=== PATIENT | female | born 1940 | race Caucasian/White ===

== ENCOUNTER → 2016-11-04 | Outpatient (CLI) | payer OTHER | LOC: CIMAGING 08:05 | DX: Z12.31 Encounter for screening mammogram for malignant neoplasm of breast (principal) | CPT/HCPCS: G0202 ==

== ENCOUNTER 2017-04-20 09:14 | Day surgery (SDC) | payer OTHER ==
[2017-04-20] MEDS ORDERED: fentaNYL 100 MCG/2 ML INJ IVP ONE (09:22)
[2017-04-20] MEDS ORDERED: FAMOTIDINE 20 MG TAB PO ONE (09:22)
[2017-04-20] MEDS ORDERED: BENZOCAINE UNIT DOSE SPRAY HURRICAINE MM ONE (09:22)
[2017-04-20] MEDS ORDERED: ASPIRIN EC 325 MG TAB PO ONE (09:22)
[2017-04-20] MEDS ORDERED: DIAZEPAM 5 MG TAB PO ONE (09:22)
[2017-04-20] MEDS ORDERED: MIDAZOLAM 2 MG/2 ML VIAL IVP ONE (09:22)
[2017-04-20] MEDS ORDERED: diphenhydrAMINE 25 MG CAP PO ONE (09:22)
[2017-04-20] MEDS ORDERED: NS 1,000 ML IV ONE (09:22)
--- NOTE | 2017-04-20 09:51 | CPEKG ---
Heart Rate: 63 RR Interval: 952 P-R Interval: 176 QRSD Interval: 108 QT Interval: 436 QTC Interval: 447 P [place]: 67 QRS [place]: -43 T Wave [place]: 41 EKG Severity - ABNORMAL ECG - EKG Impression: SINUS RHYTHM EKG Impression: LEFT ANTERIOR FASCICULAR BLOCK Electronically Signed By: Ignacio Amezcua 20-Apr-2017 11:25:24
[2017-04-20 10:11] LABS: % IMMATURE GRANULYOCYTES 0.4 % (0.0-1.1); ABSOLUTE IMMATURE GRANULOCYTES 0.02 10^3/uL (0.00-0.10); ADD DIFF? NO; ADD MORPH? NO; ADD SCAN? NO; ATYPICAL LYMPHOCYTE FLAG 0 (0-99); FRAGMENT RBC FLAG 0 (0-99); HEMATOCRIT 40.3 % (38.0-47.0); HEMOGLOBIN 13.6 g/dL (12.6-16.3); LEFT SHIFT FLG 0 (0-99); LIPEMIA HEMOLYSIS FLAG 80 (0-99); MEAN CELL HEMOGLOBIN 31.1 pg (27.9-34.1); MEAN CELL HEMOGLOBIN CONCENTR. 33.7 g/dL (32.4-36.7); MEAN PLATELET VOLUME 10.1 fL (8.7-11.7); PLATELET CLUMPS FLAG 0 (0-99); PLATELET COUNT 184 10^3/uL (150-400); RED BLOOD CELL COUNT 4.38 10^6/uL (4.18-5.33); RED CELL DISTRIBUTION WIDTH 12.8 % (11.5-15.2)
[2017-04-20 10:26] LABS: ANION GAP 7 mEq/L (8-16); CALCIUM 10.5 mg/dL (8.5-10.4); CARBON DIOXIDE 27 mEq/l (22-31); CHLORIDE 102 mEq/L (97-110); CHOLESTEROL 126 mg/dL (140-220); CHOLESTEROL/HDL RATIO 2.63 RATIO (1.00-4.44); CREATININE 0.9 mg/dL (0.6-1.0); GLOMERULAR FILTRATION RATE > 60; GLUCOSE 93 mg/dL (70-100); HIGH DENSITY LIPOPROTEIN 48 mg/dL (40-85); LDL/HDL RATIO 1.29 RATIO (1.00-3.22); LOW DENSITY LIPOPROTEIN 62 mg/dL (80-100); NON-HIGH DENSITY LIPOPROTEIN 78 mg/dL (90-129); SODIUM 136 mEq/L (134-144); TRIGLYCERIDE 81 mg/dL (35-135); VERY LOW DENSITY LIPOPROTEINS 16 mg/dL (8-25)
[2017-04-20 10:31] LABS: INR 1.09 (0.83-1.16)
[2017-04-20] MEDS ORDERED: PROPOFOL 200 MG/20 ML VIAL ONE (10:34)
--- NOTE | 2017-04-20 10:35 | PDHPUP ---
History & Physical Update H&P update statement: This history and physical update is based on an assessment of the patient which was completed after admission or registration (within 24 hours), but prior to the surgery/procedure. H&P update: H&P reviewed & patient examined, no change in patient's condition since H&P completed
[2017-04-20] MEDS ORDERED: fentaNYL 100 MCG/2 ML INJ ONE (10:36)
[2017-04-20] MEDS ORDERED: IOPAMIDOL (ISOVUE-370) 150 ML BTL IV ONE (10:36)
[2017-04-20] MEDS ORDERED: LIDOCAINE 1% 300 MG/30 ML SDV ONE (10:36)
[2017-04-20] MEDS ORDERED: MIDAZOLAM 2 MG/2 ML VIAL ONE (10:36)
--- NOTE | 2017-04-20 10:36 | PDPROPOC ---
Sedation Plan of Care Sedation Plan of Care: vital signs stable, mental status noted, patient educated of risks, benefits, alternatives ASA Classification: ASA 2 (Anesthesia servcie to provide sedation.) Mallampati Reference Image:
[2017-04-20] MEDS ORDERED: NALOXONE HCL 0.4 MG/ML INJ IVP PRN (10:56)
[2017-04-20] MEDS ORDERED: ONDANSETRON 4 MG/2 ML VIAL IVP PRN ×2 (10:56→12:14)
--- NOTE | 2017-04-20 10:56 | PDANEPAE ---
ANE Past Medical History - Cardiovascular History Hx Hypertension: Yes Hx Coronary Artery / Peripheral Vascular Disease: Yes Hx CHF / Valvular Disease: Yes - Pulmonary History Hx Sleep Apnea: No - Endocrine History Hx Diabetes: No - Chronic Pain History Chronic Pain: No ANE Review of Systems Review of Systems: ANE Patient History - Allergies Allergies/Adverse Reactions: NSAIDS (Non-Steroidal Anti-Inflamma Allergy (Verified 05/20/14 12:15) Sulfa (Sulfonamide Antibiotics) Allergy (Verified 05/20/14 12:15) - Home Medications Home Medications: Carisoprodol [Soma (*)] 350 mg PO DAILY PRN 04/03/14 [Last Taken 1 Month Ago ~] Cholecalciferol Vit D3 [Vitamin D3 (*)] 7,000 units PO DAILY 04/03/14 [Last Taken 04/19/17] Herbals/Supplements -Info Only 1 ea PO DAILY 04/03/14 [Last Taken 04/02/14] [place]-3 Fatty Acids [Fish Oil 1000 mg (*)] 2,000 mg PO BID 04/03/14 [Last Taken 04/19/17 09:00] traMADol [Ultram 50 mg (*)] 50 mg PO Q4 PRN 04/03/14 [Last Taken 2 Weeks Ago ~] Furosemide [Lasix 40 MG (*)] 40 mg PO DAILY 04/25/14 [Last Taken 04/19/17] Potassium Cl [Klor-Con 10 meq (RX)] 10 meq PO DAILY 04/25/14 [Last Taken ] Atorvastatin Calcium [Lipitor 10 mg (*)] 10 mg PO DAILY 04/20/17 [Last Taken ] Glucosamine/Chondroitin [Glucosamine/Chondroitin (*)] 1 each PO DAILY 04/20/17 [ Last Taken 04/19/17] - Smoking Hx Smoking Status: Former smoker ANE Labs/Vital Signs - Labs Result Diagrams: 04/20/17 10:03 04/20/17 10:03 - Vital Signs Height: 161.5 cm Weight: 90 kg ANE Physical Exam - Airway Mallampati Score: Class 2 - ASA Status ASA Status: III ANE Anesthesia Plan Total IV Anesthesia: Yes
--- NOTE | 2017-04-20 11:03 | PDGENHP ---
History & Physical Chief Complaint: Dyspnea on exertion History of Present Illness: Has h/o CAD and MR; has NYHA class II to III CHF symptoms. Discussed JEOVANNY/R&L heart cath at last office visit as a prelude to probable referral to CT surgery. Pertinent Past, Social, Family History: PMH is detailed in office note from on chart. Relevant Physical Exam: RRR w/o murmur; lungs CTA; no edema
--- NOTE | 2017-04-20 12:00 | PDDXCAT ---
Diagnostic Cath Note - . Date: 04/20/17 Virology Teacher: Avinash Indication: other (CAD with prior IL and circumflex PCI, mitral regurgitation, and NYHA class II to III CHF.) - Procedure Access: right groin Procedure: left heart catheterization, coronary angiography, left ventriculogram , right heart catheterization - Materials Left Heart Cath size: 6F Left Heart Cath materials: standard multipack (JL4, JR4, pigtail) Right Heart Cath size: 7F Right Heart Cath materials: PWP catheter - Findings-Left Heart Catheterization LM: Normal. LAD: Diffuse moderrate disease proximal to mid-vessel with focal mid-LAD 60 to 70%. LCX: Proximal 80% in-stent restenosis lesion; o/w mild irregularities. RCA: Mild to moderate irrregularities. EDP: 16 mmHg LVEF: 40% with significant mitral regurgitation. Wall motion: Inferobasilar and posterior akinesis. - Findings-Right Heart Catheterization RA: 12 mmHg RV: 36/12 mmHg PA: 38/10/24 mmHg O2 sat 79.3% PAOP: 20 mmHg AO: 102/44/66 mmHg O2 sat 98.7% CO: 4.58 L/min CI: 2.36 L/min/sq mtr Complications: None Estimated blood loss: <50ml Closure method: manual pressure Assessment: 1) Ischemic cardiomyopathy with mildly to moderately reduced LV systolic function. 2) Coronary artery disease as described above. 3) Severe mitral regurgitation based on left ventriculography and a JEOVANNY performed immediately prior to this procedure. Plan: The patient's clinical history and imaging studies will be presented at our next weekly case conference. I anticipate that she will be referred for mitral valve repair/replacement and coronary bypass grafting. Patient Problems: Problems Problem Status Onset Cardiomyopathy, ischemic Acute Chest pain Acute Chronic Disease Mgmt/Transitional Care Acute Coronary artery disease Acute Myocardial infarction, inferolateral, acute, initial episode Acute Systolic CHF, acute Acute
[2017-04-20] MEDS ORDERED: ATROPINE SULFATE 1 MG/10 ML SYR IVP PRN (12:14)
[2017-04-20] MEDS ORDERED: NITROGLYCERIN 0.4 MG BTL SL PRN (12:14)
[2017-04-20] MEDS ORDERED: HYDROCODONE/APAP 5/325 TAB PO PRN (12:14)
== END 2017-04-20 18:41 | disposition home or self-care (01) ==
LOC: FCATH 09:14
PROVIDERS: ATTEND Internal Medicine Interventional Cardiology
PROC: B245ZZ4 Ultrasonography of Left Heart, Transesophageal (ICD-10-PCS; principal; 2017-04-20)
PROC: B2111ZZ Fluoroscopy of Multiple Coronary Arteries using Low Osmolar Contrast (ICD-10-PCS; principal; 2017-04-20)
PROC: B2151ZZ Fluoroscopy of Left Heart using Low Osmolar Contrast (ICD-10-PCS; principal; 2017-04-20)
PROC: 4A023N8 Measurement of Cardiac Sampling and Pressure, Bilateral, Percutaneous Approach (ICD-10-PCS; principal; 2017-04-20)
DX: I25.10 Atherosclerotic heart disease of native coronary artery without angina pectoris (principal); I34.0 Nonrheumatic mitral (valve) insufficiency; I25.5 Ischemic cardiomyopathy; T82.855A Stenosis of coronary artery stent, initial encounter; I50.9 Heart failure, unspecified; I25.2 Old myocardial infarction; Z95.5 Presence of coronary angioplasty implant and graft
CPT/HCPCS: J1644; J2250; J2704; J3010; Q9967

== ENCOUNTER 2017-05-14 07:15 | Inpatient (IN) | payer OTHER ==
[~2017-05-14 07:15] MED LIST: ADENOSINE 6 MG/2 ML VIAL ONE; ALBUMIN 5% 250 ML BOTTLE IV ONE; AMINOCAPROIC ACID 5 GM/20 ML VIAL IV ONE; AMINOCAPROIC ACID 5 GM/20 ML VIAL ONE; AMIODARONE HCL 150 MG/3 ML VIAL ONE; CALCIUM CHLORIDE 1 GM/10 ML INJ ONE; CHLORHEXIDINE GLUC HIBICLENS 118 ML BTL TP SCH; CITRATE DEXTROSE SOLN 500 ML BAG MISC ONE; CITRATE DEXTROSE SOLN 500 ML BAG ONE; DOBUTamine/DEXTROSE 250 ML IV SCH; DOPamine/DEXTROSE/250 ML BAG IV ONE; HEPARIN 10,000 UNIT/10 ML MDV ONE; INSULIN REGULAR HUMAN 100 UNIT in NS 100 ML IV ONE; LIDOCAINE 2% 100 MG/5 ML SYR ONE; MAGNESIUM SULFATE 1 GM/2 ML VIAL ONE; MANNITOL 25% 12.5 GM/50 ML VIAL IV ONE; MILRINONE/DEXTROSE/100 ML BAG IV ONE; MUPIROCIN 2% 22 GM OINT NS ONE; NA BICARBONATE 50 MEQ/50 ML VIAL ONE; NOREPINEPHRINE BITARTRATE 16 MG in NS 250 ML IV ONE; PHENYLEPHRINE HCL 50 MG in NS 250 ML IV ONE; POTASSIUM Cl (KCl) 20 MEQ/50 ML BAG IV ONE; PROTAMINE SULFATE 50 MG/5 ML VIAL IVP ONE; SODIUM BICARBONATE 20 MEQ, LIDOCAINE 1% 10 ML in NORMOSOL-R 1,000 ML MISC ONE; VERAPAMIL 5 MG, NITROGLYCERIN 2.5 MG, HEPARIN 500 UNIT, SODIUM BICARBONATE 0.2 MEQ in L... MISC ONE; ceFAZolin 1 GM VIAL ONE; ceFAZolin 2 GM/SWFI 2 GM/20 ML SYR IVP ONE; methylPREDNISolone SOD SUCC 1 GM/8 ML VIAL ONE; niCARdipine/NACL 200 ML IV SCH; niCARdipine/NACL/200 ML BAG IV ONE
[2017-05-14] MEDS ORDERED: LIDOCAINE 1% 2 ML INJ ID PRN (10:49)
[2017-05-14] MEDS ORDERED: LR 1,000 ML IV ONE (10:49)
[2017-05-14] MEDS ORDERED: ROCURONIUM 100 MG/10 ML VIAL ONE (11:12)
[2017-05-14] MEDS ORDERED: LIDOCAINE 2% 5 ML SDV ONE (11:12)
[2017-05-14] MEDS ORDERED: ceFAZolin 2 GM/SWFI 20 ML SYR IVP ONE ×2 (11:15→11:45)
[2017-05-14] MEDS ORDERED: PROPOFOL 200 MG/20 ML VIAL ONE (11:16)
[2017-05-14] MEDS ORDERED: fentaNYL 250 MCG/5 ML INJ ONE ×2 (11:16)
[2017-05-14] MEDS ORDERED: PAPAVERINE HCL 60 MG/2 ML SDV ONE (11:22)
[2017-05-14] MEDS ORDERED: MINERAL OIL 10 ML VIAL ONE (11:22)
[2017-05-14] MEDS ORDERED: VERAPAMIL 5 MG/2 ML VIAL ONE (11:22)
--- NOTE | 2017-05-14 11:34 | PDHPUP ---
History & Physical Update H&P update statement: This history and physical update is based on an assessment of the patient which was completed after admission or registration (within 24 hours), but prior to the surgery/procedure.
[2017-05-14] MEDS ORDERED: MIDAZOLAM 2 MG/2 ML VIAL ONE (11:37)
[2017-05-14] MEDS ORDERED: MIDAZOLAM 2 MG/2 ML VIAL IVP ONE (11:41)
--- NOTE | 2017-05-14 11:41 | PDANEPAE ---
ANE History of Present Illness cab, mvr ANE Past Medical History - Cardiovascular History Hx Hypertension: Yes Hx Arrhythmias: No Hx Chest Pain: No Hx Coronary Artery / Peripheral Vascular Disease: Yes Hx CHF / Valvular Disease: Yes Cardiovascular History Comment: [facility] 2013-no chest pain w/VA - Pulmonary History Hx COPD: No Hx Asthma/Reactive Airway Disease: No Hx Recent Upper Respiratory Infection: No Hx Oxygen in Use at Home: No Hx Sleep Apnea: No Sleep Apnea Screening Result - Last Documented: Negative Pulmonary History Comment: can be SOB w/activity - Neurologic History Hx Cerebrovascular Accident: No Hx Seizures: No Hx Dementia: No - Endocrine History Hx Diabetes: No - Renal History Hx Renal Disorders: No - Liver History Hx Hepatic Disorders: No - Neurological & Psychiatric Hx Hx Neurological and Psychiatric Disorders: Yes Neurological / Psychiatric History Comment: low back pain-chronic - Cancer History Hx Cancer: No - Congenital Disorder History Hx Congenital Disorders: No - GI History Hx Gastrointestinal Disorders: Yes Gastrointestinal History Comment: on Protonix to protect stomach - Other Health History Other Health History: toenail fungus- uses topical tx. Sternum broken ~10 yrs ago. - Chronic Pain History Chronic Pain: No - Surgical History Prior Surgeries: mastoidectomy - at 8 mos of age. bunion sx . carpal kim '. cardiac cath 2016 ANE Review of Systems Review of Systems: - Exercise capacity METS (RN): 3 METS ANE Patient History - Allergies Allergies/Adverse Reactions: NSAIDS (Non-Steroidal Anti-Inflamma Allergy (Verified 05/13/17 13:58) Other-Enter Comments Sulfa (Sulfonamide Antibiotics) Allergy (Verified 05/13/17 13:58) Unknown - Home Medications Home Medications: Carisoprodol [Soma (*)] 350 mg PO DAILY PRN 04/03/14 [Last Taken 1 Month Ago ~] Cholecalciferol Vit D3 [Vitamin D3 (*)] 7,000 units PO DAILY 04/03/14 [Last Taken 04/19/17] Herbals/Supplements -Info Only 1 ea PO DAILY 04/03/14 [Last Taken 04/02/14] [place]-3 Fatty Acids [Fish Oil 1000 mg (*)] 2,000 mg PO BID 04/03/14 [Last Taken 04/19/17 09:00] traMADol [Ultram 50 mg (*)] 50 mg PO Q4 PRN 04/03/14 [Last Taken 2 Weeks Ago ~] Furosemide [Lasix 40 MG (*)] 40 mg PO DAILY 04/25/14 [Last Taken 04/19/17] Potassium Cl [Klor-Con 10 meq (RX)] 10 meq PO DAILY 04/25/14 [Last Taken ] Atorvastatin Calcium [Lipitor 10 mg (*)] 10 mg PO DAILY 04/20/17 [Last Taken ] Glucosamine/Chondroitin [Glucosamine/Chondroitin (*)] 1 each PO DAILY 04/20/17 [ Last Taken 04/19/17] - NPO status NPO Status: no food or drink >8 hours NPO Since - Liquids (Date): 05/13/17 NPO Since - Liquids (Time): 22:00 NPO Since - Solids (Date): 05/13/17 NPO Since - Solids (Time): 22:00 - Smoking Hx Smoking Status: Former smoker ANE Labs/Vital Signs - Vital Signs Blood Pressure: 169/91 Heart Rate: 86 Respiratory Rate: 18 O2 Sat (%): 93 Height: 162.56 cm Weight: 92 kg ANE Physical Exam - Airway Mallampati Score: Class 2 Mouth exam: normal dental/mouth exam - Pulmonary Pulmonary: no respiratory distress - Cardiovascular Cardiovascular: regular rate and rhythym - ASA Status ASA Status: III ANE Anesthesia Plan Anesthesia Plan: general endotracheal anesthesia Lines/Monitors: arterial line, central line, JEOVANNY
[2017-05-14] MEDS ORDERED: NITROGLYCERIN 50 MG/10 ML SDV IV ONE (13:05)
[2017-05-14] MEDS ORDERED: CITRATE DEXTROSE SOLN 500 ML BAG ONE (13:10)
[2017-05-14] MEDS ORDERED: ALBUMIN 5% 250 ML BOTTLE IV ONE (14:38)
[2017-05-14] MEDS ORDERED: MAGNESIUM SULF 2 GM/WATER 50 ML BAG IV ONE (14:38)
[2017-05-14] MEDS ORDERED: ALBUMIN 5% 500 ML BOTTLE IV ONE (16:51)
[2017-05-14] MEDS ORDERED: CEPACOL LOZENGE PO PRN (18:23)
[2017-05-14] MEDS ORDERED: MEPERIDINE 25 MG/ML SYR IVP PRN (18:23)
[2017-05-14] MEDS ORDERED: POLYETHYLENE GLYCOL 3350 17 GM PKT PO PRN (18:23)
[2017-05-14] MEDS ORDERED: PANTOPRAZOLE SODIUM 40 MG in NS 100 ML IV ONE (18:23)
[2017-05-14] MEDS ORDERED: MAGNESIUM SULF 2 GM/WATER 50 ML IV ONE (18:23)
[2017-05-14] MEDS ORDERED: ONDANSETRON DISINTEGRATING 4 MG TAB PO PRN (18:23)
[2017-05-14] MEDS ORDERED: METOCLOPRAMIDE 10 MG/2 ML VIAL IVP PRN (18:23)
[2017-05-14] MEDS ORDERED: ACETAMINOPHEN 650 MG SUPP PR PRN (18:23)
[2017-05-14] MEDS ORDERED: MAGNESIUM HYDROXIDE 30 ML UDCUP PO PRN (18:23)
[2017-05-14] MEDS ORDERED: ONDANSETRON 4 MG/2 ML VIAL IVP PRN (18:23)
[2017-05-14] MEDS ORDERED: fentaNYL 100 MCG/2 ML INJ IVP PRN (18:23)
[2017-05-14] MEDS ORDERED: BISACODYL 10 MG SUPP PR PRN (18:23)
[2017-05-14] MEDS ORDERED: D50W 25 GM/50 ML SYR IVP PRN (18:23)
[2017-05-14] MEDS ORDERED: SODIUM CL NASAL 45 ML BTL EACHNARE PRN (18:23)
[2017-05-14] MEDS ORDERED: LACTULOSE 20 GM/30 ML UDCUP PO PRN (18:23)
[2017-05-14] MEDS ORDERED: INSULIN REGULAR HUMAN 100 UNIT in NS 100 ML IV SCH (18:30)
[2017-05-14] MEDS ORDERED: NS 1,000 ML IV SCH (18:30)
[2017-05-14] MEDS ORDERED: NALOXONE HCL 0.4 MG/ML INJ IVP PRN (18:41)
--- NOTE | 2017-05-14 18:41 | POSTANESTH ---
Post Anesthetic Evaluation Cardiovascular Status: Other, See Comment (stable on dopa) Respiratory Status: Other, See Comment (stable on vent) Level of Consciousness/Mental Status: Mildly Sleepy, Arousable Pain Control: Adequate, Prn Tx Ordered Nausea/Vomiting Control: Adequate, Prn Tx Ordered Complications Possibly Related to Anesthesia: None Noted
--- NOTE | 2017-05-14 19:17 | CPEKG ---
Heart Rate: 104 RR Interval: 577 P-R Interval: 160 QRSD Interval: 122 QT Interval: 384 QTC Interval: 506 P [place]: 61 QRS [place]: -56 T Wave [place]: 112 EKG Severity - ABNORMAL ECG - EKG Impression: SINUS TACHYCARDIA EKG Impression: LEFT BUNDLE BRANCH BLOCK Electronically Signed By: Edward Da Silva 15-May-2017 19:33:12
[2017-05-14] MEDS ORDERED: ceFAZolin 2 GM/DEXTROSE 100 ML IV SCH (22:00)
[2017-05-14] MEDS: ceFAZolin 2 GM in D5W 100 ML IV SCH (22:36)
[2017-05-14] MEDS: POTASSIUM Cl (KCl) 50 ML IV PRN ×2 (22:43→23:47)
[2017-05-15] MEDS: ALBUMIN 5% 250 ML IV PRN ×2 (00:31→10:14)
[2017-05-15 00:37] LABS: CALCULATED OXYGEN SATURATION 88 % (92-95); O2 CONCENTRATIION 60 % (0-100)
[2017-05-15] MEDS: POTASSIUM Cl (KCl) 50 ML IV PRN ×2 (02:22→03:02)
--- NOTE | 2017-05-15 03:10 | GOP ---
[f rep st] OPERATIVE REPORT DATE OF OPERATION: 05/14/2017 SURGEON: Edward Aggarwal DO PRODUCTION UTILITY WORKER: ESCOBAR Locke. ANESTHESIOLOGIST: Tony Laurent MD PREOPERATIVE DIAGNOSIS: Mitral insufficiency, ischemic cardiomyopathy, and arteriosclerotic heart di sease, as well as morbid obesity. POSTOPERATIVE DIAGNOSIS: Mitral insufficiency, ischemic cardiomyopathy, and arteriosclerotic heart d isease, as well as morbid obesity. PROCEDURE PERFORMED: 1. Coronary artery bypass grafting x3 with left internal mammary artery to the left anterior descend ing, saphenous vein graft to the lateral circumflex, and saphenous vein graft to the right coronary a rtery. 2. Mitral valve replacement with chordal sparing, with a 27 Magna bioprosthesis. 3. AtriClip to the left atrial appendage. 4. Endoscopic vein in the left thigh. FINDINGS: DESCRIPTION OF PROCEDURE: The patient was consented for surgery, brought to the operating room, intu bated, monitoring lines were placed. Intraoperative echo revealed a posteriorly directed regurgitation with lack of coaptation of the leaf lets and marked prolapse of A2 and A3. There was also some thickening and calcification of the anter ior leaflet. Sternotomy was performed. She was heparinized, cannulated in standard fashion with bic aval cannulas. Cardiopulmonary bypass was begun and cardioplegic arrest was obtained with antegrade cardioplegia, retrograde cardioplegia, topical hypothermia, and systemic cooling. Initially, the circumflex, which was a 2.5 to 2.8 mm good quality vessel, was grafted with the proxim al anastomosis brought off the ascending aorta. We then grafted the main right coronary artery beyon d the lesion. It was a 3 mm to 3.5 mm good quality vessel, with a proximal anastomosis brought off t he ascending aorta. We then grafted the mammary to the mid LAD, which was a 2.8 mm excellent quality vessel, as was the mammary. It was tacked to the epicardium. We then placed a 40 mm AtriClip acros s the left atrial appendage, which was free of thrombus on echo. We then opened the left atrium through the right superior pulmonary vein. A retractor was placed. T here was evidence of large inferolateral infarction and appeared to be partially infarcted and scarre d posterior papillary muscle and some ruptured chordae to A2 and A3. I then placed circumferential a nnuloplasty suture rings. There was still inadequate coaptation, given the anterior leaflet. I omayra nstructed chordae to A2 and A3, and did a "magic" stitch of advancing the lateral commissure. Disten tion of the ventricle revealed no regurgitation and I was satisfied we had a good repair. This did t david some time due to the abnormal papillary muscle. The left atrium was closed. The cross-clamp was removed with suction on the ascending aortic vent, in Trendelenburg. The patient was then weaned fr om bypass when no further air was identified. Reviewing the echo revealed at least 2+ central regurgitation with adequate leaflet coaptation. Ther e had been a cleft in the anterior leaflet which I had closed and 2 in the posterior; however, I felt that it was a small fibroelastic valve with some thickening and some calcification is not going to b e a good long-term repair. I therefore re-arrested the heart, opened the left atrium, removed the ri ng, detached the anterior leaflet and did a chordal sparing mitral valve replacement with a 27 Magna bioprosthesis, utilizing Cor-Knots. The left atrium was closed again. The patient was deaired in Trendelenburg, the cross-clamp was removed with suction on the ascending a ortic vent, and aspiration through the LV apex. When no further air was identified, she was weaned f rom bypass. The valve functioned adequately. Heparin was reversed with protamine. The cannula was removed and oversewn. Two ventricular pacing wires, 2 pleural drains were placed. The thymic fat an d pericardium were closed. Chest was closed in standard fashion. The patient was returned to ICU in stable condition. /[id number]/MODL
[2017-05-15 05:27] LABS: HEMATOCRIT 28.6 % (38.0-47.0); HEMOGLOBIN 9.5 g/dL (12.6-16.3); MEAN CELL HEMOGLOBIN 31.3 pg (27.9-34.1); MEAN CELL HEMOGLOBIN CONCENTR. 33.2 g/dL (32.4-36.7); MEAN CELL VOLUME 94.1 fL (81.5-99.8); RED BLOOD CELL COUNT 3.04 10^6/uL (4.18-5.33); RED CELL DISTRIBUTION WIDTH 13.4 % (11.5-15.2)
[2017-05-15 05:40] LABS: INR 1.54 (0.83-1.16); PROTIME(PATIENT) 18.5 SEC (12.0-15.0)
[2017-05-15 05:53] LABS: ANION GAP 9 mEq/L (8-16); CARBON DIOXIDE 23 mEq/l (22-31); CHLORIDE 115 mEq/L (97-110); CREATININE 0.7 mg/dL (0.6-1.0); GLOMERULAR FILTRATION RATE > 60; GLUCOSE 113 mg/dL (70-100); POTASSIUM 4.3 mEq/L (3.5-5.2); SODIUM 147 mEq/L (134-144)
[2017-05-15] MEDS: ceFAZolin 2 GM in D5W 100 ML IV SCH ×3 (06:08→21:53)
[2017-05-15] MEDS: HEPARIN 5,000 UNIT/0.5 ML SYR SC SCH ×4 (06:08→21:53)
--- NOTE | 2017-05-15 08:18 | SOAPPROG ---
SOAP Progress Note Assessment/Plan: Assessment: POD#1 MVR #27 Magna bovine bioprosthesis, CABG x 3 (YAP-LAD, SV-OM , SV-RCA), EVH left thigh, prophylactic AtriClip ligation BELKIS Progressive CAD/occl LCX stent - s/p CABG x 3. No tachyarrhythmias. Intermittent Vpacing for SB. No antinodals for now. Secondary prevention with ASA, BB as allowed by HR and BP, and statin when eating well. 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 Repair attempted but unsuccessful and 2nd pump run required to replace valve. Empirically from CPB on low dose dopa and rested on the vent overnoc. Currently on CPAP and appears to be nearing extubation. Antithrombotic prophylaxis with Coumadin when coagulopathy resolved. Target INR 2-3. Duration 3 mo if rhythm stable. Ischemic cardiomyopathy with chronic class II sCHF - s/p remote lateral [place]. LVEF preop ~40%. Preserved LV systolic fx post revasc. No significant volume overload or inotropic support. Staggered intro of heart failure meds as appropriate. Postop PAF - Episodic. Controlled vent response. ? exacerbated by dopa. No antinodals given intermittent backup pacing. Acute expected blood loss anemia with thrombocytopenia and mild coagulopathy - Stable. No blood products transfused. Care with VTE prophylaxis while platelets depressed. Plan: Extubation per ICU. Routine POD#1 orders re. lines, drains, and mobility once extubated. Aggressive dopa wean. Colloid prn CVP < 10. Strict NPO until orals cleared by OFFSET PLATE PREPARATION SUPERVISOR. 05/15/17 08:15 Subjective: Awake and alert on vent. Wants tube out. Objective: Vital Signs Temp Pulse Resp BP Pulse Ox 37.3 C 72 14 126/49 H 97 05/15/17 07:00 05/15/17 07:00 05/15/17 07:00 05/15/17 07:00 05/15/17 07:00 Laboratory Results 05/15/17 05:10 05/15/17 05:10 05/14/17 05/15/17 05/16/17 05:59 05:59 05:59 Intake Total 1279.6 Output Total 2590 Balance -1310.4 PT 18.5 SEC (12.0-15.0) H 05/15/17 05:10 INR 1.54 (0.83-1.16) H 05/15/17 05:10 Dopa @ 3 mcg. Vent FIO2 40%. SR/SB. Backup Vpacing at 60 intermittently triggered. Episodic PAF. No RVR. MAPs generally > 70. CXR-> no PTX, mild pulm vasc congestion, tiny left pl effusion No sig CTOP. Adequate fluid balance. Labs as expected. Physical Exam - Physical Exam General Appearance: alert, no apparent distress Respiratory: lungs clear (grossly), other (blakes x 2 y-d to pleurovac, serosang drainage, no air leak) Cardiac/Chest: regular rate, rhythm, other (Sternotomy and LLE venotomy CDI. Vwires intact.) Abdomen: non-tender, soft Skin: warm/dry Extremities: swelling (trace) ICD10 Worksheet Patient Problems: Problems Problem Status Onset Acute blood loss anemia Acute S/P CABG x 3 Acute ~05/14/17 S/P mitral valve replacement with bioprosthetic valve Acute ~05/14/17 Chronic systolic CHF (congestive heart failure), NYHA class 2 Chronic Chronic Disease Mgmt/Transitional Care Acute Severe mitral regurgitation Acute Cardiomyopathy, ischemic Chronic Coronary artery disease Chronic
[2017-05-15] MEDS ORDERED: PANTOPRAZOLE SODIUM 40 MG TAB PO SCH (09:00)
[2017-05-15] MEDS ORDERED: ASPIRIN 81 MG CHEWABLE TAB TUBE PRN (09:00)
[2017-05-15] MEDS ORDERED: ASPIRIN 81 MG CHEWABLE TAB PO SCH (09:00)
[2017-05-15] MEDS: HYDROCODONE/APAP 5/325 TAB PO PRN ×3 (13:37→20:27)
--- NOTE | 2017-05-15 14:50 | ASMTCMCOM ---
CM Note CM Note Notes: 05/15/2017 Case Management Note Reviewed chart, spoke with RN. Met w/pt and daughter Tea and young grand daughter. Daughter Christi owns acreage in [place]. Pt lives on same acreage as daughter Christi but in her own home. 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 She grocery shops and often makes dinner for the entire family. Provided basic info for pt and Tea regarding 3 possible d/c scenarios: cardiac outpatient rehab, SNF rehab as well as Home Care. Case Management d/c needs are to be determined. Case Management to follow as recovery progresses to help determine d/c needs. Date Signed: 05/15/2017 02:50 PM Electronically Signed By:Mirella Adrian RN
[2017-05-15 15:25] LABS: POTASSIUM 4.6 mEq/L (3.5-5.2)
[2017-05-15] MEDS: traMADol 50 MG TAB PO PRN (16:16)
[2017-05-15] MEDS: KETOROLAC 15 MG/1 ML SDV IVP SCH ×2 (16:49→22:31)
[2017-05-15 18:49] LABS: POTASSIUM 4.9 mEq/L (3.5-5.2)
[2017-05-15] MEDS ORDERED: FUROSEMIDE 20 MG TAB PO ONE (20:45)
[2017-05-15 20:59] LABS: ANION GAP 10 mEq/L (8-16); CARBON DIOXIDE 24 mEq/l (22-31); CHLORIDE 110 mEq/L (97-110); CREATININE 0.9 mg/dL (0.6-1.0); GLOMERULAR FILTRATION RATE > 60; GLUCOSE 139 mg/dL (70-100); POTASSIUM 4.7 mEq/L (3.5-5.2); SODIUM 144 mEq/L (134-144)
[2017-05-16] MEDS: HYDROCODONE/APAP 5/325 TAB PO PRN ×3 (02:28→19:20)
[2017-05-16] MEDS: KETOROLAC 15 MG/1 ML SDV IVP SCH (05:12)
[2017-05-16 05:20] LABS: HEMATOCRIT 24.5 % (38.0-47.0); MEAN CELL HEMOGLOBIN 31.3 pg (27.9-34.1); MEAN CELL HEMOGLOBIN CONCENTR. 32.7 g/dL (32.4-36.7); MEAN CELL VOLUME 95.7 fL (81.5-99.8); RED BLOOD CELL COUNT 2.56 10^6/uL (4.18-5.33); RED CELL DISTRIBUTION WIDTH 13.5 % (11.5-15.2)
[2017-05-16 05:30] LABS: INR 1.43 (0.83-1.16); PROTIME(PATIENT) 17.4 SEC (12.0-15.0)
[2017-05-16 05:32] LABS: ANION GAP 10 mEq/L (8-16); CALCIUM 9.1 mg/dL (8.5-10.4); CARBON DIOXIDE 26 mEq/l (22-31); CHLORIDE 109 mEq/L (97-110); CREATININE 0.8 mg/dL (0.6-1.0); GLOMERULAR FILTRATION RATE > 60; GLUCOSE 143 mg/dL (70-100); POTASSIUM 4.4 mEq/L (3.5-5.2); SODIUM 145 mEq/L (134-144)
[2017-05-16] MEDS: HEPARIN 5,000 UNIT/0.5 ML SYR SC SCH (05:52)
[2017-05-16] MEDS: ceFAZolin 2 GM in D5W 100 ML IV SCH (05:53)
--- NOTE | 2017-05-16 08:12 | SOAPPROG ---
SOAP Progress Note Assessment/Plan: Assessment: POD#2 MVR #27 Magna bovine bioprosthesis, CABG x 3 (YAP-LAD, SV-OM , SV-RCA), EVH left thigh, prophylactic AtriClip ligation BELKIS Progressive CAD/occl LCX stent - s/p CABG x 3. No tachyarrhythmias. Intermittent Vpacing for SB. No antinodals for now. Secondary prevention with ASA, BB as allowed by HR and BP, and statin when eating well. 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 Repair attempted but unsuccessful and 2nd pump run required to replace valve. Empirically from CPB on low dose dopa and rested on the vent overnoc. Extubated yest without incident. Unable to fully wean off dopa. Antithrombotic prophylaxis with Coumadin when coagulopathy resolved. Target INR 2-3. Duration 3 mo if rhythm stable. Ischemic cardiomyopathy with chronic class II sCHF - s/p remote lateral [place]. LVEF preop ~40%. Preserved LV systolic fx post revasc. No significant volume overload or inotropic support. Staggered intro of heart failure meds as appropriate. Postop PAF - Episodic. Controlled vent response. No antinodals given intermittent backup pacing. Acute expected blood loss anemia with thrombocytopenia and mild coagulopathy - Stable. No blood products transfused. Care with VTE prophylaxis while platelets depressed. Postop urinary retention - Exacerbated by relative immobility and narc analgesia. Intermittent straight cath prn. Plan: Convert blakes to bulb suction. Stop dopa. Transfuse 1u PRBC prn SBP < 100. Cont gentle diuresis. Reduce backup Vpace to 44. Start coumadin tomorrow if no pacing. Probable transfer to PCU this afternoon. 05/16/17 08:09 Subjective: Much better than yest. Steady on her feet. Able to take a deep breath more comfortably. Hungry. Objective: Vital Signs Temp Pulse Resp BP Pulse Ox 36.2 C 76 20 119/57 L 93 05/16/17 04:00 05/16/17 07:00 05/16/17 07:00 05/16/17 07:00 05/16/17 07:00 Laboratory Results 05/16/17 05:10 05/16/17 05:10 05/15/17 05/16/17 05/17/17 05:59 05:59 05:59 Intake Total 1279.6 2274.9 Output Total 2590 1823 Balance -1310.4 451.9 PT 17.4 SEC (12.0-15.0) H 05/16/17 05:10 INR 1.43 (0.83-1.16) H 05/16/17 05:10 Dopa @ 2 mcg overnoc for MAP < 65 and oliguria. HR mostly sinus 70s, occ dip below 60 triggering Vpace. 2-4L suppl O2 req. CXR-> no PTX, hypovent, bibasilar atelectasis, small left pl effusion, mild pulm vasc congestion. No sig CTOP. Blakes kept to pleurovac yest for small air leak. None visible this am w good cough. Improved UOP post dopa, IV lasix (and straight cath for 890). Downward drift in H/H and platelets. INR cont to correct. Physical Exam - Physical Exam General Appearance: alert, no apparent distress Respiratory: crackles (bilat bases), other (blakes x 2 y-d to pleurovac, serosang drainage, no tidal, no air leak) Cardiac/Chest: regular rate, rhythm, other (Sternotomy and LLE venotomy CDI. Vwire intact.) Abdomen: non-tender, soft Skin: warm/dry Extremities: swelling (trace-1+) ICD10 Worksheet Patient Problems: Problems Problem Status Onset Acute blood loss anemia Acute S/P CABG x 3 Acute ~05/14/17 S/P mitral valve replacement with bioprosthetic valve Acute ~05/14/17 Chronic systolic CHF (congestive heart failure), NYHA class 2 Chronic Chronic Disease Mgmt/Transitional Care Acute Severe mitral regurgitation Acute Cardiomyopathy, ischemic Chronic Coronary artery disease Chronic
[2017-05-16] MEDS: SENNOSIDES/DOCUSATE SODIUM TAB PO SCH ×2 (09:27→19:20)
[2017-05-16] MEDS: ASPIRIN EC 81 MG TAB PO SCH (09:28)
[2017-05-16] MEDS: PANTOPRAZOLE SODIUM 40 MG TAB PO SCH (09:28)
[2017-05-16 09:42] LABS: HEMATOCRIT 24.4 % (38.0-47.0)
[2017-05-16] MEDS ORDERED: KETOROLAC 15 MG/1 ML SDV IVP PRN (10:38)
[2017-05-16] MEDS ORDERED: oxyCODONE IR 5 MG TAB PO PRN (12:00)
[2017-05-16 22:54] LABS: ANION GAP 8 mEq/L (8-16); CALCIUM 9.6 mg/dL (8.5-10.4); CARBON DIOXIDE 24 mEq/l (22-31); CHLORIDE 102 mEq/L (97-110); CREATININE 0.9 mg/dL (0.6-1.0); GLOMERULAR FILTRATION RATE > 60; GLUCOSE 113 mg/dL (70-100); POTASSIUM 4.5 mEq/L (3.5-5.2); SODIUM 134 mEq/L (134-144)
[2017-05-17] MEDS: HYDROCODONE/APAP 5/325 TAB PO PRN ×5 (00:52→22:27)
[2017-05-17 04:39] LABS: HEMATOCRIT 25.3 % (38.0-47.0); HEMOGLOBIN 8.6 g/dL (12.6-16.3); MEAN CELL HEMOGLOBIN 31.9 pg (27.9-34.1); MEAN CELL VOLUME 93.7 fL (81.5-99.8); RED BLOOD CELL COUNT 2.7 10^6/uL (4.18-5.33); RED CELL DISTRIBUTION WIDTH 13.7 % (11.5-15.2)
[2017-05-17 04:47] LABS: INR 1.21 (0.83-1.16); PROTIME(PATIENT) 15.3 SEC (12.0-15.0)
[2017-05-17 04:51] LABS: ANION GAP 7 mEq/L (8-16); CALCIUM 9.7 mg/dL (8.5-10.4); CARBON DIOXIDE 25 mEq/l (22-31); CHLORIDE 104 mEq/L (97-110); CREATININE 0.9 mg/dL (0.6-1.0); GLOMERULAR FILTRATION RATE > 60; GLUCOSE 104 mg/dL (70-100); POTASSIUM 4.7 mEq/L (3.5-5.2); SODIUM 136 mEq/L (134-144)
--- NOTE | 2017-05-17 07:10 | SOAPPROG ---
SOAP Progress Note Assessment/Plan: POD#3 MVR #27 Magna bovine bioprosthesis, CABG x 3 (YAP-LAD, SV-OM, SV-RCA), EVH left thigh, prophylactic AtriClip ligation BELKIS Progressive CAD/occl LCX stent - s/p CABG x 3. No tachyarrhythmias. Intermittent Vpacing for SB. No antinodals for now. Secondary prevention with ASA, BB as allowed by HR and BP, and statin when eating well. 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 Repair attempted but unsuccessful and 2nd pump run required to replace valve. Empirically from CPB on low dose dopa and rested on the vent overnoc. Extubated without incident and dopamine weaned off. Antithrombotic prophylaxis with Coumadin when coagulopathy resolved. Target INR 2-3. Duration 3 mo if rhythm stable. Ischemic cardiomyopathy with chronic class II sCHF - s/p remote lateral [place]. LVEF preop ~40%. Preserved LV systolic fx post revasc. No significant volume overload or inotropic support. Staggered intro of heart failure meds as appropriate. Postop PAF - Episodic. Controlled vent response. No antinodals given intermittent backup pacing. Acute expected blood loss anemia with thrombocytopenia and mild coagulopathy - s /p 1U PRBC. Care with VTE prophylaxis while platelets depressed. Postop urinary retention - Exacerbated by relative immobility and narc analgesia. Intermittent straight cath prn. Subjective: Comfortable. No SOB/CP. Objective: Vital Signs Temp Pulse Resp BP Pulse Ox 36.6 C 64 15 118/55 L 96 05/17/17 04:00 05/17/17 06:00 05/17/17 06:00 05/17/17 06:00 05/17/17 06:00 Laboratory Results 05/17/17 04:10 05/17/17 04:10 05/16/17 05/17/17 05/18/17 05:59 05:59 05:59 Intake Total 2274.9 1980 Output Total 1823 710 Balance 451.9 1270 PT 15.3 SEC (12.0-15.0) H 05/17/17 04:10 INR 1.21 (0.83-1.16) H 05/17/17 04:10 Physical Exam - Physical Exam General Appearance: WD/WN, alert, no apparent distress, obese EENT: No scleral icterus (R), No scleral icterus (L) Neck: normal inspection Respiratory: No respiratory distress Cardiac/Chest: regular rate, rhythm Abdomen: non-tender, soft, distended Skin: normal color, warm/dry Extremities: No pedal edema Neuro/Psych: no motor/sensory deficits, alert, normal mood/affect, oriented x 3 ICD10 Worksheet Patient Problems: Problems Problem Status Onset Acute blood loss anemia Acute S/P CABG x 3 Acute ~05/14/17 S/P mitral valve replacement with bioprosthetic valve Acute ~05/14/17 Chronic systolic CHF (congestive heart failure), NYHA class 2 Chronic Chronic Disease Mgmt/Transitional Care Acute Severe mitral regurgitation Acute Cardiomyopathy, ischemic Chronic Coronary artery disease Chronic
[2017-05-17] MEDS ORDERED: FUROSEMIDE 40 MG TAB PO SCH ×2 (09:00)
[2017-05-17] MEDS: GLUCOSAMINE/CHONDROITIN CAP PO SCH (09:10)
[2017-05-17] MEDS: SENNOSIDES/DOCUSATE SODIUM TAB PO SCH ×2 (09:10→22:28)
[2017-05-17] MEDS: POTASSIUM CL 10 MEQ TAB PO SCH (09:11)
[2017-05-17] MEDS: ATORVASTATIN CALCIUM 10 MG TAB PO SCH (09:11)
[2017-05-17] MEDS: ASPIRIN EC 81 MG TAB PO SCH (09:11)
[2017-05-17] MEDS: PANTOPRAZOLE SODIUM 40 MG TAB PO SCH (09:11)
[2017-05-17] MEDS: VITAMIN B COMPLEX 1 EA CAP/TAB PO SCH (09:11)
[2017-05-17] MEDS: CHOLECALCIFEROL VIT D3 1,000 UNITS TAB PO SCH (09:11)
[2017-05-17] MEDS: traMADol 50 MG TAB PO PRN ×4 (09:22→22:27)
[2017-05-17] MEDS ORDERED: WARFARIN SODIUM 5 MG TAB PO ONE (16:00)
--- NOTE | 2017-05-17 16:20 | ASMTCMCOM ---
CM Note CM Note Notes: 05/17/2017 Case Management Note Met w/pt to discuss PT recommendations for SNF rehab. Pt in agreement. Pt requested [facility] d/t [facility] to [facility]. Sent referral to [facility], waiting for authorization from [facility]. Case Management d/c poc: to [facility] pending authorization when medically stable. Case Management to follow. Date Signed: 05/17/2017 04:20 PM Electronically Signed By:Mirella Adrian RN
[2017-05-17] MEDS: OMEGA-3 FATTY ACIDS 1,000 MG CAP PO SCH (22:26)
[2017-05-17] MEDS: LOSARTAN POTASSIUM 25 MG TAB PO SCH (22:26)
[2017-05-18 04:58] LABS: INR 1.41 (0.83-1.16); POTASSIUM 4.2 mEq/L (3.5-5.2); PROTIME(PATIENT) 17.2 SEC (12.0-15.0)
--- NOTE | 2017-05-18 07:10 | SOAPPROG ---
SOAP Progress Note Assessment/Plan: Assessment: POD#4 MVR #27 Magna bovine bioprosthesis, CABG x 3 (YAP-LAD, SV-OM , SV-RCA), EVH left thigh, prophylactic AtriClip ligation BELKIS Progressive CAD/occl LCX stent - s/p CABG x 3. No tachyarrhythmias. Early postop intermittent Vpacing for SB and antinodals avoided. Steady rise in HR, consistently > 70 last 12h. Secondary prevention with ASA, statin, and BB as allowed by HR and BP. 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 Repair attempted but unsuccessful and 2nd pump run required to replace valve. Empirically from CPB on low dose dopa and rested on the vent overnoc. Extubated POD#1 without incident. Fully weaned off dopa by POD#2. Antithrombotic prophylaxis with Coumadin. Target INR 2-3. Duration 3 mo if rhythm stable. Ischemic cardiomyopathy with chronic class II sCHF - s/p remote lateral [place]. LVEF preop ~40%. Preserved LV systolic fx post revasc. No significant volume overload or inotropic support. Staggered intro of heart failure meds as appropriate. Postop PAF - Episodic POD#1. Controlled vent response. No arrhythmia last 48h. BB challenge planned. Acute expected blood loss anemia with thrombocytopenia and mild coagulopathy - Stable s/p 1u PRBC. Platelet rebound evident. Appropriate response to Coumadin. Follow. Postop urinary retention - Exacerbated by relative immobility and narc analgesia. Appears to have resolved. Plan: Vwire clipped. Pleural tube removed. Cont Coumadin 5 mg daily. Switch today's Lasix dose to IV. Restart Coreg. 3.125 mg BID. Inc activity. Dispo - SNF ([facility]) next 1-2 days. 05/18/17 07:09 Subjective: Tired. Appetite so so. Adequate analgesia. Objective: Vital Signs Temp Pulse Resp BP Pulse Ox 36.6 C 83 20 159/74 H 93 05/18/17 04:00 05/18/17 04:00 05/18/17 04:00 05/18/17 04:00 05/18/17 04:00 Laboratory Results 05/18/17 04:30 05/18/17 04:30 05/17/17 05/18/17 05/19/17 05:59 05:59 05:59 Intake Total 1980 700 Output Total 710 400 Balance 1270 300 PT 17.2 SEC (12.0-15.0) H 05/18/17 04:30 INR 1.41 (0.83-1.16) H 05/18/17 04:30 Holding SR. Rates steadily improving. Upward SBP creep. Min suppl O2 req. CXR-> No PTX w chest tube clamped. Positive fluid balance with meager UOP. No apparent retention. Labs as expected. Physical Exam - Physical Exam General Appearance: alert, no apparent distress Respiratory: lungs clear, other (Jarred to pleural tube, serosang drainage, + tidal, no AL; tube removed without incident.) Cardiac/Chest: regular rate, rhythm, other (Sternum grossly stable. Sternotomy and LLE venotomy CDI. Vwire clipped.) Abdomen: non-tender, soft Skin: warm/dry Extremities: swelling (trace) ICD10 Worksheet Patient Problems: Problems Problem Status Onset Acute blood loss anemia Acute S/P CABG x 3 Acute ~05/14/17 S/P mitral valve replacement with bioprosthetic valve Acute ~05/14/17 Chronic systolic CHF (congestive heart failure), NYHA class 2 Chronic Chronic Disease Mgmt/Transitional Care Acute Severe mitral regurgitation Acute Cardiomyopathy, ischemic Chronic Coronary artery disease Chronic
[2017-05-18] MEDS ORDERED: FUROSEMIDE 40 MG/4 ML VIAL IVP ONE (07:36)
[2017-05-18] MEDS: CARVEDILOL 3.125 MG TAB PO SCH ×2 (09:08→17:56)
[2017-05-18] MEDS: HYDROCODONE/APAP 5/325 TAB PO PRN ×2 (09:08→14:08)
[2017-05-18] MEDS: OMEGA-3 FATTY ACIDS 1,000 MG CAP PO SCH ×2 (09:08→21:09)
[2017-05-18] MEDS: ATORVASTATIN CALCIUM 10 MG TAB PO SCH (09:09)
[2017-05-18] MEDS: LOSARTAN POTASSIUM 25 MG TAB PO SCH (09:09)
[2017-05-18] MEDS: ASPIRIN EC 81 MG TAB PO SCH (09:09)
[2017-05-18] MEDS: POTASSIUM CL 10 MEQ TAB PO SCH (09:10)
[2017-05-18] MEDS: SENNOSIDES/DOCUSATE SODIUM TAB PO SCH ×2 (09:10→19:54)
[2017-05-18] MEDS: PANTOPRAZOLE SODIUM 40 MG TAB PO SCH (09:10)
[2017-05-18] MEDS: VITAMIN B COMPLEX 1 EA CAP/TAB PO SCH (09:10)
[2017-05-18] MEDS: CHOLECALCIFEROL VIT D3 1,000 UNITS TAB PO SCH (09:10)
[2017-05-18] MEDS: GLUCOSAMINE/CHONDROITIN CAP PO SCH (09:10)
--- NOTE | 2017-05-18 12:59 | ECHO ---
[email or web address] [address] Main: [phone] Fax: Transthoracic Echocardiogram Name: BRITTNI MARSHALL MR#: [id number] Study Date: 05/18/2017 Study Time: 12:04 PM Date of : 1940 Age: 77 year(s) Height: 162.6 cm (64 in.) Weight: 97.07 kg (214 lb.) BSA: 2.01 m2 Gender: Female Examination: Echo Indication: S/P MVR, #27 Magna bioprosthesis, CABG Image Quality: Contrast: Requested by: Marlo Castillo BP: 114 mmHg/50 mmHg Heart Rate: Rhythm: Normal sinus rhythm Indication: S/P MVR, #27 Magna bioprosthesis, CABG Procedure Staff Chronometer Assembler: Ramon Santos Reading Physician: Edward Da Silva Requesting Provider: Conclusions: Normal size left ventricle. There is inferior/inferioseptal dyskinesis. The ejection fraction is estimated to be 50-55 %. The left atrium is mildly to moderately dilated. A bioprosthetic mitral valve is in place.. The aortic valve is normal in appearance and function. No pericardial effusion. There is no mitral valve regurgitation. Measurements: Chambers Valvular Assessment AV/MV Valvular Assessment TV/PV Normal Normal Normal Name Value Range Name Value Range Name Value Range Ao Naomi (MM): 4.1 cm (2.2 cm-3.7 AV Vmax: 1.53 m/s (1 m/s-1.7 PV Vmax: 0.81 m/s (0.6 m/s-0.9 cm) m/s) m/s) IVSd (2D): 1.2 cm (0.6 cm-1.1 AV maxP mmHg ( - ) PV PGmax: 3 mmHg ( - ) cm) LVOT Vmax: 0.75 m/s (0.7 m/s-1.1 LVDd (2D): 5.2 cm (3.9 cm-5.3 m/s) cm) MV E Vmax: 1.43 m/s ( - ) LVDs (2D): 3.8 cm (2.1 cm-4 MV A Vmax: 1.13 m/s ( - ) cm) MV E/A: 1.27 ( - ) LVPWd (2D): 1.1 cm ( - ) MV maxP mmHg ( - ) LVEF (BP): 56 % (>=55 %) MV meanP mmHg ( - ) EF Range: 50-55 % MV PHT: 0.119 s ( - ) MVA (PHT): 1.8 s ( - ) Continued Measurements: Chambers Valvular Assessment AV/MV Patient: BRITTNI MARSHALL Study Date: 05/18/2017 Page 1 of 2 12:04 PM Name Value Name Value LADs Lon.3 cm MV VTI: 64.70 cm LA Area: 20.8 cm2 Findings: Left Ventricle: Normal size left ventricle. Low normal left ventricular systolic function. There is inferior/inferioseptal dyskinesis. The ejection fraction is estimated to be 50-55 %. Right Ventricle: Normal size right ventricle. Normal RV function. Left Atrium: The left atrium is mildly to moderately dilated. Right Atrium: The right atrium is mildly dilated. Mitral Valve: There is no mitral valve regurgitation. A bioprosthetic mitral valve is in place.. #27 magna bioprosthesis Aortic Valve: The aortic valve is normal in appearance and function. No aortic valve stenosis is present. There is no aortic valve regurgitation. Tricuspid Valve: The tricuspid valve is normal in appearance and function. Pulmonic Valve: The pulmonic valve is normal in appearance and function. Aorta: The aorta is normal. Pericardium: No pericardial effusion. (No Signature Object) Patient: BRITTNI MARSHALL Study Date: 05/18/2017 Page 2 of 2 12:04 PM [id number]
--- NOTE | 2017-05-18 14:10 | ASMTCMCOM ---
CM Note CM Note Notes: 05/18/2017 Case Management Note Per Rhianna after onsite visit today, pt accepted at [facility]. Case Management d/c poc: to [facility] when medically stable. Case Managment to follow. Date Signed: 05/18/2017 02:09 PM Electronically Signed By:Mirella Adrian RN
[2017-05-18] MEDS ORDERED: WARFARIN SODIUM 5 MG TAB PO ONE (16:00)
[2017-05-19 03:54] LABS: HEMATOCRIT 23.9 % (38.0-47.0); HEMOGLOBIN 8.1 g/dL (12.6-16.3); MEAN CELL HEMOGLOBIN 32.3 pg (27.9-34.1); MEAN CELL HEMOGLOBIN CONCENTR. 33.9 g/dL (32.4-36.7); MEAN CELL VOLUME 95.2 fL (81.5-99.8); RED BLOOD CELL COUNT 2.51 10^6/uL (4.18-5.33); RED CELL DISTRIBUTION WIDTH 13.5 % (11.5-15.2)
[2017-05-19 04:05] LABS: ANION GAP 4 mEq/L (8-16); CALCIUM 9.7 mg/dL (8.5-10.4); CARBON DIOXIDE 29 mEq/l (22-31); CHLORIDE 101 mEq/L (97-110); CREATININE 0.7 mg/dL (0.6-1.0); GLOMERULAR FILTRATION RATE > 60; GLUCOSE 98 mg/dL (70-100); INR 2.03 (0.83-1.16); POTASSIUM 4.3 mEq/L (3.5-5.2); PROTIME(PATIENT) 23.1 SEC (12.0-15.0); SODIUM 134 mEq/L (134-144)
[2017-05-19] MEDS: traMADol 50 MG TAB PO PRN ×2 (06:02→15:49)
--- NOTE | 2017-05-19 07:38 | SOAPPROG ---
SOAP Progress Note Assessment/Plan: POD#5 MVR #27 Magna bovine bioprosthesis, CABG x 3 (YAP-LAD, SV-OM, SV-RCA), EVH left thigh, prophylactic AtriClip ligation BELKIS Progressive CAD/occl LCX stent - s/p CABG x 3. No tachyarrhythmias. Intermittent Vpacing for SB. No antinodals for now. Secondary prevention with ASA, BB as allowed by HR and BP, and statin when eating well. 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 Repair attempted but unsuccessful and 2nd pump run required to replace valve. Empirically from CPB on low dose dopa and rested on the vent overnoc. Extubated without incident and dopamine weaned off. Antithrombotic prophylaxis with Coumadin when coagulopathy resolved. Target INR 2-3. Duration 3 mo if rhythm stable. Ischemic cardiomyopathy with chronic class II sCHF - s/p remote lateral CA. LVEF preop ~40%. Preserved LV systolic fx post revasc. No significant volume overload or inotropic support. Staggered intro of heart failure meds as appropriate. Postop PAF - Episodic. Controlled vent response. No antinodals given intermittent backup pacing. Acute expected blood loss anemia with thrombocytopenia and mild coagulopathy - s /p 1U PRBC. Care with VTE prophylaxis while platelets depressed. Postop urinary retention - Exacerbated by relative immobility and narc analgesia. Intermittent straight cath prn. Subjective: Feels tired. Having vivid dreams and sleeping well. Objective: Vital Signs Temp Pulse Resp BP Pulse Ox 37.2 C 76 20 153/68 H 98 05/19/17 04:00 05/19/17 04:00 05/19/17 04:00 05/19/17 04:00 05/19/17 04:00 Laboratory Results 05/19/17 03:30 05/19/17 03:30 05/18/17 05/19/17 05/20/17 05:59 05:59 05:59 Intake Total 700 1650 Output Total 400 1325 Balance 300 325 PT 23.1 SEC (12.0-15.0) H 05/19/17 03:30 INR 2.03 (0.83-1.16) H 05/19/17 03:30 Physical Exam - Physical Exam General Appearance: WD/WN, alert, no apparent distress EENT: No scleral icterus (R), No scleral icterus (L) Neck: normal inspection Respiratory: No respiratory distress Cardiac/Chest: regular rate, rhythm Abdomen: non-tender, soft, No distended Skin: normal color, warm/dry Extremities: No pedal edema Neuro/Psych: no motor/sensory deficits, alert, normal mood/affect, oriented x 3 ICD10 Worksheet Patient Problems: Problems Problem Status Onset Acute blood loss anemia Acute S/P CABG x 3 Acute ~05/14/17 S/P mitral valve replacement with bioprosthetic valve Acute ~05/14/17 Chronic systolic CHF (congestive heart failure), NYHA class 2 Chronic Chronic Disease Mgmt/Transitional Care Acute Severe mitral regurgitation Acute Cardiomyopathy, ischemic Chronic Coronary artery disease Chronic
[2017-05-19] MEDS ORDERED: FUROSEMIDE 40 MG/4 ML VIAL IVP ONE (07:59)
[2017-05-19] MEDS: CHOLECALCIFEROL VIT D3 1,000 UNITS TAB PO SCH (08:19)
[2017-05-19] MEDS: VITAMIN B COMPLEX 1 EA CAP/TAB PO SCH (08:22)
[2017-05-19] MEDS: PANTOPRAZOLE SODIUM 40 MG TAB PO SCH (08:23)
[2017-05-19] MEDS: LOSARTAN POTASSIUM 25 MG TAB PO SCH (08:23)
[2017-05-19] MEDS: OMEGA-3 FATTY ACIDS 1,000 MG CAP PO SCH ×2 (08:24→20:25)
[2017-05-19] MEDS: ASPIRIN EC 81 MG TAB PO SCH (08:25)
[2017-05-19] MEDS: POTASSIUM CL 10 MEQ TAB PO SCH (08:25)
[2017-05-19] MEDS: ATORVASTATIN CALCIUM 10 MG TAB PO SCH (08:25)
[2017-05-19] MEDS: CARVEDILOL 3.125 MG TAB PO SCH ×2 (08:26→17:18)
[2017-05-19] MEDS: GLUCOSAMINE/CHONDROITIN CAP PO SCH (08:26)
[2017-05-19] MEDS: SENNOSIDES/DOCUSATE SODIUM TAB PO SCH (08:28)
--- NOTE | 2017-05-19 10:09 | ASMTCMCOM ---
CM Note CM Note Notes: Chart reviewed. Discussed with TO CV PA. Patient to be here till Wednesday as they titrate medications. CM to follow. Message let with [facility]. Date Signed: 05/19/2017 10:08 AM Electronically Signed By:Jerrica Jean RN
[2017-05-19] MEDS: ACETAMINOPHEN 325 MG TAB PO PRN (14:20)
--- NOTE | 2017-05-19 15:25 | ASMTCMCOM ---
CM Note CM Note Notes: Call from Rhianna at . Authorization is complete for patient's rehablitation stay. CM to follow. Date Signed: 05/19/2017 03:24 PM Electronically Signed By:Jerrica Jean RN
[2017-05-19] MEDS ORDERED: WARFARIN SODIUM 2.5 MG TAB PO ONE (16:00)
[2017-05-19] MEDS ORDERED: SENNOSIDES/DOCUSATE SODIUM TAB PO PRN (21:00)
[2017-05-20] MEDS: traMADol 50 MG TAB PO PRN ×2 (00:55→20:11)
[2017-05-20 06:17] LABS: HEMATOCRIT 27.8 % (38.0-47.0); HEMOGLOBIN 9.3 g/dL (12.6-16.3)
[2017-05-20 06:35] LABS: INR 2.3 (0.83-1.16); PROTIME(PATIENT) 25.5 SEC (12.0-15.0)
[2017-05-20 06:43] LABS: POTASSIUM 4.1 mEq/L (3.5-5.2)
--- NOTE | 2017-05-20 07:04 | SOAPPROG ---
SOAP Progress Note Assessment/Plan: Assessment: POD#6 MVR #27 Magna bovine bioprosthesis, CABG x 3 (YAP-LAD, SV-OM , SV-RCA), EVH left thigh, prophylactic AtriClip ligation BELKIS Progressive CAD/occl LCX stent - s/p CABG x 3. No tachyarrhythmias. Early postop intermittent Vpacing for SB and antinodals avoided. Steady rise in HR, consistently > 70 last 12h. Secondary prevention with ASA, statin, and BB as allowed by HR and BP. 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 Repair attempted but unsuccessful and 2nd pump run required to replace valve. Empirically from CPB on low dose dopa and rested on the vent overnoc. Extubated POD#1 without incident. Fully weaned off dopa by POD#2. Antithrombotic prophylaxis with Coumadin. Target INR 2-3. Duration 3 mo if rhythm stable. Ischemic cardiomyopathy with chronic class II sCHF - s/p remote lateral AL. LVEF preop ~40%. Preserved LV systolic fx post revasc. No significant volume overload or inotropic support. Staggered intro of heart failure meds as appropriate. Postop PAF - Episodic POD#1. Controlled vent response. No arrhythmia last 48h. BB challenge planned. Acute expected blood loss anemia with thrombocytopenia and mild coagulopathy - Stable s/p 1u PRBC. Platelet rebound evident. Appropriate response to Coumadin. Follow. Postop urinary retention - Exacerbated by relative immobility and narc analgesia. Appears to have resolved. Plan: Cont Coumadin 2.5 mg daily. Inc oral lasix dose to 60 mg. Consider pm IV dose if no sig response. Inc coreg to home dose of 6.25 mg BID. Cont inc activity and pulm toilet. Wean O2. Dispo - Anticipate SNF ([facility]) tomorrow. 05/20/17 07:02 Subjective: Tired and easily winded. Not much appetite. Loosening BMs. Objective: Vital Signs Temp Pulse Resp BP Pulse Ox 37.1 C 78 25 H 159/83 H 94 05/20/17 04:00 05/20/17 04:00 05/20/17 04:00 05/20/17 04:00 05/20/17 04:00 Laboratory Results 05/20/17 06:00 05/20/17 06:00 1005/20/17 05/21/17 05:59 05:59 05:59 Intake Total 1650 1400 Output Total 1325 850 Balance 325 550 PT 25.5 SEC (12.0-15.0) H 05/20/17 06:00 INR 2.30 (0.83-1.16) H 05/20/17 06:00 Holding SR. Upward creeping SBP. Wt down 1 kg despite slightly positive fluid balance. Overall +3kg. Almost off suppl O2. CXR-> Mild pulm vasc congestion, small bilat pl effusions. Labs ok. INR therapeutic. - Pending Discharge Pending Discharge Within 48 Hours: Yes Pending Discharge Date: 05/22/17 Pending Discharge Time: 11:00 Physical Exam - Physical Exam General Appearance: alert, no apparent distress Respiratory: crackles (bases) Cardiac/Chest: regular rate, rhythm, other (Sternum grossly stable. Sternotomy, CT sites and LLE venotomy CDI) Abdomen: non-tender, soft Skin: warm/dry Extremities: swelling (trace-1+ dependent) ICD10 Worksheet Patient Problems: Problems Problem Status Onset Acute blood loss anemia Acute S/P CABG x 3 Acute ~05/14/17 S/P mitral valve replacement with bioprosthetic valve Acute ~05/14/17 Chronic systolic CHF (congestive heart failure), NYHA class 2 Chronic Chronic Disease Mgmt/Transitional Care Acute Severe mitral regurgitation Acute Cardiomyopathy, ischemic Chronic Coronary artery disease Chronic
[2017-05-20] MEDS ORDERED: FUROSEMIDE 40 MG/4 ML VIAL IVP ONE (07:39)
[2017-05-20] MEDS ORDERED: POTASSIUM CL 20 MEQ TAB PO SCH (09:00)
[2017-05-20] MEDS: CARVEDILOL 3.125 MG TAB PO SCH (09:02)
[2017-05-20] MEDS: ATORVASTATIN CALCIUM 10 MG TAB PO SCH (09:02)
[2017-05-20] MEDS: OMEGA-3 FATTY ACIDS 1,000 MG CAP PO SCH ×2 (09:02→20:10)
[2017-05-20] MEDS: GLUCOSAMINE/CHONDROITIN CAP PO SCH (09:03)
[2017-05-20] MEDS: PANTOPRAZOLE SODIUM 40 MG TAB PO SCH (09:03)
[2017-05-20] MEDS: LOSARTAN POTASSIUM 25 MG TAB PO SCH (09:04)
[2017-05-20] MEDS: CHOLECALCIFEROL VIT D3 1,000 UNITS TAB PO SCH (09:05)
[2017-05-20] MEDS: ASPIRIN EC 81 MG TAB PO SCH (09:05)
[2017-05-20] MEDS: VITAMIN B COMPLEX 1 EA CAP/TAB PO SCH (09:05)
[2017-05-20] MEDS: FUROSEMIDE 40 MG TAB PO SCH (10:04)
[2017-05-20 15:27] LABS: MAGNESIUM 1.6 mg/dL (1.6-2.3); POTASSIUM 3.2 mEq/L (3.5-5.2)
[2017-05-20] MEDS ORDERED: POTASSIUM CL 20 MEQ TAB PO ONE ×2 (15:31→21:00)
[2017-05-20] MEDS ORDERED: MAGNESIUM OXIDE 400 MG TAB PO ONE (15:32)
[2017-05-20] MEDS ORDERED: WARFARIN SODIUM 2.5 MG TAB PO ONE (16:00)
[2017-05-20] MEDS: CARVEDILOL 6.25 MG TAB PO SCH (17:59)
[2017-05-20 18:28] LABS: POTASSIUM 3.5 mEq/L (3.5-5.2)
[2017-05-20] MEDS: ACETAMINOPHEN 325 MG TAB PO PRN (20:09)
[2017-05-21] MEDS: traMADol 50 MG TAB PO PRN ×2 (06:32→13:17)
[2017-05-21] MEDS: ACETAMINOPHEN 325 MG TAB PO PRN ×2 (06:33→11:21)
[2017-05-21 06:48] LABS: INR 2.56 (0.83-1.16); PROTIME(PATIENT) 27.8 SEC (12.0-15.0)
[2017-05-21 07:02] LABS: ANION GAP 5 mEq/L (8-16); CALCIUM 9.7 mg/dL (8.5-10.4); CARBON DIOXIDE 32 mEq/l (22-31); CHLORIDE 98 mEq/L (97-110); CREATININE 0.6 mg/dL (0.6-1.0); GLOMERULAR FILTRATION RATE > 60; GLUCOSE 92 mg/dL (70-100); POTASSIUM 3.8 mEq/L (3.5-5.2); SODIUM 135 mEq/L (134-144)
[2017-05-21] MEDS ORDERED: POTASSIUM CL 20 MEQ TAB PO SCH ×2 (07:08→15:00)
--- NOTE | 2017-05-21 07:10 | SOAPPROG ---
SOAP Progress Note Assessment/Plan: POD#7 MVR #27 Magna bovine bioprosthesis, CABG x 3 (YAP-LAD, SV-OM, SV-RCA), EVH left thigh, prophylactic AtriClip ligation BELKIS Progressive CAD/occl LCX stent - s/p CABG x 3. No tachyarrhythmias. Intermittent Vpacing for SB. No antinodals for now. Secondary prevention with ASA, BB and statin. 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 Repair attempted but unsuccessful and 2nd pump run required to replace valve. Empirically from CPB on low dose dopa and rested on the vent overnoc. Extubated without incident and dopamine weaned off. Antithrombotic prophylaxis with Coumadin when coagulopathy resolved. Target INR 2-3. Duration 3 mo if rhythm stable. Ischemic cardiomyopathy with chronic class II sCHF - s/p remote lateral DC. LVEF preop ~40%. Preserved LV systolic fx post revasc. No significant volume overload or inotropic support. Staggered intro of heart failure meds as appropriate. Postop PAF - Episodic. Controlled vent response. No antinodals given intermittent backup pacing. Acute expected blood loss anemia with thrombocytopenia and mild coagulopathy - s /p 1U PRBC. Postop urinary retention - Exacerbated by relative immobility and narc analgesia. Intermittent straight cath prn. Subjective: Denies pain/SOB. Has been walking. Objective: Vital Signs Temp Pulse Resp BP Pulse Ox 37.1 C 74 16 128/76 H 97 05/21/17 04:00 05/21/17 04:00 05/21/17 04:00 05/21/17 04:00 05/21/17 04:00 Laboratory Results 05/20/17 06:00 05/21/17 06:30 05/20/17 05/21/17 05/22/17 05:59 05:59 05:59 Intake Total 1400 1125 Output Total 850 2325 100 Balance 550 -1200 -100 PT 27.8 SEC (12.0-15.0) H 05/21/17 06:30 INR 2.56 (0.83-1.16) H 05/21/17 06:30 Physical Exam - Physical Exam General Appearance: WD/WN, alert, no apparent distress EENT: No scleral icterus (R), No scleral icterus (L) Neck: normal inspection Respiratory: No respiratory distress Cardiac/Chest: regular rate, rhythm Abdomen: non-tender, soft, No distended Skin: normal color, warm/dry Extremities: pedal edema Neuro/Psych: no motor/sensory deficits, alert, normal mood/affect, oriented x 3 ICD10 Worksheet Patient Problems: Problems Problem Status Onset Acute blood loss anemia Acute S/P CABG x 3 Acute ~05/14/17 S/P mitral valve replacement with bioprosthetic valve Acute ~05/14/17 Chronic systolic CHF (congestive heart failure), NYHA class 2 Chronic Chronic Disease Mgmt/Transitional Care Acute Severe mitral regurgitation Acute Cardiomyopathy, ischemic Chronic Coronary artery disease Chronic
[2017-05-21 07:44] VITALS: BP 110/60; PULSE 81; RESP 21; TEMP 98.1; O2SAT 95
[2017-05-21] MEDS: LOSARTAN POTASSIUM 25 MG TAB PO SCH (08:35)
[2017-05-21] MEDS: FUROSEMIDE 40 MG TAB PO SCH (08:36)
[2017-05-21] MEDS: GLUCOSAMINE/CHONDROITIN CAP PO SCH (08:37)
[2017-05-21] MEDS: CARVEDILOL 6.25 MG TAB PO SCH (08:37)
[2017-05-21] MEDS: OMEGA-3 FATTY ACIDS 1,000 MG CAP PO SCH (08:38)
[2017-05-21] MEDS: CHOLECALCIFEROL VIT D3 1,000 UNITS TAB PO SCH (08:38)
[2017-05-21] MEDS: ASPIRIN EC 81 MG TAB PO SCH (08:38)
[2017-05-21] MEDS: ATORVASTATIN CALCIUM 10 MG TAB PO SCH (08:39)
[2017-05-21] MEDS: VITAMIN B COMPLEX 1 EA CAP/TAB PO SCH (08:39)
[2017-05-21] MEDS: PANTOPRAZOLE SODIUM 40 MG TAB PO SCH (08:39)
[2017-05-21] MEDS ORDERED: MAGNESIUM OXIDE 400 MG TAB PO SCH (09:00)
--- NOTE | 2017-05-21 10:28 | PDIAF ---
- Diagnosis Diagnosis: s/p MV replacement, CABGx3, AtriClip BELKIS Code Status: Full Code - Medication Management Discharge Medications: Medications to Continue on Transfer Cholecalciferol Vit D3 [Vitamin D3 (*)] 7,000 units PO DAILY 04/03/14 [Last Taken 04/19/17] [place]-3 Fatty Acids [Fish Oil 1000 mg (*)] 2,000 mg PO BID 04/03/14 [Last Taken 04/19/17 09:00] traMADol [Ultram 50 mg (*)] 50 mg PO Q4 PRN 04/03/14 [Last Taken 2 Weeks Ago ~] Aspirin EC [Aspirin EC 81 mg (*)] 81 mg PO DAILY #30 tab 04/05/14 [Last Taken ] Carvedilol [Coreg (*)] 6.25 mg PO BIDMEAL #60 tab 04/05/14 [Last Taken 04/19/17 18:00] Losartan Potassium [Cozaar 25 mg (*)] 12.5 mg PO DAILY #30 tab 04/05/14 [Last Taken 04/19/17] Pantoprazole Sodium [Protonix 40mg (*)] 40 mg PO DAILY #30 tab 04/05/14 [Last Taken 04/19/17] Atorvastatin Calcium [Lipitor 10 mg (*)] 10 mg PO DAILY 04/20/17 [Last Taken ] Glucosamine/Chondroitin [Glucosamine/Chondroitin (*)] 1 each PO DAILY 04/20/17 [ Last Taken 04/19/17] Vitamin B Complex [B Complex] 1 each PO DAILY 05/15/17 [Last Taken Unknown] Acetaminophen [Tylenol 325mg (*)] 325 - 650 mg PO Q4HRS PRN tab 05/21/17 [Last Taken Unknown] Furosemide [Lasix 40 MG (*)] 60 mg PO BIDDIUR tab 05/21/17 [Last Taken Unknown] Potassium Cl [Klor-Con 20 meq (*)] 40 meq PO BIDDIUR tab 05/21/17 [Last Taken Unknown] Warfarin Sodium [Coumadin 2MG (*)] 2 mg PO DAILY16 #30 tab 05/21/17 [Last Taken Unknown] Discharge Medications: Refer to the Discharge Home Medication list for PRN reason. PICC Care - Routine: N/A - Orders Services needed: Registered Nurse, Certified Laborer, Master Room Clerk , Physical Therapy, Occupational Therapy Oxygen: 1L NC continuous Diet Recommendation: cardiac -low fat low salt, fluid restriction (use comment for amount) (1.5 liters per day) Diet Texture: Regular Texture Diet, Thin Liquids, Meds Whole w/Liquids Weigh Patient: daily Walker: No Wound Care Instructions: Cleanse wounds once daily with soap and water. Avoid immersion (pool, hot tub, bath) until scabs off. Ok to leave all wounds open to air. Avoid creams or ointments until scabs off. Activity/Weight Bearing Restrictions: Sternal precautions x 4 weeks fro mday of surgery. Avoid lifting > 10lbs with an outstretched arm. Avoid push/pull activities. No driving until cleared by surgery. Elevate low legs at rest. Avoid prolonged standing or dangling. Additional: Call [facility] for overnight weight gain > 2lbs, weekly gain > 5lbs or worsening leg swelling. Call [facility] for resting heart rate > 120 , <60 OR for systolic blood pressure consistently < 90, > 160. Target oxygen saturation > 89%. Pt to obtain a chest xray prior to surgical appointment. Please register at the ED entrance. Please obtain daily INRs and dose Coumadin for a goal of 2-3. - Labs/Radiology PT/INR Date: 05/22/17 (Dose Coumadin for INR goal 2-3.) Imaging Orders: To be obtained at [facility] day of surgical appointment. [place] at ED entrance. - Follow Up Care Current Providers and Referrals: Baljeet Carvalho MD [Primary Care Provider] - Edward Aggarwal DO [Doctor of Osteopathy] - 05/24/17 11:00 am Edward Da Silva MD [Medical Doctor] - (To be arranged during surgical follow- up.)
--- NOTE | 2017-05-21 10:35 | PDDCSUM ---
Discharge Summary Discharge Summary: ADMISSION DATE: 05/14/17 DISCHARGE DATE: 05/21/17 ADMISSION DX: 1. Coronary atherosclerotic disease 2. Severe mitral insufficiency 3. Chronic CHF, class II, systolic DISCHARGE DX: 1. Coronary atherosclerotic disease 2. Severe mitral insufficiency 3. Chronic CHF, class II, systolic 4. Acute blood loss anemia PROCEDURES 05/14/17, Edward Aggarwal: 1. Mitral valve replacement with #27 Magna bioprosthesis 2. CABGx3 (YAP-LAD, SVG-OM, SVG-RCA) 3. [facility] HOSPITAL COURSE BY PROBLEM LIST 1. Coronary atherosclerotic disease - s/p CABGx3. Beta-merary, ASA, and statin prescribed for secondary prevention. 2. Severe mitral insufficiency - s/p MVR with bioprosthesis. Coumadin prescribed for INR goal 2-3, duration 3 months. 3. Chronic CHF, class II, systolic - medically optimized on discharge. Continue beta-merary, candice-inhibitor, and Lasix BID. 4. Acute blood loss anemia - stable s/p 1U PRBC. CONDITION Fair DISPOSITION [facility] ACTIVITY Pt was instructed on sternal precautions, activity limitations, and which problems to call [facility] with. Please see Discharge Plan and Interagency Discharge Form in chart for specifics. D/C MEDICATIONS Continue: 1. Cholecalciferol Vit D3 [Vitamin D3 (*)] 7,000 units PO DAILY 2. [place]-3 Fatty Acids [Fish Oil 1000 mg (*)] 2,000 mg PO BID 3. traMADol [Ultram 50 mg (*)] 50 mg PO Q4 PRN 4. Aspirin EC [Aspirin EC 81 mg (*)] 81 mg PO DAILY 5. Carvedilol [Coreg (*)] 6.25 mg PO BIDMEAL 6. Losartan Potassium [Cozaar 25 mg (*)] 12.5 mg PO DAILY 7. Pantoprazole Sodium [Protonix 40mg (*)] 40 mg PO DAILY 8. Atorvastatin Calcium [Lipitor 10 mg (*)] 10 mg PO DAILY 9. Glucosamine/Chondroitin [Glucosamine/Chondroitin (*)] 1 each PO DAILY 10. Vitamin B Complex [B Complex] 1 each PO DAILY New: 1. Acetaminophen [Tylenol 325mg (*)] 325 - 650 mg PO Q4HRS PRN 2. Furosemide [Lasix 40 MG (*)] 60 mg PO BIDDIUR 3. Potassium Cl [Klor-Con 20 meq (*)] 40 meq PO BIDDIUR 4. Warfarin Sodium [Coumadin 2MG (*)] 2 mg PO DAILY16 (INR goal 2-3) Discontinue: 1. Carisoprodol PENDING STUDIES/LABS 1. CXR prior to surgical follow-up 2. INR as per [facility] F/U APPOINTMENTS 1. Edward Aggarwal - 05/24/17, 11:00 AM
--- NOTE | 2017-05-21 10:53 | ASMTCMCOM ---
CM Note CM Note Notes: CM met w/ pt and daughter for dispo planning. Pt is discharging today to [facility]. CM sent over d/c orders to [facility]. CM provided ZULEMA Ellis w/ phone numbe to [facility]. CM available for changes. Date Signed: 05/21/2017 10:52 AM Electronically Signed By:PHILL Mims
[2017-05-21] MEDS ORDERED: FUROSEMIDE 40 MG TAB PO SCH (15:00)
--- NOTE | 2017-05-21 16:53 | ASDISCHSUM ---
Discharge Information Plan Status:SNF Medically Cleared to Leave:05/21/2017 Discharge Date:05/21/2017 01:30 PM D/C Disposition:Long-Term Facility ADT D/C Disposition:Long-Term Facility Projected Discharge Date:05/21/2017 11:00 AM Transportation at D/C:Wheelchair Van Discharge Delay Reason: Follow-Up Date:05/21/2017 11:00 AM Discharge Slot: Final Diagnosis: Placement Information Referral Type:*Half-Way/SNF Referral ID:[id number] Provider Name:Ilana Clifton [place] Address 1:[address] Phone Number: Address 2: Fax Number: [facility]:[place] Selection Factors: State:[place] Referral Type:*Home Health Care Services Referral ID:[id number] Provider Name: Address 1: Phone Number: Address 2: Fax Number: City: Selection Factors: State: Patient Contact Information Contact Name:ROLDAN Relationship:Daughter Address:[address] Work Phone: City:[place] Alternate Phone: State/Zip Code:[place] [address] Email: Financial Information Financial Class:Medicare Advantage Plans Primary Plan Desc:[employer] PPO MEDICARE Primary Plan Number:[id number] Secondary Plan Desc: Secondary Plan Number: Assessment Information [facility] [place] Progress Note CM Note CM Note Notes: 05/15/2017 Case Management Note Reviewed chart, spoke with RN. Met w/pt and daughter Tea and young grand daughter. Daughter Christi owns acreage in [place]. Pt lives on same acreage as daughter Christi but in her own home. 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 She grocery shops and often makes dinner for the entire family. Provided basic info for pt and Tea regarding 3 possible d/c scenarios: cardiac outpatient rehab, SNF rehab as well as Home Care. Case Management d/c needs are to be determined. Case Management to follow as recovery progresses to help determine d/c needs. Date Signed: 05/15/2017 02:50 PM Electronically Signed By:Mirella Adrian RN [facility] [place] Progress Note CM Note CM Note Notes: 05/17/2017 Case Management Note Met w/pt to discuss PT recommendations for SNF rehab. Pt in agreement. Pt requested [facility] d/t proximity to [employer] [facility]. Sent referral to [employer], waiting for authorization from [facility]. Case Management d/c poc: to [facility] pending authorization when medically stable. Case Management to follow. Date Signed: 05/17/2017 04:20 PM Electronically Signed By:Mirella Adrian RN [facility] CM Progress Note CM Note CM Note Notes: 05/18/2017 Case Management Note Per Rhianna after onsite visit today, pt accepted at [facility]. Case Management d/c poc: to [facility] when medically stable. Case Managment to follow. Date Signed: 05/18/2017 02:09 PM Electronically Signed By:Mirella Adrian RN [facility] Length of stay for Answers: 4-6 days current admission Acuity / Level of Care Answers: Was the patient admitted to hospital via the emergency department? 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 Discussed with TO [facility] PA. Patient to be here till Wednesday as they titrate medications. CM to follow. Message let with [facility]. Date Signed: 05/19/2017 10:08 AM Electronically Signed By:Jerrica Jean RN [facility] CM Progress Note CM Note CM Note Notes: Call from Rhianna at . Authorization is complete for patient's rehablitation stay. CM to follow. Date Signed: 05/19/2017 03:24 PM Electronically Signed By:Jerrica Jean RN [facility] CM Progress Note CM Note CM Note Notes: CM met w/ pt and daughter for dispo planning. Pt is discharging today to [facility]. CM sent over d/c orders to [facility]. CM provided ZULEMA Ellis w/ phone numbe to [facility]. CM available for changes. Date Signed: 05/21/2017 10:52 AM Electronically Signed By:PHILL Mims Intervention Information Intervention Type:*EM-Signed Date of Service:05/21/2017 12:17 PM Patient Type:Inpatient Staff Member:Viki Zhu Hours: Discipline: Severity: Comment:
== END 2017-05-21 13:30 | DRG 219 ==
LOC: F2W 10:42 → F2N 15:57 → F2W 05-17 10:45
PROVIDERS: ADMIT Thoracic Surgery (Cardiothoracic Vascular Surgery); ATTEND Thoracic Surgery (Cardiothoracic Vascular Surgery)
PROC: 06BQ4ZZ Excision of Left Saphenous Vein, Percutaneous Endoscopic Approach (ICD-10-PCS; principal; 2017-05-14 10:00)
PROC: 021109W Bypass Coronary Artery, Two Arteries from Aorta with Autologous Venous Tissue, Open Approach (ICD-10-PCS; principal; 2017-05-14 10:00)
PROC: 02L70ZK Occlusion of Left Atrial Appendage, Open Approach (ICD-10-PCS; principal; 2017-05-14 10:00)
PROC: 02100Z9 Bypass Coronary Artery, One Artery from Left Internal Mammary, Open Approach (ICD-10-PCS; principal; 2017-05-14 10:00)
PROC: 02RG08Z Replacement of Mitral Valve with Zooplastic Tissue, Open Approach (ICD-10-PCS; principal; 2017-05-14 10:00)
PROC: 5A1221Z Performance of Cardiac Output, Continuous (ICD-10-PCS; principal; 2017-05-14 10:00)
PROC: 30233N1 Transfusion of Nonautologous Red Blood Cells into Peripheral Vein, Percutaneous Approach (ICD-10-PCS; 2017-05-16)
DX: I25.10 Atherosclerotic heart disease of native coronary artery without angina pectoris (principal); T82.857A Stenosis of other cardiac prosthetic devices, implants and grafts, initial encounter; I34.0 Nonrheumatic mitral (valve) insufficiency; I51.1 Rupture of chordae tendineae, not elsewhere classified; I97.89 Other postprocedural complications and disorders of the circulatory system, not elsewhere classified; I48.0 Paroxysmal atrial fibrillation; D62 Acute posthemorrhagic anemia; R33.0 Drug induced retention of urine; I25.5 Ischemic cardiomyopathy; I25.2 Old myocardial infarction; I50.22 Chronic systolic (congestive) heart failure; E66.01 Morbid (severe) obesity due to excess calories; Z87.891 Personal history of nicotine dependence; E78.5 Hyperlipidemia, unspecified; I10 Essential (primary) hypertension
CPT/HCPCS: 82947-QW; 92526-GN; 92610-GN; 97110-GP; 97116-GP; 97162-GP; 97166-GO; 97530-GP; 97535-GO; J0153; J0171; J0282; J0690; J1250; J1265; J1644; J1815; J1885; J1940; J2001; J2150; J2250; J2260; J2370; J2405; J2440; J2704; J2720; J2930; J3010; J7060; P9016; P9041

== ENCOUNTER → 2017-05-24 | Outpatient (CLI) | payer OTHER | LOC: FIMAGING 12:03 | PROVIDERS: ATTEND Thoracic Surgery (Cardiothoracic Vascular Surgery) | DX: Z95.1 Presence of aortocoronary bypass graft (principal); Z95.2 Presence of prosthetic heart valve ==

== ENCOUNTER 2017-05-31 11:44 | Inpatient (IN) | payer OTHER ==
--- NOTE | 2017-05-31 15:00 | PDGENHP ---
History and Physical - Chief Complaint sternal wound drainage - History of Present Illness 77F s/p MV replacement, CABGx3, LLAA on 05/14/[address] Aggarwal c/o 1 week h/o clear-yellow drainage from lower pole of sternotomy. Pt denies fevers, chills, chest pain, SOB, orthopnea, abdominal pain, dysuria, LE edema. History Information - Allergies/Home Medication List Allergies/Adverse Reactions: NSAIDS (Non-Steroidal Anti-Inflamma Allergy (Verified 05/13/17 13:58) Other-Enter Comments Sulfa (Sulfonamide Antibiotics) Allergy (Verified 05/13/17 13:58) Unknown Home Medications: Cholecalciferol Vit D3 [Vitamin D3 (*)] 7,000 units PO DAILY 04/03/14 [Last Taken 04/19/17] [place]-3 Fatty Acids [Fish Oil 1000 mg (*)] 2,000 mg PO BID 04/03/14 [Last Taken 04/19/17 09:00] traMADol [Ultram 50 mg (*)] 50 mg PO Q4 PRN 04/03/14 [Last Taken 2 Weeks Ago ~] Atorvastatin Calcium [Lipitor 10 mg (*)] 10 mg PO DAILY 04/20/17 [Last Taken ] Glucosamine/Chondroitin [Glucosamine/Chondroitin (*)] 1 each PO DAILY 04/20/17 [ Last Taken 04/19/17] Vitamin B Complex [B Complex] 1 each PO DAILY 05/15/17 [Last Taken Unknown] I have personally reviewed and updated: medical history, social history, surgical history - Past Medical History coronary artery disease, CHF Additional medical history: mitral insufficiency - Surgical History Additional surgical history: as per HPI - Social History Smoking Status: Former smoker Review of Systems Review of Systems: ROS: 10pt was reviewed & negative except for what was stated in HPI & below Physical Exam Physical Exam: Constitutional: no apparent distress, appears nourished, not in pain Eyes: anicteric sclera Ears, Nose, Mouth, Throat: moist mucous membranes, hearing normal, ears appear normal Cardiovascular: regular rate and rhythym, other (lower pole of sternotomy with clear-yellow drainage) Respiratory: no respiratory distress, clear to auscultation Gastrointestinal: soft, non-tender abdomen Genitourinary: no bladder fullness Skin: warm, normal color Neurologic: AAOx3 Psychiatric: interacting appropriately, not anxious, not encephalopathic, thought process linear Assessment & Plan Assessment: 77F with drainage from sternotomy x 1 week Plan: OR 06/01 at 7:15 AM for exploration, likely debridement/vac placement
[2017-05-31] MEDS ORDERED: ACETAMINOPHEN 325 MG TAB PO PRN ×2 (15:03→19:53)
[2017-05-31 16:08] LABS: HEMATOCRIT 31.7 % (38.0-47.0); HEMOGLOBIN 10.6 g/dL (12.6-16.3); MEAN CELL HEMOGLOBIN CONCENTR. 33.4 g/dL (32.4-36.7); MEAN CELL VOLUME 92.7 fL (81.5-99.8); RED BLOOD CELL COUNT 3.42 10^6/uL (4.18-5.33); RED CELL DISTRIBUTION WIDTH 14.1 % (11.5-15.2)
[2017-05-31 16:22] LABS: INR 1.51 (0.83-1.16); PROTIME(PATIENT) 18.2 SEC (12.0-15.0)
[2017-05-31 16:32] LABS: ANION GAP 11 mEq/L (8-16); CARBON DIOXIDE 30 mEq/l (22-31); CHLORIDE 95 mEq/L (97-110); CREATININE 0.8 mg/dL (0.6-1.0); GLOMERULAR FILTRATION RATE > 60; GLUCOSE 89 mg/dL (70-100); POTASSIUM 3.7 mEq/L (3.5-5.2); SODIUM 136 mEq/L (134-144)
[2017-05-31] MEDS ORDERED: CARVEDILOL 6.25 MG TAB PO SCH (18:00)
[2017-05-31] MEDS ORDERED: POLYETHYLENE GLYCOL 3350 17 GM PKT PO PRN (19:53)
[2017-05-31] MEDS ORDERED: BISACODYL 10 MG SUPP PR PRN (19:53)
[2017-05-31] MEDS: traMADol 50 MG TAB PO PRN (20:46)
[2017-05-31] MEDS: OMEGA-3 FATTY ACIDS 1,000 MG CAP PO SCH (20:46)
[2017-05-31] MEDS: ATORVASTATIN CALCIUM 10 MG TAB PO SCH (20:46)
[2017-05-31] MEDS: METHOCARBAMOL 500 MG TAB PO PRN (20:49)
[2017-06-01] MEDS ORDERED: ceFAZolin 2 GM/DEXTROSE 100 ML IV ONE (06:23)
[2017-06-01] MEDS ORDERED: VANCOMYCIN 1 GM VIAL ONE (06:54)
[2017-06-01] MEDS ORDERED: POLYMYXIN B SULFATE 500,000 UNIT/10 ML SYR IRR ONE (06:54)
[2017-06-01] MEDS ORDERED: BACITRACIN 50,000 UNITS/10 ML SYR IRR ONE (06:55)
[2017-06-01] MEDS ORDERED: ceFAZolin 2 GM/SWFI 2 GM/20 ML SYR IVP ONE (07:00)
[2017-06-01] MEDS ORDERED: LR 1,000 ML IV ONE (07:00)
[2017-06-01] MEDS ORDERED: MIDAZOLAM 2 MG/2 ML VIAL IVP ONE (07:10)
--- NOTE | 2017-06-01 07:10 | PDANEPAE ---
ANE History of Present Illness 77 yo s/p cabg for sternal exploration ANE Past Medical History - Cardiovascular History Hx Hypertension: Yes Hx Arrhythmias: No Hx Chest Pain: No Hx Coronary Artery / Peripheral Vascular Disease: Yes Hx CHF / Valvular Disease: Yes Cardiovascular History Comment: MS 2013-no chest pain w/MS - Pulmonary History Hx COPD: No Hx Asthma/Reactive Airway Disease: No Hx Recent Upper Respiratory Infection: No Hx Oxygen in Use at Home: Yes O2 in Use at Home (L/minute): 1.5 Hx Sleep Apnea: No Sleep Apnea Screening Result - Last Documented: Negative Pulmonary History Comment: can be SOB w/activity - Neurologic History Hx Cerebrovascular Accident: No Hx Seizures: No Hx Dementia: No - Endocrine History Hx Diabetes: No - Renal History Hx Renal Disorders: No - Liver History Hx Hepatic Disorders: No - Neurological & Psychiatric Hx Hx Neurological and Psychiatric Disorders: Yes Neurological / Psychiatric History Comment: low back pain-chronic - Cancer History Hx Cancer: No - Congenital Disorder History Hx Congenital Disorders: No - GI History Hx Gastrointestinal Disorders: Yes Gastrointestinal History Comment: on Protonix to protect stomach - Other Health History Other Health History: toenail fungus- uses topical tx. Sternum broken ~10 yrs ago. - Chronic Pain History Chronic Pain: No - Surgical History Prior Surgeries: mastoidectomy - at 8 mos of age. bunion sx . carpal kim . cardiac cath 2016 ANE Review of Systems Review of Systems: - Exercise capacity METS (RN): 3 METS ANE Patient History - Allergies Allergies/Adverse Reactions: NSAIDS (Non-Steroidal Anti-Inflamma Allergy (Verified 05/13/17 13:58) Other-Enter Comments Sulfa (Sulfonamide Antibiotics) Allergy (Verified 05/13/17 13:58) Unknown - Home Medications Home Medications: Cholecalciferol Vit D3 [Vitamin D3 (*)] 7,000 units PO DAILY 04/03/14 [Last Taken 05/31/17] [place]-3 Fatty Acids [Fish Oil 1000 mg (*)] 2,000 mg PO BID 04/03/14 [Last Taken 05/31/17] traMADol [Ultram 50 mg (*)] 50 mg PO Q4 PRN 04/03/14 [Last Taken 2 Weeks Ago ~] Atorvastatin Calcium [Lipitor 10 mg (*)] 10 mg PO HS 04/20/17 [Last Taken ] Glucosamine/Chondroitin [Glucosamine/Chondroitin (*)] 1 each PO DAILY 04/20/17 [ Last Taken 05/31/17] Vitamin B Complex [B Complex] 1 each PO DAILY 05/15/17 [Last Taken 05/31/17] Bisacodyl [Dulcolax] 10 mg RC DAILY PRN 05/31/17 [Last Taken Unknown] Methocarbamol [Robaxin 500 mg (*)] 1,000 mg PO QID PRN 05/31/17 [Last Taken Unknown] Polyethylene Glycol 3350 [Miralax 17 gm (*)] 17 gm PO DAILY PRN 05/31/17 [Last Taken Unknown] Warfarin Sodium [Coumadin 2MG (*)] 2.5 mg PO DAILY16 05/31/17 [Last Taken ] - NPO status NPO Since - Liquids (Date): 06/01/17 NPO Since - Liquids (Time): 00:00 NPO Since - Solids (Date): 06/01/17 NPO Since - Solids (Time): 00:00 - Anes Hx Anes Hx: no prior problems - Smoking Hx Smoking Status: Former smoker ANE Labs/Vital Signs - Labs Result Diagrams: 05/31/17 15:50 05/31/17 15:50 - Vital Signs Blood Pressure: 144/77 Heart Rate: 100 Respiratory Rate: 18 O2 Sat (%): 95 Height: 5 ft 3.5 in Weight: 84.3 kg ANE Physical Exam - Airway Neck exam: FROM Mallampati Score: Class 1 Mouth exam: dentures - Pulmonary Pulmonary: no respiratory distress - Cardiovascular Cardiovascular: regular rate and rhythym - ASA Status ASA Status: III ANE Anesthesia Plan Anesthesia Plan: general endotracheal anesthesia, GA w LMA
[2017-06-01] MEDS ORDERED: MIDAZOLAM 2 MG/2 ML VIAL ONE (07:13)
[2017-06-01] MEDS ORDERED: fentaNYL 250 MCG/5 ML INJ ONE (07:18)
[2017-06-01] MEDS ORDERED: PROPOFOL/EMULSION 500 MG/50 ML BOTTLE IV ONE (07:18)
[2017-06-01] MEDS ORDERED: ONDANSETRON 4 MG/2 ML VIAL IVP PRN (07:45)
[2017-06-01] MEDS ORDERED: fentaNYL 100 MCG/2 ML INJ IVP PRN (07:45)
[2017-06-01] MEDS ORDERED: NALOXONE HCL 0.4 MG/ML INJ IVP PRN (07:45)
[2017-06-01] MEDS ORDERED: HYDROCODONE/APAP 5/325 TAB PO PRN (07:49)
[2017-06-01] MEDS ORDERED: ONDANSETRON DISINTEGRATING 4 MG TAB PO PRN (07:49)
[2017-06-01] MEDS: FUROSEMIDE 40 MG TAB PO SCH ×2 (11:11→15:33)
[2017-06-01] MEDS: traMADol 50 MG TAB PO PRN ×2 (11:11→21:00)
[2017-06-01] MEDS: OMEGA-3 FATTY ACIDS 1,000 MG CAP PO SCH ×2 (11:11→20:59)
[2017-06-01] MEDS: CARVEDILOL 6.25 MG TAB PO SCH ×2 (11:12→18:07)
[2017-06-01] MEDS: VITAMIN B COMPLEX 1 EA CAP/TAB PO SCH (11:12)
[2017-06-01] MEDS: PANTOPRAZOLE SODIUM 40 MG TAB PO SCH (11:12)
[2017-06-01] MEDS: POTASSIUM CL 20 MEQ TAB PO SCH ×2 (11:12→15:33)
[2017-06-01] MEDS: GLUCOSAMINE/CHONDROITIN CAP PO SCH (11:12)
[2017-06-01] MEDS: CHOLECALCIFEROL VIT D3 1,000 UNITS TAB PO SCH (11:12)
[2017-06-01] MEDS: ASPIRIN EC 81 MG TAB PO SCH (11:13)
--- NOTE | 2017-06-01 11:33 | POSTANESTH ---
Post Anesthetic Evaluation Cardiovascular Status: Normal, Stable Respiratory Status: Normal, Stable Level of Consciousness/Mental Status: Can Participate in Eval Pain Control: Adequate, Prn Tx Ordered Nausea/Vomiting Control: Adequate, Prn Tx Ordered Complications Possibly Related to Anesthesia: None Noted
[2017-06-01] MEDS: ceFAZolin 2 GM/DEXTROSE 100 ML IV SCH ×2 (15:33→21:50)
--- NOTE | 2017-06-01 17:00 | ASMTCMCOM ---
CM Note CM Note Notes: Patient admitted with one week of drainage from sternotomy s/p MVR, CABG, and LLAA. Wound vac placed in OR today. Patient will need a wound vac at home. Order placed and pending with [facility]. [facility] RN will follow for home care. CM to follow. Date Signed: 06/01/2017 04:59 PM Electronically Signed By:Kandi Arce RN
[2017-06-01] MEDS: ATORVASTATIN CALCIUM 10 MG TAB PO SCH (20:59)
[2017-06-01] MEDS: METHOCARBAMOL 500 MG TAB PO PRN (23:49)
[2017-06-02] MEDS: traMADol 50 MG TAB PO PRN ×3 (04:17→16:16)
[2017-06-02] MEDS: ceFAZolin 2 GM/DEXTROSE 100 ML IV SCH (05:24)
--- NOTE | 2017-06-02 07:44 | SOAPPROG ---
SOAP Progress Note Assessment/Plan: POD #1: Sternal wound exploration, vac placement Sternal wound drainage s/p exploration, vac placement - Home vac ordered - Micro negative to date - Plan for home today Subjective: Slight sternal pain. Objective: Vital Signs Temp Pulse Resp BP Pulse Ox 36.6 C 95 16 132/64 H 96 06/02/17 04:00 06/02/17 04:00 06/02/17 04:00 06/02/17 04:00 06/02/17 04:00 Microbiology 06/01/17 07:38 Gram Stain - Final Chest - Swab Laboratory Results 05/31/17 15:50 05/31/17 15:50 06/01/17 06/02/17 06/03/17 05:59 05:59 05:59 Intake Total 450 2250 Output Total 400 2085 Balance 50 165 PT 18.2 SEC (12.0-15.0) H 05/31/17 15:50 INR 1.51 (0.83-1.16) H 05/31/17 15:50 Physical Exam - Physical Exam General Appearance: WD/WN, alert, no apparent distress EENT: No scleral icterus (R), No scleral icterus (L) Neck: normal inspection Respiratory: No respiratory distress Cardiac/Chest: regular rate, rhythm Abdomen: non-tender, soft, No distended Skin: normal color, warm/dry Extremities: No pedal edema Neuro/Psych: no motor/sensory deficits, alert, normal mood/affect, oriented x 3 ICD10 Worksheet Patient Problems: Problems Problem Status Onset Sternal wound dehiscence Acute Acute blood loss anemia Acute Chronic Disease Mgmt/Transitional Care Acute S/P CABG x 3 Acute ~05/14/17 S/P mitral valve replacement with bioprosthetic valve Acute ~05/14/17 Severe mitral regurgitation Acute Cardiomyopathy, ischemic Chronic Chronic systolic CHF (congestive heart failure), NYHA class 2 Chronic Coronary artery disease Chronic
[2017-06-02] MEDS: VITAMIN B COMPLEX 1 EA CAP/TAB PO SCH (09:42)
[2017-06-02] MEDS: OMEGA-3 FATTY ACIDS 1,000 MG CAP PO SCH (09:42)
[2017-06-02] MEDS: PANTOPRAZOLE SODIUM 40 MG TAB PO SCH (09:42)
[2017-06-02] MEDS: GLUCOSAMINE/CHONDROITIN CAP PO SCH (09:42)
[2017-06-02] MEDS: ASPIRIN EC 81 MG TAB PO SCH (09:42)
[2017-06-02] MEDS: CHOLECALCIFEROL VIT D3 1,000 UNITS TAB PO SCH (09:42)
[2017-06-02] MEDS: POTASSIUM CL 20 MEQ TAB PO SCH ×2 (09:42→15:38)
[2017-06-02] MEDS: CARVEDILOL 6.25 MG TAB PO SCH (09:43)
[2017-06-02] MEDS: FUROSEMIDE 40 MG TAB PO SCH ×2 (09:43→15:38)
--- NOTE | 2017-06-02 10:48 | PDHOMEO2F ---
Home Oxygen Face to Face Home Orders: I certify that a physician or a nurse practitioner or physician's health assistant has had a [id number] encounter with this patient on the date of this order due to the diagnosis listed, which relates to the primary reason the patient requires home oxygen. Alternative treatments have been tried, or considered, and deemed ineffective. It is anticipated that supplemental oxygen will result in improvement with treatment. Home oxygen qualifying diagnosis: s/p cabg/mvr, hypoxemia, atelectasis SpO2 on room air (%): 85 Frequency of home oxygen needed: continuous Home oxygen liters per minute: 1 Home oxygen delivery device: nasal cannula Concentrator: Yes E-tanks for mobility and back up: Yes If ordering portable O2, is the patient mobile in the home?: Yes I certify that, based on these findings, the home oxygen is medically necessary for this patient for the following length of time. Length of time home oxygen needed: 1 month
--- NOTE | 2017-06-02 11:03 | PDIAF ---
- Diagnosis Diagnosis: h/o CABG/MVR, s/p sternal wound debridement, vac placement Code Status: Full Code - Medication Management Discharge Medications: Medications to Continue on Transfer Cholecalciferol Vit D3 [Vitamin D3 (*)] 7,000 units PO DAILY 04/03/14 [Last Taken 05/31/17] [place]-3 Fatty Acids [Fish Oil 1000 mg (*)] 2,000 mg PO BID 04/03/14 [Last Taken 05/31/17] traMADol [Ultram 50 mg (*)] 50 mg PO Q4 PRN 04/03/14 [Last Taken 2 Weeks Ago ~] Aspirin EC [Aspirin EC 81 mg (*)] 81 mg PO DAILY #30 tab 04/05/14 [Last Taken ] Carvedilol [Coreg (*)] 6.25 mg PO BIDMEAL #60 tab 04/05/14 [Last Taken 05/31/17] Pantoprazole Sodium [Protonix 40mg (*)] 40 mg PO DAILY #30 tab 04/05/14 [Last Taken 05/31/17] Atorvastatin Calcium [Lipitor 10 mg (*)] 10 mg PO HS 04/20/17 [Last Taken ] Glucosamine/Chondroitin [Glucosamine/Chondroitin (*)] 1 each PO DAILY 04/20/17 [ Last Taken 05/31/17] Vitamin B Complex [B Complex] 1 each PO DAILY 05/15/17 [Last Taken 05/31/17] Acetaminophen [Tylenol 325mg (*)] 325 - 650 mg PO Q4HRS PRN tab 05/21/17 [Last Taken Unknown] Bisacodyl [Dulcolax] 10 mg RC DAILY PRN 05/31/17 [Last Taken Unknown] Methocarbamol [Robaxin 500 mg (*)] 1,000 mg PO QID PRN 05/31/17 [Last Taken Unknown] Polyethylene Glycol 3350 [Miralax 17 gm (*)] 17 gm PO DAILY PRN 05/31/17 [Last Taken Unknown] Furosemide [Lasix 40 MG (*)] 60 mg PO BIDDIUR #60 tab 06/02/17 [Last Taken Unknown] Potassium Cl [Klor-Con 20 meq (*)] 40 meq PO BIDDIUR #60 tab 06/02/17 [Last Taken Unknown] Warfarin Sodium [Coumadin 2MG (*)] 2.5 mg PO DAILY16 #30 tab 06/02/17 [Last Taken Unknown] Discharge Medications: Refer to the Discharge Home Medication list for PRN reason. PICC Care - Routine: N/A - Orders Services needed: Home Care, Registered Nurse, Certified Anatomy And Physiology Instructor, Master Podiatric Surgeon, Physical Therapy, Occupational Therapy Home Care Face to Face: I certify that this patient was under my care and that I had the required [id number] encounter meeting the encounter requirements on the discharge day. My findings support the fact that the patient is homebound as defined in Home Care Face to Face Continued: CMS Chapter 7 Medicare Benefits Manual 30.1.1 , The condition of the patient is such that there exists a normal inability to leave home and consequently, leaving home would require a considerable and taxing effort. Isolation Type: None Oxygen: 1 liter nasal cannula Diet Recommendation: cardiac -low fat low salt Diet Texture: Regular Texture Diet, Thin Liquids, Meds Whole w/Liquids Weigh Patient: daily Walker: No Wound Care Instructions: Sternal wound vac to be changed M-W-F with black foam and standard dressing at continuous suction of 125 mmHg. Activity/Weight Bearing Restrictions: Sternal precautions x 4 weeks from day of surgery. Avoid lifting > 10lbs with an outstretched arm. Avoid push/pull activities. No driving until cleared by surgery. Elevate low legs at rest. Avoid prolonged standing or dangling. Additional: Log daily vital signs: weight, heart rate, blood pressure, and pulse oximetry if on oxygen. Call [facility] for overnight weight gain > 2lbs , weekly gain > 5lbs or worsening leg swelling. Call [facility] for resting heart rate > 120 or < 60 OR for systolic blood pressure consistently < 90 or > 160. Target oxygen saturation > 89%. - Labs/Radiology PT/INR Date: 06/03/17 (INR goal 2-3, obtain daily. Dr. Edward Da Silva to manage. ) Imaging Orders: CXR at [facility] day of appt with Dr. Aggarwal - Follow Up Care Current Providers and Referrals: Edward Da Silva MD [Medical Doctor] - Baljeet Carvalho MD [Primary Care Provider] - Edward Aggarwal DO [Doctor of Osteopathy] - 06/08/17 10:30 am Abram [place] JR, MD [Medical Doctor] - 06/04/17 1:00 pm
--- NOTE | 2017-06-02 11:08 | ASMTCMCOM ---
CM Note CM Note Notes: 06/02/2017 Case Management Note Delivered wound vac bedside. Pt signed for vac. Faxed paerwork to [employer]. Notified [facility] of d/c. Faxed final paperwork to [facility]. RN to call report. Family to transport pt home. Date Signed: 06/02/2017 11:07 AM Electronically Signed By:Mirella Adrian RN
[2017-06-02 12:36] VITALS: BP 142/71; RESP 18; TEMP 97.9
--- NOTE | 2017-06-02 13:27 | PDHOMEO2F ---
Home Oxygen Face to Face Home Orders: I certify that a physician or a nurse practitioner or physician's behavioral health assistant has had a [id number] encounter with this patient on the date of this order due to the diagnosis listed, which relates to the primary reason the patient requires home oxygen. Alternative treatments have been tried, or considered, and deemed ineffective. It is anticipated that supplemental oxygen will result in improvement with treatment. Home oxygen qualifying diagnosis: s/p CABG, s/p MVR, hypoxemia, pleural effusions, SOB SpO2 on room air (%): 85 Frequency of home oxygen needed: continuous Home oxygen liters per minute: 2 Home oxygen delivery device: nasal cannula Concentrator: Yes E-tanks for mobility and back up: Yes If ordering portable O2, is the patient mobile in the home?: Yes I certify that, based on these findings, the home oxygen is medically necessary for this patient for the following length of time. Length of time home oxygen needed: 1 month
[2017-06-02 14:00] VITALS: PULSE 88; O2SAT 92
[2017-06-02] MEDS ORDERED: WARFARIN SODIUM 2 MG TAB PO SCH (16:00)
[2017-06-02] MEDS ORDERED: WARFARIN SODIUM 2.5 MG TAB PO SCH (16:00)
--- NOTE | 2017-06-02 17:32 | PDDCSUM ---
Discharge Summary Discharge Summary: ADMISSION DATE: 05/31/17 DISCHARGE DATE: 06/02/17 ADMISSION DX: 1. Sternal wound drainage DISCHARGE DX: 1. Sternal wound drainage 2. Fat necrosis PROCEDURES 06/01/17, Edward Aggarwal: 1. Sternal wound exploration, vac placement HOSPITAL COURSE BY PROBLEM LIST 1. Sternal wound drainage - s/p exploration with signs of fat necrosis. Van place and patient to see plastic surgery for wound closure. Wound vac to be changed at home by a visiting nurse. CONDITION Good DISPOSITION Home ACTIVITY Pt was instructed on activity limitations, and which problems to call [facility] with. Please see Discharge Plan and Interagency Discharge Form in chart for specifics. DISCHARGE MEDICATIONS 1. Cholecalciferol Vit D3 [Vitamin D3 (*)] 7,000 units PO DAILY 2. [place]-3 Fatty Acids [Fish Oil 1000 mg (*)] 2,000 mg PO BID 3. traMADol [Ultram 50 mg (*)] 50 mg PO Q4 PRN 4. Aspirin EC [Aspirin EC 81 mg (*)] 81 mg PO DAILY 5. Carvedilol [Coreg (*)] 6.25 mg PO BIDMEAL 6. Pantoprazole Sodium [Protonix 40mg (*)] 40 mg PO DAILY 7. Atorvastatin Calcium [Lipitor 10 mg (*)] 10 mg PO HS 8. Glucosamine/Chondroitin [Glucosamine/Chondroitin (*)] 1 each PO DAILY 9. Vitamin B Complex [B Complex] 1 each PO DAILY 10. Acetaminophen [Tylenol 325mg (*)] 325 - 650 mg PO Q4HRS PRN 11. Bisacodyl [Dulcolax] 10 mg RC DAILY PRN 12. Methocarbamol [Robaxin 500 mg (*)] 1,000 mg PO QID PRN 13. Polyethylene Glycol 3350 [Miralax 17 gm (*)] 17 gm PO DAILY PRN 14. Furosemide [Lasix 40 MG (*)] 60 mg PO BIDDIUR 15. Potassium Cl [Klor-Con 20 meq (*)] 40 meq PO BIDDIUR 16. Warfarin Sodium [Coumadin 2MG (*)] 2.5 mg PO DAILY16 (INR goal 2-3) PENDING STUDIES/LABS 1. CXR - prior to surgical follow-up 2. INR - 06/03/17 with [facility] to manage Coumadin dosing F/U APPOINTMENTS 1. Edward Aggarwal - 06/08/17, 10:30 AM 2. Som Mar[place] - 06/04/17, 1:00 PM
--- NOTE | 2017-06-03 15:53 | ASDISCHSUM ---
Discharge Information Plan Status:Home with Home Health Medically Cleared to Leave:06/01/2017 Discharge Date:06/02/2017 05:32 PM CM D/C Disposition:Home, Routine, Self-Care ADT D/C Disposition:Home Health Service Projected Discharge Date:06/02/2017 12:00 AM Transportation at D/C:Family Discharge Delay Reason: Follow-Up Date:06/02/2017 12:00 AM Discharge Slot: Final Diagnosis: Placement Information Patient Contact Information Contact Name:ROLDAN Relationship:Daughter Address:[address] Work Phone: City:[place] Phone: State/Zip Code:[place] [address] Email: Financial Information Financial Class:Medicare Advantage Plans Primary Plan Desc:LYUDMILA DELGADILLO MEDICARE Primary Plan Number:[id number] Secondary Plan Desc: Secondary Plan Number: Assessment Information [facility] CM Progress Note CM Note CM Note Notes: Patient admitted with one week of drainage from sternotomy s/p MVR, CABG, and LLAA. Wound vac placed in OR today. Patient will need a wound vac at home. Order placed and pending with [facility]. [facility] RN will follow for home care. CM to follow. Date Signed: 06/01/2017 04:59 PM Electronically Signed By:Kandi Arce RN [facility] CM Progress Note CM Note CM Note Notes: 06/02/2017 Case Management Note Delivered wound vac bedside. Pt signed for vac. Faxed paerwork to [employer]. Notified [facility] of d/c. Faxed final paperwork to [facility]. RN to call report. Family to transport pt home. Date Signed: 06/02/2017 11:07 AM Electronically Signed By:Mirella Adrian RN Intervention Information Intervention Type:*EM-Signed Date of Service:06/01/2017 11:36 AM Patient Type:Observation Staff Member:Viki Zhu Hours: Discipline: Severity: Comment: Intervention Type:*IM-Signed Date of Service:06/02/2017 12:06 PM Patient Type:Inpatient Staff Member:Viki Zhu Hours: Discipline: Severity: Comment:
--- NOTE | 2017-06-17 08:19 | GOP ---
[f rep st] OPERATIVE REPORT DATE OF OPERATION: 06/01/2017 SURGEON: Edward Aggarwal DO CLIENT RELATIONSHIP MANAGER: Marlo Castillo PA-C. ANESTHESIOLOGIST: Bonita Reyes MD PREOPERATIVE DIAGNOSIS: Persistent wound drainage with possible mediastinal infection. POSTOPERATIVE DIAGNOSIS: Persistent wound drainage with possible mediastinal infection. PROCEDURE PERFORMED: Removal of sternal bands and wires with debridement of sternal edges and placem ent of wound VAC. FINDINGS: DESCRIPTION OF PROCEDURE: Patient was brought to the operating room after previous Wound VAC was david verena, which was not continued by home health for uncertain reasons. She had persistent seropurulent d rainage despite good healthy granulating tissue on the surface. The sternal wires and bands were all removed. The lower portion of the sternum with removal of the bands and wires. She was p robed parasternally where a large tract was draining serous fluid from a pocket noted on CT scan. Th is was opened up and allowed to drain externally. A Wound VAC was placed. Dressings were applied. Patient was returned to the recovery room in stable condition. /[id number]/MODL
== END 2017-06-02 17:32 | disposition home health service (06) | DRG 941 ==
LOC: FIMAGING 11:44 → EDSTATUS 14:50 → F2W 15:05 → OBSVTOIN 06-01 16:45
PROVIDERS: ADMIT Thoracic Surgery (Cardiothoracic Vascular Surgery); ATTEND Thoracic Surgery (Cardiothoracic Vascular Surgery)
PROC: 0W9C0ZZ Drainage of Mediastinum, Open Approach (ICD-10-PCS; principal; 2017-06-01 07:15)
DX: Z48.812 Encounter for surgical aftercare following surgery on the circulatory system (principal); Z95.1 Presence of aortocoronary bypass graft; Z95.3 Presence of xenogenic heart valve
CPT/HCPCS: 97161-GP; 97165-GO; G0378; J0690; J2250; J2704; J3010; J3370

== ENCOUNTER → 2017-06-08 | Outpatient (CLI) | payer OTHER | LOC: FIMAGING 10:12 | PROVIDERS: ATTEND Thoracic Surgery (Cardiothoracic Vascular Surgery) | DX: T81.32XA Disruption of internal operation (surgical) wound, not elsewhere classified, initial encounter (principal); I51.7 Cardiomegaly; I70.0 Atherosclerosis of aorta; Z95.4 Presence of other heart-valve replacement; Z95.1 Presence of aortocoronary bypass graft ==

== ENCOUNTER 2017-06-09 09:28 | Inpatient (IN) | payer OTHER ==
--- NOTE | 2017-06-09 10:13 | CPEKG ---
Heart Rate: 107 RR Interval: 561 P-R Interval: 150 QRSD Interval: 114 QT Interval: 324 QTC Interval: 433 P Hobson: 87 QRS Hobson: -46 T Wave Hobson: 137 EKG Severity - ABNORMAL ECG - EKG Impression: SINUS TACHYCARDIA EKG Impression: MULTIPLE VENTRICULAR PREMATURE COMPLEXES EKG Impression: LEFT ANTERIOR FASCICULAR BLOCK EKG Impression: LVH WITH SECONDARY REPOLARIZATION ABNORMALITY Electronically Signed By: Shashi Xiong 09-Jun-2017 15:18:50
[2017-06-09] MEDS ORDERED: NS 1,000 ML IV ONE (10:16)
--- NOTE | 2017-06-09 10:19 | EDPHY ---
H & P Smoking Status: Former smoker Time Seen by Provider: 06/09/17 10:02 HPI/ROS: CHIEF COMPLAINT: Weakness, fever HISTORY OF PRESENT ILLNESS: 77-year-old female presents to the emergency department by ambulance with generalized weakness and fatigue. Patient had 3 vessel CABG with mitral valve replacement on 05/14/2017. She has a nonhealing chest wound was scheduled to have plastics repair tomorrow. She saw her cardiovascular surgeon, Dr. Aggarwal, yesterday for preop and laboratory studies. She was feeling generalized weakness at that time however she feels like it is much worse. She is having difficulty breathing. She is feeling nauseous. She has no appetite. She is not aware fevers or chills. She is not aware of a rash. She has been urinating frequently she states "because I drink a lot a water and ". Denies dysuria. REVIEW OF SYSTEMS: Constitutional: No fever, no chills. Eyes: No double or blurry vision. ENT: No sore throat. Respiratory: Short of breath. No cough. Cardiac: No chest pain. Gastrointestinal: No abdominal pain, vomiting or diarrhea. Genitourinary: No dysuria. Musculoskeletal: No neck or back pain. Skin: No rashes. Neurological: No headache. (Alexandra Valero) Past Medical/Surgical History: Three-vessel CABG with mitral valve replacement on 05/14/2017 with nonhealing chest wound, hypertension, cardiac stent (Alexandra Valreo) Social History: Patient is a and lives in [place]. She has been having home health change her bandages. Her daughter has been staying with her. (Alexandra Valero) Physical Exam: General Appearance: Alert, no distress. Temperature 37.9degrees, heart rate 114, respirations 30, blood pressure 121/71, 93% on room air. Eyes: Pupils equal and round. Extraocular motions are all intact. ENT: Mouth: Mucous membranes very dry Respiratory: No wheezing, rhonchi, or rales, lungs are clear to auscultation. Cardiovascular: Regular rate and rhythm. Gastrointestinal: Abdomen is soft and nontender, no masses, no rebound or guarding, bowel sounds normal. Neurological: Alert and oriented x 3, cranial nerves II through XII grossly intact Skin: Patient has a midline incision over her sternum with purulent discharge noted. It is odor is. She has saturated gauze in the wound as well as over the wound. Patient also has erythematous, vesicular appearing a rash noted to the posterior aspect of her right shoulder, anterior aspect of her right humerus and lateral right aspect of her neck cyst with probable zoster. Musculoskeletal: Nontender to palpate along the cervical, thoracic or lumbar spine. Neck is supple. Extremities: Full range of motion and no peripheral edema. Ecchymosis noted to the left lower extremity with healing incision noted to the proximal medial aspect of her left lower leg. No signs of infection noted in her legs. Psychiatric: Patient is oriented X 3, there is no agitation. (Alexandra Valero) Constitutional: Initial Vital Signs Temperature (C) 37.9 C 06/09/17 09:58 Heart Rate 114 H 06/09/17 09:58 Respiratory Rate 30 H 06/09/17 09:58 Blood Pressure 121/71 H 06/09/17 09:58 O2 Sat (%) 93 06/09/17 09:58 O2 Delivery Mode Nasal Cannula O2 (L/minute) 4 Allergies/Adverse Reactions: NSAIDS (Non-Steroidal Anti-Inflamma [NSAIDS (Non-Steroidal Anti-Inflammatory Drug)] Allergy (Severe, Verified 06/02/17 13:44) Other-Enter Comments Sulfa (Sulfonamide Antibiotics) Allergy (Verified 05/13/17 13:58) Unknown Home Medications: Medication Instructions Recorded Cholecalciferol Vit D3 [Vitamin D3 7,000 units PO DAILY 04/03/14 (*)] [place]-3 Fatty Acids [Fish Oil 1000 2,000 mg PO BID 04/03/14 mg (*)] traMADol [Ultram 50 mg (*)] 50 mg PO Q4 PRN 04/03/14 Aspirin EC [Aspirin EC 81 mg (*)] 81 mg PO DAILY #30 tab 04/05/14 Carvedilol [Coreg (*)] 6.25 mg PO BIDMEAL #60 tab 04/05/14 Pantoprazole Sodium [Protonix 40mg 40 mg PO DAILY #30 tab 04/05/14 (*)] Atorvastatin Calcium [Lipitor 10 10 mg PO HS 04/20/17 mg (*)] Glucosamine/Chondroitin 1 each PO DAILY 04/20/17 [Glucosamine/Chondroitin (*)] Vitamin B Complex [B Complex] 1 each PO DAILY 10/21/17 Acetaminophen [Tylenol 325mg (*)] 325 - 650 mg PO Q4HRS PRN tab 05/21/17 Bisacodyl [Dulcolax] 10 mg RC DAILY PRN 05/31/17 Methocarbamol [Robaxin 500 mg (*)] 1,000 mg PO QID PRN 05/31/17 Polyethylene Glycol 3350 [Miralax 17 gm PO DAILY PRN 05/31/17 17 gm (*)] Furosemide [Lasix 40 MG (*)] 60 mg PO BIDDIUR #60 tab 06/02/17 Potassium Cl [Klor-Con 20 meq (*)] 40 meq PO BIDDIUR #60 tab 06/02/17 Warfarin Sodium [Coumadin 2MG (*)] 2.5 mg PO DAILY16 #30 tab 06/02/17 Medical Decision Making - Diagnostics Imaging Results: Imaging Impressions Chest X-Ray 06/09/17 10:12 Impression: 1. Possible new patchy infiltrate left base. Consider early pneumonia. 2. Stable moderate elevation right hemidiaphragm with adjacent compressive atelectatic change. Chest CT 06/09/17 10:26 Impression: 1. Sternal and retrosternal infection/phlegmon, without drainable abscess. Gas bubbles in the sternum and, therefore, osteomyelitis cannot be excluded. 2. Centrilobular emphysema. 3. Minimal right pleural effusion. 4. Elevated right hemidiaphragm with mild atelectasis in the right lower lobe and pleuroparenchymal scarring in the lingula. 5. Postcardiac surgical changes. Findings and recommendations given to Dr. Edward Aggarwal at 1145 hours on June 09, 2017. Final report concurs with initial preliminary interpretation. A test result has been communicated to a licensed care provider and documented in the [facility] Critical Result system on 06/09/2017 12:21, Message ID [id number]. ED Course/Re-evaluation: I have discussed and evaluated this patient with Alexandra Corbin. I agree with the workup and the plan. The cardiothoracic surgeon has been her to see the patient also. (Shashi Xiong) The case was discussed with Dr. Shashi Xiong, secondary supervising physician, who did not directly evaluate the patient but agrees with treatment and plan. I also spoke with Dr. Edward Wilder who came to evaluate the patient and will admit the patient to the step-down unit. Lactate was normal at 0.9. White blood cell count is unremarkable. Blood cultures are pending. The patient does not meet sepsis criteria. This was discussed with Dr. Shashi Xiong. (EvelinalejandraAlexandra M) Differential Diagnosis: Including but not limited to sepsis, wound infection, cellulitis, pulmonary embolism (Alexandra Valero) - Data Points Laboratory Results: Laboratory Results 06/09/17 09:37 06/09/17 09:37 06/09/17 06/09/17 06/09/17 09:37 09:37 09:37 WBC 8.91 10^3/uL 10^3/uL (3.80-9.50) RBC 3.51 10^6/uL L 10^6/uL (4.18-5.33) Hgb 11.0 g/dL L g/dL (12.6-16.3) Hct 32.1 % L % (38.0-47.0) MCV 91.5 fL fL (81.5-99.8) MCH 31.3 pg pg (27.9-34.1) MCHC 34.3 g/dL g/dL (32.4-36.7) RDW 13.8 % % (11.5-15.2) Plt Count 238 10^3/uL 10^3/uL (150-400) MPV 9.8 fL fL (8.7-11.7) Neut % (Auto) 87.5 % H % (39.3-74.2) Lymph % (Auto) 4.4 % L % (15.0-45.0) [place] % (Auto) 6.3 % % (4.5-13.0) Eos % (Auto) 1.1 % % (0.6-7.6) Baso % (Auto) 0.4 % % (0.3-1.7) Nucleat RBC Rel Count 0.0 % % (0.0-0.2) Absolute Neuts (auto) 7.79 10^3/uL H 10^3/uL (1.70-6.50) Absolute Lymphs (auto) 0.39 10^3/uL L 10^3/uL (1.00-3.00) Absolute Monos (auto) 0.56 10^3/uL 10^3/uL (0.30-0.80) Absolute Eos (auto) 0.10 10^3/uL 10^3/uL (0.03-0.40) Absolute Basos (auto) 0.04 10^3/uL 10^3/uL (0.02-0.10) Absolute Nucleated RBC 0.00 10^3/uL 10^3/uL (0-0.01) Immature Gran % 0.3 % % (0.0-1.1) Immature Gran # 0.03 10^3/uL 10^3/uL (0.00-0.10) PT 18.0 SEC H SEC (12.0-15.0) INR 1.49 H (0.83-1.16) APTT 34.3 SEC SEC (23.0-38.0) VBG Lactic Acid 0.9 mmol/L mmol/L (0.7-2.1) Sodium Potassium Chloride Carbon Dioxide Anion Gap BUN Creatinine Estimated GFR Glucose Calcium Phosphorus Total Bilirubin 06/09/17 09:37 WBC RBC Hgb Hct MCV MCH MCHC RDW Plt Count MPV Neut % (Auto) Lymph % (Auto) Steele % (Auto) Eos % (Auto) Baso % (Auto) Nucleat RBC Rel Count Absolute Neuts (auto) Absolute Lymphs (auto) Absolute Monos (auto) Absolute Eos (auto) Absolute Basos (auto) Absolute Nucleated RBC Immature Gran % Immature Gran # PT INR APTT VBG Lactic Acid Sodium 131 mEq/L L mEq/L (134-144) Potassium 4.1 mEq/L mEq/L (3.5-5.2) Chloride 90 mEq/L L mEq/L (97-110) Carbon Dioxide 30 mEq/l mEq/l (22-31) Anion Gap 11 mEq/L mEq/L (8-16) BUN 12 mg/dL mg/dL (7-23) Creatinine 0.8 mg/dL mg/dL (0.6-1.0) Estimated GFR > 60 Glucose 117 mg/dL H mg/dL (70-100) Calcium 11.2 mg/dL H mg/dL (8.5-10.4) Phosphorus 2.3 mg/dL L mg/dL (2.5-4.5) Total Bilirubin 0.8 mg/dL mg/dL (0.1-1.4) Medications Given: Sodium Chloride (Ns) 1,000 mls @ 200 mls/hr IV CONT MARIANNE Stop: 12/06/17 10:59 Last Admin: 06/09/17 11:25 Dose: 1,000 mls Sodium Chloride (Ns) 1,000 mls @ 100 mls/hr IV CONT MARIANNE Stop: 12/06/17 14:14 Last Admin: 06/09/17 16:35 Dose: 1,000 mls Discontinued Medications Fentanyl (Sublimaze) 25 - 100 mcg IVP Q5M PRN PRN Reason: PACU, IMMEDIATE Pain control Stop: 06/09/17 15:19 Last Admin: 06/09/17 15:04 Dose: 50 mcg Sodium Chloride (Ns) 1,000 mls @ 0 mls/hr IV ONCE ONE PRN Reason: Wide Open Stop: 06/09/17 10:17 Last Admin: 06/09/17 11:01 Dose: Not Given Ertapenem 1 gm/ Sodium (Chloride) 100 mls @ 200 mls/hr IV EDNOW ONE PRN Reason: Protocol Stop: 06/09/17 11:34 Last Admin: 06/09/17 11:43 Dose: 100 mls Vancomycin/Sodium Chloride (Vancomycin 1 Gm (Premix)) 250 mls @ 250 mls/hr IV EDNOW ONE PRN Reason: Protocol Stop: 06/09/17 12:19 Last Admin: 06/09/17 11:25 Dose: 250 mls Departure - Departure Disposition: To OP Cath/Surgery Clinical Impression: Weakness Fever Qualifiers: Fever type: unspecified Qualified Code(s): R50.9 - Fever, unspecified Dyspnea Qualifiers: Dyspnea type: unspecified Qualified Code(s): R06.00 - Dyspnea, unspecified Wound infection after surgery Qualifiers: Encounter type: initial encounter Qualified Code(s): T81.4XXA - Infection following a procedure, initial encounter Condition: Fair
[2017-06-09 10:22] LABS: % IMMATURE GRANULYOCYTES 0.3 % (0.0-1.1); ABSOLUTE IMMATURE GRANULOCYTES 0.03 10^3/uL (0.00-0.10); ADD DIFF? NO; ADD MORPH? NO; ADD SCAN? NO; ATYPICAL LYMPHOCYTE FLAG 40 (0-99); FRAGMENT RBC FLAG 0 (0-99); HEMATOCRIT 32.1 % (38.0-47.0); LEFT SHIFT FLG 0 (0-99); LIPEMIA HEMOLYSIS FLAG 90 (0-99); MEAN CELL HEMOGLOBIN 31.3 pg (27.9-34.1); MEAN CELL HEMOGLOBIN CONCENTR. 34.3 g/dL (32.4-36.7); MEAN CELL VOLUME 91.5 fL (81.5-99.8); MEAN PLATELET VOLUME 9.8 fL (8.7-11.7); PLATELET CLUMPS FLAG 0 (0-99); PLATELET COUNT 238 10^3/uL (150-400); RED BLOOD CELL COUNT 3.51 10^6/uL (4.18-5.33); RED CELL DISTRIBUTION WIDTH 13.8 % (11.5-15.2)
[2017-06-09 10:37] LABS: INR 1.49 (0.83-1.16)
[2017-06-09 10:38] LABS: ANION GAP 11 mEq/L (8-16); APTT 34.3 SEC (23.0-38.0); BILIRUBIN,TOTAL 0.8 mg/dL (0.1-1.4); CALCIUM 11.2 mg/dL (8.5-10.4); CARBON DIOXIDE 30 mEq/l (22-31); CHLORIDE 90 mEq/L (97-110); CREATININE 0.8 mg/dL (0.6-1.0); GLOMERULAR FILTRATION RATE > 60; GLUCOSE 117 mg/dL (70-100); POTASSIUM 4.1 mEq/L (3.5-5.2); SODIUM 131 mEq/L (134-144)
[2017-06-09] MEDS ORDERED: IOPAMIDOL (ISOVUE-300) 100 ML BTL ONE (10:52)
[2017-06-09] MEDS ORDERED: VANCOMYCIN 1 GM VIAL ONE (10:56)
[2017-06-09] MEDS ORDERED: POLYMYXIN B SULFATE 500,000 UNIT/10 ML SYR IRR ONE (10:57)
[2017-06-09] MEDS ORDERED: BACITRACIN 50,000 UNITS/10 ML SYR IRR ONE (10:57)
[2017-06-09] MEDS ORDERED: NS 1,000 ML IV SCH ×2 (11:00→14:15)
[2017-06-09] MEDS ORDERED: ERTAPENEM 1 GM in NS 100 ML IV ONE (11:05)
--- NOTE | 2017-06-09 11:14 | PDGENHP ---
History and Physical - Chief Complaint weakness, sternal drainage - History of Present Illness 77F seen yesterday at clinic with c/o weakness, malaise, and poor appetite. VS were normal and labs were unremarkable and the pt was sent home with instructions to return if she felt worse. Pt returned to [facility] this morning as directed. She is s/p recent CABGx3 and MV bioprosthetic replacement with a poor healing sternotomy wound which was scheduled for closure on 06/10 with plastics. The plan is for Dr. 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 History Information - Allergies/Home Medication List Allergies/Adverse Reactions: NSAIDS (Non-Steroidal Anti-Inflamma [NSAIDS (Non-Steroidal Anti-Inflammatory Drug)] Allergy (Severe, Verified 06/02/17 13:44) Other-Enter Comments Sulfa (Sulfonamide Antibiotics) Allergy (Verified 05/13/17 13:58) Unknown Home Medications: Cholecalciferol Vit D3 [Vitamin D3 (*)] 7,000 units PO DAILY 04/03/14 [Last Taken 05/31/17] [place]-3 Fatty Acids [Fish Oil 1000 mg (*)] 2,000 mg PO BID 04/03/14 [Last Taken 05/31/17] traMADol [Ultram 50 mg (*)] 50 mg PO Q4 PRN 04/03/14 [Last Taken 2 Weeks Ago ~] Atorvastatin Calcium [Lipitor 10 mg (*)] 10 mg PO HS 04/20/17 [Last Taken ] Glucosamine/Chondroitin [Glucosamine/Chondroitin (*)] 1 each PO DAILY 04/20/17 [ Last Taken 05/31/17] Vitamin B Complex [B Complex] 1 each PO DAILY 05/15/17 [Last Taken 05/31/17] Bisacodyl [Dulcolax] 10 mg RC DAILY PRN 05/31/17 [Last Taken Unknown] Methocarbamol [Robaxin 500 mg (*)] 1,000 mg PO QID PRN 05/31/17 [Last Taken Unknown] Polyethylene Glycol 3350 [Miralax 17 gm (*)] 17 gm PO DAILY PRN 05/31/17 [Last Taken Unknown] I have personally reviewed and updated: medical history, social history - Past Medical History coronary artery disease, CHF, hypertension, hyperlipidemia Additional medical history: mitral insufficiency - Surgical History Additional surgical history: as per HPI - Social History Smoking Status: Former smoker Review of Systems Review of Systems: ROS: 10pt was reviewed & negative except for what was stated in HPI & below Physical Exam Physical Exam: Temp Pulse Resp BP Pulse Ox 37.9 C 114 H 30 H 121/71 H 93 06/09/17 09:58 06/09/17 09:58 06/09/17 09:58 06/09/17 09:58 06/09/17 09:58 Constitutional: obese, uncomfortable Eyes: anicteric sclera Ears, Nose, Mouth, Throat: hearing normal Cardiovascular: regular rate and rhythym Respiratory: no respiratory distress Gastrointestinal: soft, non-tender abdomen Skin: warm, normal color Neurologic: AAOx3 Psychiatric: interacting appropriately, not anxious, not encephalopathic, thought process linear Lab Data & Imaging Review 06/09/17 09:37 06/09/17 09:37 WBC 8.91 10^3/uL (3.80-9.50) 06/09/17 09:37 RBC 3.51 10^6/uL (4.18-5.33) L 06/09/17 09:37 Hgb 11.0 g/dL (12.6-16.3) L 06/09/17 09:37 Hct 32.1 % (38.0-47.0) L 06/09/17 09:37 MCV 91.5 fL (81.5-99.8) 06/09/17 09:37 MCH 31.3 pg (27.9-34.1) 06/09/17 09:37 MCHC 34.3 g/dL (32.4-36.7) 06/09/17 09:37 RDW 13.8 % (11.5-15.2) 06/09/17 09:37 Plt Count 238 10^3/uL (150-400) 06/09/17 09:37 MPV 9.8 fL (8.7-11.7) 06/09/17 09:37 Neut % (Auto) 87.5 % (39.3-74.2) H 06/09/17 09:37 Lymph % (Auto) 4.4 % (15.0-45.0) L 06/09/17 09:37 [place] % (Auto) 6.3 % (4.5-13.0) 06/09/17 09:37 Eos % (Auto) 1.1 % (0.6-7.6) 06/09/17 09:37 Baso % (Auto) 0.4 % (0.3-1.7) 06/09/17 09:37 Nucleat RBC Rel Count 0.0 % (0.0-0.2) 06/09/17 09:37 Absolute Neuts (auto) 7.79 10^3/uL (1.70-6.50) H 06/09/17 09:37 Absolute Lymphs (auto) 0.39 10^3/uL (1.00-3.00) L 06/09/17 09:37 Absolute Monos (auto) 0.56 10^3/uL (0.30-0.80) 06/09/17 09:37 Absolute Eos (auto) 0.10 10^3/uL (0.03-0.40) 06/09/17 09:37 Absolute Basos (auto) 0.04 10^3/uL (0.02-0.10) 06/09/17 09:37 Absolute Nucleated RBC 0.00 10^3/uL (0-0.01) 06/09/17 09:37 Immature Gran % 0.3 % (0.0-1.1) 06/09/17 09:37 Immature Gran # 0.03 10^3/uL (0.00-0.10) 06/09/17 09:37 PT 18.0 SEC (12.0-15.0) H 06/09/17 09:37 INR 1.49 (0.83-1.16) H 06/09/17 09:37 APTT 34.3 SEC (23.0-38.0) 06/09/17 09:37 VBG Lactic Acid 0.9 mmol/L (0.7-2.1) 06/09/17 09:37 Sodium 131 mEq/L (134-144) L 06/09/17 09:37 Potassium 4.1 mEq/L (3.5-5.2) 06/09/17 09:37 Chloride 90 mEq/L (97-110) L 06/09/17 09:37 Carbon Dioxide 30 mEq/l (22-31) 06/09/17 09:37 Anion Gap 11 mEq/L (8-16) 06/09/17 09:37 BUN 12 mg/dL (7-23) 06/09/17 09:37 Creatinine 0.8 mg/dL (0.6-1.0) 06/09/17 09:37 Estimated GFR > 60 06/09/17 09:37 Glucose 117 mg/dL (70-100) H 06/09/17 09:37 Calcium 11.2 mg/dL (8.5-10.4) H 06/09/17 09:37 Phosphorus 2.3 mg/dL (2.5-4.5) L 06/09/17 09:37 Total Bilirubin 0.8 mg/dL (0.1-1.4) 06/09/17 09:37 Visualized and Interpreted Chest x-ray results: Yes Chest X-Ray results: no infiltrate Assessment & Plan Assessment: 77F with mediastinitis Plan: Sternal wire/band removal with washout this afternoon
[2017-06-09] MEDS ORDERED: VANCOMYCIN HCL/NORMAL SALINE 250 ML IV ONE (11:20)
--- NOTE | 2017-06-09 11:30 | ASMTCMCOM ---
CM Note CM Note Notes: ER CM received call from Kerrie POOLE with [facility] re patient's arrival to the ER this morning. Patient is current with [facility] since 06/03/17 s/p recent OHS (Dr. Aggarwal), wound dehisence (sternal), and rehab stay at [facility] in [place]. Patient is now to be admitted to hospital. CM to follow with D/C planning. I have LM with Kerrie to inform her of patient's admission Date Signed: 06/09/2017 11:29 AM Electronically Signed By:Lorena Ray RN
[2017-06-09] MEDS ORDERED: LR 1,000 ML IV ONE (13:03)
--- NOTE | 2017-06-09 13:24 | PDANEPAE ---
ANE History of Present Illness 77 yo for sternal debridement s/p cabg, mvr ef 50% ANE Past Medical History - Cardiovascular History Hx Hypertension: Yes Hx Arrhythmias: No Hx Chest Pain: No Hx Coronary Artery / Peripheral Vascular Disease: Yes Hx CHF / Valvular Disease: Yes Cardiovascular History Comment: [place] 2013-no chest pain w/[place] - Pulmonary History Hx COPD: No Hx Asthma/Reactive Airway Disease: No Hx Recent Upper Respiratory Infection: No Hx Oxygen in Use at Home: Yes O2 in Use at Home (L/minute): 2 Hx Sleep Apnea: No Pulmonary History Comment: can be SOB w/activity - Neurologic History Hx Cerebrovascular Accident: No Hx Seizures: No Hx Dementia: No - Endocrine History Hx Diabetes: No - Renal History Hx Renal Disorders: No - Liver History Hx Hepatic Disorders: No - Neurological & Psychiatric Hx Hx Neurological and Psychiatric Disorders: Yes Neurological / Psychiatric History Comment: low back pain-chronic - Cancer History Hx Cancer: No - Congenital Disorder History Hx Congenital Disorders: No - GI History Hx Gastrointestinal Disorders: Yes Gastrointestinal History Comment: on Protonix to protect stomach - Other Health History Other Health History: toenail fungus- uses topical tx. Sternum broken ~10 yrs ago. - Chronic Pain History Chronic Pain: No - Surgical History Prior Surgeries: mastoidectomy - at 8 mos of age. bunion sx . carpal kim '. cardiac cath 2016 ANE Review of Systems Review of Systems: ANE Patient History - Allergies Allergies/Adverse Reactions: NSAIDS (Non-Steroidal Anti-Inflamma [NSAIDS (Non-Steroidal Anti-Inflammatory Drug)] Allergy (Severe, Verified 06/02/17 13:44) Other-Enter Comments Sulfa (Sulfonamide Antibiotics) Allergy (Verified 05/13/17 13:58) Unknown - Home Medications Home medications: home medication list seen and reviewed Home Medications: Cholecalciferol Vit D3 [Vitamin D3 (*)] 7,000 units PO DAILY 04/03/14 [Last Taken 06/08/17] [place]-3 Fatty Acids [Fish Oil 1000 mg (*)] 2,000 mg PO BID 04/03/14 [Last Taken 06/08/17 21:00] traMADol [Ultram 50 mg (*)] 50 mg PO Q4 PRN 04/03/14 [Last Taken 06/09/17] Atorvastatin Calcium [Lipitor 10 mg (*)] 10 mg PO HS 04/20/17 [Last Taken ] Glucosamine/Chondroitin [Glucosamine/Chondroitin (*)] 1 each PO DAILY 04/20/17 [ Last Taken 06/08/17] Vitamin B Complex [B Complex] 1 each PO DAILY 05/15/17 [Last Taken 06/08/17] Bisacodyl [Dulcolax] 10 mg RC DAILY PRN 05/31/17 [Last Taken Unknown] Methocarbamol [Robaxin 500 mg (*)] 1,000 mg PO QID PRN 05/31/17 [Last Taken ] Polyethylene Glycol 3350 [Miralax 17 gm (*)] 17 gm PO DAILY PRN 05/31/17 [Last Taken Unknown] - NPO status NPO Since - Liquids (Date): 06/09/17 NPO Since - Liquids (Time): 07:30 NPO Since - Solids (Date): 06/09/17 NPO Since - Solids (Time): 07:30 - Smoking Hx Smoking Status: Former smoker ANE Labs/Vital Signs - Labs Result Diagrams: 06/09/17 09:37 06/09/17 09:37 - Vital Signs Blood Pressure: 130/80 Heart Rate: 112 Respiratory Rate: 16 O2 Sat (%): 97 Height: 5 ft 3 in Weight: 81.647 kg ANE Physical Exam - Airway Neck exam: FROM Mallampati Score: Class 2 Mouth exam: normal dental/mouth exam - Pulmonary Pulmonary: no respiratory distress - Cardiovascular Cardiovascular: regular rate and rhythym ANE Anesthesia Plan Anesthesia Plan: general endotracheal anesthesia
[2017-06-09] MEDS ORDERED: REMIFENTANIL HCL 1 MG VIAL ONE (13:33)
[2017-06-09] MEDS ORDERED: PROPOFOL/EMULSION 500 MG/50 ML BOTTLE IV ONE (13:33)
[2017-06-09] MEDS ORDERED: fentaNYL 100 MCG/2 ML INJ ONE ×2 (13:33→15:03)
[2017-06-09] MEDS ORDERED: ROCURONIUM 50 MG/5 ML VIAL ONE (13:35)
[2017-06-09] MEDS ORDERED: ACETAMINOPHEN 325 MG TAB PO PRN (14:15)
[2017-06-09] MEDS ORDERED: ONDANSETRON DISINTEGRATING 4 MG TAB PO PRN (14:17)
[2017-06-09] MEDS ORDERED: POLYETHYLENE GLYCOL 3350 17 GM PKT PO PRN (14:18)
[2017-06-09] MEDS ORDERED: BISACODYL 10 MG SUPP PR PRN (14:18)
[2017-06-09] MEDS ORDERED: LACTULOSE 20 GM/30 ML UDCUP PO PRN (14:18)
[2017-06-09] MEDS ORDERED: fentaNYL 100 MCG/2 ML INJ IVP PRN (14:18)
[2017-06-09] MEDS ORDERED: MAGNESIUM HYDROXIDE 30 ML UDCUP PO PRN (14:18)
[2017-06-09] MEDS ORDERED: NALOXONE HCL 0.4 MG/ML INJ IVP PRN (14:18)
[2017-06-09] MEDS ORDERED: ONDANSETRON 4 MG/2 ML VIAL IVP PRN (14:18)
[2017-06-09] MEDS ORDERED: ALBUTEROL 3 ML DEYVIAL IH PRN (14:18)
--- NOTE | 2017-06-09 14:30 | POSTANESTH ---
Post Anesthetic Evaluation Cardiovascular Status: Normal, Stable Respiratory Status: Similar to Pre-op Cond. Level of Consciousness/Mental Status: Can Participate in Eval Pain Control: Adequate, Prn Tx Ordered Nausea/Vomiting Control: Adequate, Prn Tx Ordered Complications Possibly Related to Anesthesia: None Noted
[2017-06-09] MEDS: SENNOSIDES/DOCUSATE SODIUM TAB PO SCH (22:00)
[2017-06-09] MEDS: VANCOMYCIN HCL/NORMAL SALINE 250 ML IV SCH (23:53)
--- NOTE | 2017-06-10 02:14 | GOP ---
[f rep st] OPERATIVE REPORT DATE OF OPERATION: 06/09/2017 SURGEON: Edward Aggarwal DO TREADLE CUT OFF SAW OPERATOR: Marlo Castillo PA-C. ANESTHESIOLOGIST: Bonita Reyes MD. PREOPERATIVE DIAGNOSIS: Mediastinal wound infection. POSTOPERATIVE DIAGNOSIS: Mediastinal wound infection. PROCEDURE PERFORMED: Removal of sternal bands and wires, and placement of wound VAC with debridement of sternal wound. FINDINGS: DESCRIPTION OF PROCEDURE: The patient was brought to the operating room, intubated. She was prepped and draped in sterile classical manner. Open granulating sternal wound had obvious communication wi th the mediastinum with fluid draining around the large bands. This lady had very severe osteoporosi s, very poor quality bone which appeared to be somewhat healed, although it was only approximately 4 weeks out. I removed the sternal bands and wires and created an adequate drainage space lateral to t he sternum and in the intercostal space where the bands were, which probed quite deep into the medias tinum, and was met with serosanguineous fluid. This was opened approximately half a centimeter on ei ther 1 for adequate drainage. I debated whether to take the sternum down, debride it, and put drains and rewire, although given the very poor quality of her sternum I was afraid that this would result in her losing her sternum. Based on the CAT scan and discussing with my partners, we thought we woul d try this with a wound VAC initially and see how she did. Once that dries up then we will ask Plast ics to close her. If the sternum dehiscences then it is still possible I think to sternal rewire her at some point. Family was advised of the same. Dr. Deal will be covering in my absence. /[id number]/MODL
[2017-06-10 05:10] LABS: HEMATOCRIT 29.6 % (38.0-47.0); HEMOGLOBIN 9.7 g/dL (12.6-16.3); MEAN CELL HEMOGLOBIN 30.9 pg (27.9-34.1); MEAN CELL HEMOGLOBIN CONCENTR. 32.8 g/dL (32.4-36.7); MEAN CELL VOLUME 94.3 fL (81.5-99.8); RED BLOOD CELL COUNT 3.14 10^6/uL (4.18-5.33)
[2017-06-10 05:15] LABS: INR 1.43 (0.83-1.16); PROTIME(PATIENT) 17.4 SEC (12.0-15.0)
[2017-06-10 05:22] LABS: ANION GAP 8 mEq/L (8-16); CALCIUM 11.3 mg/dL (8.5-10.4); CARBON DIOXIDE 32 mEq/l (22-31); CHLORIDE 98 mEq/L (97-110); CREATININE 0.7 mg/dL (0.6-1.0); GLOMERULAR FILTRATION RATE > 60; GLUCOSE 97 mg/dL (70-100); POTASSIUM 3.9 mEq/L (3.5-5.2); SODIUM 138 mEq/L (134-144)
--- NOTE | 2017-06-10 05:50 | GCON ---
[f rep st] CONSULTATION INPATIENT INFECTIOUS DISEASE CONSULTATION REFERRING PHYSICIAN: Edward Aggarwal DO REASON FOR REFERRAL: Mediastinitis. HISTORY OF PRESENT ILLNESS: Patient is a 77-year-old female, who underwent a recent coronary artery bypass graft with mitral valve bioprosthetic replacement earlier in the year. She had a poorly heali ng sternotomy wound and was scheduled to have a delayed wound closure with Plastic Surgery but was ev aluated in the office today by Dr. Aggarwal where it was noticed that she had been developing weakness, malaise, and poor appetite. Patient was referred to [facility] and taken to surgery fo r debridement of the sternal wound and a likely diagnosis of mediastinitis. Intraoperatively, there was tracking of inflammation in an apparent section down through the sternal incision to an area with in the chest cavity. This was washed out and a VAC dressing was attached and samples were taken from deep tissue. Patient was started on ertapenem and vancomycin. We are consulted to help assist in a ntibiotic management. Patient was seen after she returned from the operating room. She was quite dr car[place]ina, but a family member was in the room by her side. Per the nurse and family member, the patient has been responsive after surgery. PAST MEDICAL HISTORY: 1. Coronary artery disease. 2. Hypertension. 3. Mitral valve disease. 4. Congestive heart failure. 5. Hyperlipidemia. PAST SURGICAL HISTORY: 1. Status post coronary artery bypass grafting. 2. Status post mitral valve replacement. ANTIBIOTICS: 1. Vancomycin. 2. Ertapenem. ALLERGIES: Patient is allergic to sulfa and nonsteroidal antiinflammatories. SOCIAL HISTORY: Patient is a former smoker. No notes of alcohol or recreational drug use. FAMILY HISTORY: Noncontributory. REVIEW OF SYSTEMS: Other than that detailed above in the History of Present Illness, a comprehensive 10-system review is negative. PHYSICAL EXAMINATION: VITAL SIGNS: Temperature maximum is 37.9, temperature current is 37.6, heart rate is 116 respiratory rate is 26, blood pressure is 130/56. GENERAL: Patient is a well-formed, we ll-nourished, elderly female, in no acute distress. She is not toxic in appearance. She is intermit tently alert and oriented. She is pleasant in demeanor. HEENT: Normocephalic for age. Atraumatic. No scleral icterus. No oral lesion. No drainage from the nares. Eyes: Lids and conjunctivae are within normal limits. Pupils are equal and round bilaterally. NECK: Supple. No meningismus. JAMIE GS: Clear to auscultation bilaterally with good effort. HEART: Tachycardic. Regular rhythm. Larisa ent has operative wound in the chest. SKIN: Warm and dry to the touch. No rash or lesion noted. O perative wound sternal area as noted. MUSCULOSKELETAL: No other muscle belly tenderness is noted. No joint line effusion or arthritis are seen. NEURO: Cranial nerves 2-12 seem to be intact. Periphe ral sensation seems intact in extremities. LABORATORY DATA: Patient has a CBC dated 06/09/2017 that shows white blood cell count of 8.9, hemogl obin of 11.0, hematocrit of 32.1, and platelet count of 238. Differential is left-shifted with 88% s egmented neutrophils. Serum chemistries on 06/09/2017 show sodium of 131, potassium of 4.1, chloride of 90, bicarbonate of 30, BUN of 12, and creatinine 0.8. MICROBIOLOGIC DATA: Patient has blood cultures dated 06/09/2017 which are no growth to date. Operat savi samples Gram stains show 1+ polymorphonuclear white cells and 1+ gram-positive cocci. Cultures a re pending. ASSESSMENT: Mediastinitis, status post CABG and mitral valve replacement. Initial Gram stains revea led gram-positive cocci the likely deep pathogen. Currently, she was covered with both vancomycin an d ertapenem. Given the Gram stain results, feel comfortable narrowing to vancomycin alone at this po int. Will discontinue the ertapenem and follow vancomycin out by trough levels to a goal of 15-20. PLAN: 1. Discontinue ertapenem. 2. Continue the vancomycin at 1 g IV q.12 hours. We will check a trough prior to the 4th dose. 3. Follow clinical course and laboratory, as well as microbiologic data. /[id number]/MODL
--- NOTE | 2017-06-10 08:08 | SOAPPROG ---
SOAP Progress Note Assessment/Plan: POD #1: Sternal wire/band removal, sternal debridement, vac placement 05/14/17: CABGx3, MV bioprosthetic replacement, AtriClip BELKIS Mediastinitis/sternal wound infections s/p debridement - Continue vac with changes as per wound care M-W-F - NS @ 100 cc/h for dehydration - ABX as per ID - SCDs/Lovenox for DVT prophylaxis - Plastics to consult for closure on this admission s/p CABGx3 and MV bioprosthetic replacement - ASA and statin resumed, BB on hold d/t low blood pressure - Coumadin held d/t eventual sternal closure - Valve thromboprophylaxis with daily Lovenox/ASA Chronic class II CHF, systolic (EF 50% on last ECHO) - Lasix held d/t dehydration Subjective: Feels much better today. Appetite has returned. Pain well-controlled. Objective: Vital Signs Temp Pulse Resp BP Pulse Ox 37.3 C 98 20 125/58 H 99 06/10/17 00:00 06/10/17 04:00 06/10/17 04:00 06/10/17 04:00 06/10/17 04:00 Microbiology 06/09/17 13:52 Gram Stain - Final Chest - Eswab 06/09/17 13:52 Gram Stain - Final Chest - Eswab 06/09/17 13:52 Mycobacterial Smear (PRAVEEN) - Final Chest - Eswab Mycobacterial Culture - Final 06/09/17 13:52 Mycobacterial Smear (PRAVEEN) - Final Chest - Eswab Mycobacterial Culture - Final Laboratory Results 06/10/17 04:50 06/10/17 04:50 06/09/17 06/10/17 06/11/17 05:59 05:59 05:59 Intake Total 3416 Output Total 1252 Balance 2164 PT 17.4 SEC (12.0-15.0) H 06/10/17 04:50 INR 1.43 (0.83-1.16) H 06/10/17 04:50 Physical Exam - Physical Exam General Appearance: WD/WN, alert, no apparent distress, obese EENT: No scleral icterus (R), No scleral icterus (L) Neck: normal inspection Respiratory: No respiratory distress Cardiac/Chest: tachycardia, other (wound vac intact ) Abdomen: non-tender, soft, No distended Skin: normal color, warm/dry Extremities: pedal edema Neuro/Psych: no motor/sensory deficits, alert, normal mood/affect, oriented x 3 ICD10 Worksheet Patient Problems: Problems Problem Status Onset Dyspnea Acute Fever Acute Weakness Acute Wound infection after surgery Acute Acute blood loss anemia Acute Chronic Disease Mgmt/Transitional Care Acute S/P CABG x 3 Acute ~05/14/17 S/P mitral valve replacement with bioprosthetic valve Acute ~05/14/17 Severe mitral regurgitation Acute Sternal wound dehiscence Acute Cardiomyopathy, ischemic Chronic Chronic systolic CHF (congestive heart failure), NYHA class 2 Chronic Coronary artery disease Chronic
[2017-06-10] MEDS: ENOXAPARIN 40 MG/0.4 ML SYR SC SCH (08:46)
[2017-06-10] MEDS: ASPIRIN EC 81 MG TAB PO SCH (08:46)
[2017-06-10] MEDS: VITAMIN B COMPLEX 1 EA CAP/TAB PO SCH (08:48)
[2017-06-10] MEDS: SENNOSIDES/DOCUSATE SODIUM TAB PO SCH ×2 (08:48→21:28)
[2017-06-10] MEDS: CHOLECALCIFEROL VIT D3 2,000 UNITS TAB/CAP PO SCH (08:49)
[2017-06-10] MEDS: PANTOPRAZOLE SODIUM 40 MG TAB PO SCH (08:49)
[2017-06-10] MEDS: OMEGA-3 FATTY ACIDS 1,000 MG CAP PO SCH ×2 (08:49→21:27)
[2017-06-10] MEDS: METHOCARBAMOL 500 MG TAB PO PRN ×3 (08:50→23:54)
[2017-06-10] MEDS: GLUCOSAMINE/CHONDROITIN CAP PO SCH (08:50)
[2017-06-10] MEDS ORDERED: CHOLECALCIFEROL VIT D3 1,000 UNITS TAB PO SCH (09:00)
[2017-06-10] MEDS ORDERED: POTASSIUM CL 20 MEQ TAB PO ONE ×2 (10:04→16:15)
--- NOTE | 2017-06-10 11:09 | PCMIDPN ---
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 Patient on vancomycin monotherapy. Will check trough value. Will send goal trough of 15-20. Suspect will need 4 weeks of treatment. Overall looks clinically very well considering circumstance. Plan: 1. Continue IV vancomycin at current dose. Will check trough level prior to 4th dose this evening. Will adjust tomorrow morning based on results. 2. Follow clinical course. Subjective: Patient is sitting up in her chair in her hospital room. She states she feels pretty good. She denies any new complaint. Some postoperative pain but generally not too bad. No fevers or chills. Tolerating vancomycin without issue. Objective: Vancomycin # 2 Vital Signs Temp Pulse Resp BP Pulse Ox 36.6 C 105 H 31 H 126/51 H 100 06/10/17 08:00 06/10/17 08:00 06/10/17 08:00 06/10/17 08:00 06/10/17 08:00 Microbiology 06/09/17 13:52 Gram Stain - Final Chest - Eswab 06/09/17 13:52 Gram Stain - Final Chest - Eswab 06/09/17 13:52 Mycobacterial Smear (PRAVEEN) - Final Chest - Eswab Mycobacterial Culture - Final 06/09/17 13:52 Mycobacterial Smear (PRAVEEN) - Final Chest - Eswab Mycobacterial Culture - Final Laboratory Results 06/10/17 04:50 06/10/17 04:50 06/09/17 06/10/17 06/11/17 05:59 05:59 05:59 Intake Total 3416 Output Total 1252 Balance 2164 - Physical Exam General Appearance: WD/WN, alert, no apparent distress, non-toxic Respiratory: lungs clear, normal breath sounds, No respiratory distress Cardiac/Chest: regular rate, rhythm, No tachycardia Skin: normal color, warm/dry, other (Operative site sternum with dressing. No surrounding erythema.), No rash Neuro/Psych: alert, normal mood/affect, oriented x 3 ICD10 Worksheet Patient Problems: Problems Problem Status Onset Dyspnea Acute Fever Acute Methicillin resistant Staphylococcus aureus infection Acute ~06/09/17 Weakness Acute Wound infection after surgery Acute Acute blood loss anemia Acute Chronic Disease Mgmt/Transitional Care Acute S/P CABG x 3 Acute ~05/14/17 S/P mitral valve replacement with bioprosthetic valve Acute ~05/14/17 Severe mitral regurgitation Acute Sternal wound dehiscence Acute Cardiomyopathy, ischemic Chronic Chronic systolic CHF (congestive heart failure), NYHA class 2 Chronic Coronary artery disease Chronic
[2017-06-10] MEDS: HYDROCODONE/APAP 5/325 TAB PO PRN ×2 (13:12→21:28)
[2017-06-10] MEDS: VANCOMYCIN HCL/NORMAL SALINE 250 ML IV SCH ×2 (13:42→23:54)
--- NOTE | 2017-06-10 14:29 | ASMTCMCOM ---
CM Note CM Note Notes: Patient admitted for sternal wire/band removal, sternal debridement, and wound vac placement. She is s/p CAPB x3 on 05/14/17. Patient was discharged home with a wound vac and home RN/PT/OT/STRIP DEBURRER last admission; she expressed some frustration with the wound vac (not all parts were delivered) and the O2 company that was set up for her. It's TBD if she will need to return home with a wound vac this time. She has a plastics consult for closure of the wound. In the meantime, one of her children will bring the home vac to the hospital. She is current with [facility] RN/PT/OT/STRIP DEBURRER and will likely resume those services after d/c. CM to assist with any other discharge needs. Date Signed: 06/10/2017 02:29 PM Electronically Signed By:Kandi Arce RN
--- NOTE | 2017-06-10 16:03 | GCON ---
[f rep st] CONSULTATION RESPIRATORY TECHNICIAN CONSULTATION REASON FOR ADMISSION: Mediastinitis. HISTORY OF PRESENT ILLNESS: The patient is an extremely pleasant 77-year-old white female with past medical history including coronary artery disease, hyperlipidemia. Hypertension, and congestive heart failure. She underwent coronary bypass graft, mitral valve replacement, and an AtriClip on May 14, 2017. She was seen in Dr. Aggarwal's office and was then admitted to the hospital. She subsequentl y went to the operating room for removal of sternal bands and wires secondary to a mediastinal wound infection. Wound VAC was placed and debridement of the sternal wound occurred. In discussion with t joseph patient, she states overall she feels markedly improved. She has some chest pain, mostly incision al. She denies any shortness of breath or cough. There is no fever or night sweats. Currently, she is resting comfortably. She has a fairly good appetite. PAST MEDICAL HISTORY: Significant for coronary artery disease, congestive heart failure, hypertensio n, and hyperlipidemia. PAST SURGICAL HISTORY: As above. ALLERGIES: Nonsteroidal anti-inflammatory drugs and sulfa. SOCIAL HISTORY: Previous heavy smoker; none for many years. No significant alcohol use. She reside s here in [place] and has excellent family support. PHYSICAL EXAMINATION: VITAL SIGNS: Blood pressure 126/51, pulse 105, respirations 31, temperature 3 6.6, oxygen saturation 100% on 4 L nasal cannula. GENERAL: A well-developed, well-nourished elderly white female who is resting comfortably on supplemental oxygen. HEENT: Eyes are PERRLA, EOMI. Thr oat shows no erythema or tonsillar hypertrophy. NECK: Supple. No cervical adenopathy. HEART: Reg ular rate and rhythm with a 2/6 systolic murmur at the left sternal border without radiation. LUNGS: Diminished breath sounds. Mild prolongation of expiratory phase but there is no wheeze. ABDOMEN: Soft, nontender. Bowel sounds are present. EXTREMITIES: No clubbing, cyanosis, or edema. LABORATORIES: White count 7.1, hemoglobin 9.7, hematocrit 29, platelet count 206. INR 1.43. Sodium 138, potassium 3.9, chloride 98, CO2 32, BUN 10, creatinine 0.7, glucose 97. IMPRESSION: 1. Sternal wound infection with mediastinitis. 2. History of coronary bypass graft and mitral valve replacement. 3. Congestive heart failure. 4. Coronary artery disease. RECOMMENDATIONS: 1. Agree with Infectious Disease consult. 2. Plastic surgery will be consulted. 3. DVT prophylaxis. 4. Adequate pain control. 5. Stress ulcer prophylaxis. 6. PT and OT. 7. Adequate nutrition. /[id number]/MODL
[2017-06-10] MEDS: traMADol 50 MG TAB PO PRN (21:28)
[2017-06-10] MEDS: ATORVASTATIN CALCIUM 10 MG TAB PO SCH (21:28)
[2017-06-11] MEDS: traMADol 50 MG TAB PO PRN ×3 (03:53→16:14)
[2017-06-11] MEDS: HYDROCODONE/APAP 5/325 TAB PO PRN ×4 (03:53→20:47)
--- NOTE | 2017-06-11 07:52 | SOAPPROG ---
SOAP Progress Note Assessment/Plan: POD #2: Sternal wire/band removal, sternal debridement, vac placement 05/14/17: CABGx3, MV bioprosthetic replacement, AtriClip BELKIS MRSA mediastinitis and sternal wound infection s/p debridement - Continue vac with changes as per wound care M-W- - Vanco as per ID, PICC line today - SCDs/Lovenox for DVT prophylaxis - Plastics to close sternum on this admission s/p CABGx3 and MV bioprosthetic replacement - ASA and statin resumed, BB on hold d/t low blood pressure - Coumadin held d/t eventual sternal closure - Valve thromboprophylaxis with daily Lovenox/ASA Chronic class II CHF, systolic (EF 50% on last ECHO) - Lasix held d/t dehydration - Reintroduction when appropriate Subjective: Continues to have good appetite. Denies pain/SOB. Objective: Vital Signs Temp Pulse Resp BP Pulse Ox 37 C 98 22 H 124/56 H 96 06/11/17 00:00 06/11/17 04:00 06/11/17 04:00 06/11/17 04:00 06/11/17 04:00 Microbiology 06/09/17 13:52 Gram Stain - Final Chest - Eswab 06/09/17 13:52 Gram Stain - Final Chest - Eswab 06/09/17 13:52 Mycobacterial Smear (PRAVEEN) - Final Chest - Eswab Mycobacterial Culture - Final 06/09/17 13:52 Mycobacterial Smear (PRAVEEN) - Final Chest - Eswab Mycobacterial Culture - Final Laboratory Results 06/10/17 04:50 06/10/17 04:50 06/10/17 06/11/17 06/12/17 05:59 05:59 05:59 Intake Total 3416 1585 Output Total 1252 1550 Balance 2164 35 PT 17.4 SEC (12.0-15.0) H 06/10/17 04:50 INR 1.43 (0.83-1.16) H 06/10/17 04:50 Physical Exam - Physical Exam General Appearance: WD/WN, alert, no apparent distress EENT: No scleral icterus (R), No scleral icterus (L) Neck: normal inspection Respiratory: No respiratory distress Cardiac/Chest: regular rate, rhythm, other (sternal wound vac intact) Abdomen: non-tender, soft, No distended Skin: normal color, warm/dry Extremities: No pedal edema Neuro/Psych: no motor/sensory deficits, alert, normal mood/affect, oriented x 3 ICD10 Worksheet Patient Problems: Problems Problem Status Onset Dyspnea Acute Fever Acute Methicillin resistant Staphylococcus aureus infection Acute ~06/09/17 Weakness Acute Wound infection after surgery Acute Acute blood loss anemia Acute Chronic Disease Mgmt/Transitional Care Acute S/P CABG x 3 Acute ~05/14/17 S/P mitral valve replacement with bioprosthetic valve Acute ~05/14/17 Severe mitral regurgitation Acute Sternal wound dehiscence Acute Cardiomyopathy, ischemic Chronic Chronic systolic CHF (congestive heart failure), NYHA class 2 Chronic Coronary artery disease Chronic
[2017-06-11] MEDS ORDERED: ALTEPLASE 2 MG VIAL IVP PRN (08:26)
--- NOTE | 2017-06-11 08:29 | PCMIDPN ---
Assessment/Plan: # MRSA mediastinitis s/p debridement 06/09, blood cultures are negative at 48 hours --place PICC line --check CMP and CRP. Daily monitoring of creatinine in with initial vancomycin dose --vancomycin trough was 15, concern for continued accumulation will recheck tomorrow. --planning 6 weeks of IV antibiotics for presumed bone involvement. --will follow up on path report # vesicular appearing rash right clavicle: Herpes simplex versus varicella, swabbed obtained --will start Valtrex while await testing --monitor creatinine closely as above Medications Vancomycin 1 g IV q.12, # 2 Microbiology 06/09 blood cultures (2): NGTD 06/09 surgical cultures: MRSA, path is pending Subjective: Patient describes significant pain with wound VAC changes Questioning about rash developing right shoulder Objective: Vital Signs Temp Pulse Resp BP Pulse Ox 37 C 98 22 H 124/56 H 96 06/11/17 00:00 06/11/17 04:00 06/11/17 04:00 06/11/17 04:00 06/11/17 04:00 Microbiology 06/09/17 13:52 Gram Stain - Final Chest - Eswab 06/09/17 13:52 Gram Stain - Final Chest - Eswab 06/09/17 13:52 Mycobacterial Smear (PRAVEEN) - Final Chest - Eswab Mycobacterial Culture - Final 06/09/17 13:52 Mycobacterial Smear (PRAVEEN) - Final Chest - Eswab Mycobacterial Culture - Final Laboratory Results 06/10/17 04:50 06/10/17 04:50 06/10/17 06/11/17 06/12/17 05:59 05:59 05:59 Intake Total 3416 1585 Output Total 1252 1550 Balance 2164 35 - Physical Exam General Appearance: alert, no apparent distress EENT: No thrush Respiratory: other (Midline sternum wound VAC in place, no surrounding skin abnormalities), No accessory muscle use Neck: supple Cardiac/Chest: regular rate, rhythm (Borderline tachycardia), systolic murmur ( Faint) Extremities: No pedal edema Abdomen: non-tender, soft Skin: warm/dry, rash (2 large vesicles over right clavicle) Neuro/Psych: alert, normal mood/affect, oriented x 3 - Line/s PIV Lines: other (Left hand and forearm), No drainage, No erythema - Time Spent With Patient Time Spent with Patient: greater than 25 minutes (Reviewed course of treatment with IV antibiotics, risks of vancomycin and risks and benefits of placement of PICC line) Time Spent with Patient: Greater than 25 minutes spent on this patients care, greater than 50% of time spent counseling, educating, and coordinating care regarding the above mentioned plan. ICD10 Worksheet Patient Problems: Problems Problem Status Onset Dyspnea Acute Fever Acute Methicillin resistant Staphylococcus aureus infection Acute ~06/09/17 Weakness Acute Wound infection after surgery Acute Acute blood loss anemia Acute Chronic Disease Mgmt/Transitional Care Acute S/P CABG x 3 Acute ~05/14/17 S/P mitral valve replacement with bioprosthetic valve Acute ~05/14/17 Severe mitral regurgitation Acute Sternal wound dehiscence Acute Cardiomyopathy, ischemic Chronic Chronic systolic CHF (congestive heart failure), NYHA class 2 Chronic Coronary artery disease Chronic
[2017-06-11] MEDS: CHOLECALCIFEROL VIT D3 2,000 UNITS TAB/CAP PO SCH (08:35)
[2017-06-11] MEDS: VITAMIN B COMPLEX 1 EA CAP/TAB PO SCH (08:36)
[2017-06-11] MEDS: SENNOSIDES/DOCUSATE SODIUM TAB PO SCH ×2 (08:36→20:05)
[2017-06-11] MEDS: PANTOPRAZOLE SODIUM 40 MG TAB PO SCH (08:36)
[2017-06-11] MEDS: GLUCOSAMINE/CHONDROITIN CAP PO SCH (08:36)
[2017-06-11] MEDS: ASPIRIN EC 81 MG TAB PO SCH (08:36)
[2017-06-11] MEDS: OMEGA-3 FATTY ACIDS 1,000 MG CAP PO SCH ×2 (08:36→20:05)
[2017-06-11] MEDS: ENOXAPARIN 40 MG/0.4 ML SYR SC SCH (08:36)
[2017-06-11] MEDS: valACYclovir 500 MG TAB PO SCH ×2 (09:41→20:17)
[2017-06-11] MEDS: VANCOMYCIN HCL/NORMAL SALINE 250 ML IV SCH (10:22)
[2017-06-11 13:08] LABS: ALANINE AMINOTRANSFERASE 34 IU/L (9-52); ALBUMIN 2.6 g/dL (3.5-5.0); ALKALINE PHOSPHATASE 119 IU/L (38-126); ANION GAP 5 mEq/L (8-16); ASPARTATE AMINOTRANSFERASE 21 IU/L (14-46); BILIRUBIN,TOTAL 0.3 mg/dL (0.1-1.4); CALCIUM 11.1 mg/dL (8.5-10.4); CARBON DIOXIDE 32 mEq/l (22-31); CHLORIDE 98 mEq/L (97-110); CREATININE 0.7 mg/dL (0.6-1.0); GLOMERULAR FILTRATION RATE > 60; GLUCOSE 96 mg/dL (70-100); POTASSIUM 3.9 mEq/L (3.5-5.2); SODIUM 135 mEq/L (134-144); TOTAL PROTEIN 5.1 g/dL (6.3-8.2)
[2017-06-11 13:36] LABS: C-REACTIVE PROTEIN 103.9 mg/L (<10.0)
[2017-06-11] MEDS: CARVEDILOL 3.125 MG TAB PO SCH (17:56)
[2017-06-11] MEDS: ATORVASTATIN CALCIUM 10 MG TAB PO SCH (20:05)
[2017-06-12] MEDS: VANCOMYCIN 1 GM in D5W 250 ML IV SCH ×2 (01:00→13:06)
[2017-06-12] MEDS: VANCOMYCIN HCL/NORMAL SALINE 250 ML IV SCH (02:22)
[2017-06-12] MEDS: HYDROCODONE/APAP 5/325 TAB PO PRN ×3 (03:47→22:32)
[2017-06-12 06:02] LABS: ANION GAP 5 mEq/L (8-16); CALCIUM 11.1 mg/dL (8.5-10.4); CARBON DIOXIDE 32 mEq/l (22-31); CHLORIDE 99 mEq/L (97-110); CREATININE 0.7 mg/dL (0.6-1.0); GLOMERULAR FILTRATION RATE > 60; GLUCOSE 90 mg/dL (70-100); POTASSIUM 3.8 mEq/L (3.5-5.2); SODIUM 136 mEq/L (134-144)
--- NOTE | 2017-06-12 07:39 | SOAPPROG ---
SOAP Progress Note Assessment/Plan: Assessment/Plan: POD #3: Sternal wire/band removal, sternal debridement, vac placement. 05/14/17: CABGx3, MV bioprosthetic replacement, AtriClip BELKIS Hemodynamically stable in SR 90-100's with SBP 100-120's. - May need to increase BB later on if BP stable. MRSA mediastinitis and sternal wound infection s/p debridement - Wound vac changed out today due to "occlusion". Question of communication with pleural space since there were bubbles with respirations. Will check stat CXR. - Continue wound vac with changes as per wound care M-W-F - Vanco as per ID, PICC in place. - SCDs/Lovenox for DVT prophylaxis - Plastics to close sternum on this admission s/p CABGx3 and MV bioprosthetic replacement - On ASA, Lipitor and Coreg. No ACEi to avoid hypotension. - Coumadin held d/t eventual sternal closure. - Valve thromboprophylaxis with daily Lovenox/ASA. Chronic class II CHF, systolic (EF 50% on last ECHO) - Will hold off on Lasix for now due to borderline hypotension Hypokalemia - Will replete. Complaint of white flashes of light since surgery - Will increase Lovenox to 40mg BID. Subjective: Patient complains of seeing white flashes of light and floaters that look like white specks of light since surgery. Patient reports good pain control. Objective: Vital Signs Temp Pulse Resp BP Pulse Ox 37 C 112 H 13 109/76 99 06/12/17 03:22 06/12/17 03:22 06/12/17 03:22 06/12/17 03:22 06/12/17 03:22 Microbiology 06/09/17 13:52 Gram Stain - Final Chest - Eswab 06/09/17 13:52 Gram Stain - Final Chest - Eswab Laboratory Results 06/10/17 04:50 06/12/17 05:15 06/11/17 06/12/17 06/13/17 05:59 05:59 05:59 Intake Total 1585 2140 Output Total 1550 600 Balance 35 1540 PT 17.4 SEC (12.0-15.0) H 06/10/17 04:50 INR 1.43 (0.83-1.16) H 06/10/17 04:50 Physical Exam - Physical Exam General Appearance: WD/WN, alert, no apparent distress Respiratory: decreased breath sounds (bilateral lung soto ), crackles Cardiac/Chest: tachycardia (regular rhythm), other (sternal wound with healthy beefy red tissue observed during wound vac change today) Abdomen: normal bowel sounds, non-tender, soft Skin: warm/dry Extremities: other (minimal lower extremity edema) Neuro/Psych: alert, normal mood/affect, oriented x 3 ICD10 Worksheet Patient Problems: Problems Problem Status Onset Dyspnea Acute Fever Acute Weakness Acute Wound infection after surgery Acute Acute blood loss anemia Acute Chronic Disease Mgmt/Transitional Care Acute Methicillin resistant Staphylococcus aureus infection Acute ~06/09/17 S/P CABG x 3 Acute ~05/14/17 S/P mitral valve replacement with bioprosthetic valve Acute ~05/14/17 Severe mitral regurgitation Acute Sternal wound dehiscence Acute Cardiomyopathy, ischemic Chronic Chronic systolic CHF (congestive heart failure), NYHA class 2 Chronic Coronary artery disease Chronic
[2017-06-12] MEDS: PANTOPRAZOLE SODIUM 40 MG TAB PO SCH (08:04)
[2017-06-12] MEDS: CHOLECALCIFEROL VIT D3 2,000 UNITS TAB/CAP PO SCH (08:04)
[2017-06-12] MEDS: OMEGA-3 FATTY ACIDS 1,000 MG CAP PO SCH ×2 (08:04→20:35)
[2017-06-12] MEDS: CARVEDILOL 3.125 MG TAB PO SCH ×2 (08:04→18:45)
[2017-06-12] MEDS: VITAMIN B COMPLEX 1 EA CAP/TAB PO SCH (08:04)
[2017-06-12] MEDS: GLUCOSAMINE/CHONDROITIN CAP PO SCH (08:04)
[2017-06-12] MEDS: ASPIRIN EC 81 MG TAB PO SCH (08:05)
[2017-06-12] MEDS: SENNOSIDES/DOCUSATE SODIUM TAB PO SCH ×2 (08:11→20:35)
[2017-06-12] MEDS: valACYclovir 500 MG TAB PO SCH ×2 (08:11→20:35)
[2017-06-12] MEDS: ENOXAPARIN 40 MG/0.4 ML SYR SC SCH ×2 (08:27→20:40)
[2017-06-12] MEDS ORDERED: POTASSIUM CL 20 MEQ PKT PO ONE (10:00)
--- NOTE | 2017-06-12 13:47 | PCMIDPN ---
Assessment/Plan: Assessment/Plan: 1. MRSa Mediastinitis:- s/p debridement (06/09/17) - Currently on VAnco. trough at 14.9. Will need to repeat trough on Wednesday - creatinine stable at 0.7 - will needs 6 weeks of treatment. -wound vac at present 2. Vesicular rash: - suspicious for Shingles - HSV/VZV pending - on valtrex Meds vanco 1g q12- 06/09/17 valtrex 1g q12- 06/11/17 Subjective: afebrile. feeling more sore in chest due to re-do of wound vac today. otherwise feels better. denies sob, abd pain or diarrhea. some pain involving riht shoulder/chest where rash is. Objective: Vital Signs Temp Pulse Resp BP Pulse Ox 36.6 C 99 18 143/71 H 97 06/12/17 07:53 06/12/17 13:08 06/12/17 13:08 06/12/17 13:08 06/12/17 13:08 Microbiology 06/09/17 13:52 Gram Stain - Final Chest - Eswab 06/09/17 13:52 Gram Stain - Final Chest - Eswab Laboratory Results 06/10/17 04:50 06/12/17 05:15 06/11/17 06/12/17 06/13/17 05:59 05:59 05:59 Intake Total 1585 2140 Output Total 1550 600 Balance 35 1540 C-Reactive Protein 103.9 mg/L (<10.0) H 06/11/17 12:30 - Physical Exam General Appearance: alert, no apparent distress Respiratory: lungs clear Cardiac/Chest: regular rate, rhythm, other (wound vac midline chest) Extremities: No swelling Abdomen: normal bowel sounds, non-tender, soft Skin: other (vesicular rash on right shoulder, upper right chest, right arm. ) ICD10 Worksheet Patient Problems: Problems Problem Status Onset Dyspnea Acute Fever Acute Weakness Acute Wound infection after surgery Acute Acute blood loss anemia Acute Chronic Disease Mgmt/Transitional Care Acute Methicillin resistant Staphylococcus aureus infection Acute ~06/09/17 S/P CABG x 3 Acute ~05/14/17 S/P mitral valve replacement with bioprosthetic valve Acute ~05/14/17 Severe mitral regurgitation Acute Sternal wound dehiscence Acute Cardiomyopathy, ischemic Chronic Chronic systolic CHF (congestive heart failure), NYHA class 2 Chronic Coronary artery disease Chronic
[2017-06-12] MEDS: ATORVASTATIN CALCIUM 10 MG TAB PO SCH (20:35)
--- NOTE | 2017-06-12 22:30 | SOAPPROG ---
SOAP Progress Note Assessment/Plan: Assessment: CTS seen this am with RN d/w PAC no new c/o x white flashes in vision ever since surgery afeb vss wd vac occluded dressing change being undertaken when seen Subsequent cxr with no evidence of pneumothorax (some ? of wd communication with pleural space noted during dressing change) imp deep sternal wd infection s/p wire and band removal. Plastics closure being considered vs longer term wd vac. Clinically stable from wd standpoint at present. Will increase a/c carefully as bleeding risk allows. Plan: 06/12/17 22:27 Objective: Vital Signs Temp Pulse Resp BP Pulse Ox 36.6 C 103 H 30 H 124/52 H 97 06/12/17 19:31 06/12/17 19:31 06/12/17 19:31 06/12/17 19:31 06/12/17 19:31 Laboratory Results 06/10/17 04:50 06/12/17 05:15 06/11/17 06/12/17 06/13/17 05:59 05:59 05:59 Intake Total 1585 2140 1100 Output Total 1550 600 50 Balance 35 1540 1050 PT 17.4 SEC (12.0-15.0) H 06/10/17 04:50 INR 1.43 (0.83-1.16) H 06/10/17 04:50 ICD10 Worksheet Patient Problems: Problems Problem Status Onset Dyspnea Acute Fever Acute Weakness Acute Wound infection after surgery Acute Acute blood loss anemia Acute Chronic Disease Mgmt/Transitional Care Acute Methicillin resistant Staphylococcus aureus infection Acute ~06/09/17 S/P CABG x 3 Acute ~05/14/17 S/P mitral valve replacement with bioprosthetic valve Acute ~05/14/17 Severe mitral regurgitation Acute Sternal wound dehiscence Acute Cardiomyopathy, ischemic Chronic Chronic systolic CHF (congestive heart failure), NYHA class 2 Chronic Coronary artery disease Chronic
[2017-06-13] MEDS: VANCOMYCIN 1 GM in D5W 250 ML IV SCH ×2 (01:11→12:41)
[2017-06-13 03:56] LABS: ANION GAP 5 mEq/L (8-16); CALCIUM 11.6 mg/dL (8.5-10.4); CARBON DIOXIDE 34 mEq/l (22-31); CHLORIDE 100 mEq/L (97-110); CREATININE 0.7 mg/dL (0.6-1.0); GLOMERULAR FILTRATION RATE > 60; GLUCOSE 94 mg/dL (70-100); POTASSIUM 4.1 mEq/L (3.5-5.2); SODIUM 139 mEq/L (134-144)
--- NOTE | 2017-06-13 06:59 | SOAPPROG ---
SOAP Progress Note Assessment/Plan: POD #4 Sternal wire/band removal, sternal debridement, vac placement. 05/14/17 CABGx3, MV bioprosthetic replacement, AtriClip BELKIS Hemodynamically stable in SR 100's with SBP 100-140's. - Increased Coreg today. 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 Question of communication with pleural space since there were bubbles with respirations during wound vac change. CXR after wound vac change and this am showed no PTX and there were no wound vac alarms overnight. - Continue wound vac with changes as per wound care M-W-. - Vanco x 6 weeks as per ID, PICC in place. - SCDs/Lovenox for DVT prophylaxis - Plastics to close sternum on this admission. s/p CABGx3 and MV bioprosthetic replacement - On ASA, Lipitor and Coreg. No ACEi to avoid hypotension. - Coumadin held d/t eventual sternal closure. - Valve thromboprophylaxis with Lovenox/ASA. Chronic class II CHF, systolic (EF 50% on last ECHO) - On Coreg. - Will start Lasix today. Vesicular rash suspicious for shingles right shoulder - HSV/VZV pending. - On Valtrex. Complaint of white flashes of light since surgery - Stable. - On Lovenox/ASA. Subjective: Patient reports good pain control. No complaints. Objective: Vital Signs Temp Pulse Resp BP Pulse Ox 36.8 C 104 H 28 H 149/75 H 94 06/13/17 03:37 06/13/17 03:37 06/13/17 03:37 06/13/17 03:37 06/13/17 03:37 Laboratory Results 06/10/17 04:50 06/13/17 03:34 06/12/17 06/13/17 06/14/17 05:59 05:59 05:59 Intake Total 2140 1871 Output Total 600 80 Balance 1540 1791 PT 17.4 SEC (12.0-15.0) H 06/10/17 04:50 INR 1.43 (0.83-1.16) H 06/10/17 04:50 Physical Exam - Physical Exam General Appearance: WD/WN, alert, no apparent distress Respiratory: decreased breath sounds, crackles (left base) Cardiac/Chest: tachycardia (regular rhythm), other (wound vac intact and functioning well) Abdomen: normal bowel sounds, non-tender, soft Skin: warm/dry Extremities: other (minimal lower extremity edema) Neuro/Psych: alert, normal mood/affect, oriented x 3 ICD10 Worksheet Patient Problems: Problems Problem Status Onset Dyspnea Acute Fever Acute Weakness Acute Wound infection after surgery Acute Acute blood loss anemia Acute Chronic Disease Mgmt/Transitional Care Acute Methicillin resistant Staphylococcus aureus infection Acute ~06/09/17 S/P CABG x 3 Acute ~05/14/17 S/P mitral valve replacement with bioprosthetic valve Acute ~05/14/17 Severe mitral regurgitation Acute Sternal wound dehiscence Acute Cardiomyopathy, ischemic Chronic Chronic systolic CHF (congestive heart failure), NYHA class 2 Chronic Coronary artery disease Chronic
[2017-06-13] MEDS: CARVEDILOL 6.25 MG TAB PO SCH ×2 (08:10→18:34)
[2017-06-13] MEDS: CHOLECALCIFEROL VIT D3 2,000 UNITS TAB/CAP PO SCH (08:11)
[2017-06-13] MEDS: ASPIRIN EC 81 MG TAB PO SCH (08:11)
[2017-06-13] MEDS: FUROSEMIDE 40 MG TAB PO SCH (08:12)
[2017-06-13] MEDS: valACYclovir 500 MG TAB PO SCH ×2 (08:13→21:46)
[2017-06-13] MEDS: OMEGA-3 FATTY ACIDS 1,000 MG CAP PO SCH ×2 (08:13→21:00)
[2017-06-13] MEDS: PANTOPRAZOLE SODIUM 40 MG TAB PO SCH (08:13)
[2017-06-13] MEDS: VITAMIN B COMPLEX 1 EA CAP/TAB PO SCH (08:13)
[2017-06-13] MEDS: ENOXAPARIN 40 MG/0.4 ML SYR SC SCH ×2 (08:14→21:00)
[2017-06-13] MEDS: SENNOSIDES/DOCUSATE SODIUM TAB PO SCH ×2 (08:14→21:00)
[2017-06-13] MEDS: POTASSIUM CL 20 MEQ TAB PO SCH (08:14)
[2017-06-13] MEDS: GLUCOSAMINE/CHONDROITIN CAP PO SCH (08:14)
--- NOTE | 2017-06-13 11:49 | ASMTCMCOM ---
CM Note CM Note Notes: PT recommending HC for discharge. Patient presently has a wound vac hoping that it might not be needed on discharge. Is presently with [facility]. Date Signed: 06/13/2017 11:48 AM Electronically Signed By:Kaleigh Pride LCSW
[2017-06-13] MEDS: HYDROCODONE/APAP 5/325 TAB PO PRN ×2 (14:24→22:36)
[2017-06-13 17:04] LABS: SPECIMEN SOURCE RIGHT CLAVICLE; VARICELLA ZOSTER POSITIVE (Negative)
--- NOTE | 2017-06-13 18:24 | PCMIDPN ---
Assessment/Plan: Assessment/Plan: 1. MRSa Mediastinitis:- s/p debridement (06/09/17) - Currently on VAnco. trough at 14.9. Will need to repeat trough on Wednesday - creatinine stable at 0.7 - will needs 6 weeks of treatment. -wound vac at present. For plastics eval/possible surgery tomorrow. - discussed at length plan of care with patient, son, and grandson at bedside. - care coordinated with RN. 2. Vesicular rash: - suspicious for Shingles - HSV/VZV pending - on valtrex Meds vanco 1g q12- 06/09/17 valtrex 1g q12- 06/11/17 Subjective: afebrile. sitting in chair.feels well. denies sob, abd pain or diarrhea. some pain involving rash on right shoulder. Objective: Vital Signs Temp Pulse Resp BP Pulse Ox 36.7 C 101 H 20 144/78 H 98 06/13/17 16:00 06/13/17 16:00 06/13/17 16:00 06/13/17 16:00 06/13/17 16:00 Laboratory Results 06/10/17 04:50 06/13/17 03:34 06/12/17 06/13/17 06/14/17 05:59 05:59 05:59 Intake Total 2140 1871 600 Output Total 600 80 500 Balance 1540 1791 100 C-Reactive Protein 103.9 mg/L (<10.0) H 06/11/17 12:30 - Physical Exam General Appearance: alert, no apparent distress Respiratory: lungs clear Cardiac/Chest: regular rate, rhythm, other (wound vac midline chest) Extremities: No swelling Abdomen: normal bowel sounds, non-tender, soft, No distended Skin: other (vesicular rash right shoulder/arm, upper right chestl) - Time Spent With Patient Time Spent with Patient: greater than 35 minutes Time Spent with Patient: Greater than 35 minutes spent on this patients care, greater than 50% of time spent counseling, educating, and coordinating care regarding the above mentioned plan. ICD10 Worksheet Patient Problems: Problems Problem Status Onset Dyspnea Acute Fever Acute Weakness Acute Wound infection after surgery Acute Acute blood loss anemia Acute Chronic Disease Mgmt/Transitional Care Acute Methicillin resistant Staphylococcus aureus infection Acute ~06/09/17 S/P CABG x 3 Acute ~05/14/17 S/P mitral valve replacement with bioprosthetic valve Acute ~05/14/17 Severe mitral regurgitation Acute Sternal wound dehiscence Acute Cardiomyopathy, ischemic Chronic Chronic systolic CHF (congestive heart failure), NYHA class 2 Chronic Coronary artery disease Chronic
[2017-06-13] MEDS: ATORVASTATIN CALCIUM 10 MG TAB PO SCH (21:00)
[2017-06-14] MEDS: VANCOMYCIN 1 GM in D5W 250 ML IV SCH ×2 (01:06→13:57)
[2017-06-14 04:10] LABS: HEMATOCRIT 27.7 % (38.0-47.0); HEMOGLOBIN 9.1 g/dL (12.6-16.3); MEAN CELL HEMOGLOBIN 30.6 pg (27.9-34.1); MEAN CELL HEMOGLOBIN CONCENTR. 32.9 g/dL (32.4-36.7); MEAN CELL VOLUME 93.3 fL (81.5-99.8); RED BLOOD CELL COUNT 2.97 10^6/uL (4.18-5.33); RED CELL DISTRIBUTION WIDTH 13.8 % (11.5-15.2)
[2017-06-14 04:30] LABS: ANION GAP 6 mEq/L (8-16); CALCIUM 11.2 mg/dL (8.5-10.4); CARBON DIOXIDE 30 mEq/l (22-31); CHLORIDE 100 mEq/L (97-110); CREATININE 0.7 mg/dL (0.6-1.0); GLOMERULAR FILTRATION RATE > 60; GLUCOSE 96 mg/dL (70-100); POTASSIUM 3.8 mEq/L (3.5-5.2); SODIUM 136 mEq/L (134-144)
[2017-06-14] MEDS: HYDROCODONE/APAP 5/325 TAB PO PRN ×3 (06:14→17:54)
--- NOTE | 2017-06-14 06:32 | SOAPPROG ---
SOAP Progress Note Assessment/Plan: Assessment: POD#5 Sternal wire/band removal, sternal debridement, vac placement. 05/14/17 CABGx3, MV bioprosthetic replacement, AtriClip BELKIS Hemodynamically stable in SR/ST with SBPs 120s-140s. 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 - Vanco x 6 weeks as per ID, PICC in place. - SCDs/Lovenox for DVT prophylaxis - Plastics to eval wound later today. s/p CABGx3 and MV bioprosthetic replacement - Secondary prevention w ASA, BB and statin. - Coumadin held d/t eventual sternal closure. - Valve thromboprophylaxis with Lovenox/ASA. Chronic class II CHF, systolic (EF 50% on last ECHO) - On Coreg and Lasix. Vesicular rash suspicious for shingles right shoulder - VZV positive. - On Valtrex. Complaint of white flashes of light since surgery - Stable. - On Lovenox/ASA. Plan: NPO for possible OR this afternoon. 06/14/17 06:32 Subjective: Doing ok. Pain controlled. Ambulating independently in the room. No acute concerns. Objective: Vital Signs Temp Pulse Resp BP Pulse Ox 36.6 C 96 21 H 133/57 H 97 06/14/17 03:46 06/14/17 03:46 06/14/17 03:46 06/14/17 03:46 06/14/17 03:46 Laboratory Results 06/14/17 03:50 06/14/17 03:50 06/13/17 06/14/17 06/15/17 05:59 05:59 05:59 Intake Total 1871 900 Output Total 80 1250 Balance 1791 -350 PT 17.4 SEC (12.0-15.0) H 06/10/17 04:50 INR 1.43 (0.83-1.16) H 06/10/17 04:50 Improved HR and BP control on inc Coreg. CXR-> Rt PICC curled back on itself. Bibasilar atelectasis. Wound vac output 80-100/day. Physical Exam - Physical Exam General Appearance: alert, no apparent distress Respiratory: crackles (left base) Cardiac/Chest: regular rate, rhythm, other (wound vac intact with good seal) Abdomen: non-tender, soft Skin: warm/dry Extremities: other (no visible edema) ICD10 Worksheet Patient Problems: Problems Problem Status Onset Dyspnea Acute Fever Acute Weakness Acute Wound infection after surgery Acute Acute blood loss anemia Acute Chronic Disease Mgmt/Transitional Care Acute Methicillin resistant Staphylococcus aureus infection Acute ~06/09/17 S/P CABG x 3 Acute ~05/14/17 S/P mitral valve replacement with bioprosthetic valve Acute ~05/14/17 Severe mitral regurgitation Acute Sternal wound dehiscence Acute Cardiomyopathy, ischemic Chronic Chronic systolic CHF (congestive heart failure), NYHA class 2 Chronic Coronary artery disease Chronic
[2017-06-14] MEDS: VITAMIN B COMPLEX 1 EA CAP/TAB PO SCH (08:44)
[2017-06-14] MEDS: GLUCOSAMINE/CHONDROITIN CAP PO SCH (08:44)
[2017-06-14] MEDS: CARVEDILOL 6.25 MG TAB PO SCH ×2 (08:44→17:54)
[2017-06-14] MEDS: PANTOPRAZOLE SODIUM 40 MG TAB PO SCH (08:44)
[2017-06-14] MEDS: POTASSIUM CL 20 MEQ TAB PO SCH (08:44)
[2017-06-14] MEDS: FUROSEMIDE 40 MG TAB PO SCH (08:45)
[2017-06-14] MEDS: OMEGA-3 FATTY ACIDS 1,000 MG CAP PO SCH ×2 (08:45→21:37)
[2017-06-14] MEDS: traMADol 50 MG TAB PO PRN (08:53)
[2017-06-14] MEDS: ASPIRIN EC 81 MG TAB PO SCH (09:05)
[2017-06-14] MEDS: ENOXAPARIN 40 MG/0.4 ML SYR SC SCH ×2 (09:05→16:46)
[2017-06-14] MEDS: CHOLECALCIFEROL VIT D3 2,000 UNITS TAB/CAP PO SCH (09:30)
[2017-06-14] MEDS: valACYclovir 500 MG TAB PO SCH ×2 (09:30→21:37)
[2017-06-14] MEDS: SENNOSIDES/DOCUSATE SODIUM TAB PO SCH ×2 (09:47→21:37)
[2017-06-14] MEDS ORDERED: BUPIVACAINE 0.5% 30 ML SDV ONE ×2 (13:59→14:01)
[2017-06-14] MEDS ORDERED: GENTAMICIN SULFATE 80 MG/2 ML VIAL ONE (14:01)
[2017-06-14] MEDS ORDERED: LIDOCAINE 1% 300 MG/30 ML SDV ONE (14:01)
[2017-06-14] MEDS ORDERED: BACITRACIN ZINC 14.2 GM OINTTUBE TP ONE (14:01)
[2017-06-14] MEDS ORDERED: ceFAZolin 1 GM/5 ML SYR ONE (14:02)
[2017-06-14] MEDS ORDERED: BACITRACIN 50,000 UNITS/10 ML SYR IRR ONE (14:02)
[2017-06-14] MEDS ORDERED: LR 1,000 ML IV ONE (14:45)
[2017-06-14] MEDS ORDERED: PROPOFOL 200 MG/20 ML VIAL ONE (14:58)
[2017-06-14] MEDS ORDERED: fentaNYL 100 MCG/2 ML INJ ONE ×2 (14:59→16:00)
--- NOTE | 2017-06-14 15:13 | PDANEPAE ---
ANE History of Present Illness here for flap reconstruction for sternal wound ANE Past Medical History - Cardiovascular History Hx Hypertension: Yes Hx Arrhythmias: No Hx Chest Pain: No Hx Coronary Artery / Peripheral Vascular Disease: Yes Hx CHF / Valvular Disease: Yes Cardiovascular History Comment: TN 2013-no chest pain w/TN - Pulmonary History Hx COPD: No Hx Asthma/Reactive Airway Disease: No Hx Recent Upper Respiratory Infection: No Hx Oxygen in Use at Home: Yes O2 in Use at Home (L/minute): 2 Hx Sleep Apnea: No Pulmonary History Comment: can be SOB w/activity - Neurologic History Hx Cerebrovascular Accident: No Hx Seizures: No Hx Dementia: No - Endocrine History Hx Diabetes: No - Renal History Hx Renal Disorders: No - Liver History Hx Hepatic Disorders: No - Neurological & Psychiatric Hx Hx Neurological and Psychiatric Disorders: Yes Neurological / Psychiatric History Comment: low back pain-chronic - Cancer History Hx Cancer: No - Congenital Disorder History Hx Congenital Disorders: No - GI History Hx Gastrointestinal Disorders: Yes Gastrointestinal History Comment: on Protonix to protect stomach - Other Health History Other Health History: toenail fungus- uses topical tx. Sternum broken ~10 yrs ago. - Chronic Pain History Chronic Pain: No - Surgical History Prior Surgeries: mastoidectomy - at 8 mos of age. bunion sx . carpal kim . cardiac cath 2016 ANE Review of Systems Review of systems is: negative Review of Systems: - Exercise capacity Exercise capacity: <4 METS ANE Patient History - Allergies Allergies/Adverse Reactions: NSAIDS (Non-Steroidal Anti-Inflamma [NSAIDS (Non-Steroidal Anti-Inflammatory Drug)] Allergy (Severe, Verified 06/02/17 13:44) Other-Enter Comments Sulfa (Sulfonamide Antibiotics) Allergy (Verified 05/13/17 13:58) Unknown - Home Medications Home medications: home medication list seen and reviewed Home Medications: Cholecalciferol Vit D3 [Vitamin D3 (*)] 7,000 units PO DAILY 04/03/14 [Last Taken 06/08/17] [place]-3 Fatty Acids [Fish Oil 1000 mg (*)] 2,000 mg PO BID 04/03/14 [Last Taken 06/08/17 21:00] traMADol [Ultram 50 mg (*)] 50 mg PO Q4 PRN 04/03/14 [Last Taken 06/09/17] Atorvastatin Calcium [Lipitor 10 mg (*)] 10 mg PO HS 04/20/17 [Last Taken ] Glucosamine/Chondroitin [Glucosamine/Chondroitin (*)] 1 each PO DAILY 04/20/17 [ Last Taken 06/08/17] Vitamin B Complex [B Complex] 1 each PO DAILY 05/15/17 [Last Taken 06/08/17] Bisacodyl [Dulcolax] 10 mg RC DAILY PRN 05/31/17 [Last Taken Unknown] Methocarbamol [Robaxin 500 mg (*)] 1,000 mg PO QID PRN 05/31/17 [Last Taken ] Polyethylene Glycol 3350 [Miralax 17 gm (*)] 17 gm PO DAILY PRN 05/31/17 [Last Taken Unknown] - NPO status NPO Status: no food or drink >8 hours NPO Since - Liquids (Date): 06/14/17 NPO Since - Liquids (Time): 07:00 NPO Since - Solids (Date): 06/13/17 NPO Since - Solids (Time): 19:00 - Smoking Hx Smoking Status: Former smoker ANE Labs/Vital Signs - Labs Result Diagrams: 06/14/17 03:50 06/14/17 03:50 - Vital Signs Blood Pressure: 147/70 Heart Rate: 102 Respiratory Rate: 14 O2 Sat (%): 95 Height: 160.02 cm Weight: 82.8 kg ANE Physical Exam - Airway Neck exam: FROM Mallampati Score: Class 1 Mouth exam: dentures - Pulmonary Pulmonary: no respiratory distress - Cardiovascular Cardiovascular: regular rate and rhythym - ASA Status ASA Status: III ANE Anesthesia Plan Anesthesia Plan: general endotracheal anesthesia
[2017-06-14] MEDS ORDERED: fentaNYL 100 MCG/2 ML INJ IVP PRN (15:40)
[2017-06-14] MEDS ORDERED: ALBUTEROL 3 ML DEYVIAL IH PRN (15:40)
[2017-06-14] MEDS ORDERED: ONDANSETRON 4 MG/2 ML VIAL IVP PRN (15:40)
[2017-06-14] MEDS ORDERED: NALOXONE HCL 0.4 MG/ML INJ IVP PRN (15:40)
[2017-06-14] MEDS ORDERED: HYDROmorphONE/DILAUDID 1 MG/ML INJ IVP PRN (15:40)
[2017-06-14] MEDS ORDERED: SUGAMMADEX SODIUM 200 MG/2 ML VIAL IVP ONE (16:09)
--- NOTE | 2017-06-14 16:27 | POSTOPPROG ---
Post Op Note Date of Operation: 06/14/17 Surgeon: Abram Marquez JR Labor Relations Analyst: jose randolph Anesthesiologist: francisco mcmullen Pre-op Diagnosis: sternal wound infection Post-op Diagnosis: same Procedure: sternal debridement with muscle flap closure Inf/Abcess present in the surg proc area at time of surgery?: Yes Depth: Deep Incisional (Fascial) EBL: Minimal Drains: James Gavin
[2017-06-14] MEDS: ATORVASTATIN CALCIUM 10 MG TAB PO SCH (21:37)
[2017-06-15] MEDS: HYDROCODONE/APAP 5/325 TAB PO PRN ×4 (00:14→23:30)
[2017-06-15] MEDS: VANCOMYCIN 1 GM in D5W 250 ML IV SCH ×2 (00:25→14:06)
--- NOTE | 2017-06-15 02:28 | GOP ---
[f rep st] OPERATIVE REPORT DATE OF OPERATION: 06/09/2017 SURGEON: Fanny Marquez Jr., MD NEW ACCOUNT INTERVIEWER: Jan Barragan DESIGN DRAFTER CHIEF, by surgeon request. ANESTHESIA: General inhalational anesthesia. ANESTHESIOLOGIST: Maximus Green MD. PREOPERATIVE DIAGNOSIS: Open sternal wound with sternal wound infection status post open heart surge ry. POSTOPERATIVE DIAGNOSIS: Open sternal wound with sternal wound infection status post open heart surg yoav. PROCEDURE PERFORMED: 1. Sternal debridement of skin, subcutaneous tissue, muscle, and bone. 2. Right pectoralis major turnover flap. 3. Bilateral chest wall advancement flap for defect 15 cm x 8 cm. FINDINGS: ESTIMATED BLOOD LOSS: 20 cc. INDICATIONS: The patient is a delightful 77-year-old, white female, who underwent an open-heart proc edure that was complicated by sternal wound dehiscence and infection requiring removal of sternal wir e. She was brought to the operating room today for debridement and closure of the sternal wound. DESCRIPTION OF PROCEDURE: After the risks and benefits of the procedure were explained to the patien t highlighting bleeding, infection, recurrent wound break down, muscle flap failure, skin necrosis, s eroma formation visible or hypertrophic scarring, and need for additional procedures, formal operativ e consent was obtained. She was taken to the operating room. After adequate inhalational general an esthesia was provided by Dr. Maximus Green, the periphery of her incision was injected with lidocaine containing adrenaline. She was prepped and draped in normal sterile fashion. Procedure began by exp cooper the wound. No fistulous tracts were noted, and continuing with the mediastinum the sternum wa s and a nonunion was appreciated. There was no evidence of purulence encountered during th e debridement. The skin and subcutaneous tissue granulation tissue, and the free edges of the sterna l bone were all debrided using a rongeur back to good healthy bleeding tissue. Good vascularity was noted throughout the tissue. I designed a right pectoralis major turnover flap based on the intercos yareli perforators to fill the defect in the sternal bone, and the flap was elevated on its anterior wes face. The insertion of the muscle was divided and the flap was turned over based on the intercostal perforators. The wound was irrigated with triple antibiotic saline solution. The flap was then inse t using 2-0 Vicryl suture. Skin and subcutaneous tissue and breast were elevated bilaterally to clos e the defect which was roughly 15 cm x 8 cm. Both breasts and subcutaneous tissue were medialized to provide wound closure. She had 2 WILLIAM drains and the pockets were copiously irrigated again with trip le antibiotic saline. Meticulous hemostasis again assured. The chest wall advancement flaps were in set with 2-0 Vicryl suture into the superficial fascia. Skin edges were reapproximated using evertin g deep dermal 3-0 Monocryl sutures. Skin edges were trimmed to achieve a smooth contour. The final skin eversion was carried out using surgical smith. The drains were sutured into place. She had b acitracin, Xeroform, 4 x 4's applied to her incisions. She was extubated in the operating room, take n to the recovery room awake and in stable condition. DRAINS: Two WILLIAM drains were placed. COMPLICATIONS: No complications. /[id number]/MODL
--- NOTE | 2017-06-15 07:42 | SOAPPROG ---
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 Objective: Vital Signs Temp Pulse Resp BP Pulse Ox 36.0 C 98 16 118/56 L 99 06/15/17 00:00 06/15/17 04:00 06/15/17 04:00 06/15/17 04:00 06/15/17 04:00 Microbiology 06/09/17 13:52 Mycobacterial Smear (PRAVEEN) - Final Chest - Eswab Mycobacterial Culture - Final 06/09/17 13:52 Gram Stain - Final Chest - Eswab 06/09/17 13:52 Gram Stain - Final Chest - Eswab Laboratory Results 06/14/17 03:50 06/14/17 03:50 06/14/17 06/15/17 06/16/17 05:59 05:59 05:59 Intake Total 900 1040 Output Total 1250 230 Balance -350 810 PT 17.4 SEC (12.0-15.0) H 06/10/17 04:50 INR 1.43 (0.83-1.16) H 06/10/17 04:50 Physical Exam - Physical Exam General Appearance: WD/WN, alert, no apparent distress EENT: No scleral icterus (R), No scleral icterus (L) Neck: normal inspection Respiratory: No respiratory distress Cardiac/Chest: regular rate, rhythm Abdomen: non-tender, soft, No distended Skin: normal color, warm/dry Neuro/Psych: no motor/sensory deficits, alert, normal mood/affect, oriented x 3 ICD10 Worksheet Patient Problems: Problems Problem Status Onset Dyspnea Acute Fever Acute Weakness Acute Wound infection after surgery Acute Acute blood loss anemia Acute Chronic Disease [facility]/Transitional Care Acute Methicillin resistant Staphylococcus aureus infection Acute ~06/09/17 S/P CABG x 3 Acute ~05/14/17 S/P mitral valve replacement with bioprosthetic valve Acute ~05/14/17 Severe mitral regurgitation Acute Sternal wound dehiscence Acute Cardiomyopathy, ischemic Chronic Chronic systolic CHF (congestive heart failure), NYHA class 2 Chronic Coronary artery disease Chronic
[2017-06-15] MEDS: traMADol 50 MG TAB PO PRN ×2 (08:25→20:55)
[2017-06-15] MEDS: ASPIRIN EC 81 MG TAB PO SCH (08:25)
[2017-06-15] MEDS: CARVEDILOL 6.25 MG TAB PO SCH ×2 (08:25→18:09)
[2017-06-15] MEDS: valACYclovir 500 MG TAB PO SCH ×2 (08:26→20:55)
[2017-06-15] MEDS: GLUCOSAMINE/CHONDROITIN CAP PO SCH (08:26)
[2017-06-15] MEDS: OMEGA-3 FATTY ACIDS 1,000 MG CAP PO SCH ×2 (08:26→20:56)
[2017-06-15] MEDS: CHOLECALCIFEROL VIT D3 2,000 UNITS TAB/CAP PO SCH (08:26)
[2017-06-15] MEDS: POTASSIUM CL 20 MEQ TAB PO SCH (08:26)
[2017-06-15] MEDS: SENNOSIDES/DOCUSATE SODIUM TAB PO SCH ×2 (08:26→20:56)
[2017-06-15] MEDS: PANTOPRAZOLE SODIUM 40 MG TAB PO SCH (08:26)
[2017-06-15] MEDS: FUROSEMIDE 40 MG TAB PO SCH (08:27)
[2017-06-15] MEDS: VITAMIN B COMPLEX 1 EA CAP/TAB PO SCH (08:27)
[2017-06-15] MEDS: ENOXAPARIN 40 MG/0.4 ML SYR SC SCH (08:27)
--- NOTE | 2017-06-15 10:05 | PCMIDPN ---
Assessment/Plan: # MRSA mediastinitis s/p debridement 06/09, does not have corresponding bacteremia. Patient is s/p flap 06/14/2017 --check vancomycin trough today, creatinine 0.7 yesterday - will recheck today --planning 6 weeks of IV antibiotics for presumed bone involvement. --no bone was sent path to confirm clinical diagnosis of osteo --contact precautions # vesicular appearing rash right clavicle due to VZV --planned 10 days of Valtrex, Mar adjusted --contact precaution Medications Vancomycin 1 g IV q.12, # 6 Microbiology 06/09 blood cultures (2): Neg 06/09 surgical cultures: MRSA Subjective: Patient feels significantly better postoperatively with less chest pain. Previously she had significant pain from wound VAC . Only complaint is right shoulder pain. No diarrhea, no rash. Objective: Vital Signs Temp Pulse Resp BP Pulse Ox 36.9 C 100 24 H 121/61 H 95 06/15/17 08:00 06/15/17 08:00 06/15/17 08:00 06/15/17 08:00 06/15/17 08:00 Microbiology 06/09/17 13:52 Mycobacterial Smear (PRAVEEN) - Final Chest - Eswab Mycobacterial Culture - Final 06/09/17 13:52 Gram Stain - Final Chest - Eswab 06/09/17 13:52 Gram Stain - Final Chest - Eswab Laboratory Results 06/14/17 03:50 06/14/17 03:50 06/14/17 06/15/17 06/16/17 05:59 05:59 05:59 Intake Total 900 1040 Output Total 1250 230 Balance -350 810 C-Reactive Protein 103.9 mg/L (<10.0) H 06/11/17 12:30 AF General Appearance: alert, no apparent distress EENT: No thrush Respiratory: dressing in place sternum was not removed; decreased bs bases. No accessory muscle use Neck: supple Cardiac/Chest: regular rate, rhythm, systolic murmur - Faint Extremities: No pedal edema Abdomen: non-tender, soft Skin: warm/dry, 2 large vesicles over right clavicle - covered to prevent itching Neuro/Psych: alert, normal mood/affect, oriented x 3 RUE PICC c/d/i ICD10 Worksheet Patient Problems: Problems Problem Status Onset Dyspnea Acute Fever Acute Weakness Acute Wound infection after surgery Acute Acute blood loss anemia Acute Chronic Disease Mgmt/Transitional Care Acute Methicillin resistant Staphylococcus aureus infection Acute ~06/09/17 S/P CABG x 3 Acute ~05/14/17 S/P mitral valve replacement with bioprosthetic valve Acute ~05/14/17 Severe mitral regurgitation Acute Sternal wound dehiscence Acute Cardiomyopathy, ischemic Chronic Chronic systolic CHF (congestive heart failure), NYHA class 2 Chronic Coronary artery disease Chronic
[2017-06-15 12:46] LABS: ANION GAP 7 mEq/L (8-16); CALCIUM 11.2 mg/dL (8.5-10.4); CARBON DIOXIDE 31 mEq/l (22-31); CHLORIDE 95 mEq/L (97-110); CREATININE 0.8 mg/dL (0.6-1.0); GLOMERULAR FILTRATION RATE > 60; GLUCOSE 96 mg/dL (70-100); POTASSIUM 3.5 mEq/L (3.5-5.2); SODIUM 133 mEq/L (134-144)
[2017-06-15] MEDS: VANCOMYCIN 750 MG in D5W 150 ML IV SCH (15:08)
[2017-06-15 15:29] LABS: POTASSIUM 3.5 mEq/L (3.5-5.2)
[2017-06-15] MEDS ORDERED: POTASSIUM CL 20 MEQ TAB PO ONE (15:43)
[2017-06-15] MEDS: HEPARIN 5,000 UNIT/0.5 ML SYR SC SCH (20:55)
[2017-06-15] MEDS: ATORVASTATIN CALCIUM 10 MG TAB PO SCH (20:55)
[2017-06-16] MEDS: VANCOMYCIN 750 MG in D5W 150 ML IV SCH ×2 (03:16→15:20)
[2017-06-16] MEDS: HEPARIN 5,000 UNIT/0.5 ML SYR SC SCH ×3 (05:42→21:44)
[2017-06-16] MEDS: traMADol 50 MG TAB PO PRN ×2 (06:09→19:21)
[2017-06-16 06:33] LABS: HEMATOCRIT 27.9 % (38.0-47.0); HEMOGLOBIN 9.5 g/dL (12.6-16.3)
[2017-06-16 06:56] LABS: POTASSIUM 4.1 mEq/L (3.5-5.2)
[2017-06-16 08:17] LABS: CREATININE 0.8 mg/dL (0.6-1.0); GLOMERULAR FILTRATION RATE > 60
--- NOTE | 2017-06-16 08:31 | SOAPPROG ---
SOAP Progress Note Assessment/Plan: Assessment: Plan: 06/16/17 08:30 pt adamant about going home PT to assess; if ok visiting nurse make arrangements for home atbs Objective: Vital Signs Temp Pulse Resp BP Pulse Ox 36.7 C 104 H 17 124/79 H 95 06/16/17 03:32 06/16/17 03:32 06/16/17 03:32 06/16/17 03:32 06/16/17 03:32 Microbiology 06/09/17 13:52 Gram Stain - Final Chest - Eswab 06/09/17 13:52 Gram Stain - Final Chest - Eswab Laboratory Results 06/16/17 06:15 06/16/17 06:15 06/15/17 06/16/17 06/17/17 05:59 05:59 05:59 Intake Total 1040 1500 Output Total 230 80 45 Balance 810 1420 -45 PT 17.4 SEC (12.0-15.0) H 06/10/17 04:50 INR 1.43 (0.83-1.16) H 06/10/17 04:50 ICD10 Worksheet Patient Problems: Problems Problem Status Onset Dyspnea Acute Fever Acute Weakness Acute Wound infection after surgery Acute Acute blood loss anemia Acute Chronic Disease Mgmt/Transitional Care Acute Methicillin resistant Staphylococcus aureus infection Acute ~06/09/17 S/P CABG x 3 Acute ~05/14/17 S/P mitral valve replacement with bioprosthetic valve Acute ~05/14/17 Severe mitral regurgitation Acute Sternal wound dehiscence Acute Cardiomyopathy, ischemic Chronic Chronic systolic CHF (congestive heart failure), NYHA class 2 Chronic Coronary artery disease Chronic
[2017-06-16] MEDS: valACYclovir 500 MG TAB PO SCH ×2 (10:18→21:44)
[2017-06-16] MEDS: OMEGA-3 FATTY ACIDS 1,000 MG CAP PO SCH ×2 (10:18→21:43)
[2017-06-16] MEDS: FUROSEMIDE 40 MG TAB PO SCH (10:19)
[2017-06-16] MEDS: GLUCOSAMINE/CHONDROITIN CAP PO SCH (10:19)
[2017-06-16] MEDS: PANTOPRAZOLE SODIUM 40 MG TAB PO SCH (10:20)
[2017-06-16] MEDS: SENNOSIDES/DOCUSATE SODIUM TAB PO SCH ×2 (10:20→21:43)
[2017-06-16] MEDS: ASPIRIN EC 81 MG TAB PO SCH (10:21)
[2017-06-16] MEDS: CARVEDILOL 6.25 MG TAB PO SCH ×2 (10:22→17:39)
[2017-06-16] MEDS: VITAMIN B COMPLEX 1 EA CAP/TAB PO SCH (10:22)
[2017-06-16] MEDS: CHOLECALCIFEROL VIT D3 2,000 UNITS TAB/CAP PO SCH (10:23)
[2017-06-16] MEDS: POTASSIUM CL 20 MEQ TAB PO SCH (10:23)
--- NOTE | 2017-06-16 12:07 | PCMIDPN ---
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 Patient on vancomycin monotherapy. Trough value 19.8. Will amend the vancomycin dose to 1.25 g IV Q 24 hours. Same 4 week duration. Overall looks clinically very well considering circumstance. Plan: 1. Amend vancomycin dose to 1.25 g IV Q 24 hours. 2. Follow clinical course. 3. Arrange for outpatient IV antibiotics. 06/16/17 12:04 Subjective: Patient is sitting in her hospital chair. She notes no new complaints. Wishes to go home. Objective: Vancomycin # 7 Vital Signs Temp Pulse Resp BP Pulse Ox 36.4 C 99 18 120/71 93 06/16/17 11:37 06/16/17 11:37 06/16/17 11:37 06/16/17 11:37 06/16/17 11:37 Microbiology 06/09/17 13:52 Gram Stain - Final Chest - Eswab 06/09/17 13:52 Gram Stain - Final Chest - Eswab Laboratory Results 06/16/17 06:15 06/16/17 06:15 06/15/17 06/16/17 06/17/17 05:59 05:59 05:59 Intake Total 1040 1500 Output Total 230 80 45 Balance 810 1420 -45 C-Reactive Protein 103.9 mg/L (<10.0) H 06/11/17 12:30 - Physical Exam General Appearance: WD/WN, alert, no apparent distress, non-toxic Respiratory: lungs clear, normal breath sounds, No respiratory distress Cardiac/Chest: regular rate, rhythm, No tachycardia Skin: normal color, warm/dry, No rash Neuro/Psych: alert, normal mood/affect, oriented x 3 ICD10 Worksheet Patient Problems: Problems Problem Status Onset Dyspnea Acute Fever Acute Weakness Acute Wound infection after surgery Acute Acute blood loss anemia Acute Chronic Disease Mgmt/Transitional Care Acute Methicillin resistant Staphylococcus aureus infection Acute ~06/09/17 S/P CABG x 3 Acute ~05/14/17 S/P mitral valve replacement with bioprosthetic valve Acute ~05/14/17 Severe mitral regurgitation Acute Sternal wound dehiscence Acute Cardiomyopathy, ischemic Chronic Chronic systolic CHF (congestive heart failure), NYHA class 2 Chronic Coronary artery disease Chronic
--- NOTE | 2017-06-16 12:10 | PDIAF ---
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 - Medication Management Discharge Medications: Medications to Continue on Transfer Cholecalciferol Vit D3 [Vitamin D3 (*)] 7,000 units PO DAILY 04/03/14 [Last Taken 06/08/17] [place]-3 Fatty Acids [Fish Oil 1000 mg (*)] 2,000 mg PO BID 04/03/14 [Last Taken 06/08/17 21:00] traMADol [Ultram 50 mg (*)] 50 mg PO Q4 PRN 04/03/14 [Last Taken 06/09/17] Aspirin EC [Aspirin EC 81 mg (*)] 81 mg PO DAILY #30 tab 04/05/14 [Last Taken ] Carvedilol [Coreg (*)] 6.25 mg PO BIDMEAL #60 tab 04/05/14 [Last Taken 06/08/17 18:00] Pantoprazole Sodium [Protonix 40mg (*)] 40 mg PO DAILY #30 tab 04/05/14 [Last Taken 06/08/17] Atorvastatin Calcium [Lipitor 10 mg (*)] 10 mg PO HS 04/20/17 [Last Taken ] Glucosamine/Chondroitin [Glucosamine/Chondroitin (*)] 1 each PO DAILY 04/20/17 [ Last Taken 06/08/17] Vitamin B Complex [B Complex] 1 each PO DAILY 05/15/17 [Last Taken 06/08/17] Acetaminophen [Tylenol 325mg (*)] 325 - 650 mg PO Q4HRS PRN tab 05/21/17 [Last Taken Unknown] Bisacodyl [Dulcolax] 10 mg RC DAILY PRN 05/31/17 [Last Taken Unknown] Methocarbamol [Robaxin 500 mg (*)] 1,000 mg PO QID PRN 05/31/17 [Last Taken ] Polyethylene Glycol 3350 [Miralax 17 gm (*)] 17 gm PO DAILY PRN 05/31/17 [Last Taken Unknown] Furosemide [Lasix 40 MG (*)] 60 mg PO BIDDIUR #60 tab 06/02/17 [Last Taken 06/08 21:00] Potassium Cl [Klor-Con 20 meq (*)] 40 meq PO BIDDIUR #60 tab 06/02/17 [Last Taken 06/08/17 21:00] Warfarin Sodium [Coumadin 2MG (*)] 2.5 mg PO DAILY16 #30 tab 06/02/17 [Last Taken 06/07/17] Risk Control Representative Antibiotics: Vancomycin 1.25 g IV Q 24 hours Retirement Antibiotic Stop Date: 07/07/17 Discharge Medications: Refer to the Discharge Home Medication list for PRN reason. PICC Care - Routine: Yes - Orders Services needed: Registered Nurse Isolation Type: Contact Isolation - Labs/Radiology CBC w/diff Date: 06/21/17 (q Mon, Th) CMP Date: 06/21/17 (q mon) Creatinine Date: 06/24/17 (q th) Vanco Trough Date and Time: starting 06/21 and every Wed and while on Vanco Call or Fax Lab and Imaging Results to: Dr. Shashi Razo - Follow Up Care Current Providers and Referrals: Baljeet Carvalho MD [Primary Care Provider] - As per Instructions
--- NOTE | 2017-06-16 14:26 | ASMTCMCOM ---
CM Note CM Note Notes: Chart reviewed. Per PT patient able to do all ADL's independently. She will dc to home on IV ANTB per infectious disease. She is current with [facility] and they have been notified of pending dc tomorrow, [employer] is home infusion company. Address verified, all notes updated via allscripts. Discharge paln of care: Home with home infusion service and RN, PT and OT. Date Signed: 06/16/2017 02:25 PM Electronically Signed By:Jerrica Jean RN
[2017-06-16] MEDS: VANCOMYCIN 1.25 GM in D5W 250 ML IV SCH (15:25)
[2017-06-16] MEDS: HYDROCODONE/APAP 5/325 TAB PO PRN (21:43)
[2017-06-16] MEDS: ATORVASTATIN CALCIUM 10 MG TAB PO SCH (21:44)
[2017-06-17] MEDS: traMADol 50 MG TAB PO PRN (06:08)
[2017-06-17] MEDS: HEPARIN 5,000 UNIT/0.5 ML SYR SC SCH ×2 (06:08→15:20)
[2017-06-17 07:39] VITALS: PULSE 101
--- NOTE | 2017-06-17 07:57 | SOAPPROG ---
SOAP Progress Note Assessment/Plan: Assessment: POD#8 Sternal wire/band removal, sternal debridement, vac placement. POD #2: Sternal closure per plastics 05/14/17: CABGx3, MV bioprosthetic replacement, AtriClip BELKIS MRSA mediastinitis and sternal wound infection s/p debridement and flap closure - Vanco as per ID, PICC line in place - Wound and drain management as per plastics s/p CABGx3 and MV bioprosthetic replacement - Secondary prevention w ASA, BB and statin. - Valve thromboprophylaxis with ASA alone. Coumadin discontinued as rhythm sinus. Chronic class II CHF, systolic (EF 50% on last ECHO) - On Coreg and Lasix. Shingles right shoulder - VZV positive. - On Valtrex. Plan: Ok for discharge. 06/17/17 07:55 Subjective: Feels well and eagerly awaiting discharge. Comfortable emptying drains and charting result. To get in touch with Dr Marquez tomorrow if misses him today. Objective: Vital Signs Temp Pulse Resp BP Pulse Ox 36.6 C 101 H 20 132/86 H 97 06/17/17 07:38 06/17/17 07:38 06/17/17 07:38 06/17/17 07:38 06/17/17 07:38 Microbiology 06/09/17 13:52 Gram Stain - Final Chest - Eswab Anaerobic Culture - Final MRSA 06/09/17 13:52 Gram Stain - Final Chest - Eswab Anaerobic Culture - Final MRSA Laboratory Results 06/16/17 06:15 06/16/17 06:15 06/16/17 06/17/17 06/18/17 05:59 05:59 05:59 Intake Total 1500 750 Output Total 80 2260 Balance 1420 -1510 PT 17.4 SEC (12.0-15.0) H 06/10/17 04:50 INR 1.43 (0.83-1.16) H 06/10/17 04:50 Slightly tachycardic, likely d/t modest analgesic use. SBPs and O2 sats stable. Adequate fluid balance. Min WILLIAM output. Physical Exam - Physical Exam General Appearance: alert, no apparent distress Respiratory: normal breath sounds Cardiac/Chest: regular rate, rhythm, other (Plastics chest dressing CDI. JPs x 2 to bulb suction, mostly clear serous drainage.) Abdomen: non-tender, soft Skin: warm/dry Extremities: other (no visible edema) ICD10 Worksheet Patient Problems: Problems Problem Status Onset Dyspnea Acute Fever Acute Weakness Acute Wound infection after surgery Acute Acute blood loss anemia Acute Chronic Disease Mgmt/Transitional Care Acute Methicillin resistant Staphylococcus aureus infection Acute ~06/09/17 S/P CABG x 3 Acute ~05/14/17 S/P mitral valve replacement with bioprosthetic valve Acute ~05/14/17 Severe mitral regurgitation Acute Sternal wound dehiscence Acute Cardiomyopathy, ischemic Chronic Chronic systolic CHF (congestive heart failure), NYHA class 2 Chronic Coronary artery disease Chronic
[2017-06-17] MEDS: GLUCOSAMINE/CHONDROITIN CAP PO SCH (08:56)
[2017-06-17] MEDS: OMEGA-3 FATTY ACIDS 1,000 MG CAP PO SCH (08:57)
[2017-06-17] MEDS: valACYclovir 500 MG TAB PO SCH (08:58)
[2017-06-17] MEDS: PANTOPRAZOLE SODIUM 40 MG TAB PO SCH (08:58)
[2017-06-17] MEDS: CARVEDILOL 6.25 MG TAB PO SCH ×2 (08:59→18:12)
[2017-06-17] MEDS: HYDROCODONE/APAP 5/325 TAB PO PRN (08:59)
[2017-06-17] MEDS: SENNOSIDES/DOCUSATE SODIUM TAB PO SCH (08:59)
[2017-06-17] MEDS: ASPIRIN EC 81 MG TAB PO SCH (08:59)
[2017-06-17] MEDS: FUROSEMIDE 40 MG TAB PO SCH (09:00)
[2017-06-17] MEDS: VITAMIN B COMPLEX 1 EA CAP/TAB PO SCH (09:01)
[2017-06-17] MEDS: CHOLECALCIFEROL VIT D3 2,000 UNITS TAB/CAP PO SCH (09:02)
[2017-06-17] MEDS: POTASSIUM CL 20 MEQ TAB PO SCH (09:03)
--- NOTE | 2017-06-17 10:08 | PDHOMEO2F ---
Home Oxygen Face to Face Home Orders: I certify that a physician or a nurse practitioner or physician's dental hygiene administrative assistant has had a [id number] encounter with this patient on the date of this order due to the diagnosis listed, which relates to the primary reason the patient requires home oxygen. Alternative treatments have been tried, or considered, and deemed ineffective. It is anticipated that supplemental oxygen will result in improvement with treatment. Home oxygen qualifying diagnosis: cad Home oxygen secondary diagnosis: chronic CHF SpO2 on room air (%): 86 Frequency of home oxygen needed: continuous Home oxygen liters per minute: 1 Home oxygen delivery device: nasal cannula Concentrator: Yes E-tanks for mobility and back up: Yes If ordering portable O2, is the patient mobile in the home?: Yes I certify that, based on these findings, the home oxygen is medically necessary for this patient for the following length of time. Length of time home oxygen needed: 1 month Home Oxygen Comment: ELI current provider
--- NOTE | 2017-06-17 10:14 | PDIAF ---
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 Code Status: Full Code - Medication Management Discharge Medications: Medications to Continue on Transfer Cholecalciferol Vit D3 [Vitamin D3 (*)] 7,000 units PO DAILY 04/03/14 [Last Taken 06/08/17] [place]-3 Fatty Acids [Fish Oil 1000 mg (*)] 2,000 mg PO BID 04/03/14 [Last Taken 06/08/17 21:00] traMADol [Ultram 50 mg (*)] 50 mg PO Q4 PRN 04/03/14 [Last Taken 06/09/17] Aspirin EC [Aspirin EC 81 mg (*)] 81 mg PO DAILY #30 tab 04/05/14 [Last Taken ] Carvedilol [Coreg (*)] 6.25 mg PO BIDMEAL #60 tab 04/05/14 [Last Taken 06/08/17 18:00] Pantoprazole Sodium [Protonix 40mg (*)] 40 mg PO DAILY #30 tab 04/05/14 [Last Taken 06/08/17] Atorvastatin Calcium [Lipitor 10 mg (*)] 10 mg PO HS 04/20/17 [Last Taken ] Glucosamine/Chondroitin [Glucosamine/Chondroitin (*)] 1 each PO DAILY 04/20/17 [ Last Taken 06/08/17] Vitamin B Complex [B Complex] 1 each PO DAILY 05/15/17 [Last Taken 06/08/17] Bisacodyl [Dulcolax] 10 mg RC DAILY PRN 05/31/17 [Last Taken Unknown] Methocarbamol [Robaxin 500 mg (*)] 1,000 mg PO QID PRN 05/31/17 [Last Taken ] Polyethylene Glycol 3350 [Miralax 17 gm (*)] 17 gm PO DAILY PRN 05/31/17 [Last Taken Unknown] Acetaminophen [Tylenol 325mg (*)] 325 - 650 mg PO Q4HRS PRN #0 tab 06/17/17 [ Last Taken Unknown] Alteplase [Cathflo Activase 2 mg (*)] 2 mg IVP PRN PRN #0 vial 06/17/17 [Last Taken Unknown] D5w 250 ml IV Q24H #45 bag 06/17/17 [Last Taken Unknown] Furosemide [Lasix 40 MG (*)] 40 mg PO DAILY #0 tab 06/17/17 [Last Taken Unknown] Potassium Cl [Klor-Con 20 meq (*)] 20 meq PO DAILY tab 06/17/17 [Last Taken Unknown] Vancomycin [Vancomycin (*)] 1.25 gm IV Q24H vial 06/17/17 [Last Taken Unknown] valACYclovir [Valtrex (*)] 1,000 mg PO Q12HRS #20 tab 06/17/17 [Last Taken Unknown] Heat Engineering Teacher Antibiotics: Vancomycin 1.25 g IV Q 24 hours Nursing Home Antibiotic Stop Date: 07/07/17 Discharge Medications: Refer to the Discharge Home Medication list for PRN reason. PICC Care - Routine: Yes - Orders Services needed: Registered Nurse, Physical Therapy (cardiac rehab 3x weekly until cleared by plastics to return to outpt rehab) Isolation Type: Contact Isolation Oxygen: prn SpO2 < 90% Diet Recommendation: cardiac -low fat low salt Diet Texture: Regular Texture Diet Weigh Patient: daily Wound Care Instructions: as per Dr Marquez. empty and record WILLIAM bulbs 2x daily Activity/Weight Bearing Restrictions: as per Dr Marquez - Labs/Radiology CBC w/diff Date: 06/21/17 (q Mon, Th) CMP Date: 06/21/17 (q mon) Creatinine Date: 06/24/17 (q ) Vanco Trough Date and Time: starting 06/21 and every Wed and Thurs while on Vanco Call or Fax Lab and Imaging Results to: Dr. Shashi Razo - Follow Up Care Current Providers and Referrals: Abram Marquez JR, MD [Medical Doctor] - follow up as scheduled Edward Aggarwal DO [Doctor of Osteopathy] - 06/29/17 Baljeet Carvalho MD [Primary Care Provider] - As per Instructions Shashi Razo MD [Medical Doctor] - follow up as scheduled
[2017-06-17] MEDS: METHOCARBAMOL 500 MG TAB PO PRN (10:26)
[2017-06-17 12:13] VITALS: BP 114/73; RESP 16; TEMP 98.2; O2SAT 92
--- NOTE | 2017-06-17 13:11 | PDDCSUM ---
Discharge Summary Discharge Summary: DATE OF ADMISSION: 06/09/17 DATE OF DISCHARGE: 06/17/17 DISPOSITION: Home with home healthcare, RN and PT PRINCIPAL ADMISSION DIAGNOSIS: Surgical site infection of sternum suspicious for mediastinitis PRINCIPAL DISCHARGE DIAGNOSES: 1. MRSA mediastinitis 2. Shingles right shoulder HISTORY OF PRESENT ILLNESS: 77 yo female with recent CABG/MVR complicated by sternal nonunion, persistent wound drainage, and eventual superficial sternal debridement, admitted in advance of scheduled plastics closure for constitutional symptoms concerning for deep sternal infection. PERTINENT PAST MEDICAL HISTORY: 05/14/17: CABGx3 (YAP-LAD, SV-OM, SV-RCA), tissue MVR, AtriClip BELKIS 06/01/17: Sternal wound exploration and VAC placement MEDICATIONS ON ADMISSION: Lasix 60 mg BID, KlorCon 40 meq BID, Coumadin 2.5 mg daily, Tramadol 50 mg q4h prn pain, Vit D3 7,000 units daily, Fish Oil 2,000 mg BID, Coreg 6.25 mg BID, Protonix 40 mg daily, Glucosamine/Chondroitin daily, Vit B complex daily, Robaxin 1,000 mg 4x daily prn, Miralax prn, Dulcolax prn, O2 @ 4 Lpm continuously ALLERGIES/SENSITIVITIES: NSAIDs causing GI bleedng, sulfa causing an unspecified reaction CONSULTANTS: Infectious Diseases (Dung), Critical care (Carter), Plastic Surgery (Alma) PROCEDURES/IMAGIN/[address] 06/09 (Alessia): Sternal debridement with removal of all retained hardware. Placement of a wound VAC. 06/11 (Giacomo): RUE PICC. 06/14 (Alma): Sternal debridement of skin, subcutaneous tissue, muscle and bone. Right pectoralis major turnover flap. Bilateral chest wall advancement flap for defect. ABBREVIATED HOSPITAL COURSE BY ACTIVE PROBLEM LIST: 1. MRSA mediastinitis - s/p extensive local debridement and flap closure. IV Vanco x 6 weeks as per ID. Wound and drain management as per plastics 2. Stable CAD/ischemic cardiomyopathy - s/p recent CABGx3 with improved post revasc LVEF. Secondary prevention w ASA, BB and statin. 3. Presence of bioprosthetic mitral valve - Nearly one month of Coumadin thromboprophylaxis completed. Further antithrombotic prophylaxis with ASA alone as no recent dysrhythmias. 4. Chronic sCHF - No postop decompensation. Coreg and lower dose lasix resumed. 5. Shingles right shoulder - Eruption during hospitalizaion. VZV positive. Started on a 10 day course of Valtrex by ID. DISCHARGE CLINICAL INFORMATION: Sternotomy dressing CDI. WILLIAM drains x 2 to bulb suction. HR 100s. SBP 110s-130s. SpO2 86% RA correcting to 92% on 2 Lpm oxygen. Wt 0.4 kg above admission at 82.9 kilos. WBC 6.6, Hgb 9.5, HCT 27.9, Plt 239, Na 133, K 4.1, Cr 0.8; vanco trough 19.8 06/09 blood cultures x 2 neg DISCHARGE MEDICATIONS: As on admission with the following adjustments: 1. Reduce Lasix to 40 mg daily 2. Reduce KlorCon to 20 mEQ daily 3. Stop Coumadin. 4. Reduce O2 to 2 Lpm continuously. NEW prescriptions: 1. Valtrex 1,000 mg BID thru 06/21 FOLLOW UP APPOINTMENTS: 1. CV surgery: with Dr Aggarwal at [facility] on 06/29. Office to call with appointment time. 2. Infectious Diseases: with Dr Razo as directed. 3. Plastic Surgery: with Dr Marquez as directed for wound check, drain check and staple removal. FOLLOW UP TESTING: Labs as directed by ID. Results to Dr Razo.
[2017-06-17] MEDS: VANCOMYCIN 1.25 GM in D5W 250 ML IV SCH (15:20)
--- NOTE | 2017-06-17 17:45 | ASDISCHSUM ---
Discharge Information Plan Status:IV ABX/Infusion Medically Cleared to Leave:06/16/2017 Discharge Date:06/16/2017 CM D/C Disposition:Home Health Service ADT D/C Disposition:Home Health Service Projected Discharge Date:06/17/2017 11:00 AM Transportation at D/C:Family Discharge Delay Reason: Follow-Up Date:06/17/2017 11:00 AM Discharge Slot:2 - 12:01 pm - 18:00 pm Final Diagnosis:MRSA mediastinitis, shingles right shoulder Placement Information Referral Type:Home Infusion Referral ID:[id number] Provider Name:[facility] Address 1:[address] Address 2: City:[place] Selection Factors:Patient/Family Choice State:[place] Patient Contact Information Contact Name:ROLDAN Relationship:Daughter Address:[address] [facility] Work Phone: City:[place] Phone: State/Zip Code:[place] [address] Email: Financial Information Financial Class:Medicare Advantage Plans Primary Plan Desc:LYUDMILA WONG PPO MEDICARE Primary Plan Number:[id number] Secondary Plan Desc: Secondary Plan Number: Assessment Information LACE LACE Acuity / Level of Care Answers: Was the patient admitted to hospital via the emergency department? Yes: Emergency dept visits in Answers: 1 last 6 months Score: 4 Date Signed: 06/09/2017 11:24 AM Electronically Signed By:Lorena Ray RN [facility] CM Progress Note CM Note CM Note Notes: GREGORY CM received call from Kerrie POOLE with [facility] re patient's arrival to the ER this morning. Patient is current with [facility] since 06/03/17 s/p recent OHS (Dr. Aggarwal), wound dehisence (sternal), and rehab stay at [facility] in [place]. Patient is now to be admitted to hospital. CM to follow with D/C planning. I have LM with Kerrie to inform her of patient's admission Date Signed: 06/09/2017 11:29 AM Electronically Signed By:Lorena Ray RN [facility] Progress Note CM Note CM Note Notes: Patient admitted for sternal wire/band removal, sternal debridement, and wound vac placement. She is s/p CAPB x3 on 05/14/17. Patient was discharged home with a wound vac and home RN/PT/OT/PARK MANAGER last admission; she expressed some frustration with the wound vac (not all parts were delivered) and the [employer] company that was set up for her. It's TBD if she will need to return home with a wound vac this time. She has a plastics consult for closure of the wound. In the meantime, one of her children will bring the home vac to the hospital. She is current with [facility] RN/PT/OT/PARK MANAGER and will likely resume those services after d/c. CM to assist with any other discharge needs. Date Signed: 06/10/2017 02:29 PM Electronically Signed By:Kandi Arce RN [facility] [place] Progress Note CM Note CM Note Notes: PT recommending HC for discharge. Patient presently has a wound vac hoping that it might not be needed on discharge. Is presently with [facility]. Date Signed: 06/13/2017 11:48 AM Electronically Signed By:Kaleigh Pride LCSW [facility] CM Progress Note CM Note CM Note Notes: Chart reviewed. Per PT patient able to do all ADL's independently. She will dc to home on IV ANTB per infectious disease. She is current with [facility] and they have been notified of pending dc tomorrow, [facility] is home infusion [facility]. Address verified, all notes updated via cisimple. Discharge paln of care: Home with home infusion service and RN, PT and OT. Date Signed: 06/16/2017 02:25 PM Electronically Signed By:Jerrica Jean RN [facility] CM Progress Note CM Note CM Note Notes: Reviewed chart, spoke w/ ZULEMA Lock regarding discharge plan, pt's progress. Pt to discharge home today w/ [facility] and [facility] (RN). Call placed to [facility]; spoke w/ Maria Del Carmen Lovell. Per Maria Del Carmen, able to deliver all pharmacy supplies tonight between [phone]. Discharge orders and paperwork manually faxed to per [facility]'s request; confirmed receipt. Call placed to [facility] ([facility]); spoke w ZULEMA Sy. Per Kerrie, able to accept pt for start of care on Wed06/18/17. Pt to receive IV antibiotics today in hospital and [facility] will assist w/ dose on Wed. Discharge orders and paperwork manually faxed; confirmed receipt. Update provided to pt and pt's family. Pt's grandsonBernardo confirmed pt's address and phone number. All details provided; confirmed pt understanding. Discharge note placed in chart w/ applicable phone numbers. Updates provided to ZULEMA Lock. Pt to follow up as directed. No IM signed, not applicable. CM avail for any further issues or concerns. Date Signed: 06/17/2017 05:44 PM Electronically Signed By:Sri Royal RN Intervention Information
--- NOTE | 2017-06-17 17:45 | ASMTCMCOM ---
CM Note CM Note Notes: Reviewed chart, spoke w/ ZULEMA Lock regarding discharge plan, pt's progress. Pt to discharge home today w/ [facility] and [facility] (RN). Call placed to [facility]; spoke w/ PharmacistMaria Del Carmen. Per Maria Del Carmen, able to deliver all pharmacy supplies tonight between [phone]. Discharge orders and paperwork manually faxed to per Maria Del Carmen's request; confirmed receipt. Call placed to [facility] ([facility]); spoke jc Sy RN. Per Kerrie, able to accept pt for start of care on Wed06/18/17. Pt to receive IV antibiotics today in hospital and [facility] will assist w/ dose on Wed. Discharge orders and paperwork manually faxed; confirmed receipt. Update provided to pt and pt's family. Pt's grandson, Bernardo confirmed pt's address and phone number. All details provided; confirmed pt understanding. Discharge note placed in chart w/ applicable phone numbers. Updates provided to ZULEMA Lock. Pt to follow up as directed. No IM signed, not applicable. CM avail for any further issues or concerns. Date Signed: 06/17/2017 05:44 PM Electronically Signed By:Sri Royal RN
== END 2017-06-17 19:00 | disposition home health service (06) | DRG 856 ==
LOC: EDUNIT# → FSGY 10:57 → UNDODISIN 14:02 → F2N 15:58 → F2W 06-15 16:24
PROVIDERS: ADMIT Thoracic Surgery (Cardiothoracic Vascular Surgery); ATTEND Thoracic Surgery (Cardiothoracic Vascular Surgery)
PROC: 0PB00ZZ Excision of Sternum, Open Approach (ICD-10-PCS; principal; 2017-06-09 11:00)
PROC: 0KXH0ZZ Transfer Right Thorax Muscle, Open Approach (ICD-10-PCS; principal; 2017-06-09 11:00)
PROC: 0JX60ZZ Transfer Chest Subcutaneous Tissue and Fascia, Open Approach (ICD-10-PCS; principal; 2017-06-09 11:00)
PROC: 02HV33Z Insertion of Infusion Device into Superior Vena Cava, Percutaneous Approach (ICD-10-PCS; 2017-06-11)
PROC: 0W9C0ZZ Drainage of Mediastinum, Open Approach (ICD-10-PCS; 2017-06-14)
DX: T81.4XXA Infection following a procedure, initial encounter (principal); J98.51 Mediastinitis; B95.62 Methicillin resistant Staphylococcus aureus infection as the cause of diseases classified elsewhere; B02.9 Zoster without complications; I25.10 Atherosclerotic heart disease of native coronary artery without angina pectoris; I25.5 Ischemic cardiomyopathy; I50.22 Chronic systolic (congestive) heart failure; I11.0 Hypertensive heart disease with heart failure; E78.5 Hyperlipidemia, unspecified; Z95.3 Presence of xenogenic heart valve; Z95.1 Presence of aortocoronary bypass graft; Z95.5 Presence of coronary angioplasty implant and graft; Z79.01 Long term (current) use of anticoagulants; E87.6 Hypokalemia; H53.8 Other visual disturbances
CPT/HCPCS: 87529-90; 96365; 97116-GP; 97161-GP; 97530-GP; C1751; G8978-GP-CJ; G8979-GP-CI; G8980-GP-CI; J0171; J1335; J1650; J2704; J3010; J3370; P9016; P9017; Q9967

== ENCOUNTER 2017-06-21 17:20 | Inpatient (IN) | payer OTHER ==
--- NOTE | 2017-06-21 17:41 | EDPHY ---
H & P Stated Complaint: Sent by Dr Razo for abnormal lab results. HPI/ROS: CHIEF COMPLAINT: Hypokalemic HISTORY OF PRESENT ILLNESS: This is a 77-year-old female who presents with hypokalemia discovered on routine lab draw today. She recently underwent CABG with left atrial appendage ligation and mitral valve replacement (05/14/2017). 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 She has been hospitalized 3 times since her surgery, recently discharged on 06/17. She is currently being treated at home with IV vancomycin via PICC line. She states that she feels diffusely weak and fatigued. She has not been eating well. She denies vomiting or diarrhea. She is taking a diuretic and potassium replacement. REVIEW OF SYSTEMS: A ten point review of systems was performed and is negative with the exception of the items mentioned in the HPI. Past medical history: MRSA mediastinitis Non-healing chest wound Hypertension Hyperlipidemia Shingles Past surgical history: 3 vessel CABG with mitral valve replacement and atrial appendage ligation Family history: Denies Social history: Son at bedside Lives in [facility] General Appearance: Alert. Vital signs reviewed. Blood pressure 127/82. Eyes: Pupils equal and round, no conjunctival injection, no discharge. Anicteric. ENT, Mouth: Mucous membranes are moist, no oropharyngeal erythema or edema. Neck: No lymphadenopathy, supple. Respiratory: Lungs are clear to auscultation; no wheezes, rales, or rhonchi. Cardiovascular: Regular rate and rhythm; no murmur, rub, or gallop. Gastrointestinal: Dressing over abdomen and lower chest. 2 substernal drains are present. Abdomen is soft and nontender, no masses or organomegaly, bowel sounds normal. Skin: Warm and dry, no rashes on exposed skin, normal color. Back: Nontender to palpation over the thoracolumbar spine. No CVAT. Extremities: Dressing over right shoulder where she reportedly has shingles. No lower extremity edema, no calf tenderness or swelling. Neurological: Alert and oriented. Moving all four extremities easily and equally. Psychiatric: Normal affect. - Personal History Current Tetanus Diphtheria and Acellular Pertussis (TDAP): Yes - Medical/Surgical History Hx Asthma: No Hx Chronic Respiratory Disease: No Hx Diabetes: No Hx Cardiac Disease: Yes Hx Renal Disease: No Hx Cirrhosis: No Hx Alcoholism: No Hx HIV/AIDS: No Hx Splenectomy or Spleen Trauma: No Other PMH: 3 vessel CABG with mitral valve replacement 05/14/17 with non- healing chest wound, HTN;ORTHO-CARPEL TUNNEL AND BUNION, cardiac stent x1 on 04/03 - Social History Smoking Status: Former smoker Constitutional: Initial Vital Signs Temperature (C) 36.4 C 06/21/17 17:22 Heart Rate 89 06/21/17 17:22 Respiratory Rate 16 06/21/17 17:22 Blood Pressure 127/82 H 06/21/17 17:22 O2 Sat (%) 96 06/21/17 17:22 O2 Delivery Mode Nasal Cannula O2 (L/minute) 2 Allergies/Adverse Reactions: NSAIDS (Non-Steroidal Anti-Inflamma [NSAIDS (Non-Steroidal Anti-Inflammatory Drug)] Allergy (Severe, Verified 06/02/17 13:44) Other-Enter Comments Sulfa (Sulfonamide Antibiotics) Allergy (Verified 05/13/17 13:58) Unknown Home Medications: Medication Instructions Recorded Cholecalciferol Vit D3 [Vitamin D3 7,000 units PO DAILY 04/03/14 (*)] Kirby-3 Fatty Acids [Fish Oil 1000 2,000 mg PO BID 04/03/14 mg (*)] traMADol [Ultram 50 mg (*)] 50 mg PO Q4 PRN 04/03/14 Aspirin EC [Aspirin EC 81 mg (*)] 81 mg PO DAILY #30 tab 04/05/14 Carvedilol [Coreg (*)] 6.25 mg PO BIDMEAL #60 tab 04/05/14 Pantoprazole Sodium [Protonix 40mg 40 mg PO DAILY #30 tab 04/05/14 (*)] Atorvastatin Calcium [Lipitor 10 10 mg PO HS 04/20/17 mg (*)] Glucosamine/Chondroitin 1 each PO DAILY 04/20/17 [Glucosamine/Chondroitin (*)] Vitamin B Complex [B Complex] 1 each PO DAILY 05/15/17 Methocarbamol [Robaxin 500 mg (*)] 1,000 mg PO QID PRN 05/31/17 Acetaminophen [Tylenol 325mg (*)] 325 - 650 mg PO Q4HRS PRN #0 tab 06/17/17 Furosemide [Lasix 40 MG (*)] 40 mg PO DAILY #0 tab 06/17/17 Vancomycin [Vancomycin (*)] 1.25 gm IV Q24H vial 06/17/17 valACYclovir [Valtrex (*)] 1,000 mg PO Q12HRS #20 tab 06/17/17 Potassium Cl [Klor-Con 20 meq (*)] 20 meq PO BID 06/21/17 Medical Decision Making - Diagnostics Imaging: I viewed and interpreted images myself ED Course/Re-evaluation: The patient is a 77 y/o female with a history of MRSA mediastinitis s/p CABG presenting with hypokalemia and fatigue. On exam she has a dressing over right shoulder where she reportedly has shingles and a dressing over her abdomen. I did not remove these dressings. 1743: The 12 lead EKG was interpreted by myself as sinus rhythm with a rate of 96. Potassium is 2.6. 1900: Consulted with hospitalist service, Dr. Dixon accepts admission of this patient for hypokalemia. IV potassium replacement started in the emergency department per protocol. Reassessed patient and discussed imaging results. I have also informed her about her admission; patient and her son are comfortable with this plan. Differential Diagnosis: Considered a differential diagnosis of hypokalemia that includes but is not limited to medication effect, over diuresis, diarrhea or vomiting, poor/ inadequate nutrition. - Data Points Laboratory Results: Laboratory Results 06/22/17 04:15 06/22/17 04:15 Medications Given: Acetaminophen (Tylenol) 325 - 650 mg PO Q4HRS PRN PRN Reason: Pain, Mild/Fever, Can Take PO Stop: 12/18/17 21:45 Last Admin: 06/23/17 09:01 Dose: 650 mg Alteplase, Recombinant (Cathflo Activase) 2 mg IVP PRN PRN PRN Reason: PICC LINE PROTOCOL Stop: 12/19/17 17:37 Last Admin: 06/22/17 23:13 Dose: 2 mg Aspirin Buffered (Aspirin Ec) 81 mg PO DAILY MARIANNE Stop: 12/19/17 08:59 Last Admin: 06/24/17 08:27 Dose: 81 mg Atorvastatin Calcium (Lipitor) 10 mg PO HS MARIANNE Stop: 12/19/17 20:59 Last Admin: 06/23/17 20:27 Dose: 10 mg Carvedilol (Coreg) 6.25 mg PO BIDMEAL MARIANNE Stop: 12/19/17 07:59 Last Admin: 06/24/17 08:28 Dose: 6.25 mg Cholecalciferol (Vitamin D) 7,000 units PO DAILY MARIANNE Stop: 12/19/17 08:59 Last Admin: 06/24/17 08:27 Dose: 7,000 units Enoxaparin Sodium (Lovenox) 40 mg SC DAILY MARIANNE Stop: 12/20/17 08:59 Last Admin: 06/24/17 08:31 Dose: 40 mg Glucosamine/Chondroitin (Glucosamine/Chondroitin) 1 each PO DAILY MARIANNE Stop: 12/19/17 08:59 Last Admin: 06/24/17 08:28 Dose: 1 each Vancomycin/Sodium Chloride (Vancomycin 1 Gm (Premix)) 250 mls @ 250 mls/hr IV Q24H MARIANNE Stop: 07/23/17 13:59 Last Admin: 06/24/17 14:45 Dose: 250 mls Methocarbamol (Robaxin) 1,000 mg PO QID PRN PRN Reason: muscle spasm Stop: 12/18/17 21:45 Last Admin: 06/24/17 00:57 Dose: 1,000 mg Oxycodone HCl (Oxycodone Ir) 5 - 10 mg PO Q3HRS PRN PRN Reason: Pain, Severe Able to Take PO Stop: 07/01/17 22:10 Last Admin: 06/24/17 08:27 Dose: 10 mg Pantoprazole Sodium (Protonix) 40 mg PO DAILY MARIANNE Stop: 12/19/17 08:59 Last Admin: 06/24/17 07:49 Dose: 40 mg Potassium Chloride (Klor-Con) 20 meq PO BID MARIANNE Stop: 12/19/17 08:59 Last Admin: 06/24/17 08:28 Dose: 20 meq Tramadol HCl (Ultram) 50 mg PO Q4 PRN PRN Reason: Pain, Moderate Stop: 12/18/17 21:45 Last Admin: 06/24/17 00:57 Dose: 50 mg Discontinued Medications Furosemide (Lasix Injection) 20 mg IVP ONCE ONE Stop: 06/23/17 16:41 Last Admin: 06/23/17 17:42 Dose: 20 mg Potassium Chloride (Potassium Cl 10 Meq (Premix)) 100 mls @ 100 mls/hr IV Q1H MARIANNE Stop: 06/21/17 21:14 Last Admin: 06/21/17 20:33 Dose: 100 mls Potassium Chloride 10 meq/ (Sodium Chloride) 100 mls @ 100 mls/hr IV Q1H MARIANNE Stop: 06/21/17 23:59 Last Admin: 06/22/17 00:06 Dose: 100 mls Potassium Chloride/Sodium Chloride (Ns W/ 20 Kcl/L) 1,000 mls @ 100 mls/hr IV CONT MARIANNE Stop: 06/22/17 07:44 Last Admin: 06/21/17 22:49 Dose: 1,000 mls Vancomycin HCl 1.25 gm/ (Dextrose) 250 mls @ 166.67 mls/hr IV Q24H MARIANNE PRN Reason: Protocol Stop: 07/22/17 10:59 Last Admin: 06/23/17 13:54 Dose: Not Given Magnesium Sulfate/Dextrose (Magnesium Sulf 1 Gm (Premix)) 100 mls @ 100 mls/hr IV ONCE ONE Stop: 06/22/17 17:48 Last Admin: 06/22/17 17:11 Dose: 100 mls Potassium Phosphate 10 mmol/ (Dextrose) 253.3333 mls @ 42.222 mls/hr IV ONCE@ 12 ONE Stop: 06/23/17 17:59 Last Admin: 06/23/17 15:31 Dose: 253.3333 mls Magnesium Sulfate/Dextrose (Magnesium Sulf 1 Gm (Premix)) 100 mls @ 100 mls/hr IV ONCE ONE Stop: 06/24/17 08:21 Last Admin: 06/24/17 09:40 Dose: 100 mls Insulin Human Lispro (Humalog Lispro) 3 unit SC ONCE ONE Stop: 06/22/17 09:44 Last Admin: 06/22/17 11:38 Dose: Not Given Miscellaneous Medication (Vancomycin [Vancomycin (*)]) 1.25 gm IV Q24H [facility] Stop: 12/19/17 07:59 Last Admin: 06/22/17 10:39 Dose: Not Given Potassium Chloride (Klor-Con) 10 - 40 meq PO ONCE ONE PRN Reason: Protocol Stop: 06/22/17 09:01 Last Admin: 06/22/17 10:20 Dose: 40 meq Potassium Chloride (Klor-Con) 20 meq PO ONCE ONE PRN Reason: Protocol Stop: 06/22/17 23:16 Last Admin: 06/22/17 23:47 Dose: 20 meq Potassium Chloride (Klor-Con) 10 meq PO ONCE ONE PRN Reason: Protocol Stop: 06/23/17 08:41 Last Admin: 06/23/17 09:00 Dose: 10 meq Valacyclovir HCl (Valtrex) 1,000 mg PO Q12HRS MARIANNE Stop: 06/21/17 22:31 Last Admin: 06/21/17 22:42 Dose: 1,000 mg Departure - Departure Disposition: [facility] Inpatient Acute Clinical Impression: Hypokalemia Condition: Fair Report Scribed for: Jenny Scherer Report Scribed by: Jenniffer Ferrell Date of Report: 06/21/17 Time of Report: 17:57 Physician Review and Approval Statement: 06/21/17 17:41 Portions of this note were transcribed by the medical physics teacher. I, Dr. Jenny Scherer, personally performed the history, physical exam, and medical decision- making; and confirmed the accuracy of the information in the transcribed note.
--- NOTE | 2017-06-21 17:53 | CPEKG ---
Heart Rate: 96 RR Interval: 625 P-R Interval: 200 QRSD Interval: 130 QT Interval: 364 QTC Interval: 460 P [place]: 92 QRS [place]: -45 T Wave [place]: 121 EKG Severity - ABNORMAL ECG - EKG Impression: SINUS RHYTHM EKG Impression: LVH WITH IVCD, LAD AND SECONDARY REPOL ABNRM Electronically Signed By: Jude Feng 22-Jun-2017 15:42:34
[2017-06-21 18:38] LABS: ANION GAP 6 mEq/L (8-16); CALCIUM 11.7 mg/dL (8.5-10.4); CARBON DIOXIDE 35 mEq/l (22-31); CHLORIDE 88 mEq/L (97-110); CREATININE 1.1 mg/dL (0.6-1.0); GLOMERULAR FILTRATION RATE 48; GLUCOSE 97 mg/dL (70-100); SODIUM 129 mEq/L (134-144)
[2017-06-21 18:56] LABS: POTASSIUM 2.5 mEq/L (3.5-5.2)
[2017-06-21] MEDS: POTASSIUM Cl (KCl) 100 ML IV SCH ×2 (19:20→20:33)
[2017-06-21] MEDS ORDERED: NS W/ 20 KCl/L 1,000 ML IV SCH (21:45)
[2017-06-21] MEDS ORDERED: ACETAMINOPHEN 325 MG TAB PO PRN ×2 (21:46→22:11)
[2017-06-21] MEDS ORDERED: ONDANSETRON DISINTEGRATING 4 MG TAB PO PRN (22:11)
[2017-06-21] MEDS ORDERED: PROTOCOL MAGNESIUM 1 DOSE IV PRN (22:14)
[2017-06-21] MEDS ORDERED: PROTOCOL POTASSIUM 1 DOSE MISC PRN (22:14)
[2017-06-21] MEDS ORDERED: PROTOCOL K PHOSPHATE 1 DOSE IV PRN (22:14)
[2017-06-21] MEDS ORDERED: valACYclovir 500 MG TAB PO SCH (22:30)
[2017-06-21] MEDS: oxyCODONE IR 5 MG TAB PO PRN (22:42)
[2017-06-21] MEDS: POTASSIUM Cl (KCl) 10 MEQ in NS 100 ML IV SCH (22:49)
--- NOTE | 2017-06-21 23:07 | GHP ---
[f rep st] HISTORY AND PHYSICAL DATE OF ADMISSION: 06/21/2017 CHIEF COMPLAINT: Low potassium. HISTORY OF PRESENT ILLNESS: A 77-year-old female with recent complicated history including CABG, as well as left atrial appendage ligation and mitral valve replacement on May [address] Aggarwal. He r course was complicated by nonunion of her sternum, as well as mediastinitis status post washout. S he had been admitted 3 times for the above issues. She was discharged on June 17 with a plan o f 4 weeks of IV vancomycin. Cultures from her mediastinitis grew out MRSA. Labs were drawn by her [facility] nurse today, which showed a potassium of 2.6. [facility] She tells me that she feels weak. She has not been eating very well. She has bee n started on Lasix, as well as potassium replacement though she has felt thirsty all the time. She h as not had any diarrhea. PAST MEDICAL/SURGICAL HISTORY: 1. Coronary artery disease status post CABG on May 14, mitral valve replacement, as well as le ft atrial appendage ligation. 2. Hypertension. 3. Hyperlipidemia. MEDICATIONS: Please see medication reconciliation. ALLERGIES: NSAIDs and sulfa. SOCIAL HISTORY: She is accompanied by her son. She was discharged with home health. FAMILY HISTORY: Reviewed and noncontributory. REVIEW OF SYSTEMS: A 10-point review of systems is conducted and is negative except per HPI. PHYSICAL EXAM: VITAL SIGNS: Blood pressure 151/72, heart rate 96, respiration rate 18, saturating 1 00% on 2 L, temperature 36.4. GENERAL: This is a pleasant female, who appears quite fatigued lying in bed, no acute distress. HEENT: Shows her to be normocephalic, atraumatic. CARDIOVASCULAR: Show s regular rate and rhythm. No murmurs, rubs, or gallops. CHEST: Shows her to have a sternotomy sca r. There is no surrounding erythema or pustulant. She has [address] draining below her ster num. PULMONARY: Shows lungs clear to auscultation bilaterally. ABDOMEN: Soft, nontender, nondiste nded. SKIN: Showed no rash. : No Walker. NEUROLOGIC: Shows her to be alert and oriented x3. S he is moving all extremities. PSYCHIATRIC: Shows a normal mood and affect. LABORATORY DATA: Reviewed, notable for potassium 2.5 here, sodium of 129, creatinine of 1.1. Her ba seline seems to be about 0.8. I discussed this with Dr. Scherer. I personally viewed and interpreted her EKG. This shows sinus rhythm. She has mildly widened QRS co mplex. I reviewed her chart. IMPRESSION AND PLAN: A 77-year-old female with recent coronary artery bypass grafting, mitral valve replacement, course complicated by Methicillin-resistant staphylococcus aureus mediastinitis status p ost washout, presenting with hypokalemia. 1. Hypokalemia: Likely due to poor p.o. intake in the setting of furosemide and inadequate potassiu m replacement. I think she is clinically dry. Will aggressively replete her potassium intravenous. I will also give her a L of normal saline with 20 of potassium, as well. I have written to recheck a potassium at midnight, she may need more repletion. She will have gotten a total of 40 IV plus the potassium in her normal saline. Will hold her furosemide for now. 2. Dehydration: Suspect that she has been over diuresed in the setting of poor p.o. intake. Hold f urosemide, give her IV fluids as above, follow her volume status closely. Echocardiogram reviewed fr april, which showed ejection fraction of 50% to 55%. 3. Coronary artery disease status post coronary artery bypass grafting and Methicillin-resistant sta phylococcus aureus mediastinitis: Will continue her vancomycin. Infectious Disease sent her in, santos romo be available for discussion, though I do not think her antibiotic plans will change on this admis artemio. Would recommend apprising Dr. Aggarwal of her admission, though I do not think that anything acut adolfo surgical needs to be done at this point. Not sure the plan on when to remove her drains, however . 4. Hyponatremia: Suspect hypovolemic. Replete as above. 5. Mild acute kidney injury: Suspect prerenal. Give fluids and recheck. 6. Will check a magnesium. /[id number]/MODL
[2017-06-22] MEDS: POTASSIUM Cl (KCl) 10 MEQ in NS 100 ML IV SCH (00:06)
[2017-06-22] MEDS: METHOCARBAMOL 500 MG TAB PO PRN ×2 (04:00→21:58)
[2017-06-22 04:30] LABS: % IMMATURE GRANULYOCYTES 0.3 % (0.0-1.1); ABSOLUTE IMMATURE GRANULOCYTES 0.03 10^3/uL (0.00-0.10); ADD DIFF? NO; ADD MORPH? NO; ADD SCAN? NO; ATYPICAL LYMPHOCYTE FLAG 10 (0-99); FRAGMENT RBC FLAG 0 (0-99); HEMATOCRIT 27.9 % (38.0-47.0); HEMOGLOBIN 9.4 g/dL (12.6-16.3); LEFT SHIFT FLG 10 (0-99); LIPEMIA HEMOLYSIS FLAG 80 (0-99); MEAN CELL HEMOGLOBIN 30.7 pg (27.9-34.1); MEAN CELL HEMOGLOBIN CONCENTR. 33.7 g/dL (32.4-36.7); MEAN CELL VOLUME 91.2 fL (81.5-99.8); MEAN PLATELET VOLUME 8.9 fL (8.7-11.7); PLATELET CLUMPS FLAG 0 (0-99); PLATELET COUNT 289 10^3/uL (150-400); RED BLOOD CELL COUNT 3.06 10^6/uL (4.18-5.33); RED CELL DISTRIBUTION WIDTH 14.4 % (11.5-15.2)
[2017-06-22 04:46] LABS: ANION GAP 5 mEq/L (8-16); CALCIUM 11.3 mg/dL (8.5-10.4); CARBON DIOXIDE 38 mEq/l (22-31); CHLORIDE 90 mEq/L (97-110); GLOMERULAR FILTRATION RATE 53; GLUCOSE 84 mg/dL (70-100); MAGNESIUM 1.5 mg/dL (1.6-2.3); SODIUM 133 mEq/L (134-144)
[2017-06-22] MEDS ORDERED: VANCOMYCIN 1.25 GM IV SCH (08:00)
[2017-06-22] MEDS: ASPIRIN EC 81 MG TAB PO SCH (08:24)
[2017-06-22] MEDS: PANTOPRAZOLE SODIUM 40 MG TAB PO SCH (08:25)
[2017-06-22] MEDS: CARVEDILOL 6.25 MG TAB PO SCH ×2 (08:25→17:07)
[2017-06-22] MEDS: CHOLECALCIFEROL VIT D3 2,000 UNITS TAB/CAP PO SCH (08:25)
[2017-06-22] MEDS: GLUCOSAMINE/CHONDROITIN CAP PO SCH (08:26)
[2017-06-22] MEDS ORDERED: POTASSIUM CL 10 MEQ TAB PO ONE (09:00)
--- NOTE | 2017-06-22 09:35 | CPEKG ---
Heart Rate: 94 RR Interval: 638 QRSD Interval: 128 QT Interval: 364 QTC Interval: 456 QRS [place]: -39 T Wave [place]: 109 EKG Severity - ABNORMAL ECG - EKG Impression: NSR EKG Impression: LVH WITH IVCD, LAD AND SECONDARY REPOL ABNRM Electronically Signed By: Jude Feng 22-Jun-2017 15:42:22
[2017-06-22] MEDS ORDERED: INSULIN LISPRO 100 UNIT/ML SC ONE (09:43)
--- NOTE | 2017-06-22 09:45 | ASMTCASEMG ---
Living Arrangements What is your living Answers: Alone arrangement? Who do you live with? Type Of Residence What kind of residence do Answers: House you live in? Discharge Plan Comments Coordination Status Comments Notes: Pt is a 77 y/o female admitted for hypokalemia. Pt was recently here on 06/14 for a CAGB w/ a valve replacement. PT/OT have been ordered and awaiting recommendations. Needs are TBD at this time. CM to follow. Plan: TBD; pending therapies Date Signed: 06/22/2017 09:44 AM Electronically Signed By:PHILL Mims
--- NOTE | 2017-06-22 09:55 | HOSPPROG ---
Hospitalist Progress Note Assessment/Plan: DIAGNOSES: -tachycardia and tachypnea; suspect volume overload from IV fluids and abx - do not believe she has sepsis but will watch carefully for any signs of that -hypokalemia from low po intake and lasix -anorexia from acute illness -? 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 (has been in this range since early May, was 9+ all thru April; PTH has been very high last measured in February -recent mediastinitis after cabg, remains on vancomycin; wound looks ok, no fever or chest pain -marked deconditioning, impaired mobility/safety PLANS: -resp path panel -lasix -stop iv fluids -continue K and mag replacements, follow K and Mg and Ca closely; -I have asked pharmacy to see if there is a Ca lowering agent she was on in past that we are missing now -PT and OT -I have reviewed w DC sales planner today -have asked Infectious Disease to see her as they know her well in the outpatient setting SUBJECTIVE: feels quite weak and tired no pain no chills or sweats daughter and pt note she had cough and fever at home OBJECTIVE Vitals reviewed: tachycardic regular sinus on tele, also tachypneic no fever Senior Corporate Strategy Manager, my review: sinus tachycardia Exam: alert oriented relaxed, but looks weak and fairly tired skin warm dry color ok resps mildly labored lungs diffusely diminished BSs but no audible wheeze or rales heart regular but tachycardic Wounds look good on my assessment today abd soft nondistended nontender, bowel sounds present limbs warm, no edema iv site ok EKG, my interpretation: sinus tachy with LAFB, no acute changes since prior yest CXR 1 view, my interpretation of image: poor inspiration, some pulm vasc congestion, small effusion labs: potassium better but still low Ca++ remains elevated > 11 Mg also on low side Objective: Vital Signs Temp Pulse Resp BP Pulse Ox 36.5 C 104 H 14 162/88 H 96 06/22/17 08:00 06/22/17 08:25 06/22/17 03:57 06/22/17 08:25 06/22/17 08:00 Laboratory Results 06/22/17 04:15 06/22/17 04:15 06/21/17 06/22/17 06/23/17 06:59 06:59 06:59 Intake Total 200 Output Total 20 100 Balance 180 -100 ICD10 Worksheet Patient Problems: Problems Problem Status Onset Hypokalemia Acute Acute blood loss anemia Acute Chronic Disease Mgmt/Transitional Care Acute Dyspnea Acute Fever Acute Methicillin resistant Staphylococcus aureus infection Acute ~06/09/17 S/P CABG x 3 Acute ~05/14/17 S/P mitral valve replacement with bioprosthetic valve Acute ~05/14/17 Severe mitral regurgitation Acute Sternal wound dehiscence Acute Weakness Acute Wound infection after surgery Acute Cardiomyopathy, ischemic Chronic Chronic systolic CHF (congestive heart failure), NYHA class 2 Chronic Coronary artery disease Chronic
[2017-06-22] MEDS ORDERED: NICOTINE 21 MG/24 HR PATCH TD SCH (10:15)
[2017-06-22] MEDS: POTASSIUM CL 20 MEQ TAB PO SCH ×2 (10:21→21:57)
--- NOTE | 2017-06-22 10:53 | PCMIDPN ---
Assessment/Plan: Assessment/Plan: 1. Mrsa Mediastinitis: - s/p initial debridement on 06/09/17 - s/p second debridement and muscle flap on 06/14/17 - Cx from initial surgery with MRSA -Currently on vancomycin 1.25gm daily - vanco trough yesterday at 17. - Continue close lab monitoring. Meds vanco 1.25gm daily- Subjective: afebrile. feels more weak last few days. denies pain over chest. denies diarrhea or vomiting recently. Pt known to us with recent diagnosis of MRSa mediastinitis s/p debridement and muscle flap. Also had Shingles. Was on Valtrex. Had hypokalemia thus was sent to hospital for further management. Objective: Vital Signs Temp Pulse Resp BP Pulse Ox 36.5 C 104 H 14 162/88 H 96 06/22/17 08:00 06/22/17 08:25 06/22/17 03:57 06/22/17 08:25 06/22/17 08:00 Laboratory Results 06/22/17 04:15 06/22/17 04:15 06/21/17 06/22/17 06/23/17 05:59 05:59 05:59 Intake Total 200 Output Total 20 100 Balance 180 -100 - Physical Exam General Appearance: alert, other (weak) Respiratory: coarse breath sounds (mild) Cardiac/Chest: regular rate, rhythm Extremities: No swelling Abdomen: normal bowel sounds, non-tender, soft, No distended ICD10 Worksheet Patient Problems: Problems Problem Status Onset Hypokalemia Acute Acute blood loss anemia Acute Chronic Disease Mgmt/Transitional Care Acute Dyspnea Acute Fever Acute Methicillin resistant Staphylococcus aureus infection Acute ~06/09/17 S/P CABG x 3 Acute ~05/14/17 S/P mitral valve replacement with bioprosthetic valve Acute ~05/14/17 Severe mitral regurgitation Acute Sternal wound dehiscence Acute Weakness Acute Wound infection after surgery Acute Cardiomyopathy, ischemic Chronic Chronic systolic CHF (congestive heart failure), NYHA class 2 Chronic Coronary artery disease Chronic
[2017-06-22] MEDS: VANCOMYCIN 1.25 GM in D5W 250 ML IV SCH (11:42)
[2017-06-22] MEDS ORDERED: INSULIN LISPRO 100 UNIT/ML SC SCH (12:00)
[2017-06-22] MEDS ORDERED: MAGNESIUM SULF 1 GM/DEXTROSE 100 ML IV ONE (16:49)
[2017-06-22] MEDS: traMADol 50 MG TAB PO PRN ×2 (17:53→21:57)
[2017-06-22] MEDS: ALTEPLASE 2 MG VIAL IVP PRN ×3 (19:33→23:13)
[2017-06-22] MEDS: ATORVASTATIN CALCIUM 10 MG TAB PO SCH (21:57)
[2017-06-22 23:00] LABS: POTASSIUM 3.6 mEq/L (3.5-5.2)
[2017-06-22] MEDS ORDERED: POTASSIUM CL 20 MEQ TAB PO ONE (23:15)
[2017-06-23] MEDS: traMADol 50 MG TAB PO PRN ×2 (02:10→14:23)
[2017-06-23 05:51] LABS: % IMMATURE GRANULYOCYTES 0.6 % (0.0-1.1); ABSOLUTE IMMATURE GRANULOCYTES 0.04 10^3/uL (0.00-0.10); ADD DIFF? NO; ADD MORPH? NO; ADD SCAN? NO; ATYPICAL LYMPHOCYTE FLAG 20 (0-99); FRAGMENT RBC FLAG 0 (0-99); LEFT SHIFT FLG 0 (0-99); LIPEMIA HEMOLYSIS FLAG 80 (0-99); MEAN CELL HEMOGLOBIN 30.7 pg (27.9-34.1); MEAN CELL HEMOGLOBIN CONCENTR. 33.3 g/dL (32.4-36.7); MEAN CELL VOLUME 92.2 fL (81.5-99.8); MEAN PLATELET VOLUME 8.8 fL (8.7-11.7); PLATELET CLUMPS FLAG 10 (0-99); PLATELET COUNT 247 10^3/uL (150-400); RED BLOOD CELL COUNT 2.93 10^6/uL (4.18-5.33); RED CELL DISTRIBUTION WIDTH 14.2 % (11.5-15.2)
[2017-06-23 06:05] LABS: ANION GAP 5 mEq/L (8-16); CALCIUM 11.1 mg/dL (8.5-10.4); CARBON DIOXIDE 32 mEq/l (22-31); CHLORIDE 94 mEq/L (97-110); GLOMERULAR FILTRATION RATE 53; GLUCOSE 102 mg/dL (70-100); MAGNESIUM 1.8 mg/dL (1.6-2.3); POTASSIUM 3.9 mEq/L (3.5-5.2); SODIUM 131 mEq/L (134-144)
[2017-06-23] MEDS ORDERED: POTASSIUM CL 10 MEQ TAB PO ONE (08:40)
--- NOTE | 2017-06-23 08:50 | SOAPPROG ---
SOAP Progress Note Assessment/Plan: Assessment: Healing satisfactorily s/p sternal debridement and closure Plan: Staple out, first ivette out now, second ivette out after 24 hours if less than 30 cc Follow up with Plastics after d/c from hospital Shower ok No dressings needed 06/23/17 08:47 Subjective: feels weak, minimal pain at surgical site Objective: Vital Signs Temp Pulse Resp BP Pulse Ox 36.4 C 94 20 143/85 H 96 06/23/17 07:59 06/23/17 07:59 06/23/17 07:59 06/23/17 07:59 06/23/17 07:59 Microbiology 06/22/17 11:11 Respiratory Panel (PCR) - Final Nasal, Sinus - Swab No Organism Detected Laboratory Results 06/23/17 05:38 06/23/17 05:38 06/22/17 06/23/17 06/24/17 05:59 05:59 05:59 Intake Total 200 450 Output Total 20 130 Balance 180 320 Incisions intact, no drainage, ivette fluid clear - Time Spent With Patient Time Spent With Patient: 15min ICD10 Worksheet Patient Problems: Problems Problem Status Onset Hypokalemia Acute Acute blood loss anemia Acute Chronic Disease Mgmt/Transitional Care Acute Dyspnea Acute Fever Acute Methicillin resistant Staphylococcus aureus infection Acute ~06/09/17 S/P CABG x 3 Acute ~05/14/17 S/P mitral valve replacement with bioprosthetic valve Acute ~05/14/17 Severe mitral regurgitation Acute Sternal wound dehiscence Acute Weakness Acute Wound infection after surgery Acute Cardiomyopathy, ischemic Chronic Chronic systolic CHF (congestive heart failure), NYHA class 2 Chronic Coronary artery disease Chronic
[2017-06-23] MEDS: CARVEDILOL 6.25 MG TAB PO SCH ×2 (08:56→17:43)
[2017-06-23] MEDS: PANTOPRAZOLE SODIUM 40 MG TAB PO SCH (09:00)
[2017-06-23] MEDS: CHOLECALCIFEROL VIT D3 2,000 UNITS TAB/CAP PO SCH (09:00)
[2017-06-23] MEDS: POTASSIUM CL 20 MEQ TAB PO SCH ×2 (09:00→20:26)
[2017-06-23] MEDS: ASPIRIN EC 81 MG TAB PO SCH (09:01)
[2017-06-23] MEDS: GLUCOSAMINE/CHONDROITIN CAP PO SCH (09:01)
[2017-06-23] MEDS: ENOXAPARIN 40 MG/0.4 ML SYR SC SCH (09:01)
--- NOTE | 2017-06-23 09:41 | PCMIDPN ---
Assessment/Plan: # MRSA mediastinitis: continue IV vancomycin, Cr sl up at admit Cr 1.1 --Vanco T creeping up to 17 --decrease vancomycin to 1gm IV daily # Increased SOB, crackles in bases, on 3L O2 --> notified hospitalist medications vancomycin 1.25gm IV daily, #14 Subjective: Patient feeling fatigued Pain controlled no diarrhea Family reports they notice increased WOB Objective: Vital Signs Temp Pulse Resp BP Pulse Ox 36.4 C 79 20 143/85 H 96 06/23/17 07:59 06/23/17 08:56 06/23/17 07:59 06/23/17 08:56 06/23/17 07:59 Microbiology 06/22/17 11:11 Respiratory Panel (PCR) - Final Nasal, Sinus - Swab No Organism Detected Laboratory Results 06/23/17 05:38 06/23/17 05:38 06/22/17 06/23/17 06/24/17 05:59 05:59 05:59 Intake Total 200 450 Output Total 20 130 Balance 180 320 - Physical Exam General Appearance: alert, no apparent distress, non-toxic EENT: No thrush Respiratory: crackles (B bases), No accessory muscle use Cardiac/Chest: regular rate, rhythm, other (midline chest incision w steri- strips, no erythema or discharge; WILLIAM drain with serosang fluid) Abdomen: non-tender, soft Skin: other (R shingles eruption R shoulder crusted and healing), No rash Neuro/Psych: alert, normal mood/affect, oriented x 3 - Line/s RUE PICC Lines: No drainage, No erythema - Time Spent With Patient Time Spent with Patient: greater than 25 minutes Time Spent with Patient: Greater than 25 minutes spent on this patients care, greater than 50% of time spent counseling, educating, and coordinating care regarding the above mentioned plan. ICD10 Worksheet Patient Problems: Problems Problem Status Onset Hypokalemia Acute Acute blood loss anemia Acute Chronic Disease Mgmt/Transitional Care Acute Dyspnea Acute Fever Acute Methicillin resistant Staphylococcus aureus infection Acute ~06/09/17 S/P CABG x 3 Acute ~05/14/17 S/P mitral valve replacement with bioprosthetic valve Acute ~05/14/17 Severe mitral regurgitation Acute Sternal wound dehiscence Acute Weakness Acute Wound infection after surgery Acute Cardiomyopathy, ischemic Chronic Chronic systolic CHF (congestive heart failure), NYHA class 2 Chronic Coronary artery disease Chronic
--- NOTE | 2017-06-23 10:39 | PDMN ---
Medical Necessity Medical necessity: Ongoing monitoring of VS and K,Mg,Ca, ongoing need for IV abx -pt persistent weakness, tired. ongoing monitoring needed> 2 midnights
[2017-06-23] MEDS ORDERED: K PHOS 10 MMOL in D5W 250 ML IV ONE (12:00)
[2017-06-23] MEDS ORDERED: VANCOMYCIN 1 GM in D5W 250 ML IV SCH (13:20)
[2017-06-23] MEDS: VANCOMYCIN 1.25 GM in D5W 250 ML IV SCH (13:54)
[2017-06-23] MEDS: VANCOMYCIN HCL/NORMAL SALINE 250 ML IV SCH (13:58)
--- NOTE | 2017-06-23 15:49 | ASMTCMCOM ---
CM Note CM Note Notes: CM met w/ pt for dispo planning. Pt had [facility] and [facility] as her d/c plans when she was here on 06/09/2017. Pt would like referrals to be made to both facilities. OT is recommending HC w/ 24hr supervision. Pt reports that she [place] from her daughter and her son in law. Pt reports that her other children will be staying w/ her for the interim. PT was unable to assess pt today but will be back to assess tomorrow. Needs are unclear at this time. CM to follow. Plan: most likely will d/c w/ [facility] infusion along w/ [facility] Date Signed: 06/23/2017 03:48 PM Electronically Signed By:PHILL Mims
[2017-06-23] MEDS ORDERED: FUROSEMIDE 20 MG/2 ML VIAL IVP ONE (16:40)
--- NOTE | 2017-06-23 17:17 | HOSPPROG ---
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; wound looks ok, no fever or chest pain -marked deconditioning, impaired mobility/safety PLANS: -resp path panel -lasix ordered today -stop iv fluids -continue K and mag replacements, follow K and Mg and Ca closely; -PT and OT -I have reviewed w DC environmental planner today SUBJECTIVE: slightly better energy and appetite today, but remains quite weak poor mobility no pain no chills or sweats OBJECTIVE Vitals reviewed: pulse notably better and resps easier, no fever bps good Laborer Sawmill, my review: sinus Exam: more relaxed today skin warm dry color ok resps less labored though per nurses and therapists she does get quite winded with minimal activity lungs diffusely diminished BSs but no audible wheeze or rales heart regular but tachycardic Wounds look good on my assessment today abd soft nondistended nontender, bowel sounds present limbs warm, no edema iv site ok Objective: Vital Signs Temp Pulse Resp BP Pulse Ox 36.6 C 75 22 H 119/75 100 06/23/17 16:00 06/23/17 16:00 06/23/17 16:00 06/23/17 16:00 06/23/17 16:00 Laboratory Results 06/23/17 05:38 06/23/17 05:38 06/22/17 06/23/17 06/24/17 06:59 06:59 06:59 Intake Total 450 Output Total 20 Balance 430 ICD10 Worksheet Patient Problems: Problems Problem Status Onset Hypokalemia Acute Acute blood loss anemia Acute Chronic Disease Mgmt/Transitional Care Acute Dyspnea Acute Fever Acute Methicillin resistant Staphylococcus aureus infection Acute ~06/09/17 S/P CABG x 3 Acute ~05/14/17 S/P mitral valve replacement with bioprosthetic valve Acute ~05/14/17 Severe mitral regurgitation Acute Sternal wound dehiscence Acute Weakness Acute Wound infection after surgery Acute Cardiomyopathy, ischemic Chronic Chronic systolic CHF (congestive heart failure), NYHA class 2 Chronic Coronary artery disease Chronic
[2017-06-23 19:36] LABS: POTASSIUM 4.1 mEq/L (3.5-5.2)
[2017-06-23] MEDS: ATORVASTATIN CALCIUM 10 MG TAB PO SCH (20:27)
[2017-06-24] MEDS: traMADol 50 MG TAB PO PRN (00:57)
[2017-06-24] MEDS: METHOCARBAMOL 500 MG TAB PO PRN (00:57)
[2017-06-24 06:11] LABS: MAGNESIUM 1.8 mg/dL (1.6-2.3); POTASSIUM 4.2 mEq/L (3.5-5.2)
[2017-06-24] MEDS ORDERED: MAGNESIUM SULF 1 GM/DEXTROSE 100 ML IV ONE (07:22)
[2017-06-24] MEDS: PANTOPRAZOLE SODIUM 40 MG TAB PO SCH (07:49)
[2017-06-24] MEDS: oxyCODONE IR 5 MG TAB PO PRN ×2 (08:27→17:54)
[2017-06-24] MEDS: CHOLECALCIFEROL VIT D3 2,000 UNITS TAB/CAP PO SCH (08:27)
[2017-06-24] MEDS: ASPIRIN EC 81 MG TAB PO SCH (08:27)
[2017-06-24] MEDS: CARVEDILOL 6.25 MG TAB PO SCH ×2 (08:28→17:55)
[2017-06-24] MEDS: POTASSIUM CL 20 MEQ TAB PO SCH ×2 (08:28→22:00)
[2017-06-24] MEDS: GLUCOSAMINE/CHONDROITIN CAP PO SCH (08:28)
[2017-06-24] MEDS: ENOXAPARIN 40 MG/0.4 ML SYR SC SCH (08:31)
--- NOTE | 2017-06-24 10:36 | HOSPPROG ---
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, remains on vancomycin; wound looks ok, no fever or chest pain -marked deconditioning, impaired mobility/safety PLANS: -will get a chest x-ray to help determine whether it seems further diuresis with help -continue IV antibiotics for her MRI say mediastinitis wound -continue K and mag replacements, follow K and Mg and Ca closely; -PT and OT -I have reviewed w DC personal financial planner today SUBJECTIVE: Feels a little bit stronger today and a little bit less dyspneic with ambulation , got to the commode and back more easily today Better appetite and eating some on what another foods though not back to baseline yet No nausea vomiting Less cough OBJECTIVE Vitals reviewed: Stable without fever Orthopedic Physician, my review: sinus Exam: Again more relaxed today skin warm dry color ok resps less labored lungs diffusely diminished BSs but no audible wheeze or rales heart regular but tachycardic Wounds look good on my assessment today abd soft nondistended nontender, bowel sounds present limbs warm, no edema iv site ok Objective: Vital Signs Temp Pulse Resp BP Pulse Ox 36.4 C 86 18 143/73 H 100 06/24/17 08:00 06/24/17 08:28 06/24/17 08:00 06/24/17 08:28 06/24/17 08:00 Laboratory Results 06/23/17 05:38 06/24/17 05:35 06/23/17 06/24/17 06/25/17 06:59 06:59 06:59 Intake Total 450 500 Output Total 20 15 Balance 430 485 ICD10 Worksheet Patient Problems: Problems Problem Status Onset Hypokalemia Acute Acute blood loss anemia Acute Chronic Disease Mgmt/Transitional Care Acute Dyspnea Acute Fever Acute Methicillin resistant Staphylococcus aureus infection Acute ~06/09/17 S/P CABG x 3 Acute ~05/14/17 S/P mitral valve replacement with bioprosthetic valve Acute ~05/14/17 Severe mitral regurgitation Acute Sternal wound dehiscence Acute Weakness Acute Wound infection after surgery Acute Cardiomyopathy, ischemic Chronic Chronic systolic CHF (congestive heart failure), NYHA class 2 Chronic Coronary artery disease Chronic
--- NOTE | 2017-06-24 13:09 | PDIAF ---
- Diagnosis Diagnosis: MSSA mediastinitis Code Status: Full Code - Medication Management Discharge Medications: Medications to Continue on Transfer Cholecalciferol Vit D3 [Vitamin D3 (*)] 7,000 units PO DAILY 04/03/14 [Last Taken 06/21/17] [place]-3 Fatty Acids [Fish Oil 1000 mg (*)] 2,000 mg PO BID 04/03/14 [Last Taken 06/21/17] traMADol [Ultram 50 mg (*)] 50 mg PO Q4 PRN 04/03/14 [Last Taken 06/21/17] Aspirin EC [Aspirin EC 81 mg (*)] 81 mg PO DAILY #30 tab 04/05/14 [Last Taken ] Carvedilol [Coreg (*)] 6.25 mg PO BIDMEAL #60 tab 04/05/14 [Last Taken 06/21/17] Pantoprazole Sodium [Protonix 40mg (*)] 40 mg PO DAILY #30 tab 04/05/14 [Last Taken 06/21/17] Atorvastatin Calcium [Lipitor 10 mg (*)] 10 mg PO HS 04/20/17 [Last Taken ] Glucosamine/Chondroitin [Glucosamine/Chondroitin (*)] 1 each PO DAILY 04/20/17 [ Last Taken 06/21/17] Vitamin B Complex [B Complex] 1 each PO DAILY 05/15/17 [Last Taken 06/21/17] Methocarbamol [Robaxin 500 mg (*)] 1,000 mg PO QID PRN 05/31/17 [Last Taken ] Acetaminophen [Tylenol 325mg (*)] 325 - 650 mg PO Q4HRS PRN #0 tab 06/17/17 [ Last Taken 06/21/17] Furosemide [Lasix 40 MG (*)] 40 mg PO DAILY #0 tab 06/17/17 [Last Taken 06/21/17 ] Vancomycin [Vancomycin (*)] 1.25 gm IV Q24H vial 06/17/17 [Last Taken 06/21/17] valACYclovir [Valtrex (*)] 1,000 mg PO Q12HRS #20 tab 06/17/17 [Last Taken 06/21] Potassium Cl [Klor-Con 20 meq (*)] 20 meq PO BID 06/21/17 [Last Taken 06/21/17] Metalizer Field Operation Antibiotics: Vancomycin 1 g IV daily Metalizer Field Operation Antibiotic Stop Date: 07/07/17 Discharge Medications: Refer to the Discharge Home Medication list for PRN reason. PICC Care - Routine: Yes - Orders Services needed: Home Care, Registered Nurse, Physical Therapy, Occupational Therapy Home Care Face to Face: I certify that this patient was under my care and that I had the required [id number] encounter meeting the encounter requirements on the discharge day. My findings support the fact that the patient is homebound as defined in Home Care Face to Face Continued: CMS Chapter 7 Medicare Benefits Manual 30.1.1 , The condition of the patient is such that there exists a normal inability to leave home and consequently, leaving home would require a considerable and taxing effort. Isolation Type: Contact Isolation - Labs/Radiology BMP Date: 07/01/17 CBC w/diff Date: 06/28/17 CMP Date: 06/28/17 Vanco Trough Date and Time: Every Wednesday and starting 06/28/2017 and 07/01/2017 Call or Fax Lab and Imaging Results to: Shashi Razo MD [facility] at fax [phone] - Follow Up Care Current Providers and Referrals: Baljeet Carvalho MD [Primary Care Provider] - As per Instructions Shashi Razo MD [Medical Doctor] - 07/01/17 10:00 am
--- NOTE | 2017-06-24 13:15 | PCMIDPN ---
Assessment/Plan: # MRSA mediastinitis: continue IV vancomycin, Cr 1.0 --continue vancomycin 1gm IV daily --dc okay from ID standpoint, interagency completed, call for additional questions while hospitalized medications vancomycin 1.25gm IV daily, #15 Subjective: feeling much better today has big plans for travel once medically better Objective: Vital Signs Temp Pulse Resp BP Pulse Ox 36.4 C 72 28 H 114/63 98 06/24/17 11:01 06/24/17 11:01 06/24/17 11:01 06/24/17 11:01 06/24/17 11:01 Laboratory Results 06/23/17 05:38 06/24/17 05:35 06/23/17 06/24/17 06/25/17 05:59 05:59 05:59 Intake Total 450 500 Output Total 20 15 Balance 430 485 General Appearance: alert, no apparent distress, non-toxic EENT: No thrush Respiratory: crackles mostly resolved, No accessory muscle use Cardiac/Chest: regular rate, rhythm, other (midline chest incision w steri- strips, no erythema or discharge; WILLIAM drain with serosang fluid) Abdomen: non-tender, soft Skin: other (R shingles eruption R shoulder crusted and healing), No rash Neuro/Psych: alert, normal mood/affect, oriented x 3 RUE PICC: No drainage, No erythema ICD10 Worksheet Patient Problems: Problems Problem Status Onset Hypokalemia Acute Acute blood loss anemia Acute Chronic Disease Mgmt/Transitional Care Acute Dyspnea Acute Fever Acute Methicillin resistant Staphylococcus aureus infection Acute ~06/09/17 S/P CABG x 3 Acute ~05/14/17 S/P mitral valve replacement with bioprosthetic valve Acute ~05/14/17 Severe mitral regurgitation Acute Sternal wound dehiscence Acute Weakness Acute Wound infection after surgery Acute Cardiomyopathy, ischemic Chronic Chronic systolic CHF (congestive heart failure), NYHA class 2 Chronic Coronary artery disease Chronic
[2017-06-24] MEDS: VANCOMYCIN HCL/NORMAL SALINE 250 ML IV SCH (14:45)
--- NOTE | 2017-06-24 21:31 | PDIAF ---
- Diagnosis Diagnosis: MRSA mediastinitis Code Status: Full Code - Medication Management Discharge Medications: Medications to Continue on Transfer Cholecalciferol Vit D3 [Vitamin D3 (*)] 7,000 units PO DAILY 04/03/14 [Last Taken 06/21/17] [place]-3 Fatty Acids [Fish Oil 1000 mg (*)] 2,000 mg PO BID 04/03/14 [Last Taken 06/21/17] traMADol [Ultram 50 mg (*)] 50 mg PO Q4 PRN 04/03/14 [Last Taken 06/21/17] Aspirin EC [Aspirin EC 81 mg (*)] 81 mg PO DAILY #30 tab 04/05/14 [Last Taken ] Carvedilol [Coreg (*)] 6.25 mg PO BIDMEAL #60 tab 04/05/14 [Last Taken 06/21/17] Pantoprazole Sodium [Protonix 40mg (*)] 40 mg PO DAILY #30 tab 04/05/14 [Last Taken 06/21/17] Atorvastatin Calcium [Lipitor 10 mg (*)] 10 mg PO HS 04/20/17 [Last Taken ] Glucosamine/Chondroitin [Glucosamine/Chondroitin (*)] 1 each PO DAILY 04/20/17 [ Last Taken 06/21/17] Vitamin B Complex [B Complex] 1 each PO DAILY 05/15/17 [Last Taken 06/21/17] Methocarbamol [Robaxin 500 mg (*)] 1,000 mg PO QID PRN 05/31/17 [Last Taken ] Acetaminophen [Tylenol 325mg (*)] 325 - 650 mg PO Q4HRS PRN #0 tab 06/17/17 [ Last Taken 06/21/17] Furosemide [Lasix 40 MG (*)] 40 mg PO DAILY #0 tab 06/17/17 [Last Taken 06/21/17 ] Vancomycin [Vancomycin (*)] 1.25 gm IV Q24H vial 06/17/17 [Last Taken 06/21/17] valACYclovir [Valtrex (*)] 1,000 mg PO Q12HRS #20 tab 06/17/17 [Last Taken 06/21] Potassium Cl [Klor-Con 20 meq (*)] 20 meq PO BID 06/21/17 [Last Taken 06/21/17] Wax Pourer Antibiotics: Vancomycin 1 g IV daily Wax Pourer Antibiotic Stop Date: 07/07/17 Discharge Medications: Refer to the Discharge Home Medication list for PRN reason. PICC Care - Routine: Yes - Orders Services needed: Home Care, Registered Nurse, Physical Therapy, Occupational Therapy Home Care Face to Face: I certify that this patient was under my care and that I had the required [id number] encounter meeting the encounter requirements on the discharge day. My findings support the fact that the patient is homebound as defined in Home Care Face to Face Continued: CMS Chapter 7 Medicare Benefits Manual 30.1.1 , The condition of the patient is such that there exists a normal inability to leave home and consequently, leaving home would require a considerable and taxing effort. Isolation Type: Contact Isolation - Labs/Radiology BMP Date: 07/01/17 CBC w/diff Date: 06/28/17 CMP Date: 06/28/17 Vanco Trough Date and Time: Every Wednesday and starting 06/28/2017 and 07/01/2017 Call or Fax Lab and Imaging Results to: Shashi Razo MD [facility] at fax [phone] - Follow Up Care Current Providers and Referrals: aBljeet Carvalho MD [Primary Care Provider] - As per Instructions Shashi Razo MD [Medical Doctor] - 07/01/17 10:00 am
[2017-06-24] MEDS: ATORVASTATIN CALCIUM 10 MG TAB PO SCH (22:00)
[2017-06-24] MEDS: ALTEPLASE 2 MG VIAL IVP PRN (22:56)
[2017-06-25] MEDS: oxyCODONE IR 5 MG TAB PO PRN ×4 (04:33→21:12)
[2017-06-25 05:26] LABS: ANION GAP 7 mEq/L (8-16); CALCIUM 11.2 mg/dL (8.5-10.4); CARBON DIOXIDE 29 mEq/l (22-31); CHLORIDE 95 mEq/L (97-110); CREATININE 1.2 mg/dL (0.6-1.0); GLOMERULAR FILTRATION RATE 43; GLUCOSE 102 mg/dL (70-100); POTASSIUM 4.8 mEq/L (3.5-5.2); SODIUM 131 mEq/L (134-144)
[2017-06-25] MEDS: CARVEDILOL 6.25 MG TAB PO SCH ×2 (09:12→17:50)
[2017-06-25] MEDS: GLUCOSAMINE/CHONDROITIN CAP PO SCH (09:14)
[2017-06-25] MEDS: ASPIRIN EC 81 MG TAB PO SCH (09:14)
[2017-06-25] MEDS: CHOLECALCIFEROL VIT D3 2,000 UNITS TAB/CAP PO SCH (09:14)
[2017-06-25] MEDS: ENOXAPARIN 40 MG/0.4 ML SYR SC SCH (09:15)
[2017-06-25] MEDS: POTASSIUM CL 20 MEQ TAB PO SCH ×2 (09:17→19:59)
[2017-06-25] MEDS: PANTOPRAZOLE SODIUM 40 MG TAB PO SCH (09:17)
--- NOTE | 2017-06-25 09:19 | HOSPPROG ---
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 (has been in this range since early May, was 9+ all thru April; PTH has been very high last measured in February) -recent mediastinitis after cabg, remains on vancomycin; wound looks ok, no fever or chest pain -marked deconditioning, impaired mobility/safety PLANS: -continue IV antibiotics for her MRSA mediastinitis wound through July 07 -continue K and mag replacements, follow K and Mg and Ca closely; -PT and OT -I have reviewed w DC senior buyer planner today she could potentially be discharged in the next 1-2 days if he continues to improve -I have reviewed 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 with the patient and family, and recommended that when she has recovered from her current ongoing illnesses that she follow up with primary care for referral to sewer tapper to consider parathyroidectomy or other management strategy for her hyperparathyroidism SUBJECTIVE: Still quite weak but continues to slowly gain some strength Appetite good today Still some dyspnea with exertion in no fever symptoms No pain She feels sleepy, got poor sleep last night due to multiple interruptions OBJECTIVE Vitals reviewed: Stable without fever Technical Training Specialist, my review: sinus Exam: skin warm dry color ok resps less labored lungs diffusely diminished BSs but no audible wheeze or rales heart regular but tachycardic Wounds none of dehiscence or infection abd soft nondistended nontender, bowel sounds present limbs warm, no edema iv site ok Chest x-ray, interpretation images: Significant decrease in pulmonary fluid, no infiltrates or effusion Objective: Vital Signs Temp Pulse Resp BP Pulse Ox 36.9 C 95 18 123/78 H 92 06/25/17 07:06 06/25/17 07:06 06/25/17 07:06 06/25/17 07:06 06/25/17 07:06 Laboratory Results 06/23/17 05:38 06/25/17 05:00 06/24/17 06/25/17 06/26/17 06:59 06:59 06:59 Intake Total 500 1550 Output Total 15 10 Balance 485 1540 ICD10 Worksheet Patient Problems: Problems Problem Status Onset Hypokalemia Acute Acute blood loss anemia Acute Chronic Disease Mgmt/Transitional Care Acute Dyspnea Acute Fever Acute Methicillin resistant Staphylococcus aureus infection Acute ~06/09/17 S/P CABG x 3 Acute ~05/14/17 S/P mitral valve replacement with bioprosthetic valve Acute ~05/14/17 Severe mitral regurgitation Acute Sternal wound dehiscence Acute Weakness Acute Wound infection after surgery Acute Cardiomyopathy, ischemic Chronic Chronic systolic CHF (congestive heart failure), NYHA class 2 Chronic Coronary artery disease Chronic
[2017-06-25] MEDS: VANCOMYCIN HCL/NORMAL SALINE 250 ML IV SCH (13:19)
--- NOTE | 2017-06-25 15:26 | ASMTCMCOM ---
CM Note CM Note Notes: Spoke w/ pt and son Bernardo re; dc poc. Bernardo states that there won't be any family to take stay with pt until Wednesday (dtr coming into town late Wednesday night). Notified MD and will keep pt unless needs to dc to SNF If so would like to go to [facility], per Carin at [facility], unsure if will get auth over weekend but will have as option as MD feels like pt maybe more appropriate for SNF than home, CM w/f DC Plan: Home Wednesday w/[facility] and children support--if pt does not improve, SNF Date Signed: 06/25/2017 03:25 PM Electronically Signed By:Bella Amos RN
[2017-06-25] MEDS: ATORVASTATIN CALCIUM 10 MG TAB PO SCH (19:59)
[2017-06-26 05:16] LABS: MAGNESIUM 1.9 mg/dL (1.6-2.3)
[2017-06-26] MEDS: ENOXAPARIN 40 MG/0.4 ML SYR SC SCH (08:36)
[2017-06-26] MEDS: CHOLECALCIFEROL VIT D3 2,000 UNITS TAB/CAP PO SCH (08:36)
[2017-06-26] MEDS: GLUCOSAMINE/CHONDROITIN CAP PO SCH (08:37)
[2017-06-26] MEDS: POTASSIUM CL 20 MEQ TAB PO SCH ×2 (08:37→21:09)
[2017-06-26] MEDS: CARVEDILOL 6.25 MG TAB PO SCH ×2 (08:37→17:54)
[2017-06-26] MEDS: PANTOPRAZOLE SODIUM 40 MG TAB PO SCH (08:37)
[2017-06-26] MEDS: ASPIRIN EC 81 MG TAB PO SCH (08:37)
[2017-06-26 08:56] LABS: ANION GAP 2 mEq/L (8-16); CALCIUM 11.3 mg/dL (8.5-10.4); CARBON DIOXIDE 30 mEq/l (22-31); CHLORIDE 98 mEq/L (97-110); CREATININE 1.2 mg/dL (0.6-1.0); GLOMERULAR FILTRATION RATE 43; GLUCOSE 93 mg/dL (70-100); POTASSIUM 4.9 mEq/L (3.5-5.2); SODIUM 130 mEq/L (134-144)
--- NOTE | 2017-06-26 12:30 | HOSPPROG ---
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 (has been in this range since early May, was 9+ all thru April; PTH has been very high last measured in February) -recent mediastinitis after cabg, remains on vancomycin; wound looks ok, no fever or chest pain -marked deconditioning, impaired mobility/safety PLANS: -continue IV antibiotics for her MRSA mediastinitis wound through July 07 -continue K and mag replacements, follow K and Mg and Ca closely; -PT and OT -in terms of discharge planning the patient and family are wanting to have her go home from the hospital but there will be no one available due to be home with her tomorrow, and they are hoping to have her go home on WednesdayJune 28 -I have reviewed 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 No specific pain or discomfort Still fairly short of breath with exertion but moving more easily today OBJECTIVE Vitals reviewed: Stable without fever Exam: skin warm dry color ok resps less labored lungs diffusely diminished BSs but no audible wheeze or rales heart regular Wounds no sign of dehiscence or infection abd soft nondistended nontender, bowel sounds present limbs warm, no edema iv site ok Objective: Vital Signs Temp Pulse Resp BP Pulse Ox 36.4 C 78 16 123/61 H 97 06/26/17 11:01 06/26/17 11:01 06/26/17 11:01 06/26/17 11:01 06/26/17 11:01 Laboratory Results 06/23/17 05:38 06/26/17 04:14 06/25/17 06/26/17 06/27/17 06:59 06:59 06:59 Intake Total 1550 900 Output Total 10 10 Balance 1540 890 ICD10 Worksheet Patient Problems: Problems Problem Status Onset Hypokalemia Acute Acute blood loss anemia Acute Chronic Disease Mgmt/Transitional Care Acute Dyspnea Acute Fever Acute Methicillin resistant Staphylococcus aureus infection Acute ~06/09/17 S/P CABG x 3 Acute ~05/14/17 S/P mitral valve replacement with bioprosthetic valve Acute ~05/14/17 Severe mitral regurgitation Acute Sternal wound dehiscence Acute Weakness Acute Wound infection after surgery Acute Cardiomyopathy, ischemic Chronic Chronic systolic CHF (congestive heart failure), NYHA class 2 Chronic Coronary artery disease Chronic
[2017-06-26] MEDS: VANCOMYCIN HCL/NORMAL SALINE 250 ML IV SCH (14:15)
--- NOTE | 2017-06-26 15:35 | PDIAF ---
- Diagnosis Diagnosis: MRSA mediastinitis Code Status: Full Code - Medication Management Discharge Medications: Medications to Continue on Transfer Cholecalciferol Vit D3 [Vitamin D3 (*)] 7,000 units PO DAILY 04/03/14 [Last Taken 06/21/17] [place]-3 Fatty Acids [Fish Oil 1000 mg (*)] 2,000 mg PO BID 04/03/14 [Last Taken 06/21/17] traMADol [Ultram 50 mg (*)] 50 mg PO Q4 PRN 04/03/14 [Last Taken 06/21/17] Aspirin EC [Aspirin EC 81 mg (*)] 81 mg PO DAILY #30 tab 04/05/14 [Last Taken ] Carvedilol [Coreg (*)] 6.25 mg PO BIDMEAL #60 tab 04/05/14 [Last Taken 06/21/17] Pantoprazole Sodium [Protonix 40mg (*)] 40 mg PO DAILY #30 tab 04/05/14 [Last Taken 06/21/17] Atorvastatin Calcium [Lipitor 10 mg (*)] 10 mg PO HS 04/20/17 [Last Taken ] Glucosamine/Chondroitin [Glucosamine/Chondroitin (*)] 1 each PO DAILY 04/20/17 [ Last Taken 06/21/17] Vitamin B Complex [B Complex] 1 each PO DAILY 05/15/17 [Last Taken 06/21/17] Methocarbamol [Robaxin 500 mg (*)] 1,000 mg PO QID PRN 05/31/17 [Last Taken ] Acetaminophen [Tylenol 325mg (*)] 325 - 650 mg PO Q4HRS PRN #0 tab 06/17/17 [ Last Taken 06/21/17] Furosemide [Lasix 40 MG (*)] 40 mg PO DAILY #0 tab 06/17/17 [Last Taken 06/21/17 ] Vancomycin [Vancomycin (*)] 1.25 gm IV Q24H vial 06/17/17 [Last Taken 06/21/17] valACYclovir [Valtrex (*)] 1,000 mg PO Q12HRS #20 tab 06/17/17 [Last Taken 06/21] Potassium Cl [Klor-Con 20 meq (*)] 20 meq PO BID 06/21/17 [Last Taken 06/21/17] Division Order Technician Antibiotics: Vancomycin 750 mg IV daily Jail Antibiotic Stop Date: 07/07/17 Discharge Medications: Refer to the Discharge Home Medication list for PRN reason. PICC Care - Routine: Yes - Orders Services needed: Home Care, Registered Nurse, Physical Therapy, Occupational Therapy Home Care Face to Face: I certify that this patient was under my care and that I had the required [id number] encounter meeting the encounter requirements on the discharge day. My findings support the fact that the patient is homebound as defined in Home Care Face to Face Continued: CMS Chapter 7 Medicare Benefits Manual 30.1.1 , The condition of the patient is such that there exists a normal inability to leave home and consequently, leaving home would require a considerable and taxing effort. Isolation Type: Contact Isolation - Labs/Radiology BMP Date: 07/01/17 CBC w/diff Date: 06/28/17 CMP Date: 06/28/17 Vanco Trough Date and Time: Every Wednesday and starting 06/28/2017 and 07/01/2017 Call or Fax Lab and Imaging Results to: Shashi Razo MD [facility] at fax [phone] - Follow Up Care Current Providers and Referrals: Baljeet Carvalho MD [Primary Care Provider] - As per Instructions Shashi Razo MD [Medical Doctor] - 07/01/17 10:00 am
[2017-06-26] MEDS: traMADol 50 MG TAB PO PRN ×2 (16:25→21:13)
--- NOTE | 2017-06-26 16:51 | PCMIDPN ---
Assessment/Plan: Assessment/Plan: * MRSA mediastinitis: Continues on vancomycin. Creatinine remains mildly elevated at 1.2. Will decrease vancomycin to 750 mg IV Q 24 hours given increase in creatinine and trough remains at 16 after recent decrease from 1.25 g to 1 g Q 24 hours. Repeat basic metabolic profile in a.m.. 06/26/17 16:49 06/26/17 16:50 Subjective: Overall patient feels clinically improved. No significant chest pain. Nursing staff notes that PICC line infuses but does not draw. Objective: Vital Signs Temp Pulse Resp BP Pulse Ox 36.6 C 98 18 127/64 H 97 06/26/17 16:00 06/26/17 16:00 06/26/17 16:00 06/26/17 16:00 06/26/17 16:00 Laboratory Results 06/23/17 05:38 06/26/17 04:14 06/25/17 06/26/17 06/27/17 05:59 05:59 05:59 Intake Total 1550 900 Output Total 10 10 Balance 1540 890 Vancomycin # 17 Laboratory Tests 06/26/17 13:01 Vancomycin Trough 16.6 - Physical Exam General Appearance: alert, no apparent distress EENT: No scleral icterus, No conjunctival petechiae Respiratory: lungs clear (Anterolaterally) Cardiac/Chest: regular rate, rhythm, other (Midline incision intact with faint erythema inferiorly; no sternal instability) Abdomen: non-tender, No distended - Line/s RUE PICC Lines: No drainage, No erythema ICD10 Worksheet Patient Problems: Problems Problem Status Onset Hypokalemia Acute Acute blood loss anemia Acute Chronic Disease Mgmt/Transitional Care Acute Dyspnea Acute Fever Acute Methicillin resistant Staphylococcus aureus infection Acute ~06/09/17 S/P CABG x 3 Acute ~05/14/17 S/P mitral valve replacement with bioprosthetic valve Acute ~05/14/17 Severe mitral regurgitation Acute Sternal wound dehiscence Acute Weakness Acute Wound infection after surgery Acute Cardiomyopathy, ischemic Chronic Chronic systolic CHF (congestive heart failure), NYHA class 2 Chronic Coronary artery disease Chronic
[2017-06-26] MEDS: ATORVASTATIN CALCIUM 10 MG TAB PO SCH (21:09)
[2017-06-26] MEDS ORDERED: LORazepam 0.5 MG TAB PO PRN (23:37)
[2017-06-27 05:01] LABS: ANION GAP 7 mEq/L (8-16); CALCIUM 11.7 mg/dL (8.5-10.4); CARBON DIOXIDE 27 mEq/l (22-31); CHLORIDE 97 mEq/L (97-110); CREATININE 1.1 mg/dL (0.6-1.0); GLOMERULAR FILTRATION RATE 48; GLUCOSE 94 mg/dL (70-100); MAGNESIUM 1.9 mg/dL (1.6-2.3); POTASSIUM 4.5 mEq/L (3.5-5.2); SODIUM 131 mEq/L (134-144)
[2017-06-27] MEDS: CARVEDILOL 6.25 MG TAB PO SCH ×2 (08:38→20:23)
[2017-06-27] MEDS: CHOLECALCIFEROL VIT D3 2,000 UNITS TAB/CAP PO SCH (08:38)
[2017-06-27] MEDS: PANTOPRAZOLE SODIUM 40 MG TAB PO SCH (08:39)
[2017-06-27] MEDS: ENOXAPARIN 40 MG/0.4 ML SYR SC SCH (08:39)
[2017-06-27] MEDS: GLUCOSAMINE/CHONDROITIN CAP PO SCH (08:39)
[2017-06-27] MEDS: ASPIRIN EC 81 MG TAB PO SCH (08:39)
[2017-06-27] MEDS: POTASSIUM CL 20 MEQ TAB PO SCH (08:49)
[2017-06-27 09:48] LABS: ADD DIFF? NO; ADD MORPH? NO; ADD SCAN? NO
[2017-06-27 09:56] LABS: % IMMATURE GRANULYOCYTES 0.5 % (0.0-1.1); ABSOLUTE IMMATURE GRANULOCYTES 0.03 10^3/uL (0.00-0.10); ADD DIFF? NO; ADD MORPH? NO; ADD SCAN? NO; ATYPICAL LYMPHOCYTE FLAG 10 (0-99); FRAGMENT RBC FLAG 0 (0-99); HEMATOCRIT 27.7 % (38.0-47.0); HEMOGLOBIN 9.2 g/dL (12.6-16.3); LEFT SHIFT FLG 0 (0-99); LIPEMIA HEMOLYSIS FLAG 80 (0-99); MEAN CELL HEMOGLOBIN 30.7 pg (27.9-34.1); MEAN CELL HEMOGLOBIN CONCENTR. 33.2 g/dL (32.4-36.7); MEAN CELL VOLUME 92.3 fL (81.5-99.8); MEAN PLATELET VOLUME 9.6 fL (8.7-11.7); PLATELET CLUMPS FLAG 0 (0-99); PLATELET COUNT 186 10^3/uL (150-400); RED CELL DISTRIBUTION WIDTH 14.6 % (11.5-15.2)
--- NOTE | 2017-06-27 13:37 | ASMTCMCOM ---
CM Note CM Note Notes: Spoke with patient's daughter Tea, she thinks that patient would benefit from SNF stay before coming home since her recovery has been so inconsistent. PT/OT have suggested SNF as well, although patient sometimes appears to be well enough to go home with home care. I updated the referral to [facility] rehab so they can submit for insurance authorization and informed patient's daughter that we will continue to assess daily. She agrees with this plan. Date Signed: 06/27/2017 01:37 PM Electronically Signed By:Kandi Arce RN
[2017-06-27] MEDS: VANCOMYCIN 750 MG in D5W 150 ML IV SCH (14:00)
[2017-06-27] MEDS: NS 1,000 ML IV SCH (16:48)
--- NOTE | 2017-06-27 17:54 | HOSPPROG ---
Hospitalist Progress Note Assessment/Plan: Assessment: 77-year-old female presents with fatigue in the setting of acute on chronic hypercalcemia with resultant acute kidney injury Plan: 1. Hypercalcemia. Acute on chronic, new problem this provider, further workup is indicated. I suspect the patient's hypercalcemia is leading to dehydration and acute kidney injury, translating into her symptoms of fatigue which have worsened over the past 24 hr in the setting of ongoing osmotic volume losses -reviewed outside records including most recent PTH from 03/11/2017 which was 167 , most recent acute rise in her serum calcium level to greater than 11 on 2016, demonstrating a clear change from her historic baseline which was between 9 and 10 -I suspect the patient has a more active parathyroid adenoma and her current corrected calcium level is greater than 12.5, despite IV fluids -given that she is symptomatic and hypovolemic, will restart IV normal saline at this time -recheck PTH level as well as parathyroid uptake scan -once above information is available, will consult with General surgery to determine whether an urgent surgery should be performed -will discontinue vitamin D therapy as this could be exacerbating the current situation 2. Acute kidney injury. Evidenced by serum creatinine level peaking at 1.2, baseline around 0.8, most likely secondary to hypovolemia in the setting of osmotic diuresis from hypercalcemia -continue IV normal saline, recheck serum creatinine level in a.m. 3. Acute hyponatremia. Secondary to hypovolemia as outlined above, continue to monitor closely, can be contributing to her anorexia and generalized weakness 4. Atelectasis. Acute, secondary to immobility, get incentive spirometer 5. Mediastinum itis. Chronic, secondary to recent cardiothoracic surgery, Infectious Disease consultation appreciated -will reposition the PICC line tomorrow so she can continue to receive ongoing home IV antibiotic infusions Diet. Regular Prophylaxis. High risk patient, Lovenox 30 Code. Full Disposition. Anticipated discharge uncertain, requiring further workup as outlined above, may require half-way facility. This is a high medical complexity patient, with high risk of worsening morbidity and/or mortality secondary to the issues outlined above. Subjective: Patient reports she is feeling weak, anorexic comma cognitively delayed Objective: Vital Signs Temp Pulse Resp BP Pulse Ox 36.4 C 98 18 134/68 H 96 06/27/17 15:25 06/27/17 15:25 06/27/17 15:25 06/27/17 15:25 06/27/17 15:25 Laboratory Results 06/27/17 09:43 06/27/17 04:15 06/26/17 06/27/17 06/28/17 05:59 05:59 05:59 Intake Total 900 Output Total 10 21 Balance 890 -21 - Physical Exam Constitutional: no apparent distress, not in pain, chronically ill appearing, uncomfortable Ears, Nose, Mouth, Throat: other (Tacky mucous membranes) Cardiovascular: regular rate and rhythym, no murmur, rub, or gallop, No edema Respiratory: no respiratory distress, no rales or rhonchi, clear to auscultation Gastrointestinal: normoactive bowel sounds, soft, non-tender abdomen, no palpable masses, No distension Skin: other (Constricted, no erythema around the sternum) Neurologic: AAOx3, sensation intact bilaterally, No weakness (Motor strength 5/ 5 bilateral lower extremities) Psychiatric: not anxious, not encephalopathic, flat affect, other (Delayed verbal responses, concentration 7/7), No agitated ICD10 Worksheet Patient Problems: Problems Problem Status Onset Hypokalemia Acute Acute blood loss anemia Acute Chronic Disease Mgmt/Transitional Care Acute Dyspnea Acute Fever Acute Methicillin resistant Staphylococcus aureus infection Acute ~06/09/17 S/P CABG x 3 Acute ~05/14/17 S/P mitral valve replacement with bioprosthetic valve Acute ~05/14/17 Severe mitral regurgitation Acute Sternal wound dehiscence Acute Weakness Acute Wound infection after surgery Acute Cardiomyopathy, ischemic Chronic Chronic systolic CHF (congestive heart failure), NYHA class 2 Chronic Coronary artery disease Chronic
[2017-06-27] MEDS: ATORVASTATIN CALCIUM 10 MG TAB PO SCH (20:24)
[2017-06-27] MEDS: traMADol 50 MG TAB PO PRN (20:24)
[2017-06-28] MEDS: NS 1,000 ML IV SCH ×2 (04:06→14:52)
[2017-06-28 04:16] LABS: % IMMATURE GRANULYOCYTES 0.6 % (0.0-1.1); ABSOLUTE IMMATURE GRANULOCYTES 0.03 10^3/uL (0.00-0.10); ADD DIFF? NO; ADD MORPH? NO; ADD SCAN? NO; ATYPICAL LYMPHOCYTE FLAG 10 (0-99); FRAGMENT RBC FLAG 0 (0-99); HEMATOCRIT 24.7 % (38.0-47.0); HEMOGLOBIN 8.2 g/dL (12.6-16.3); LEFT SHIFT FLG 0 (0-99); LIPEMIA HEMOLYSIS FLAG 80 (0-99); MEAN CELL HEMOGLOBIN 30.8 pg (27.9-34.1); MEAN CELL HEMOGLOBIN CONCENTR. 33.2 g/dL (32.4-36.7); MEAN CELL VOLUME 92.9 fL (81.5-99.8); MEAN PLATELET VOLUME 9.6 fL (8.7-11.7); PLATELET CLUMPS FLAG 10 (0-99); PLATELET COUNT 192 10^3/uL (150-400); RED BLOOD CELL COUNT 2.66 10^6/uL (4.18-5.33); RED CELL DISTRIBUTION WIDTH 14.8 % (11.5-15.2)
[2017-06-28 04:45] LABS: ALANINE AMINOTRANSFERASE 28 IU/L (9-52); ALBUMIN 2.3 g/dL (3.5-5.0); ALKALINE PHOSPHATASE 89 IU/L (38-126); ANION GAP 7 mEq/L (8-16); ASPARTATE AMINOTRANSFERASE 13 IU/L (14-46); BILIRUBIN,TOTAL 0.2 mg/dL (0.1-1.4); CALCIUM 11.3 mg/dL (8.5-10.4); CARBON DIOXIDE 29 mEq/l (22-31); CHLORIDE 99 mEq/L (97-110); GLOMERULAR FILTRATION RATE 53; GLUCOSE 94 mg/dL (70-100); POTASSIUM 4.4 mEq/L (3.5-5.2); SODIUM 135 mEq/L (134-144); TOTAL PROTEIN 4.8 g/dL (6.3-8.2)
[2017-06-28] MEDS: ASPIRIN EC 81 MG TAB PO SCH (08:22)
[2017-06-28] MEDS: traMADol 50 MG TAB PO PRN (08:22)
[2017-06-28] MEDS: GLUCOSAMINE/CHONDROITIN CAP PO SCH (08:23)
[2017-06-28] MEDS: ENOXAPARIN 40 MG/0.4 ML SYR SC SCH (08:23)
[2017-06-28] MEDS: CARVEDILOL 6.25 MG TAB PO SCH ×2 (08:23→18:22)
[2017-06-28] MEDS: PANTOPRAZOLE SODIUM 40 MG TAB PO SCH (08:23)
[2017-06-28] MEDS: POTASSIUM CL 20 MEQ TAB PO SCH (08:23)
[2017-06-28] MEDS: VANCOMYCIN 750 MG in D5W 150 ML IV SCH (14:51)
--- NOTE | 2017-06-28 15:50 | ASMTCMCOM ---
CM Note CM Note Notes: CM met w/ pt and pts son for dispo planning. Initially pt was very resistant to the idea of going to rehab. Pt was more agreeable to going to rehab after speaking w/ the doctors. CM spoke w/ Dr. Wilhelm regarding d/c POC. Dr. Wilhelm thought pt may benefit from [facility]. CM spoke to pt about this and she is agreeable to a referral made at [facility]. Son to tour both facilities. CM to follow. Plan: SNF Date Signed: 06/28/2017 03:49 PM Electronically Signed By:PHILL Mims
--- NOTE | 2017-06-28 16:42 | SOAPPROG ---
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 Lofton tomorrow, as well as pre-op planning from imaging results Full dictated consult note to follow Objective: Vital Signs Temp Pulse Resp BP Pulse Ox 36.6 C 95 17 143/68 H 98 06/28/17 16:00 06/28/17 16:00 06/28/17 03:51 06/28/17 16:00 06/28/17 16:00 Laboratory Results 06/28/17 04:01 06/28/17 04:01 06/27/17 06/28/17 06/29/17 05:59 05:59 05:59 Intake Total 1500 Output Total 21 20 Balance -21 1480 ICD10 Worksheet Patient Problems: Problems Problem Status Onset Hypokalemia Acute Acute blood loss anemia Acute Chronic Disease Mgmt/Transitional Care Acute Dyspnea Acute Fever Acute Methicillin resistant Staphylococcus aureus infection Acute ~06/09/17 S/P CABG x 3 Acute ~05/14/17 S/P mitral valve replacement with bioprosthetic valve Acute ~05/14/17 Severe mitral regurgitation Acute Sternal wound dehiscence Acute Weakness Acute Wound infection after surgery Acute Cardiomyopathy, ischemic Chronic Chronic systolic CHF (congestive heart failure), NYHA class 2 Chronic Coronary artery disease Chronic
--- NOTE | 2017-06-28 18:03 | HOSPPROG ---
Hospitalist Progress Note Assessment/Plan: Assessment: 77-year-old female presents with fatigue in the setting of acute on chronic hypercalcemia with resultant acute kidney injury Plan: 1. Hypercalcemia. Acute on chronic, likely 2/2 primary hyperparathyroidism w/ PTH 395, corrected calcium 12.5, Vit D 51 - parathyroid uptake scan and neck US both negative today - case d/w Dr. Lofton, consult appreciated, she will discuss possible surgical options w/ patient tomorrow - d/w Dr. Aggarwal, his recommendation is to wait approx 30 days before surgery, although I am not sure if patient can remain complication-free from her hypercalcemia until that time and may require more urgent surgical intervention in the interim - on IVF since yesterday w/o appreciable drop in Ca level, but her Na/Cr levels did improve - given her risk of volume overload, will stop IVF now and monitor UOP/Ca - stopped Vit D therapy, may be appropriate to restart 400u maintenance dosing once level 30 - counseled patient and son extensively regarding the issues outlined above 2. Acute kidney injury. Evidenced by serum creatinine level peaking at 1.2, baseline around 0.8, most likely secondary to hypovolemia in the setting of osmotic diuresis from hypercalcemia - improving today, stop IVF 3. Acute hyponatremia. Secondary to hypovolemia as outlined above, improved w/ IVF 4. Atelectasis. Acute, secondary to immobility, get incentive spirometer 5. Mediastinitis. Chronic, secondary to recent cardiothoracic surgery, Infectious Disease consultation appreciated - repositioned PICC - cont Vanco per ID 6. Chronic systolic CHF. No e/o acute exacerbation, EF around 45% w/ recent MVR - d/w Dr. Aggarwal, she will likely require lasix restart tomorrow, monitor volume status closely - get CXR to monitor for effusions w/ IVF 7. CAD. Chronic, cont ASA, statin, bblocker Diet. Regular Prophylaxis. High risk patient, Lovenox 30 Code. Full Disposition. Anticipated discharge uncertain, requiring further workup as outlined above, may require assisted facility. Subjective: reports more energy today, no SOB Objective: Vital Signs Temp Pulse Resp BP Pulse Ox 36.6 C 95 17 143/68 H 98 06/28/17 16:00 06/28/17 16:00 06/28/17 03:51 06/28/17 16:00 06/28/17 16:00 Laboratory Results 06/28/17 04:01 06/28/17 04:01 06/27/17 06/28/17 06/29/17 05:59 05:59 05:59 Intake Total 1500 Output Total 21 20 Balance -21 1480 - Time Spent With Patient Time Spent with Patient: greater than 35 minutes Time Spent with Patient: Greater than 35 minutes spent on this patients care, greater than 50% of time spent counseling, educating, and coordinating care regarding the above mentioned plan. - Physical Exam Constitutional: no apparent distress, not in pain, chronically ill appearing, No uncomfortable Cardiovascular: systolic murmur (I/ at aepx), tachycardia, No irregularly irregular, No edema (tr) Respiratory: inspiratory crackles, No reduced air movement, No expiratory wheeze , No bronchial breath sounds, No respiratory distress Gastrointestinal: normoactive bowel sounds, soft, non-tender abdomen, no palpable masses, No distension Neurologic: AAOx3, sensation intact bilaterally, No weakness Psychiatric: interacting appropriately, not anxious, not encephalopathic, thought process linear ICD10 Worksheet Patient Problems: Problems Problem Status Onset Hypokalemia Acute Acute blood loss anemia Acute Chronic Disease Mgmt/Transitional Care Acute Dyspnea Acute Fever Acute Methicillin resistant Staphylococcus aureus infection Acute ~06/09/17 S/P CABG x 3 Acute ~05/14/17 S/P mitral valve replacement with bioprosthetic valve Acute ~05/14/17 Severe mitral regurgitation Acute Sternal wound dehiscence Acute Weakness Acute Wound infection after surgery Acute Cardiomyopathy, ischemic Chronic Chronic systolic CHF (congestive heart failure), NYHA class 2 Chronic Coronary artery disease Chronic
[2017-06-28] MEDS: ATORVASTATIN CALCIUM 10 MG TAB PO SCH (21:12)
--- NOTE | 2017-06-28 21:55 | SOAPPROG ---
JONAS Progress Note Assessment/Plan: Assessment: 77-year-old female seen tonight to follow-up on PA consult/patient has the hyperparathyroidism with markedly elevated calciums up to 11.7 and PTH is 340 At this time she does not appear to be overtly symptomatic from her hypercalcemia except as possibly related to fatique He does appear to be short of breath and possibly congestive heart failure with some tachypnea Impression is no immediate need for emergency parathyroid surgery or treatment of her hypercalcemia Plan: When medically clear will need parathyroidectomy/apparently will be seen by Dr. vo tomorrow 06/28/17 21:50 Objective: Vital Signs Temp Pulse Resp BP Pulse Ox 36.6 C 95 17 143/68 H 98 06/28/17 16:00 06/28/17 16:00 06/28/17 03:51 06/28/17 16:00 06/28/17 16:00 Laboratory Results 06/28/17 04:01 06/28/17 04:01 06/27/17 06/28/17 06/29/17 05:59 05:59 05:59 Intake Total 1500 1440 Output Total 21 20 12 Balance -21 1480 1428 ICD10 Worksheet Patient Problems: Problems Problem Status Onset Hypokalemia Acute Acute blood loss anemia Acute Chronic Disease Mgmt/Transitional Care Acute Dyspnea Acute Fever Acute Methicillin resistant Staphylococcus aureus infection Acute ~06/09/17 S/P CABG x 3 Acute ~05/14/17 S/P mitral valve replacement with bioprosthetic valve Acute ~05/14/17 Severe mitral regurgitation Acute Sternal wound dehiscence Acute Weakness Acute Wound infection after surgery Acute Cardiomyopathy, ischemic Chronic Chronic systolic CHF (congestive heart failure), NYHA class 2 Chronic Coronary artery disease Chronic
[2017-06-29 04:30] LABS: % IMMATURE GRANULYOCYTES 0.5 % (0.0-1.1); ABSOLUTE IMMATURE GRANULOCYTES 0.02 10^3/uL (0.00-0.10); ADD DIFF? NO; ADD MORPH? NO; ADD SCAN? NO; ATYPICAL LYMPHOCYTE FLAG 10 (0-99); FRAGMENT RBC FLAG 0 (0-99); HEMATOCRIT 23.5 % (38.0-47.0); HEMOGLOBIN 7.5 g/dL (12.6-16.3); LEFT SHIFT FLG 0 (0-99); LIPEMIA HEMOLYSIS FLAG 80 (0-99); MEAN CELL HEMOGLOBIN 29.8 pg (27.9-34.1); MEAN CELL HEMOGLOBIN CONCENTR. 31.9 g/dL (32.4-36.7); MEAN CELL VOLUME 93.3 fL (81.5-99.8); MEAN PLATELET VOLUME 9.4 fL (8.7-11.7); PLATELET CLUMPS FLAG 0 (0-99); PLATELET COUNT 196 10^3/uL (150-400); RED BLOOD CELL COUNT 2.52 10^6/uL (4.18-5.33); RED CELL DISTRIBUTION WIDTH 14.8 % (11.5-15.2)
[2017-06-29 04:49] LABS: ALANINE AMINOTRANSFERASE 29 IU/L (9-52); ALBUMIN 2.3 g/dL (3.5-5.0); ALKALINE PHOSPHATASE 91 IU/L (38-126); ANION GAP 5 mEq/L (8-16); ASPARTATE AMINOTRANSFERASE 17 IU/L (14-46); BILIRUBIN,TOTAL 0.2 mg/dL (0.1-1.4); CALCIUM 11.4 mg/dL (8.5-10.4); CARBON DIOXIDE 28 mEq/l (22-31); CHLORIDE 101 mEq/L (97-110); GLOMERULAR FILTRATION RATE 53; GLUCOSE 89 mg/dL (70-100); POTASSIUM 4.1 mEq/L (3.5-5.2); SODIUM 134 mEq/L (134-144); TOTAL PROTEIN 4.7 g/dL (6.3-8.2)
[2017-06-29] MEDS: CARVEDILOL 6.25 MG TAB PO SCH ×2 (09:10→18:12)
[2017-06-29] MEDS: ASPIRIN EC 81 MG TAB PO SCH (09:10)
[2017-06-29] MEDS: FUROSEMIDE 40 MG TAB PO SCH ×2 (09:10→15:15)
[2017-06-29] MEDS: PANTOPRAZOLE SODIUM 40 MG TAB PO SCH (09:11)
[2017-06-29] MEDS: ENOXAPARIN 40 MG/0.4 ML SYR SC SCH (09:11)
[2017-06-29] MEDS: POTASSIUM CL 20 MEQ TAB PO SCH (09:11)
[2017-06-29] MEDS: GLUCOSAMINE/CHONDROITIN CAP PO SCH (09:31)
[2017-06-29] MEDS: VANCOMYCIN 750 MG in D5W 150 ML IV SCH (15:16)
--- NOTE | 2017-06-29 16:48 | ASMTCMCOM ---
CM Note CM Note Notes: CM spoke w/ Dr. Wilhelm regarding d/c POC. Pt will most likely stay until . Pts son will tour [facility] today. Pattie in from [facility] to meet w/ pt today. CM met w/ son for dispo planning. He will speak w/ his siblings about deciding on a rehab facility. CM sent updates to both facilties. CM to follow. Plan: SNF either [facility] or [facility] Date Signed: 06/29/2017 04:48 PM Electronically Signed By:PHILL Mims
[2017-06-29] MEDS ORDERED: MAGNESIUM HYDROXIDE 30 ML UDCUP PO PRN (17:57)
[2017-06-29] MEDS ORDERED: POLYETHYLENE GLYCOL 3350 17 GM PKT PO PRN (17:57)
[2017-06-29] MEDS ORDERED: LACTULOSE 20 GM/30 ML UDCUP PO PRN (17:57)
[2017-06-29] MEDS ORDERED: BISACODYL 10 MG SUPP PR PRN (17:57)
--- NOTE | 2017-06-29 18:34 | HOSPPROG ---
Hospitalist Progress Note Assessment/Plan: Assessment: 77-year-old female presents with fatigue in the setting of acute on chronic hypercalcemia with resultant acute kidney injury, acute systolic CHF exacerbation Plan: 1. Hypercalcemia. Acute on chronic, likely 2/2 primary hyperparathyroidism w/ PTH 395, corrected calcium 12.5, Vit D 51 - parathyroid uptake scan and neck US both negative - case d/w Dr. Lofton, consult appreciated, she agrees that patient should wait for approx 1 month following tx for mediastinitis and have neck CT in interim to determine whether there is parathyroid tissue outside the glands contributing to above - stopped IVF given no appreciable reduction in corrected sCa (12.5), will start lasix today given volume accumulation and potential benefit in sCa level - stopped Vit D therapy, may be appropriate to restart 400u maintenance dosing once level 30 2. Acute kidney injury. Evidenced by serum creatinine level peaking at 1.2, baseline around 0.8, most likely secondary to hypovolemia in the setting of osmotic diuresis from hypercalcemia - improved w/ IVF, now off - monitor sCr closely while diuresing 3. Acute hyponatremia. Secondary to hypovolemia as outlined above, improved w/ IVF 4. Atelectasis. Acute, secondary to immobility, cont incentive spirometer 5. Mediastinitis. Chronic, secondary to recent cardiothoracic surgery, Infectious Disease consultation appreciated - repositioned PICC - cont Vanco per ID 6. Acute on Chronic systolic CHF exacerbation. o2 requirements increased o/n to 4L NC, EF around 45% w/ recent MVR, CXR w/ increased interstitial edema/ infiltrates s/p IVF (personally interpreted) - d/w Dr. Aggarwal, he advises ongoing use of lasix given valve - give double home dose of lasix today, 40mg PO bid, then consider home dose of daily tomorrow if o2 requirements decreasing 7. CAD. Chronic, cont ASA, statin, bblocker 8. Suspected chronic hypoxic respiratory failure. Likely 2/2 combination of sCHF , atelectasis from deconditioning, and CAD, cont supp o2 9. Anemia. 2/2 chronic inflammatory disease, Hgb 7.5, monitor Diet. Regular Prophylaxis. High risk patient, Lovenox 30 Code. Full Disposition. Anticipated discharge uncertain, requiring further workup as outlined above, may require shelter facility. High-level of medical complexity, high risk of worsening morbidity and/or mortality for the issues outlined above. Subjective: Patient reports shortness of breath last night, increased oxygen needs, urine output good Objective: Vital Signs Temp Pulse Resp BP Pulse Ox 36.7 C 101 H 16 143/72 H 99 06/29/17 16:04 06/29/17 16:04 06/29/17 16:04 06/29/17 16:04 06/29/17 16:04 Laboratory Results 06/29/17 04:15 06/29/17 04:15 06/28/17 06/29/17 06/30/17 05:59 05:59 05:59 Intake Total 1500 1440 Output Total 20 22 300 Balance 1480 1418 -300 - Physical Exam Constitutional: not in pain, chronically ill appearing, No uncomfortable Cardiovascular: systolic murmur (1/6 at apex), edema (Trace bilateral lower extremity), No irregularly irregular, No tachycardia Respiratory: inspiratory crackles (Bilateral posterior segment), No expiratory wheeze, No bronchial breath sounds, No respiratory distress Gastrointestinal: normoactive bowel sounds, soft, non-tender abdomen, no palpable masses, No distension Neurologic: AAOx3, No weakness, No facial droop Psychiatric: interacting appropriately, not anxious, not encephalopathic, thought process linear ICD10 Worksheet Patient Problems: Problems Problem Status Onset Hypokalemia Acute Methicillin resistant Staphylococcus aureus infection Acute ~06/09/17 Fever Acute Weakness Acute Dyspnea Acute Wound infection after surgery Acute Sternal wound dehiscence Acute Acute blood loss anemia Acute S/P mitral valve replacement with bioprosthetic valve Acute ~05/14/17 S/P CABG x 3 Acute ~05/14/17 Chronic systolic CHF (congestive heart failure), NYHA class 2 Chronic Severe mitral regurgitation Acute Chronic Disease Mgmt/Transitional Care Acute Coronary artery disease Chronic Cardiomyopathy, ischemic Chronic
[2017-06-29] MEDS: SENNOSIDES/DOCUSATE SODIUM TAB PO SCH (21:33)
[2017-06-29] MEDS: ATORVASTATIN CALCIUM 10 MG TAB PO SCH (21:33)
[2017-06-29] MEDS: oxyCODONE IR 5 MG TAB PO PRN (21:33)
[2017-06-30 05:38] LABS: ALANINE AMINOTRANSFERASE 32 IU/L (9-52); ALBUMIN 2.3 g/dL (3.5-5.0); ALKALINE PHOSPHATASE 85 IU/L (38-126); ANION GAP 4 mEq/L (8-16); ASPARTATE AMINOTRANSFERASE 14 IU/L (14-46); BILIRUBIN,TOTAL 0.3 mg/dL (0.1-1.4); CALCIUM 11.1 mg/dL (8.5-10.4); CARBON DIOXIDE 32 mEq/l (22-31); CHLORIDE 99 mEq/L (97-110); GLOMERULAR FILTRATION RATE 53; GLUCOSE 92 mg/dL (70-100); POTASSIUM 3.1 mEq/L (3.5-5.2); SODIUM 135 mEq/L (134-144); TOTAL PROTEIN 4.8 g/dL (6.3-8.2)
[2017-06-30 05:40] LABS: % IMMATURE GRANULYOCYTES 0.4 % (0.0-1.1); ABSOLUTE IMMATURE GRANULOCYTES 0.02 10^3/uL (0.00-0.10); ADD DIFF? NO; ADD MORPH? NO; ADD SCAN? NO; ATYPICAL LYMPHOCYTE FLAG 20 (0-99); FRAGMENT RBC FLAG 10 (0-99); HEMATOCRIT 24.1 % (38.0-47.0); HEMOGLOBIN 8.1 g/dL (12.6-16.3); LEFT SHIFT FLG 0 (0-99); LIPEMIA HEMOLYSIS FLAG 80 (0-99); MEAN CELL HEMOGLOBIN 31.2 pg (27.9-34.1); MEAN CELL HEMOGLOBIN CONCENTR. 33.6 g/dL (32.4-36.7); MEAN CELL VOLUME 92.7 fL (81.5-99.8); MEAN PLATELET VOLUME 9.1 fL (8.7-11.7); PLATELET CLUMPS FLAG 0 (0-99); PLATELET COUNT 244 10^3/uL (150-400); RED CELL DISTRIBUTION WIDTH 14.6 % (11.5-15.2)
--- NOTE | 2017-06-30 07:01 | SOAPPROG ---
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 Lofton in 4-6 weeks as an outpatient Seen with Dr. Lofton Objective: Vital Signs Temp Pulse Resp BP Pulse Ox 36.8 C 95 18 125/81 H 98 06/29/17 22:51 06/29/17 22:51 06/29/17 22:51 06/29/17 22:51 06/29/17 22:51 Laboratory Results 06/30/17 05:15 06/30/17 05:15 06/29/17 06/30/17 07/01/17 05:59 05:59 05:59 Intake Total 1440 550 Output Total 22 1300 Balance 1418 -750 ICD10 Worksheet Patient Problems: Problems Problem Status Onset Hypokalemia Acute Acute blood loss anemia Acute Chronic Disease Mgmt/Transitional Care Acute Dyspnea Acute Fever Acute Methicillin resistant Staphylococcus aureus infection Acute ~06/09/17 S/P CABG x 3 Acute ~05/14/17 S/P mitral valve replacement with bioprosthetic valve Acute ~05/14/17 Severe mitral regurgitation Acute Sternal wound dehiscence Acute Weakness Acute Wound infection after surgery Acute Cardiomyopathy, ischemic Chronic Chronic systolic CHF (congestive heart failure), NYHA class 2 Chronic Coronary artery disease Chronic
[2017-06-30] MEDS ORDERED: POTASSIUM CL 20 MEQ TAB PO ONE (08:19)
[2017-06-30] MEDS: CARVEDILOL 6.25 MG TAB PO SCH ×2 (09:05→17:52)
[2017-06-30] MEDS: ENOXAPARIN 40 MG/0.4 ML SYR SC SCH (09:06)
[2017-06-30] MEDS: ASPIRIN EC 81 MG TAB PO SCH (09:06)
[2017-06-30] MEDS: FUROSEMIDE 40 MG TAB PO SCH ×2 (09:06→15:15)
[2017-06-30] MEDS: GLUCOSAMINE/CHONDROITIN CAP PO SCH (09:07)
[2017-06-30] MEDS: SENNOSIDES/DOCUSATE SODIUM TAB PO SCH ×2 (09:07→21:01)
[2017-06-30] MEDS: PANTOPRAZOLE SODIUM 40 MG TAB PO SCH (09:07)
[2017-06-30] MEDS: POTASSIUM CL 20 MEQ TAB PO SCH ×2 (09:14→21:01)
--- NOTE | 2017-06-30 09:59 | ASMTCMCOM ---
ROSALIA Note CM Note Notes: Spoke with patient and family re; [facility] vs [facility] and pt has chosen [facility]. ROSALIA spoke with Liliana at and she will run auth. [place] at [facility] notified. DC Plan: [facility] Date Signed: 06/30/2017 09:56 AM Electronically Signed By:Bella Amos RN
[2017-06-30] MEDS: oxyCODONE IR 5 MG TAB PO PRN ×2 (10:11→13:40)
[2017-06-30] MEDS: VANCOMYCIN 750 MG in D5W 150 ML IV SCH (13:12)
--- NOTE | 2017-06-30 16:11 | HOSPPROG ---
Hospitalist Progress Note Assessment/Plan: Assessment: 77-year-old female presents with fatigue in the setting of acute on chronic hypercalcemia with resultant acute kidney injury, acute systolic CHF exacerbation Plan: 1. Hypercalcemia. Acute on chronic, likely 2/2 primary hyperparathyroidism w/ PTH 395, corrected calcium 12.5, Vit D 51 - parathyroid uptake scan and neck US both negative - patient should wait for approx 1 month following tx for mediastinitis and have neck CT in interim to determine whether there is parathyroid tissue outside the glands contributing to above - cont lasix bid, sCa marginally improving - stopped Vit D therapy, may be appropriate to restart 400u maintenance dosing once level 30 - will require q3d chemistry as outpt 2. Acute kidney injury. Evidenced by serum creatinine level peaking at 1.2, baseline around 0.8, most likely secondary to hypovolemia in the setting of osmotic diuresis from hypercalcemia - improved w/ IVF, now off - monitor sCr closely while diuresing 3. Acute hyponatremia. Secondary to hypovolemia as outlined above, improved w/ IVF 4. Atelectasis. Acute, secondary to immobility, cont incentive spirometer 5. Mediastinitis. Chronic, secondary to recent cardiothoracic surgery, Infectious Disease consultation appreciated - repositioned PICC - cont Vanco per ID 6. Acute on Chronic systolic CHF exacerbation. o2 requirements increased o/n to 4L NC, EF around 45% w/ recent MVR, CXR w/ increased interstitial edema/ infiltrates s/p IVF (personally interpreted) - d/w Dr. Aggarwal, he advises ongoing use of lasix given valve - cont bid dosing lasix 40mg PO given how well she is feeling today, K supplement 7. CAD. Chronic, cont ASA, statin, bblocker 8. Suspected chronic hypoxic respiratory failure. Likely 2/2 combination of sCHF , atelectasis from deconditioning, and CAD, cont supp o2 9. Anemia. 2/2 chronic inflammatory disease, Hgb 8.1, monitor Diet. Regular Prophylaxis. High risk patient, Lovenox 30 Code. Full Disposition. Anticipated discharge 07/01, to SNF, if Cr/K/Na/Ca stable w/ ongoing diuresis tomorrow Subjective: patient reports she has more energy today Objective: Vital Signs Temp Pulse Resp BP Pulse Ox 36.8 C 102 H 20 140/70 H 97 06/30/17 08:00 06/30/17 09:05 06/30/17 08:00 06/30/17 09:05 06/30/17 08:00 Laboratory Results 06/30/17 05:15 06/30/17 05:15 06/29/17 06/30/17 07/01/17 05:59 05:59 05:59 Intake Total 1440 550 Output Total 22 1310 Balance 1418 -760 - Physical Exam Constitutional: no apparent distress, appears nourished, not in pain, chronically ill appearing, No uncomfortable Cardiovascular: systolic murmur (II/ at apex), tachycardia, edema (trace bilat LE), No irregularly irregular Respiratory: reduced air movement (bilat bases), No expiratory wheeze, No inspiratory crackles, No bronchial breath sounds, No respiratory distress Gastrointestinal: normoactive bowel sounds, soft, non-tender abdomen, no palpable masses Neurologic: AAOx3, sensation intact bilaterally, No weakness, No facial droop Psychiatric: interacting appropriately, not anxious, not encephalopathic, thought process linear ICD10 Worksheet Patient Problems: Problems Problem Status Onset Hypokalemia Acute Methicillin resistant Staphylococcus aureus infection Acute ~06/09/17 Fever Acute Weakness Acute Dyspnea Acute Wound infection after surgery Acute Sternal wound dehiscence Acute Acute blood loss anemia Acute S/P mitral valve replacement with bioprosthetic valve Acute ~05/14/17 S/P CABG x 3 Acute ~05/14/17 Chronic systolic CHF (congestive heart failure), NYHA class 2 Chronic Severe mitral regurgitation Acute Chronic Disease Mgmt/Transitional Care Acute Coronary artery disease Chronic Cardiomyopathy, ischemic Chronic
[2017-06-30] MEDS: ATORVASTATIN CALCIUM 10 MG TAB PO SCH (21:01)
[2017-07-01 05:32] LABS: % IMMATURE GRANULYOCYTES 0.5 % (0.0-1.1); ABSOLUTE IMMATURE GRANULOCYTES 0.03 10^3/uL (0.00-0.10); ADD DIFF? NO; ADD MORPH? NO; ADD SCAN? NO; ATYPICAL LYMPHOCYTE FLAG 20 (0-99); FRAGMENT RBC FLAG 0 (0-99); HEMATOCRIT 24.8 % (38.0-47.0); HEMOGLOBIN 8.3 g/dL (12.6-16.3); LEFT SHIFT FLG 0 (0-99); LIPEMIA HEMOLYSIS FLAG 80 (0-99); MEAN CELL HEMOGLOBIN CONCENTR. 33.5 g/dL (32.4-36.7); MEAN CELL VOLUME 92.5 fL (81.5-99.8); MEAN PLATELET VOLUME 9.3 fL (8.7-11.7); PLATELET CLUMPS FLAG 0 (0-99); PLATELET COUNT 228 10^3/uL (150-400); RED BLOOD CELL COUNT 2.68 10^6/uL (4.18-5.33); RED CELL DISTRIBUTION WIDTH 14.6 % (11.5-15.2)
[2017-07-01 05:55] LABS: ALANINE AMINOTRANSFERASE 26 IU/L (9-52); ALBUMIN 2.4 g/dL (3.5-5.0); ALKALINE PHOSPHATASE 87 IU/L (38-126); ANION GAP 9 mEq/L (8-16); ASPARTATE AMINOTRANSFERASE 15 IU/L (14-46); BILIRUBIN,TOTAL 0.2 mg/dL (0.1-1.4); CALCIUM 11.1 mg/dL (8.5-10.4); CARBON DIOXIDE 29 mEq/l (22-31); CHLORIDE 98 mEq/L (97-110); GLOMERULAR FILTRATION RATE 53; GLUCOSE 106 mg/dL (70-100); POTASSIUM 3.3 mEq/L (3.5-5.2); SODIUM 136 mEq/L (134-144); TOTAL PROTEIN 4.6 g/dL (6.3-8.2)
[2017-07-01] MEDS: CARVEDILOL 6.25 MG TAB PO SCH (08:23)
[2017-07-01] MEDS: GLUCOSAMINE/CHONDROITIN CAP PO SCH (08:23)
[2017-07-01] MEDS: POTASSIUM CL 20 MEQ TAB PO SCH (08:23)
[2017-07-01] MEDS: ASPIRIN EC 81 MG TAB PO SCH (08:24)
[2017-07-01] MEDS: PANTOPRAZOLE SODIUM 40 MG TAB PO SCH (08:24)
[2017-07-01] MEDS ORDERED: POTASSIUM CL 20 MEQ TAB PO ONE (08:25)
[2017-07-01] MEDS: SENNOSIDES/DOCUSATE SODIUM TAB PO SCH (08:25)
[2017-07-01] MEDS: FUROSEMIDE 40 MG TAB PO SCH (08:25)
[2017-07-01] MEDS: oxyCODONE IR 5 MG TAB PO PRN ×3 (08:26→15:11)
[2017-07-01] MEDS: ENOXAPARIN 40 MG/0.4 ML SYR SC SCH (08:26)
--- NOTE | 2017-07-01 14:15 | PDIAF ---
- Diagnosis Diagnosis: MRSA mediastinitis Code Status: Full Code - Medication Management Discharge Medications: Medications to Continue on Transfer Cholecalciferol Vit D3 [Vitamin D3 (*)] 7,000 units PO DAILY 04/03/14 [Last Taken 06/21/17] [place]-3 Fatty Acids [Fish Oil 1000 mg (*)] 2,000 mg PO BID 04/03/14 [Last Taken 06/21/17] traMADol [Ultram 50 mg (*)] 50 mg PO Q4 PRN 04/03/14 [Last Taken 06/21/17] Aspirin EC [Aspirin EC 81 mg (*)] 81 mg PO DAILY #30 tab 04/05/14 [Last Taken ] Carvedilol [Coreg (*)] 6.25 mg PO BIDMEAL #60 tab 04/05/14 [Last Taken 06/21/17] Pantoprazole Sodium [Protonix 40mg (*)] 40 mg PO DAILY #30 tab 04/05/14 [Last Taken 06/21/17] Atorvastatin Calcium [Lipitor 10 mg (*)] 10 mg PO HS 04/20/17 [Last Taken ] Glucosamine/Chondroitin [Glucosamine/Chondroitin (*)] 1 each PO DAILY 04/20/17 [ Last Taken 06/21/17] Vitamin B Complex [B Complex] 1 each PO DAILY 05/15/17 [Last Taken 06/21/17] Methocarbamol [Robaxin 500 mg (*)] 1,000 mg PO QID PRN 05/31/17 [Last Taken ] Acetaminophen [Tylenol 325mg (*)] 325 - 650 mg PO Q4HRS PRN #0 tab 06/17/17 [ Last Taken 06/21/17] Furosemide [Lasix 40 MG (*)] 40 mg PO DAILY #0 tab 06/17/17 [Last Taken 06/21/17 ] Vancomycin [Vancomycin (*)] 1.25 gm IV Q24H vial 06/17/17 [Last Taken 06/21/17] valACYclovir [Valtrex (*)] 1,000 mg PO Q12HRS #20 tab 06/17/17 [Last Taken 06/21] Potassium Cl [Klor-Con 20 meq (*)] 20 meq PO BID 06/21/17 [Last Taken 06/21/17] News Librarian Antibiotics: Vancomycin 750 mg IV daily [facility] Home Antibiotic Stop Date: 07/21/17 Discharge Medications: Refer to the Discharge Home Medication list for PRN reason. PICC Care - Routine: Yes - Orders Services needed: Home Care, Registered Nurse, Physical Therapy, Occupational Therapy Home Care Face to Face: I certify that this patient was under my care and that I had the required [id number] encounter meeting the encounter requirements on the discharge day. My findings support the fact that the patient is homebound as defined in Home Care Face to Face Continued: CMS Chapter 7 Medicare Benefits Manual 30.1.1 , The condition of the patient is such that there exists a normal inability to leave home and consequently, leaving home would require a considerable and taxing effort. Isolation Type: Contact Isolation - Labs/Radiology BMP Date: 07/08/17 (Weekly Q ) CBC w/diff Date: 07/05/17 (Weekly Q Wednesday) CMP Date: 07/05/17 (Weekly Q Wednesday) Vanco Trough Date and Time: Every Wednesday and starting 07/05/2017 and Call or Fax Lab and Imaging Results to: Shashi Razo MD [facility] at fax [phone] - Follow Up Care Current Providers and Referrals: Pamela Lofton MD [Medical Doctor] - (4-6 weeks) Baljeet Carvalho MD [Primary Care Provider] - As per Instructions Shashi Razo MD [Medical Doctor] - 07/08/17 2:00 pm
--- NOTE | 2017-07-01 14:54 | PDIAF ---
- Diagnosis Diagnosis: MRSA mediastinitis, Hyperparathyroidism with Hypercalcemia, systolic CHF Code Status: Full Code - Medication Management Discharge Medications: Medications to Continue on Transfer [place]-3 Fatty Acids [Fish Oil 1000 mg (*)] 2,000 mg PO BID 04/03/14 [Last Taken 06/21/17] Aspirin EC [Aspirin EC 81 mg (*)] 81 mg PO DAILY #30 tab 04/05/14 [Last Taken ] Carvedilol [Coreg (*)] 6.25 mg PO BIDMEAL #60 tab 04/05/14 [Last Taken 06/21/17] Pantoprazole Sodium [Protonix 40mg (*)] 40 mg PO DAILY #30 tab 04/05/14 [Last Taken 06/21/17] Atorvastatin Calcium [Lipitor 10 mg (*)] 10 mg PO HS 04/20/17 [Last Taken ] Glucosamine/Chondroitin [Glucosamine/Chondroitin (*)] 1 each PO DAILY 04/20/17 [ Last Taken 06/21/17] Vitamin B Complex [B Complex] 1 each PO DAILY 05/15/17 [Last Taken 06/21/17] Acetaminophen [Tylenol 325mg (*)] 325 - 650 mg PO Q4HRS PRN #0 tab 06/17/17 [ Last Taken 06/21/17] Furosemide [Lasix 40 MG (*)] 40 mg PO DAILY #0 tab 06/17/17 [Last Taken 06/21/17 ] valACYclovir [Valtrex (*)] 1,000 mg PO Q12HRS #20 tab 06/17/17 [Last Taken 06/21] Potassium Cl [Klor-Con 20 meq (*)] 20 meq PO BID 06/21/17 [Last Taken 06/21/17] Polyethylene Glycol 3350 [Miralax 17 gm (*)] 17 gm PO DAILY PRN pkt 07/01/17 [ Last Taken Unknown] Sennosides/Docusate Sodium [Senokot-S] 1 - 2 tab PO BID tab 07/01/17 [Last Taken Unknown] Vancomycin [Vancomycin (*)] 750 mg IV Q24H #20 vial 07/01/17 [Last Taken Unknown ] oxyCODONE IR [Oxycodone Ir (*)] 2.5 - 5 mg PO Q4 PRN tab 07/01/17 [Last Taken Unknown] Environmental Professional Antibiotics: Vancomycin 750 mg IV daily [facility] Antibiotic Stop Date: 07/21/17 Discharge Medications: Refer to the Discharge Home Medication list for PRN reason. PICC Care - Routine: Yes - Orders Services needed: Home Care, Registered Nurse, Physical Therapy, Occupational Therapy Home Care Face to Face: I certify that this patient was under my care and that I had the required [id number] encounter meeting the encounter requirements on the discharge day. My findings support the fact that the patient is homebound as defined in Home Care Face to Face Continued: CMS Chapter 7 Medicare Benefits Manual 30.1.1 , The condition of the patient is such that there exists a normal inability to leave home and consequently, leaving home would require a considerable and taxing effort. Isolation Type: Contact Isolation Oxygen: 3L NC continuous Diet Recommendation: cardiac -low fat low salt Diet Texture: Regular Texture Diet Weigh Patient: daily Walker: Not applicable Activity/Weight Bearing Restrictions: as tolerated Equipment: walker - Labs/Radiology BMP Date: 07/08/17 (Weekly Q ) CBC w/diff Date: 07/05/17 (Weekly Q Wednesday) CMP Date: 07/05/17 (Weekly Q Wednesday) Vanco Trough Date and Time: Every Wednesday and starting 07/05/2017 and Imaging Orders: neck CT w/ contrast will be ordered by Dr. Lofton after appointment Call or Fax Lab and Imaging Results to: Shashi Razo, at fax [phone] Carvalho and Rolly - Follow Up Care Current Providers and Referrals: Baljeet Carvalho MD [Primary Care Provider] - As per Instructions Shashi Razo MD [Medical Doctor] - 07/08/17 2:00 pm Pamela Lofton MD [Medical Doctor] - (3 weeks, please call to schedule)
[2017-07-01] MEDS: VANCOMYCIN 750 MG in D5W 150 ML IV SCH (15:06)
--- NOTE | 2017-07-01 15:24 | PDDCSUM ---
Discharge Summary Discharge Summary: DISCHARGE SUMMARY FOLLOW-UP ITEMS: 1. Follow-up chemistry panels on Mondays and 2. Schedule follow-up appoint with Dr. Pamela Lofton, to discuss parathyroidectomy DATE OF ADMISSION: 06/21/2017 DATE OF DISCHARGE: 07/01/2017 DISCHARGE DIAGNOSES: 1. Acute on chronic hypercalcemia 2. Primary hyperparathyroidism 3. Acute kidney injury 4. Acute hyponatremia 5. Acute atelectasis 6. Chronic mediastinal itis with MRSA 7. Acute on chronic systolic congestive heart failure exacerbation 8. Chronic coronary artery disease 9. Suspected chronic hypoxic respiratory failure 10. Anemia of chronic inflammatory disease CONSULTATIONS: Infectious Disease, Cardiothoracic surgery, General surgery by Dr. Pamela Lofton PROCEDURES / IMAGING: Nuclear uptake scan a parathyroid gland not revealing source of adenoma, ultrasound of neck, not demonstrating enlarged parathyroid gland, PICC line inserted, chest x-ray with resolution of airspace disease CHIEF COMPLAINT: Generalized weakness and fatigue SUBJECTIVE: Patient is feeling well at time of discharge, her energy has improved throughout this hospitalization PHYSICAL EXAM ON DISCHARGE: Systolic blood pressure 110-140, heart rate 100, afebrile overnight, satting well on 3 L nasal cannula, net-1.0 L overnight, net positive 1.5 kg length of stay, inspiratory crackles in bilateral bases clearing with cough, no lower extremity edema, alert awake oriented x3, pain level 0/10, bowel sounds are present LABS ON DISCHARGE: Creatinine 1.0, BUN 11, potassium 3.3, serum sodium 136, hemoglobin 8.3, calcium corrected to 12.3 HOSPITAL COURSE BY PROBLEM: 1. Acute on chronic hypercalcemia. Secondary to primary hyperparathyroidism with a PTH of 395, corrected calcium level between 12 and 12.5 during most of the hospitalization, vitamin-D level 51. The patient has chronically had hyperparathyroidism with an elevated calcium level, but it has more acutely risen over the past 4-6 weeks. Her PTH level was chronically in the low 100s, and is now nearly 400. During this hospitalization. She presented hypovolemic and received IV fluids, which improved her acute kidney injury, hyponatremia, and then she was reintroduced to diuretics, tolerating them well, maintaining her calcium level around 12, and not over diuresing. She is at significant risk for over diuresing in the setting of uncontrolled hypercalcemia, as this produces a natural diuretic effect, and in combination with her necessary diuretic for her CHF, this can become very problematic. She underwent a nuclear uptake scan which did not demonstrate the location of the parathyroid adenoma, and neck ultrasound was also unrevealing. Dr. Pamela Lofton was consulted, and she recommended getting a neck CT with IV contrast as part of the preoperative workup, when the patient is ready for surgery. It was suggested by Infectious Disease and Cardiothoracic surgery that the patient wait approximately 1 month from the present in order to undergo surgery safely, after the patient's mediastinitis has effectively resolved and her sternum has healed appropriately. In the interim, her calcium level should be closely monitored, as well as the electrolytes sequela, and she can either received IV fluids or be more aggressively diuresed, depending on what seems most appropriate for her volume status. 2. Acute kidney injury. Evidenced by serum creatinine level peaking at 1.2, baseline around 0.8, most likely secondary to hypovolemia in the setting of osmotic diuresis from hypercalcemia as well as ongoing use of diuretic prior to presentation. Patient received IV fluids in her serum creatinine level improved. Her serum creatinine level is currently 1.0 time of discharge and she is receiving active diuresis. Her serum creatinine level should be closely monitored, and will be monitored twice weekly moving forward. If is noted to be rising, I would recommend that she be assessed determine her volume status, determine whether she requires IV fluids, temporary holding her diuretic, or inpatient rehospitalization. 3. Acute hyponatremia. Also secondary to hypovolemia as outlined above, received IV fluids, stabilized, has remained stable during active diuresis with Lasix. 4. Acute atelectasis. Secondary to immobility, educated the patient about incentive spirometer, she will continue. 5. Chronic MRSA mediastinitis. Patient recently underwent CABG and mitral valve replacement by Dr. Edward Aggarwal, and then she experienced subsequent MRSA mediastinum itis, receiving Infectious Disease consultation and initiation of vancomycin. Her primary infectious disease providers Dr. Shashi Razo, knee his recommended 6 weeks of IV vancomycin dosed from the time of her source control. Consequently she will receive antibiotics through July 21 with reassessment in the interim. Her vancomycin was dose adjusted during this hospitalization. 6. Acute on chronic systolic congestive heart failure exacerbation. Evidenced by increase in oxygen requirement to 4 L nasal cannula with increased interstitial infiltrates on chest x-ray status post IV fluids, and a known ejection fraction around 45% with recent mitral valve replacement. I discussed patient's process with Dr. Edward Aggarwal, we both agree that the patient will require ongoing use of diuretics in order to prevent fluid accumulation. As noted above, this will be a challenging process, as the patient is most likely going to naturally diurese from her hypercalcemia, and we do not want to make the patient hypovolemic, which is what I suspect prompted this presentation. We did diurese the patient aggressively after she experienced exacerbation from her IV fluids, using Lasix 40 mg p.o. twice daily, with additional potassium supplementation, and the time of discharge, she appears euvolemic and I am comfortable reducing her Lasix down to 40 mg once daily with home dosage of potassium 20 mEq twice daily. She will require close outpatient follow-up. 7. Chronic coronary artery disease. Patient was continued on her aspirin, statin, beta-merary, had no chest pain. 8. Suspected chronic hypoxic respiratory failure. Most likely secondary to a combination of systolic CHF, atelectasis from deconditioning, coronary artery disease, requiring ongoing supplementation with nasal cannula oxygen, anticipated this will continue indefinitely. 9. Anemia of chronic inflammatory disease. Hemoglobin 8.3 time discharge, stable. DISCHARGE MEDICATIONS: Please see official discharge medication reconciliation sheet in chart , continue Lasix 40 mg daily, potassium 20 mEq twice daily, vancomycin 750 mg IV daily, discontinue muscle relaxant, discontinue tramadol, continue oxycodone immediate release 2.5 mg to 5 mg q.4 hours, as the patient is tolerating this well as a pain agent during this hospitalization. DISCHARGE INSTRUCTIONS: Please have close outpatient monitoring as outlined above. Please schedule outpatient follow up with Dr. Pamela Lofton to make arranagments for your upcoming surgery. TIME SPENT: Greater than 30 minutes were spent on direct patient care, as well as discharge planning and preparation.
[2017-07-01 15:30] VITALS: BP 120/65; PULSE 75; RESP 18; TEMP 97.4; O2SAT 99
--- NOTE | 2017-07-01 15:36 | PCMIDPN ---
Assessment/Plan: Assessment/Plan: * MRSA mediastinitis: Continued clinical improvement. Vancomycin dose has been adjusted with stable creatinine and trough level. Plan reviewed with Dr. Razo and now will increase duration of antibiotic therapy for mediastinitis to 6 weeks. This was discussed with patient and son today. Side effects of vancomycin including potential for ototoxicity or nephrotoxicity were reviewed. Plan continued twice weekly laboratory monitoring of creatinine and vancomycin trough as well as weekly CBC and CMP. Will arrange for follow-up with Dr. Razo next week. * Increased creatinine: Has returned to 1.0. Continue to follow while on vancomycin. 07/01/17 15:33 Objective: Vital Signs Temp Pulse Resp BP Pulse Ox 36.3 C 75 18 120/65 99 07/01/17 15:26 07/01/17 15:26 07/01/17 15:26 07/01/17 15:26 07/01/17 15:26 Laboratory Results 07/01/17 05:20 07/01/17 05:20 06/30/17 07/01/17 07/02/17 05:59 05:59 05:59 Intake Total 550 300 Output Total 1310 1060 405 Balance -760 -1060 -105 Tm 37.7 Vancomycin # 22 Laboratory Tests 06/29/17 13:25 Vancomycin Trough 12.7 - Physical Exam General Appearance: alert, no apparent distress EENT: No scleral icterus, No thrush, No conjunctival petechiae Respiratory: lungs clear (Anterolaterally) Cardiac/Chest: regular rate, rhythm, other (Sternotomy incision intact without erythema or drainage or instability) Abdomen: non-tender, No distended - Line/s RUE PICC Lines: No drainage, No erythema ICD10 Worksheet Patient Problems: Problems Problem Status Onset Hypokalemia Acute Acute blood loss anemia Acute Chronic Disease [facility]/Transitional Care Acute Dyspnea Acute Fever Acute Methicillin resistant Staphylococcus aureus infection Acute ~06/09/17 S/P CABG x 3 Acute ~05/14/17 S/P mitral valve replacement with bioprosthetic valve Acute ~05/14/17 Severe mitral regurgitation Acute Sternal wound dehiscence Acute Weakness Acute Wound infection after surgery Acute Cardiomyopathy, ischemic Chronic Chronic systolic CHF (congestive heart failure), NYHA class 2 Chronic Coronary artery disease Chronic
--- NOTE | 2017-07-02 17:33 | ASDISCHSUM ---
Discharge Information Plan Status:SNF Medically Cleared to Leave: Discharge Date:07/01/2017 04:43 PM D/C Disposition:Custodial Facility ADT D/C Disposition:Custodial Facility Projected Discharge Date:07/01/2017 04:00 PM Transportation at D/C:Wheelchair Van Discharge Delay Reason: Follow-Up Date:07/01/2017 04:00 PM Discharge Slot: Final Diagnosis: Placement Information Referral Type:*Home Health Care Services Referral ID:[id number] Provider Name: Address 1: Phone Number: Address 2: Fax Number: City: Selection Factors: State: Referral Type:Home Infusion Referral ID:[id number] Provider Name: Address 1: Phone Number: Address 2: Fax Number: City: Selection Factors: State: Referral Type:*Longterm/SNF Referral ID:[id number] Provider Name:[facility] Address 1:[address] Address 2: City:[place] Selection Factors: State:[place] Patient Contact Information Contact Name:ROLDAN Relationship:Daughter Address:[address] Work Phone: City:[place] Phone: State/Zip Code:[place] [address] Email: Financial Information Financial Class:Medicare Advantage Plans Primary Plan Desc:[employer] [facility] MEDICARE Primary Plan Number:[id number] Secondary Plan Desc: Secondary Plan Number: Assessment Information [facility] Initial CM Assessment Living Arrangements What is your living Answers: Alone arrangement? Who do you live with? Type Of Residence What kind of residence do Answers: House you live in? Discharge Plan Comments Coordination Status Comments Notes: Pt is a 77 y/o female admitted for hypokalemia. Pt was recently here on 06/14 for a CAGB w/ a valve replacement. PT/OT have been ordered and awaiting recommendations. Needs are TBD at this time. CM to follow. Plan: TBD; pending therapies Date Signed: 06/22/2017 09:44 AM Electronically Signed By:PHILL Mims [facility] CM Progress Note CM Note CM Note Notes: CM met w/ pt for dispo planning. Pt had [facility] and [facility], RN as her d/c plans when she was here on 06/09/2017. Pt would like referrals to be made to both facilities. OT is recommending HC w/ 24hr supervision. Pt reports that she lives [place] away from her daughter and her son in law. Pt reports that her other children will be staying w/ her for the interim. PT was unable to assess pt today but will be back to assess tomorrow. Needs are unclear at this time. CM to follow. Plan: most likely will d/c w/ [facility] home infusion along w/ [facility] RN Date Signed: 06/23/2017 03:48 PM Electronically Signed By:PHILL Mims [facility] ROSALIA Progress Note CM Note CM Note Notes: Spoke w/ pt and son Bernardo re; dc poc. Bernardo states that there won't be any family to take stay with pt until Wednesday (dtr coming into town late Wednesday night). Notified and will keep pt unless needs to dc to SNF If so would like to go to [facility], per Carin at [facility], unsure if will get auth over weekend but will have as option as MD feels like pt maybe more appropriate for SNF than home, CM w/f DC Plan: Home Wednesday w/[facility] and children support--if pt does not improve, SNF Date Signed: 06/25/2017 03:25 PM Electronically Signed By:Bella Amos RN [facility] CM Progress Note CM Note CM Note Notes: Spoke with patient's daughter Tea, she thinks that patient would benefit from SNF stay before coming home since her recovery has been so inconsistent. PT/OT have suggested SNF as well, although patient sometimes appears to be well enough to go home with home care. [facility] so they can submit for insurance authorization and informed patient's daughter that we will continue to assess daily. She agrees with this plan. Date Signed: 06/27/2017 01:37 PM Electronically Signed By:Kandi Arce RN [facility] CM Progress Note CM Note CM Note Notes: CM met w/ pt and pts son for dispo planning. Initially pt was very resistant to the idea of going to rehab. Pt was more agreeable to going to rehab after speaking w/ the doctors. ROSALIA spoke w/ Dr. Wilhelm regarding d/c POC. Dr. Wilhelm thought pt may benefit from [facility]. CM spoke to pt about this and she is agreeable to a referral made at [facility]. Son to tour both facilities. CM to follow. Plan: SNF Date Signed: 06/28/2017 03:49 PM Electronically Signed By:PHILL Mims [facility] CM Progress Note CM Note CM Note Notes: CM spoke w/ Dr. Wilhelm regarding d/c POC. Pt will most likely stay until . Pts son will tour [facility] today. Pattie in from [facility] to meet w/ pt today. CM met w/ son for dispo planning. He will speak w/ his siblings about deciding on a rehab facility. CM sent updates to both facilties. CM to follow. Plan: SNF either [facility] or [facility] Date Signed: 06/29/2017 04:48 PM Electronically Signed By:PHILL Mims [facility] CM Progress Note CM Note CM Note Notes: Spoke with patient and family re; [facility] vs [facility] and pt has chosen [facility]. ROSALIA spoke with Liliana at and she will run auth. Brewster at [facility] notified. DC Plan: [facility] Date Signed: 06/30/2017 09:56 AM Electronically Signed By:Bella Amos RN Case Management Discharge Plan Note Case Management Discharge Discharge Order Complete? Answers: Yes Patient to Obtain Answers: Other Notes: [facility] Medications Transportation Arranged Answers: Other Notes: [facility] will Pick (Date 07/01/2017 04:00 PM & Time) Faxed Final Orders Answers: Yes Family Notified Answers: Yes Discharge Comments Notes: D/w , final orders faxed, Liliana at notified. RN to call report. Date Signed: 07/01/2017 03:29 PM Electronically Signed By:Bella Amos RN Intervention Information Intervention Type:*EM-Signed Date of Service:06/22/2017 10:00 AM Patient Type:Observation Staff Member:Viki Zhu Hours: Discipline: Severity: Comment: Intervention Type:*IM-Signed Date of Service:07/01/2017 03:31 PM Patient Type:Inpatient Staff Member:Viki Zhu Hours: Discipline: Severity: Comment:
== END 2017-07-01 16:43 | DRG 640 ==
LOC: F3E 21:03 → OBSVTOIN 06-22 18:08
PROVIDERS: ADMIT Student in an Organized Health Care Education/Training Program; ATTEND Student in an Organized Health Care Education/Training Program
PROC: 02PY33Z Removal of Infusion Device from Great Vessel, Percutaneous Approach (ICD-10-PCS; principal; 2017-06-23)
PROC: 02HV33Z Insertion of Infusion Device into Superior Vena Cava, Percutaneous Approach (ICD-10-PCS; principal; 2017-06-23)
PROC: 02PY33Z Removal of Infusion Device from Great Vessel, Percutaneous Approach (ICD-10-PCS; 2017-06-27)
PROC: 02HV33Z Insertion of Infusion Device into Superior Vena Cava, Percutaneous Approach (ICD-10-PCS; 2017-06-27)
DX: E87.6 Hypokalemia (principal); J98.51 Mediastinitis; I11.0 Hypertensive heart disease with heart failure; I50.23 Acute on chronic systolic (congestive) heart failure; N17.9 Acute kidney failure, unspecified; J98.11 Atelectasis; J96.11 Chronic respiratory failure with hypoxia; E87.1 Hypo-osmolality and hyponatremia; E86.0 Dehydration; E21.3 Hyperparathyroidism, unspecified; E78.5 Hyperlipidemia, unspecified; B95.62 Methicillin resistant Staphylococcus aureus infection as the cause of diseases classified elsewhere; I25.10 Atherosclerotic heart disease of native coronary artery without angina pectoris; D63.8 Anemia in other chronic diseases classified elsewhere; Z95.1 Presence of aortocoronary bypass graft; Z95.4 Presence of other heart-valve replacement
CPT/HCPCS: 82947-QW; 96365; 96366; 97110-GP; 97116-GP; 97162-GP; 97166-GO; 97530-GO; 97530-GP; 97535-GO; A9500; G0378; J1650; J1940; J2997; J3370; J3475

== ENCOUNTER 2017-08-23 19:29 | Inpatient (IN) | payer OTHER ==
[2017-08-23] MEDS ORDERED: ACETAMINOPHEN 325 MG TAB PO PRN (19:49)
[2017-08-23] MEDS ORDERED: ONDANSETRON 4 MG/2 ML VIAL IVP PRN (19:49)
[2017-08-23] MEDS ORDERED: ONDANSETRON DISINTEGRATING 4 MG TAB PO PRN (19:49)
[2017-08-23] MEDS ORDERED: POTASSIUM CL 20 MEQ TAB PO ONE ×2 (19:51→23:45)
[2017-08-23] MEDS ORDERED: BISACODYL 10 MG SUPP PR PRN (22:26)
[2017-08-23] MEDS ORDERED: SENNOSIDES/DOCUSATE SODIUM TAB PO PRN (22:26)
[2017-08-23] MEDS ORDERED: POLYETHYLENE GLYCOL 3350 17 GM PKT PO PRN (22:26)
[2017-08-23] MEDS ORDERED: MAGNESIUM HYDROXIDE 30 ML UDCUP PO PRN (22:26)
[2017-08-23] MEDS ORDERED: LACTULOSE 20 GM/30 ML UDCUP PO PRN (22:26)
[2017-08-23] MEDS ORDERED: PROTOCOL MAGNESIUM 1 DOSE IV PRN (22:55)
[2017-08-23] MEDS ORDERED: PROTOCOL K PHOSPHATE 1 DOSE IV PRN (22:55)
[2017-08-23] MEDS ORDERED: PROTOCOL POTASSIUM 1 DOSE MISC PRN (22:55)
[2017-08-23] MEDS ORDERED: NS W/ 20 KCl/L 1,000 ML IV SCH (23:00)
[2017-08-23] MEDS: traMADol 50 MG TAB PO PRN (23:29)
[2017-08-23] MEDS: ATORVASTATIN CALCIUM 10 MG TAB PO SCH (23:30)
--- NOTE | 2017-08-24 00:14 | CPEKG ---
Heart Rate: 102 RR Interval: 588 P-R Interval: 176 QRSD Interval: 138 QT Interval: 380 QTC Interval: 496 P [place]: 70 QRS [place]: -40 T Wave [place]: 119 EKG Severity - ABNORMAL ECG - EKG Impression: SINUS TACHYCARDIA EKG Impression: VENTRICULAR BIGEMINY EKG Impression: LVH WITH IVCD, LAD AND SECONDARY REPOL ABNRM Electronically Signed By: Jude Feng 26-Aug-2017 13:09:43
[2017-08-24] MEDS ORDERED: POTASSIUM CL 10 MEQ TAB PO ONE ×2 (00:18→08:06)
[2017-08-24] MEDS ORDERED: MAGNESIUM SULF 1 GM/DEXTROSE 100 ML IV ONE (00:20)
--- NOTE | 2017-08-24 00:25 | PDGENHP ---
History and Physical - Chief Complaint dyspnea, rib pain - History of Present Illness Source - patient provides history and appears reliable. EMR reviewed and case discussed with ED provider. 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 Carvalho with complaints of dyspnea on exertion, increasing fatigue and bilateral ribcage pain with inspiration or cough. Pain is located at the base of her ribcage bilaterally. Patient reports an increase in cough that is productive of following eating or drinking a either liquids or any solids. Patient reports her cough has been ongoing since June of 2017. She denies any fevers or chills. Patient with slow wound healing that is nearly resolved over the sternotomy scar with a small remnant scabs at the base of the incision site. Patient denies any surrounding erythema or drainage. Patient denies any recent sick contacts. History Information - Allergies/Home Medication List Allergies/Adverse Reactions: NSAIDS (Non-Steroidal Anti-Inflamma [NSAIDS (Non-Steroidal Anti-Inflammatory Drug)] Allergy (Severe, Verified 06/02/17 13:44) Other-Enter Comments Sulfa (Sulfonamide Antibiotics) Allergy (Verified 05/13/17 13:58) Unknown Home Medications: [place]-3 Fatty Acids [Fish Oil 1000 mg (*)] 2,000 mg PO HS 04/03/14 [Last Taken 08/23/17] Atorvastatin Calcium [Lipitor 10 mg (*)] 10 mg PO HS 04/20/17 [Last Taken ] Glucosamine/Chondroitin [Glucosamine/Chondroitin (*)] 1 each PO DAILY 04/20/17 [ Last Taken 08/23/17] Potassium Cl [Klor-Con 20 meq (*)] 20 meq PO DAILY 06/21/17 [Last Taken 08/23/17 ] Herbals/Supplements -Info Only 1 ea PO DAILY 08/23/17 [Last Taken 08/23/17] traMADol [Ultram 50 mg (*)] 50 mg PO Q4 PRN 08/23/17 [Last Taken 08/23/17 04:00] I have personally reviewed and updated: family history, medical history, social history, surgical history - Past Medical History coronary artery disease, CHF (Systolic), hypertension, hyperlipidemia Additional medical history: mitral insufficiency status post bioprosthetic valve replacement, hypokalemia, hyperparathyroidism, shingles, peptic ulcer disease with history of GI bleeding 1987, dilated ischemic cardiomyopathy, systolic CHF, MR assay mediastinitis 05/2017 , HTN, HLD - Surgical History Additional surgical history: Cardiac cath, CABG x3 V with mitral valve bioprosthesis replacement and left atrial appendage ligation, EGD, bunionectomy , carpal tunnel release, mastoidectomy - Family History Additional family history: Mother-history of cardiac disease status post a pacer . Father-CAD with history CABG disease. Siblings are healthy - Social History Smoking Status: Former smoker (Quit 1980s smoked 1.5 packs per day for 20 years) Alcohol Use: Occasionally (Occasional glass a wine) Drug Use: None Additional social history: Patient lives alone in a home unsure property with her daughter and son-in-law. She remains independent with her ADLs. Review of Systems Review of Systems: ROS: 10pt was reviewed & negative except for what was stated in HPI & below Constitutional: Reports: weakness (Generalized), weight loss (Thirty for lb since April 2017). Denies: chills, fever EENMT: Reports: other (Wears glasses, hearing loss on the left). Denies: blurred vision, nose congestion, sore throat Cardiac: Reports: chest pain (Bilateral lower chest wall pain), other. Denies: edema, palpitations, syncope Respiratory: Reports: cough, shortness of breath Gastrointestinal: Reports: constipation. Denies: vomitting, diarrhea, nausea Genitourinary: Denies: dysuria, hematuria Muscolosketal: Reports: muscle pain (Below the ribs bilateral lower chest) Skin: Reports: no symptoms Neurological: Reports: no symptoms Physical Exam Physical Exam: Temp Pulse Resp BP Pulse Ox 36.9 C 87 16 103/56 L 91 L 08/23/17 23:00 08/23/17 23:00 08/23/17 23:00 08/23/17 23:00 08/23/17 23:00 Constitutional: no apparent distress, not in pain, chronically ill appearing, other (NAD. Pleasant elderly frail chronically ill-appearing female is sitting up in bed. ) Eyes: PERRL, anicteric sclera, EOMI Ears, Nose, Mouth, Throat: moist mucous membranes, poor dentition (Dentures) Cardiovascular: regular rate and rhythym, no murmur, rub, or gallop, other ( Nearly completely healed sternal scar with approximately 2 cm scab at the base.) , No edema Peripheral Pulses: 1+: dorsalis-pedis (R), dorsalis-pedis (L) Respiratory: no respiratory distress, no rales or rhonchi, clear to auscultation , reduced air movement (Bibasilar), No respiratory distress Gastrointestinal: normoactive bowel sounds, soft, non-tender abdomen, no palpable masses, No guarding, No distension Genitourinary: no bladder tenderness, No arredondo in urethra Skin: warm, normal color, no rashes or abrasions Musculoskeletal: generalized weakness, other (Patient moves all extremities. ) , No pain with ROM Neurologic: AAOx3, sensation intact bilaterally, CN II-XII Intact, No facial droop Psychiatric: interacting appropriately, not anxious, not encephalopathic, thought process linear Lab Data & Imaging Review 08/24/17 04:32 08/23/17 23:25 Sodium 132 mEq/L (135-145) L 08/23/17 23:25 Potassium 2.8 mEq/L (3.5-5.2) L 08/23/17 23:25 Chloride 92 mEq/L (97-110) L 08/23/17 23:25 Carbon Dioxide 32 mEq/l (22-31) H 08/23/17 23:25 Anion Gap 8 mEq/L (8-16) 08/23/17 23:25 BUN 12 mg/dL (7-23) 08/23/17 23:25 Creatinine 0.9 mg/dL (0.6-1.0) 08/23/17 23:25 Estimated GFR > 60 08/23/17 23:25 Glucose 106 mg/dL (70-100) H 08/23/17 23:25 Calcium 12.5 mg/dL (8.5-10.4) H 08/23/17 23:25 Phosphorus 2.4 mg/dL (2.5-4.5) L 08/23/17 23:25 Magnesium 1.5 mg/dL (1.6-2.3) L 08/23/17 23:25 Selected Entries 08/23/17 23:00 Heart Rate 87 Respiratory 16 Rate O2 Sat (%) 91 L Temperature (C) 36.9 C Blood Pressure 103/56 L Mean Arterial 71 Pressure (MAP) Activity During At Rest Vital Signs O2 Delivery Room Air Mode Laboratory Tests 08/23/17 08/23/17 10:45 10:45 WBC 6.67 RBC 3.44 L Hgb 9.9 L Hct 29.9 L MCV 86.9 MCH 28.8 MCHC 33.1 RDW 14.1 Plt Count 304 MPV 9.5 Neut % (Auto) 75.5 H Immature Gran % 0.4 Sodium 136 Potassium 2.7 L* Chloride 94 L Carbon Dioxide 32 H Anion Gap 10 BUN 11 Creatinine 0.9 Estimated GFR > 60 Glucose 134 H Calcium 12.6 H Phosphorus 2.1 L Total Bilirubin 0.6 AST 14 ALT 20 Alkaline Phosphatase 71 Troponin I 0.033 NT-Pro-B Natriuret Pep 6740 H Total Protein 6.6 Albumin 3.2 L Triglycerides 82 Cholesterol 106 L Cholesterol Risk Factr 0.4 LDL Cholesterol, Calc 49 L LDL Risk Factor 0.5 VLDL Cholesterol 16 Non-HDL Cholesterol 65 L HDL Cholesterol 41 LDL/HDL Ratio 1.20 Cholesterol/HDL Ratio 2.59 TSH 2.320 PTH Intact 186.6 H Calcium (PTH Intact) 12.6 H Creat (PTH Intact) 0.9 Phosph (PTH Intact) 2.0 L Imaging Review: CT Chest Without Contrast 1054 hours Indication: Lower chest pain. Oxygen requirements. Previous open heart surgery. Technique: Spiral images were obtained through the chest. Images were reviewed in multiple planes. Volume rendering was also performed on 3-D independent workstation to better visualize osseous detail. Dose reduction techniques were utilized. Comparison: 06/09/2017. Findings: Lung and large airways: Mild to moderate emphysematous changes are once again identified and more prominent involving the upper lobes. There are no significant pulmonary nodules. There is calcified granuloma right upper lobe posteriorly measuring about 5 mm. There is elevation of the right hemidiaphragm with compressive atelectatic change at the right lung base. This is stable. Mild dependent edema is noted at the lung bases posteriorly.. Bronchi: No significant bronchial wall thickening Pleura: Normal. Vessels: The thoracic aorta has a normal contour. There is no aneurysm or dissection. Moderate arteriosclerotic calcifications are present involving the aortic arch and descending thoracic aorta as well as involving coronary arteries. Coronary artery bypass graft changes are evident. Heart and pericardium: There is mild to moderate enlargement of the left ventricle and left atrium. There is no pericardial effusion. Mediastinum and cynthia: No mass or lymphadenopathy. Chest wall and lower neck: The distal soft tissue thickening over the lower sternum that probably represents post operative granulation tissue. On the previous study there is an open wound in this region over the sternotomy. Limited upper abdomen: No significant abnormality. Calcified granulomas are present within the spleen. Skeletal system: There is nonunion of the sternotomy.. Soft tissue thickening is seen over the sternum more prominent inferiorly that could be postoperative scarring and granulation tissue previous open surgical wound over the sternotomy identified on the study from May,. Underlying osteomyelitis of these sternum cannot be excluded. Clinical correlation recommended. The ribs are intact without evidence of fracture. Vertebral body heights are well- maintained. Impression: 1. 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 Rule out osteomyelitis involving the sternum. Clinical correlation recommended. 2. Stable elevation of the right hemidiaphragm with adjacent compressive atelectatic change at the right lung base. 3. Underlying emphysematous changes predominantly involving the upper lobes similar to the prior study. 4. Enlarged left atrium and left ventricle similar to the prior study. Previous mitral valve replacement and left atrial appendage clamp are noted. Findings discussed with Manuel Carvalho MD at 11:34 hour, 2017. Visualized and Interpreted imaging results: Yes EKG additional interpertation: Sinus tachycardia in the 1 100s. Ventricular bigeminy. No peaked T-waves. LVH in IVCD, LAD with 3+ changes. QTC 496. Assessment & Plan Assessment: Assessment and plan: Pleasant 77-year-old female with past medical history significant for CAD status post CABG in April complicated by MRSA and mediastinitis with wound dehiscence, hyperparathyroidism, systolic CHF who presents as a direct admission with complaints of worsening dyspnea fatigue and bilateral lower chest pain. # Dyspnea likely multifactorial including atelectasis vs CHF exacerbation versus anemia vs. COPD. no evidence of arrhythmia, PNA (neg on CT and afebrile) vs PE (noncontrast study) Patient without noted hypoxia or tachypnea. # hypokalemia - patient with a history of electrolyte disturbances, hyperparathyroidism. She is on Lasix outpatient. no jose eduardo at this time. replacement has been ordered. monitor bmps and continuous tele. checking mag/ phos. # chest wall pain - pleuritic chest pain vs mediastinitis. supportive care. and pain management prn. 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 Patient is afebrile without leukocytosis. Per report CT surgery was consulted by PCP but will follow up and notify of patient' s arrival to the floor in a.m.. #generalized weakness - multifactorial including chronic disease, CHF, declining nutrition no status, hypokalemia and electrolyte disturbance. PT OT consultation # dysphagia - patient with ongoing cough and choking status post any oral intake of liquids or solids per history and witnessed by RN at bedside. Speech therapy consulted. Video fluoroscopy study also ordered. #hyperparathyroidism - see below #hypercalcemia - history of hyperparathyroidism. Previous imaging without identification of parathyroid tumor. Previous Surgical evaluation with recommendations for section once patient's medical status is stabilized following her MRSA mediastinitis. Continue with IV fluid hydration. Monitor a.m. labs. #elevated BNP - patient with history of systolic CHF/cardiomyopathy but at this time does not appear to be decompensated. Some gentle fluid IV fluid hydration as above and monitor clinically. #hypoalbuminemia - likely multifactorial including chronic disease and declining nutritional intake. Check pre-albumin. Dietary consult. #hyponatremia - patient chronically on Lasix. Overnight normal saline supplementation with potassium. Monitor for any signs of fluid overload. #hypochloridemia - IV fluid replacement as above. Repeat BMP #hyperglycemia - nonfasting. Continue to monitor. Patient has had recent decline in appetite. Dietary consult #hypophosphatemia - replacement protocol #anemia, likely of chronic disease. No evidence of active bleeding monitor CBC #gerd - continue PPI #hx of MR s/p bioprosthesis - not require anticoagulation. #RUL granuloma and spleen granuloma incidentally noted. FEN - IV fluid NS plus 20 mEq KCL for gentle hydration and potassium replacement. Patient has requested that a regular diet be ordered have given her oral intake is so severely diminished. Did advise patient and RN to continue to monitor sodium intake. Oral hydration also encouraged. Electrolyte monitoring and replacement as noted above. PPX - SCDs. Lovenox. Ppi when med list reconciled. COR - FULL Dispo - admitted to inpatient status anticipate a greater than midnight stay given multiple electrolyte disturbances and need for inpatient consultation regarding patient's sternotomy malunion in setting of history of mediastinitis.
[2017-08-24] MEDS: OMEGA-3 FATTY ACIDS 1,000 MG CAP PO SCH ×2 (00:43→20:25)
[2017-08-24 05:05] LABS: PLATELET COUNT 270 10^3/uL (150-400)
[2017-08-24] MEDS: traMADol 50 MG TAB PO PRN ×3 (06:48→20:26)
[2017-08-24] MEDS: PANTOPRAZOLE SODIUM 40 MG TAB PO SCH (08:58)
[2017-08-24] MEDS: ASPIRIN EC 81 MG TAB PO SCH (08:58)
[2017-08-24] MEDS: ENOXAPARIN 40 MG/0.4 ML SYR SC SCH (08:58)
[2017-08-24] MEDS: CARVEDILOL 6.25 MG TAB PO SCH ×2 (08:58→18:18)
[2017-08-24] MEDS ORDERED: FUROSEMIDE 40 MG TAB PO SCH (09:00)
[2017-08-24] MEDS: HYDROCODONE/APAP 5/325 TAB PO PRN ×2 (09:11→18:18)
--- NOTE | 2017-08-24 09:17 | PDMN ---
Medical Necessity Medical necessity: M190 heart failure vs. anemia vs COPD dyspnea with atelectasis, hypokalemia, chest wall pain, sternotomy nonunion with hx of MRSA and mediastinitis, gen. weakness, dysphagia with ongoing cough s/p oral intake , elevated BNP, hyponatremia, hypoalbuminemia, hypocholidemia , hyperglycemia. further monitoring, eval and tx needed
--- NOTE | 2017-08-24 14:20 | HOSPPROG ---
Hospitalist Progress Note Assessment/Plan: DIAGNOSES: -generalized weakness debility and gait instability, deconditioning multifactorial -known hyperparathyroidism, has been avoiding surgery see below -acute dehydration; suspect this may be brought on by her hypercalcemia and hypophosphatemia at least in part -pre renal azotemia associated with above -cough, dyspnea, pain at costal margins: At this point the patient denies to me the cough or dyspnea but still is bothered by costal margin pain -does have COPD, elevated right hemidiaphragm, atelectasis, no evidence of left heart failure at present -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 Of concern to me is that she does have symptoms of dehydration malnutrition with poor intake of food and fluid, and ongoing hypercalcemia hypophosphatemia from her hyperparathyroid state. I think her hypothyroid disease and electrolyte abnormalities are probably affecting her intake of food and fluids and she is probably losing fluid from the hypercalcemia as well. She has been avoiding the hyper parathyroid surgery because she had is worried about anesthesia yet she did quite well with the anesthesia for her heart surgery in April. We discussed that now that she has had her heart fix she is probably going to live for a good while as she has no other significant failing organs at this time. She is at risk for osteoporotic fractures and could reduce that risk by fixing her hyperparathyroidism. She is at risk for having ongoing malnutrition issues and recurrent bouts of hypercalcemia related symptoms including dehydration such as the current episode. Since she is probably going to be around for a while she should be looking to maximize her health comfort and independence. It is very likely that hyper parathyroid surgery would help her with that. After reviewing all this she agrees that this may be worth 3 considering. I have recommended she go back to Dr. Carvalho after this admission and reassess their risks and benefits of this surgery. PLANS: -continuing hydration iv -physical and occupational therapy. -spend as much time she can up in a chair -check a sedimentation rate to make sure that it does not seem her mediastinal infection could be route occurring -nutritional supplements at this time and get a sales and service specialist consult. -check on the results of her swallow study -replacement of potassium -check thyroid function as she has lower temperatures here as well -will review with Dr. 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: Sinus Exam: alert oriented skin warm dry color ok resps not labored lungs clear BSs heart regular Chest wall exam and her sternum decision line all look good with no palpable abnormality abd soft nondistended nontender, bowel sounds present limbs warm, no edema iv site ok Lab data: Phosphorus and calcium remain low essentially unchanged Renal function stable Hemoglobin 9 is at her baseline anemia, white count remains normal Objective: Vital Signs Temp Pulse Resp BP Pulse Ox 35.7 C L 82 16 126/72 H 99 08/24/17 12:19 08/24/17 12:19 08/24/17 12:19 08/24/17 12:19 08/24/17 12:19 Laboratory Results 08/24/17 04:32 08/24/17 04:32 08/23/17 08/24/17 08/25/17 06:59 06:59 06:59 Intake Total 775 200 Output Total 200 150 Balance 575 50 - Time Spent With Patient Time Spent with Patient: greater than 35 minutes Time Spent with Patient: Greater than 35 minutes spent on this patients care, greater than 50% of time spent counseling, educating, and coordinating care regarding the above mentioned plan. ICD10 Worksheet Patient Problems: Problems Problem Status Onset Acute blood loss anemia Acute Chronic Disease Mgmt/Transitional Care Acute Dyspnea Acute Fever Acute Hypokalemia Acute Methicillin resistant Staphylococcus aureus infection Acute ~06/09/17 S/P CABG x 3 Acute ~05/14/17 S/P mitral valve replacement with bioprosthetic valve Acute ~05/14/17 Severe mitral regurgitation Acute Sternal wound dehiscence Acute Weakness Acute Wound infection after surgery Acute Cardiomyopathy, ischemic Chronic Chronic systolic CHF (congestive heart failure), NYHA class 2 Chronic Coronary artery disease Chronic
--- NOTE | 2017-08-24 14:39 | ASMTCMCOM ---
CM Note CM Note Notes: 08/24/2017 Case Management Note Discussed pt in rounds. Reviewed chart. Met w/pt to discuss PT recommendation for SNF rehab. Pt does not want to return to SNF rehab, feels she is feeling stronger as the day advances. Agreed to referral to [facility] but pt is clear she doesn't feel she needs SNF. Pt agreed to decide after PT eval on Wednesday. At pt request sent referral to [facility] for mobile home laborer PT and TRAVEL REGISTERED NURSE ONCOLOGY. Notified [facility] on phone. [facility] able to take pt with d/c and Wednesday admission to home care. Case Management d/c poc: home with [facility] at pt request. Case Management to follow. Date Signed: 08/24/2017 02:39 PM Electronically Signed By:Mirella Adrian RN
[2017-08-24] MEDS: ATORVASTATIN CALCIUM 10 MG TAB PO SCH (20:26)
[2017-08-25] MEDS: HYDROCODONE/APAP 5/325 TAB PO PRN ×3 (04:52→21:56)
[2017-08-25 05:16] LABS: PLATELET COUNT 273 10^3/uL (150-400)
[2017-08-25] MEDS: traMADol 50 MG TAB PO PRN ×2 (08:03→17:03)
[2017-08-25] MEDS: CARVEDILOL 6.25 MG TAB PO SCH ×2 (08:04→17:03)
[2017-08-25] MEDS: ENOXAPARIN 40 MG/0.4 ML SYR SC SCH (09:05)
[2017-08-25] MEDS: PANTOPRAZOLE SODIUM 40 MG TAB PO SCH (09:05)
[2017-08-25] MEDS: ASPIRIN EC 81 MG TAB PO SCH (09:05)
[2017-08-25] MEDS ORDERED: POTASSIUM CL 10 MEQ TAB PO ONE (11:35)
[2017-08-25] MEDS ORDERED: MAGNESIUM SULF 1 GM/DEXTROSE 100 ML IV ONE (11:36)
[2017-08-25] MEDS ORDERED: FUROSEMIDE 20 MG/2 ML VIAL IVP ONE (13:17)
[2017-08-25] MEDS: POTASSIUM/SODIUM PHOSPHATE 1 PKT PO SCH ×3 (14:25→21:36)
[2017-08-25] MEDS ORDERED: PAMIDRONATE DISODIUM IV ONE (14:37)
[2017-08-25] MEDS ORDERED: NS IV ONE (14:37)
[2017-08-25] MEDS ORDERED: PAMIDRONATE DISODIUM 90 MG in NS 250 ML IV ONE (14:37)
--- NOTE | 2017-08-25 16:09 | ASMTCMCOM ---
CM Note CM Note Notes: 08/25/2017 Case Management Note Discussed PT recommendation for SNF rehab. Pt in agreement today. Pt requested case management contact her daughter Tea [phone]. Tea in agreement for need of SNF rehab for pt. Both pt and Tea requested [facility]. Faxed updates to [facility] and asked that [facility] request authorization from insurance. Case Management d/c poc: To [facility] pending authorization. Case Management to follow. Date Signed: 08/25/2017 04:08 PM Electronically Signed By:Mirella Adrian RN
--- NOTE | 2017-08-25 18:15 | HOSPPROG ---
Hospitalist Progress Note Assessment/Plan: DIAGNOSES: -generalized weakness debility and gait instability, deconditioning multifactorial -known hyperparathyroidism, has been avoiding surgery see below -acute dehydration; suspect this may be brought on by her hypercalcemia and hypophosphatemia at least in part -pre renal azotemia associated with above -cough, dyspnea, pain at costal margins: At this point the patient denies to me the cough or dyspnea but still is bothered by costal margin pain -does have COPD, elevated right hemidiaphragm, atelectasis, no evidence of left heart failure at present -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 Of concern to me is that she does have symptoms of dehydration malnutrition with poor intake of food and fluid, and ongoing hypercalcemia hypophosphatemia from her hyperparathyroid state. I think her hypothyroid disease and electrolyte abnormalities are probably affecting her intake of food and fluids and she is probably losing fluid from the hypercalcemia as well. She has been avoiding the hyper parathyroid surgery because she had is worried about anesthesia yet she did quite well with the anesthesia for her heart surgery in April. We discussed that now that she has had her heart fix she is probably going to live for a good while as she has no other significant failing organs at this time. She is at risk for osteoporotic fractures and could reduce that risk by fixing her hyperparathyroidism. She is at risk for having ongoing malnutrition issues and recurrent bouts of hypercalcemia related symptoms including dehydration such as the current episode. Since she is probably going to be around for a while she should be looking to maximize her health comfort and independence. It is very likely that hyper parathyroid surgery would help her with that. After reviewing all this she agrees that this may be worth 3 considering. I have recommended she go back to Dr. Carvalho after this admission and reassess their risks and benefits of this surgery. PLANS: -continuing hydration iv -will begin Lasix and pamidronate therapy today as well as phosphate replacement and follow labs closely -physical and occupational therapy. -speech language pathology consultation to look at her dysphagia and coughing with eating -spend as much time she can up in a chair -nutritional supplements at this time and get a electric sealing machine operator consult. -continue monitoring and replacement of potassium as indicated -will review with Dr. Carvalho The patient was seen as well during multidisciplinary rounds today and we did review discharge planning issues. SUBJECTIVE: Strength about the same as yesterday Appetite slightly improved but certainly not at her usual baseline No dyspnea at this time Still has the same pain at the costal margins bilaterally increased with activity or bending and twisting or coughing Today she has continued to use the swelling methods taught to her by nurse yesterday and is not having coughing with swelling like she previously had OBJECTIVE Vitals reviewed: Stable without fever, temperatures are closer to normal today Sales And Service Associate, my review: Sinus Exam: alert oriented skin warm dry color ok resps not labored lungs clear BSs heart regular Chest wall exam and her sternum decision line all look good with no palpable abnormality abd soft nondistended nontender, bowel sounds present limbs warm, no edema iv site ok Lab data: Phosphorus low in calcium still greater than 12 with low albumin, unchanged from previous essentially Renal function stable Hemoglobin 9 is at her baseline anemia, white count remains normal Potassium now stabilized TSH is normal The patient had her swallow evaluation done yesterday with video fluoro, and this was done after the patient had received some coaching by 1 of our nurses on swallowing techniques. The patient reported that she felt much more comfortable and swallowed more easily during this test after that coaching than she has in the past. She did not have any coughing as she had been having at home. The fluoro images did not show any signs of aspiration Objective: Vital Signs Temp Pulse Resp BP Pulse Ox 36.9 C 86 20 120/67 97 08/25/17 16:10 08/25/17 16:10 08/25/17 16:10 08/25/17 16:10 08/25/17 16:10 Laboratory Results 08/25/17 04:35 08/25/17 04:35 08/24/17 08/25/17 08/26/17 06:59 06:59 06:59 Intake Total 775 2350 1556 Output Total 200 700 900 Balance 575 9210 656 - Time Spent With Patient Time Spent with Patient: greater than 35 minutes Time Spent with Patient: Greater than 35 minutes spent on this patients care, greater than 50% of time spent counseling, educating, and coordinating care regarding the above mentioned plan. ICD10 Worksheet Patient Problems: Problems Problem Status Onset Acute blood loss anemia Acute Chronic Disease Mgmt/Transitional Care Acute Dyspnea Acute Fever Acute Hypokalemia Acute Methicillin resistant Staphylococcus aureus infection Acute ~06/09/17 S/P CABG x 3 Acute ~05/14/17 S/P mitral valve replacement with bioprosthetic valve Acute ~05/14/17 Severe mitral regurgitation Acute Sternal wound dehiscence Acute Weakness Acute Wound infection after surgery Acute Cardiomyopathy, ischemic Chronic Chronic systolic CHF (congestive heart failure), NYHA class 2 Chronic Coronary artery disease Chronic
[2017-08-25] MEDS: LR 1,000 ML IV SCH (18:44)
[2017-08-25] MEDS: OMEGA-3 FATTY ACIDS 1,000 MG CAP PO SCH (21:36)
[2017-08-25] MEDS: ATORVASTATIN CALCIUM 10 MG TAB PO SCH (21:36)
[2017-08-26 05:37] LABS: PLATELET COUNT 274 10^3/uL (150-400)
[2017-08-26] MEDS: LR 1,000 ML IV SCH (07:32)
[2017-08-26] MEDS: ENOXAPARIN 40 MG/0.4 ML SYR SC SCH (07:40)
[2017-08-26] MEDS: CARVEDILOL 6.25 MG TAB PO SCH ×2 (07:41→18:13)
[2017-08-26] MEDS: PANTOPRAZOLE SODIUM 40 MG TAB PO SCH (07:41)
[2017-08-26] MEDS: ASPIRIN EC 81 MG TAB PO SCH (07:41)
[2017-08-26] MEDS: POTASSIUM/SODIUM PHOSPHATE 1 PKT PO SCH ×4 (07:41→21:13)
[2017-08-26] MEDS: HYDROCODONE/APAP 5/325 TAB PO PRN ×3 (09:20→18:23)
[2017-08-26] MEDS ORDERED: FLU VACC QS 2017-18 (3YR+)/PF 0.5 ML SYR (FLUARIX QUAD) IM ONE (12:00)
--- NOTE | 2017-08-26 15:44 | ASMTCMCOM ---
CM Note CM Note Notes: Discussed pts case in morning rounds. [facility] was able to get auth. Per hospitalist, pt will be here for a couple more days. Updates sent to [facility]. CM to follow. Plan: SNF Date Signed: 08/26/2017 03:44 PM Electronically Signed By:PHILL Mims
[2017-08-26] MEDS ORDERED: IOPAMIDOL (ISOVUE 370) 100 ML BTL IV ONE (17:03)
--- NOTE | 2017-08-26 18:46 | HOSPPROG ---
Hospitalist Progress Note Assessment/Plan: DIAGNOSES: -generalized weakness debility and gait instability, deconditioning multifactorial -known hyperparathyroidism, has been avoiding surgery see below -acute dehydration; suspect this may be brought on by her hypercalcemia and hypophosphatemia at least in part -pre renal azotemia associated with above -cough nonproductive, exertional dyspnea, pain at costal margins: At this point the patient denies to me the cough or dyspnea but still is bothered by costal margin pain -does have COPD, elevated right hemidiaphragm, atelectasis, no evidence of left heart failure at present -no PE on CT scan today but there is a suggestion of some bronchitis and a question of a potential right lower lobe infiltrate, procalcitonin might be helpful Again no fever or high white count are found -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 Carvalho her primary care physician and again with the patient herself. At this point the etiology of her weakness lethargy anorexia cough and other presenting symptoms is probably all multifactorial but hard to sort out where the major problems lie or what might improve her situation. So far hydration has helped her with her strength a little bit but has not changed any of her other symptoms. The CT scan suggests the possibility of bronchitis or pneumonia but she has no fever or white count, pro calcitonin might helpful. Most electrolytes are already corrected but the calcium is still high will continue to try and correct that further. Again encouraged increased activity increased time up in a chair and increased p.o. intake as she is able. At this point she remains to weak to trying get home but hope to continue to improve her mobility here PLANS: -continuing hydration iv -another dose of Lasix today -check a procalcitonin to see if this would indicate possible bacterial respiratory infection treatable by antibiotic -physical and occupational therapy. -speech language pathology consultation to look at her dysphagia and coughing with eating -spend as much time she can up in a chair -nutritional supplements at this time and get a chief medical officer consult. -continue monitoring and replacement of phosphorus and potassium as indicated The patient was seen as well during multidisciplinary rounds today and we did review discharge planning issues. SUBJECTIVE: Still names fairly weak overall with little change in that symptom Appetite remains minimal despite absence of nausea, difficulty swallowing, abdominal pain or distention, bowel function issues or other associated symptoms She does still have some dyspnea with exertion and this again is unchanged today from yesterday No fever symptoms No other new symptoms I did quit her at length and in detail about symptoms of depression, and she does not field herself depressed nor does she endorse significant symptoms of major depression at this time OBJECTIVE Vitals reviewed: Stable without fever, temperatures again are occasionally below 36 degrees Radiagraph Operator, my review: Sinus Exam: alert oriented skin warm dry color ok resps not labored lungs clear BSs heart regular Chest wall exam and her sternum decision line all look good with no palpable abnormality abd soft nondistended nontender, bowel sounds present limbs warm, no edema iv site ok Lab data: Phosphorus and potassium now both normal, calcium still greater than 12 with low albumin, Renal function stable Hemoglobin 9 is at her baseline anemia, white count remains normal Sedimentation rate was rechecked and is still bit high at 47, uncertain Arturo what this means given her degree of anemia TSH is normal I ordered a chest CT scan at to rule out PE and to get a better look at her sternum. There I looked at the images with Dr. Pereyra. There are no evident emboli, and there is no evidence of abscess or osteomyelitis around her sternum from her previous incision. Objective: Vital Signs Temp Pulse Resp BP Pulse Ox 35.9 C L 109 H 20 142/82 H 100 08/26/17 16:00 08/26/17 18:13 08/26/17 16:00 08/26/17 16:00 08/26/17 16:00 Laboratory Results 08/26/17 05:31 08/26/17 05:31 08/25/17 08/26/17 08/27/17 06:59 06:59 06:59 Intake Total 2350 3056 350 Output Total 700 1400 600 Balance 1650 1656 -250 - Time Spent With Patient Time Spent with Patient: greater than 35 minutes Time Spent with Patient: Greater than 35 minutes spent on this patients care, greater than 50% of time spent counseling, educating, and coordinating care regarding the above mentioned plan. ICD10 Worksheet Patient Problems: Problems Problem Status Onset Acute blood loss anemia Acute Chronic Disease Mgmt/Transitional Care Acute Dyspnea Acute Fever Acute Hypokalemia Acute Methicillin resistant Staphylococcus aureus infection Acute ~06/09/17 S/P CABG x 3 Acute ~05/14/17 S/P mitral valve replacement with bioprosthetic valve Acute ~05/14/17 Severe mitral regurgitation Acute Sternal wound dehiscence Acute Weakness Acute Wound infection after surgery Acute Cardiomyopathy, ischemic Chronic Chronic systolic CHF (congestive heart failure), NYHA class 2 Chronic Coronary artery disease Chronic
[2017-08-26] MEDS: ATORVASTATIN CALCIUM 10 MG TAB PO SCH (21:12)
[2017-08-26] MEDS: OMEGA-3 FATTY ACIDS 1,000 MG CAP PO SCH (21:13)
[2017-08-26] MEDS ORDERED: MAGNESIUM SULF 1 GM/DEXTROSE 100 ML IV ONE (22:36)
[2017-08-27] MEDS: LR 1,000 ML IV SCH (01:38)
[2017-08-27] MEDS: HYDROCODONE/APAP 5/325 TAB PO PRN ×5 (01:39→21:28)
[2017-08-27] MEDS: POTASSIUM/SODIUM PHOSPHATE 1 PKT PO SCH ×4 (08:46→21:30)
[2017-08-27] MEDS: ENOXAPARIN 40 MG/0.4 ML SYR SC SCH (08:46)
[2017-08-27] MEDS: ASPIRIN EC 81 MG TAB PO SCH (08:46)
[2017-08-27] MEDS: CARVEDILOL 6.25 MG TAB PO SCH ×2 (08:46→18:33)
[2017-08-27] MEDS: PANTOPRAZOLE SODIUM 40 MG TAB PO SCH (08:46)
[2017-08-27] MEDS ORDERED: MAGNESIUM SULF 1 GM/DEXTROSE 100 ML IV ONE (09:00)
--- NOTE | 2017-08-27 14:32 | ASMTCMCOM ---
CM Note CM Note Notes: Pts case discussed in morning rounds. Pt will most likely be here for a couple more days. CM sent updates to [facility]. CM spoke w/ Tea, daughter and provided updates. CM to follow. Plan: [facility] Date Signed: 08/27/2017 02:32 PM Electronically Signed By:PHILL Mims
[2017-08-27] MEDS: FUROSEMIDE 40 MG/4 ML VIAL IVP SCH (16:49)
--- NOTE | 2017-08-27 19:45 | HOSPPROG ---
Hospitalist Progress Note Assessment/Plan: DIAGNOSES: -generalized weakness debility and gait instability, deconditioning multifactorial -acute dehydration; suspect this may be brought on by her hypercalcemia and hypophosphatemia at least in part -significant hypercalcemia and hypophosphatemia at admission, due to her known chronic hyperparathyroidism -phosphates now in normal range, calcium getting better, today's corrected calcium at 12.8 -has now received 4 days of IV hydration, today will be 3rd dose of IV Lasix , and has received 1 dose of pamidronate -cough nonproductive, exertional dyspnea, pain at costal margins: At this point the patient denies to me the cough or dyspnea but still is bothered by costal margin pain -does have COPD, elevated right hemidiaphragm, atelectasis, no evidence of left heart failure at present -no PE on CT scan today but there is a suggestion of some bronchitis and a question of a potential right lower lobe infiltrate, procalcitonin might be helpful Again no fever or high white count are found -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; no evidence of recurrent infection at this time on CT scan with contrast, no fever or high WBC -hypokalemia resolved after replacement -mild hypothermia, but thyroid level is normal -moderately severe protein calorie malnutrition with poor intake persisting / anorexia of uncertain etiology -dysphagia and aspiration symptoms -These appear to have corrected very nicely with some swallow training and we are continuing speech language pathology to therapies -known hyperparathyroidism, surgery has been avoided in the past but on talking at this time with the patient and with her primary care physician Dr. Hidalgo of the [facility] there will be reassessment at this and likely plans for future surgery in the outpatient setting Again the patient continues to have improvement in her electrolytes, is receiving nutritional supplements, is getting physical occupational therapy. She however continues to complain of anorexia and is not eating well at all despite no other GI or digestive symptoms, continues to complain of feeling weak and severely fatigued. When I asked her to compared these symptoms to how she felt before admission she actually says they seem to feel worse, although at the same time she tells me that on the night of admission she was certain that if she had not come into the hospital and got treatment she would have but she does not feel like she is dying at this time. At this time there really does not appear to be any other identifiable potential fixable cause for these presenting symptoms other than continued to get the calcium in better range. The other electrolyte abnormalities and dehydration of all resolved. PLANS: -continuing hydration iv but decreased dose -another dose of Lasix today -recheck calcium again in the morning -physical and occupational therapy. -speech language pathology consultation to look at her dysphagia and coughing with eating -spend as much time she can up in a chair -nutritional supplements at this time and get a patient observation assistant consult. -continue monitoring and replacement of phosphorus and potassium as indicated The patient was seen as well during multidisciplinary rounds today and we did review discharge planning issues. Plan will be to send the patient to snf facility probably in about 2 days as long as calcium comes into a reasonable range SUBJECTIVE: Still names fairly weak overall with little change in that symptom Appetite remains minimal despite absence of nausea, difficulty swallowing, abdominal pain or distention, bowel function issues or other associated symptoms She does still have some dyspnea with exertion and this again is unchanged today from yesterday No fever symptoms No other new symptoms I did quit her at length and in detail about symptoms of depression, and she does not field herself depressed nor does she endorse significant symptoms of major depression at this time OBJECTIVE Vitals reviewed: Stable without fever, temperatures again are occasionally below 36 degrees Utilities Operator, my review: Sinus Exam: alert oriented skin warm dry color ok resps not labored lungs clear BSs heart regular Chest wall exam and her sternum decision line all look good with no palpable abnormality abd soft nondistended nontender, bowel sounds present limbs warm, no edema iv site ok Objective: Vital Signs Temp Pulse Resp BP Pulse Ox 36.3 C 92 15 129/77 H 95 08/27/17 14:51 08/27/17 18:33 08/27/17 14:51 08/27/17 14:51 08/27/17 14:51 Laboratory Results 08/26/17 05:31 08/27/17 18:23 08/26/17 08/27/17 08/28/17 06:59 06:59 06:59 Intake Total 3056 2200 500 Output Total 1400 800 100 Balance 1656 1400 400 ICD10 Worksheet Patient Problems: Problems Problem Status Onset Acute blood loss anemia Acute Chronic Disease Mgmt/Transitional Care Acute Dyspnea Acute Fever Acute Hypokalemia Acute Methicillin resistant Staphylococcus aureus infection Acute ~06/09/17 S/P CABG x 3 Acute ~05/14/17 S/P mitral valve replacement with bioprosthetic valve Acute ~05/14/17 Severe mitral regurgitation Acute Sternal wound dehiscence Acute Weakness Acute Wound infection after surgery Acute Cardiomyopathy, ischemic Chronic Chronic systolic CHF (congestive heart failure), NYHA class 2 Chronic Coronary artery disease Chronic
[2017-08-27] MEDS: traMADol 50 MG TAB PO PRN (21:26)
[2017-08-27] MEDS: OMEGA-3 FATTY ACIDS 1,000 MG CAP PO SCH (21:28)
[2017-08-27] MEDS: ATORVASTATIN CALCIUM 10 MG TAB PO SCH (21:28)
[2017-08-28] MEDS: HYDROCODONE/APAP 5/325 TAB PO PRN ×3 (02:14→13:49)
[2017-08-28] MEDS ORDERED: MAGNESIUM SULF 1 GM/DEXTROSE 100 ML IV ONE (08:54)
[2017-08-28] MEDS: PANTOPRAZOLE SODIUM 40 MG TAB PO SCH (09:08)
[2017-08-28] MEDS: ENOXAPARIN 40 MG/0.4 ML SYR SC SCH (09:08)
[2017-08-28] MEDS: ASPIRIN EC 81 MG TAB PO SCH (09:08)
[2017-08-28] MEDS: CARVEDILOL 6.25 MG TAB PO SCH (09:08)
[2017-08-28] MEDS: POTASSIUM/SODIUM PHOSPHATE 1 PKT PO SCH ×2 (09:08→13:33)
[2017-08-28] MEDS: FUROSEMIDE 40 MG/4 ML VIAL IVP SCH (09:08)
[2017-08-28 12:17] VITALS: BP 114/63; PULSE 90; RESP 12; TEMP 97.6; O2SAT 95
--- NOTE | 2017-08-28 14:20 | PDIAF ---
- Diagnosis Diagnosis: hypercalcemia Code Status: Full Code - Medication Management Discharge Medications: Medications to Continue on Transfer [place]-3 Fatty Acids [Fish Oil 1000 mg (*)] 2,000 mg PO HS 04/03/14 [Last Taken 08/23/17] Aspirin EC [Aspirin EC 81 mg (*)] 81 mg PO DAILY #30 tab 04/05/14 [Last Taken ] Carvedilol [Coreg (*)] 6.25 mg PO BIDMEAL #60 tab 04/05/14 [Last Taken 08/23/17 18:00] Pantoprazole Sodium [Protonix 40mg (*)] 40 mg PO DAILY #30 tab 04/05/14 [Last Taken 08/23/17] Atorvastatin Calcium [Lipitor 10 mg (*)] 10 mg PO HS 04/20/17 [Last Taken ] Glucosamine/Chondroitin [Glucosamine/Chondroitin (*)] 1 each PO DAILY 04/20/17 [ Last Taken 08/23/17] Acetaminophen [Tylenol 325mg (*)] 325 - 650 mg PO Q4HRS PRN #0 tab 06/17/17 [ Last Taken 3 Days Ago ~08/20/17] Furosemide [Lasix 40 MG (*)] 40 mg PO DAILY #0 tab 06/17/17 [Last Taken 08/23/17 ] Potassium Cl [Klor-Con 20 meq (*)] 20 meq PO DAILY 06/21/17 [Last Taken 08/23/17 ] Polyethylene Glycol 3350 [Miralax 17 gm (*)] 17 gm PO DAILY PRN pkt 07/01/17 [ Last Taken 1 Month Ago ~07/23/17] Sennosides/Docusate Sodium [Senokot-S] 1 - 2 tab PO BID tab 07/01/17 [Last Taken 08/22/17] Herbals/Supplements -Info Only 1 ea PO DAILY 08/23/17 [Last Taken 08/23/17] traMADol [Ultram 50 mg (*)] 50 mg PO Q4 PRN 08/23/17 [Last Taken 08/23/17 04:00] Cinacalcet HCl [Sensipar (*)] 30 mg PO BID #60 tab 08/28/17 [Last Taken Unknown] Discharge Medications: Refer to the Discharge Home Medication list for PRN reason. - Orders Services needed: Physical Therapy, Occupational Therapy Isolation Type: Contact Isolation Diet Recommendation: no restrictions on diet - Labs/Radiology BMP Date: 09/01/17 - Follow Up Care Current Providers and Referrals: Baljeet Carvalho MD [Primary Care Provider] -
[2017-08-28] MEDS: traMADol 50 MG TAB PO PRN (15:52)
--- NOTE | 2017-08-28 16:16 | ASMTCMCOM ---
CM Note CM Note Notes: Met with pt, RN & MD; pt medically stable & ready for dc. Pt agreeable to going to [facility]. Dc order received. Spoke with Eva, at [facility]; insurance auth received, bed available. Dc orders faxed; confirmed received. Transportation arranged. Updated pt, pt's daughter, Christi & RN. Date Signed: 08/28/2017 04:16 PM Electronically Signed By:Bailee Cole RN
--- NOTE | 2017-08-29 15:45 | ASDISCHSUM ---
Discharge Information Plan Status:SNF Medically Cleared to Leave:08/27/2017 Discharge Date:08/28/2017 04:10 PM D/C Disposition:Halfway Facility ADT D/C Disposition:Halfway Facility Projected Discharge Date:08/28/2017 11:00 AM Transportation at D/C:Wheelchair Van Discharge Delay Reason: Follow-Up Date:08/28/2017 11:00 AM Discharge Slot: Final Diagnosis:Hypercalcemia, dehydration, dyspnea Placement Information Referral Type:*[facility]NF Referral ID:[id number] Provider Name:[facility] Address 1:[address] Address 2: City:[place] Selection Factors: State:[place] Referral Type:*Home Health Care Services Referral ID:[id number] Provider Name: Address 1: Phone Number: Address 2: Fax Number: City: [facility] Factors: State: Patient Contact Information Contact Name:ROLDAN Relationship:Daughter Address:[address] Work Phone: City:[place] Phone: [facility]/Zip Code:[place] [address] Email: Financial Information Financial Class:Medicare Advantage Plans Primary Plan Desc:[email or web address] PPO MEDICARE Primary Plan Number:[id number] Secondary Plan Desc: Secondary Plan Number: Assessment Information [facility] CM Progress Note CM Note CM Note Notes: 08/24/2017 Case Management Note Discussed pt in rounds. Reviewed chart. Met w/pt to discuss PT recommendation for SNF rehab. Pt does not want to return to SNF rehab, feels she is feeling stronger as the day advances. Agreed to referral to [facility] but pt is clear she doesn't feel she needs SNF. Pt agreed to decide after PT eval on Wednesday. At pt request sent referral to [facility] for aboriginal home school liaison officer PT and [employer]. Notified [facility] on phone. [facility] able to take pt with d/c and Wednesday admission to home care. Case Management d/c poc: home with [facility] at pt request. Case Management to follow. Date Signed: 08/24/2017 02:39 PM Electronically Signed By:Mirella Adrian RN [facility] CM Progress Note CM Note CM Note Notes: 08/25/2017 Case Management Note Discussed PT recommendation for SNF rehab. Pt in agreement today. Pt requested case management contact her daughter Tea [phone]. Tea in agreement for need of SNF rehab for pt. Both pt and Tea requested [facility]. Faxed updates to [facility] and asked that [facility] request authorization from insurance. Case Management d/c poc: To [facility] pending authorization. Case Management to follow. Date Signed: 08/25/2017 04:08 PM Electronically Signed By:Mirella Adrian RN [facility] CM Progress Note CM Note CM Note Notes: Discussed pts case in morning rounds. [facility] was able to get auth. Per hospitalist, pt will be here for a couple more days. Updates sent to [facility]. CM to follow. Plan: SNF Date Signed: 08/26/2017 03:44 PM Electronically Signed By:PHILL Mims [facility] CM Progress Note CM Note CM Note Notes: Pts case discussed in morning rounds. Pt will most likely be here for a couple more days. CM sent updates to [facility]. CM spoke w/ Tea, daughter and provided updates. CM to follow. Plan: [facility] Date Signed: 08/27/2017 02:32 PM Electronically Signed By:PIHLL Mims [facility] Progress Note CM Note CM Note Notes: Met with pt, RN & MD; pt medically stable & ready for dc. Pt agreeable to going to [facility]. Dc order received. Spoke with Eva at [facility]; insurance auth received, bed available. Dc orders faxed; confirmed received. Transportation arranged. Updated pt, pt's daughter, Christi & RN. Date Signed: 08/28/2017 04:16 PM Electronically Signed By:Bailee Cole RN Intervention Information
== END 2017-08-28 16:10 | DRG 640 ==
LOC: F2W 20:45
PROVIDERS: ADMIT Hospitalist; ATTEND Hospitalist
DX: E87.6 Hypokalemia (principal); E43 Unspecified severe protein-calorie malnutrition; E21.3 Hyperparathyroidism, unspecified; E86.0 Dehydration; R13.10 Dysphagia, unspecified; K21.9 Gastro-esophageal reflux disease without esophagitis; E78.5 Hyperlipidemia, unspecified; E87.1 Hypo-osmolality and hyponatremia; R73.9 Hyperglycemia, unspecified; D63.8 Anemia in other chronic diseases classified elsewhere; J44.9 Chronic obstructive pulmonary disease, unspecified; Z95.1 Presence of aortocoronary bypass graft; Z95.3 Presence of xenogenic heart valve; Z87.891 Personal history of nicotine dependence
CPT/HCPCS: 84134-90; 92526-GN; 92610-GN; 92611-GN; 97110-GP; 97116-GP; 97161-GP; 97165-GO; 97530-GO; 97530-GP; 97535-GO; G8978-GP-CJ; G8979-GP-CI; G8987-GO-CK; G8988-GO-CI; J1650; J1940; J2430; J3475; Q9967

== ENCOUNTER → 2017-08-23 | Outpatient (CLI) | payer OTHER | LOC: FIMAGING 10:23 | PROVIDERS: ATTEND Internal Medicine | DX: R07.9 Chest pain, unspecified (principal); J98.4 Other disorders of lung; Z98.890 Other specified postprocedural states ==

== ENCOUNTER 2017-09-03 15:56 | Inpatient (IN) | payer OTHER ==
--- NOTE | 2017-09-03 17:08 | EDPHY ---
H & P Time Seen by Provider: 09/03/17 17:08 HPI/ROS: CHIEF COMPLAINT: Possible surgical site infection HISTORY OF PRESENT ILLNESS: This patient is a 77 y/o female s/p CABG x3 and mitral valve replacement with Dr. 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 She has been followed by Dr. Razo, infectious disease. On Wednesday, four days ago, the surgical wound began oozing with colored drainage. This resolved the next day but she continued to have some clear drainage. She has been living at [facility] after recent admission for complications of hyperparathyroidism. Today, a nurse changing her bandages noted yellow discharge from the area and she presents for evaluation of possible recurrent infection. Associated with fatigue and generalized weakness today. She denies fever, cough or shortness of breath. REVIEW OF SYSTEMS: A 10 point review of systems was performed and is negative with the exception of the elements mentioned in the history of present illness. Past Medical/Surgical History: Hyperparathyroidism Hypertension Hyperlipidemia Shingles GERD Systolic CHF CAD s/p CABG x3, MVR (04/2017) MRSA mediastinitis s/p Vancomycin Social History: Lives in [place]. Retired. Daughter at bedside. Smoking Status: Former smoker Physical Exam: General Appearance: Alert, pleasant Eyes: Pupils equal and round, no conjunctival pallor or injection ENT, Mouth: Mucous membranes moist Neck: Normal inspection Respiratory: tachypneic, lungs are clear to auscultation, surgical scar with purulent drainage from pinpoint area of wound opening, no erythema or warmth Cardiovascular: Regular rate and rhythm Gastrointestinal: Abdomen is soft and non-tender Neurological: A&O, nonfocal exam Skin: Warm and dry, no rash Extremities: Nontender, no pedal edema Psychiatric: Mood and affect normal Constitutional: Initial Vital Signs Temperature (C) 37.2 C 09/03/17 16:01 Heart Rate 98 09/03/17 16:01 Respiratory Rate 18 09/03/17 16:01 O2 Sat (%) 99 09/03/17 16:01 O2 Delivery Mode Nasal Cannula O2 (L/minute) 2 Allergies/Adverse Reactions: NSAIDS (Non-Steroidal Anti-Inflamma [NSAIDS (Non-Steroidal Anti-Inflammatory Drug)] Allergy (Severe, Verified 06/02/17 13:44) Other-Enter Comments Sulfa (Sulfonamide Antibiotics) Allergy (Verified 05/13/17 13:58) Unknown Home Medications: Medication Instructions Recorded [place]-3 Fatty Acids [Fish Oil 1000 2,000 mg PO HS 04/03/14 mg (*)] Aspirin EC [Aspirin EC 81 mg (*)] 81 mg PO DAILY #30 tab 04/05/14 Carvedilol [Coreg (*)] 6.25 mg PO BIDMEAL #60 tab 04/05/14 Pantoprazole Sodium [Protonix 40mg 40 mg PO DAILY #30 tab 04/05/14 (*)] Atorvastatin Calcium [Lipitor 10 10 mg PO HS 04/20/17 mg (*)] Glucosamine/Chondroitin 1 each PO DAILY 04/20/17 [Glucosamine/Chondroitin (*)] Furosemide [Lasix 40 MG (*)] 40 mg PO DAILY #0 tab 06/17/17 Potassium Cl [Klor-Con 20 meq (*)] 20 meq PO DAILY 06/21/17 Polyethylene Glycol 3350 [Miralax 17 gm PO DAILY PRN pkt 07/01/17 17 gm (*)] Herbals/Supplements -Info Only 1 ea PO DAILY 08/23/17 Cinacalcet HCl [Sensipar (*)] 30 mg PO BID #60 tab 08/28/17 traMADol [Ultram 50 mg (*)] 50 mg PO Q4 PRN #60 tab 08/28/17 Acetaminophen [Tylenol 325mg (*)] 650 mg PO Q4HRS PRN 09/03/17 Sennosides/Docusate Sodium 2 tab PO BID 09/03/17 [Senokot-S] Medical Decision Making - Diagnostics Imaging Results: CT scan of the chest read by the radiologist reveals an anterior mediastinal fluid collection, consistent with abscess, bilateral pleural effusions and a right upper lobe nodule. ED Course/Re-evaluation: 77 y/o female s/p CABG and MVR with history of MRSA mediastinitis presents with purulent drainage from her incision site. Serous drainage followed by purulent drainage expressed from area over patient's sternum, sent for wound culture. c/ w recurrent/persistent infection, will eval for abscess with repeat CT chest. Does not meet SIRS criteria (HR 99, RR 18, T37.2, no leukocytosis) and initial lactate is normal. 17:[address] Jackson, infectious disease specialist. Plan to administer 500mg IV Daptomycin per Dr. Jackson. 17:[address] Aggarwal, the patient's surgeon. He will consult during patient's admission. CT scan reveals an anterior mediastinal fluid collection, consistent with abscess. 17:[address] Dixon, hospitalist. He accepts admission for chest wall abscess. Differential Diagnosis: Differential diagnosis includes does not limited to abscess, mediastinitis, pneumonia, empyema - Data Points Microbiology Results: MICROBIOLOGY 09/03/17 17:15 Chest - Swab Gram Stain - Final 09/03/17 17:15 Chest - Swab Wound Culture - Final MRSA Medications Given: Acetaminophen (Tylenol) 650 mg PO Q4HRS PRN PRN Reason: Pain, Mild/Fever, Can Take PO Stop: 03/02/18 18:03 Last Admin: 09/04/17 22:27 Dose: 650 mg Aspirin Buffered (Aspirin Ec) 81 mg PO DAILY MARIANNE Stop: 03/03/18 08:59 Last Admin: 09/05/17 08:46 Dose: 81 mg Carvedilol (Coreg) 6.25 mg PO BIDMEAL MARIANNE Stop: 03/03/18 07:59 Last Admin: 09/05/17 17:43 Dose: 6.25 mg Cinacalcet (Sensipar) 30 mg PO BID MARIANNE Stop: 03/02/18 20:59 Last Admin: 09/05/17 21:21 Dose: 30 mg Furosemide (Lasix) 40 mg PO DAILY MARIANNE Stop: 03/03/18 08:59 Last Admin: 09/05/17 08:46 Dose: 40 mg Glucosamine/Chondroitin (Glucosamine/Chondroitin) 1 each PO DAILY MARIANNE Stop: 03/03/18 08:59 Last Admin: 09/05/17 08:45 Dose: 1 each Daptomycin 500 mg/ Sodium (Chloride) 10 mls @ 300 mls/hr IV DAILY@1000 MARIANNE Stop: 10/04/17 12:59 Last Admin: 09/05/17 11:08 Dose: 10 mls Pantoprazole Sodium (Protonix) 40 mg PO DAILY MARIANNE Stop: 03/03/18 08:59 Last Admin: 09/05/17 08:45 Dose: 40 mg Potassium Chloride (Klor-Con) 20 meq PO DAILY MARIANNE Stop: 03/03/18 08:59 Last Admin: 09/05/17 08:46 Dose: 20 meq Senna/Docusate Sodium (Senokot-S) 2 tab PO BID MARIANNE Stop: 03/02/18 20:59 Last Admin: 09/05/17 21:17 Dose: Not Given Discontinued Medications Furosemide (Lasix Injection) 20 mg IVP ONCE ONE Stop: 09/05/17 13:32 Last Admin: 09/05/17 14:35 Dose: 20 mg Daptomycin 500 mg/ Sodium (Chloride) 110 mls @ 200 mls/hr IV EDNOW ONE PRN Reason: Protocol Stop: 09/03/17 18:01 Last Admin: 09/03/17 18:31 Dose: 110 mls Magnesium Sulfate (Magnesium Sulf 2 Gm (Premix)) 50 mls @ 50 mls/hr IV ONCE ONE Stop: 09/04/17 11:28 Last Admin: 09/04/17 11:55 Dose: Not Given Potassium Chloride (Klor-Con) 10 - 40 meq PO ONCE ONE PRN Reason: Protocol Stop: 09/04/17 06:19 Last Admin: 09/04/17 06:30 Dose: 40 meq Potassium Chloride (Klor-Con) 40 meq PO ONCE ONE PRN Reason: Protocol Stop: 09/04/17 21:49 Last Admin: 09/04/17 22:27 Dose: 40 meq Potassium Chloride (Klor-Con) 10 - 40 meq PO ONCE ONE PRN Reason: Protocol Stop: 09/05/17 06:57 Last Admin: 09/05/17 08:45 Dose: 30 meq Potassium Chloride (Klor-Con) 10 meq PO ONCE ONE PRN Reason: Protocol Stop: 09/05/17 19:44 Last Admin: 09/05/17 21:22 Dose: 10 meq Departure - Departure Disposition: [facility] Acute Clinical Impression: Abscess of chest wall Condition: Fair Report Scribed for: Elo Askew Report Scribed by: Hanna Arciniega Date of Report: 09/03/17 Time of Report: 17:23 Physician Review and Approval Statement: 09/03/17 17:23 Portions of this note were transcribed by a medical consultant. I personally performed a history, physical exam, medical decision making, and confirmed accuracy of information the transcribed note.
[2017-09-03] MEDS ORDERED: DAPTOmycin 500 MG in NS 100 ML IV ONE (17:29)
[2017-09-03 17:54] LABS: PLATELET COUNT 327 10^3/uL (150-400)
[2017-09-03] MEDS ORDERED: ONDANSETRON DISINTEGRATING 4 MG TAB PO PRN (18:01)
[2017-09-03] MEDS ORDERED: ONDANSETRON 4 MG/2 ML VIAL IVP PRN (18:01)
[2017-09-03] MEDS ORDERED: ACETAMINOPHEN 325 MG TAB PO PRN ×2 (18:01→18:04)
[2017-09-03] MEDS ORDERED: POLYETHYLENE GLYCOL 3350 17 GM PKT PO PRN (18:04)
[2017-09-03] MEDS ORDERED: IOPAMIDOL (ISOVUE-300) 100 ML BTL ONE (18:30)
--- NOTE | 2017-09-03 19:12 | GHP ---
[f rep st] HISTORY AND PHYSICAL DATE OF ADMISSION: 09/03/2017 CHIEF COMPLAINT: Possible infected wound. HISTORY OF PRESENT ILLNESS: This is a 77-year-old female with a complicated recent history including a CABG, mitral valve replacement and left atrial appendage ligation on May 14. This was compl icated by mediastinitis requiring I and D, and eventually plastic surgery. She was recently admitted for electrolyte abnormalities, and discharged to [facility]. She had been doing okay at [facility]. When her wound was examined today by a nurse, the nurse was able to express some purulence, and emily s sent her to the emergency department. She denies any fevers. She maybe had a little bit more olivia ise than recent. She has noted that her pulse is occasionally rapid. She does not think that that h as been worse recently. She had a CT angiogram performed on August 26. This was most notable cur rently for postsurgical changes with continued evidence of nonunion with surrounding soft tissue swel ling at the sternotomy. PAST MEDICAL/SURGICAL HISTORY: 1. Systolic CHF, last echocardiogram in April showing an EF of 50% to 55%. 2. Coronary artery disease, status post CABG, 3 vessel. 3. Mitral valve replacement. 4. Left atrial appendage ligation. 5. Bunionectomy. 6. Carpal tunnel release. 7. Mastoidectomy. 8. Peptic ulcer disease. 9. Hyperparathyroidism. 10. Hypokalemia. 11. Mediastinitis. 12. Hypertension. 13. Hyperlipidemia. MEDICATIONS: Please see medication reconciliation. ALLERGIES: NSAIDs and sulfa. SOCIAL HISTORY: Recently was at [facility]. She is accompanied by her daughter. FAMILY HISTORY: Reviewed and noncontributory. REVIEW OF SYSTEMS: 10-point review of systems is conducted, and is negative except per HPI. PHYSICAL EXAMINATION: VITAL SIGNS: Blood pressure 129/89, heart rate 103, respiration rate 20, satu rating 100% on 2 L. Temperature is 37.2. GENERAL: This is a pleasant female, resting comfortably. Appears overall nontoxic. CHEST: Notable for sternotomy scar, which has no surrounding erythema or warmth. However, there is a tunnel site mid scar. When pressed around this, some purulence is expr essed. HEENT: Normocephalic, atraumatic. CARDIOVASCULAR: Regular rate and rhythm. No murmurs, ru bs, or gallops. She has mild, trace to 1+ bilateral lower extremity edema. PULMONARY: Lungs clear to auscultation bilaterally. She is in no respiratory distress. ABDOMEN: Soft, nontender, nondiste nded. SKIN: Shows no rash. : No Walker. NEUROLOGIC: Alert and oriented x3. She is moving all extremities. PSYCHIATRIC: Normal mood and affect. LABS: Hemoglobin is 9.1, sodium 134. DATA: 1. I discussed with Dr. Askew. 2. I reviewed her chart, summarized per HPI. IMPRESSION AND PLAN: 1. Concern for sternotomy infection: Discussed with Dr. Aggarwal and Dr. Jackson by emergency department physician. Recommend CT of the chest as well as empiric daptomycin. Her mediastinitis was MRSA. Essence martinez had been treated with vancomycin; however, developed a rash to vancomycin. We will check a CK and hold Lipitor at this time. 2. Coronary artery disease: We will continue cardiac medications, other than Lipitor. 3. Recent electrolyte abnormalities: These seemed to have resolved. 4. Anemia: This is chronic. 5. Code status: Full code. 6. Venous thromboembolism risk: She is moderate. However, she may potentially need exploration of this wound. We will place her on sequential compression devices for now. 7. Diet: Regular for now. N.p.o. after midnight pending surgical evaluation. /[id number]/MODL
--- NOTE | 2017-09-03 20:15 | PDMN ---
Medical Necessity Medical necessity: C/M review: Patient meets INPT criteria under [facility] Systemic or infectious condition GRG (infection following a procedure), Wound and skin management GRG: Acute possible sternotomy infection requiring IV Daptomycin in ED, planned CT surgery consult, further Iv antibiotics pending Infectious disease consult, Wound Care consult, ongoing pain management, NPO after MN pending surgical evaluation, acute inpt PT/OT, comorbid 05/14/2017 CABG, mitral valve replacement and left atrial appendage ligation complicated by MRSA mediastinitis requiring an I&D, eventual plastic surgery, and treated with IV Vancomycin, patient developed rash to Vancomycin, recent admission for electrolyte abnormalities, CAD, history of systolic CHF, peptic ulcer disease, hyperparathyroidism, hypertension, hyperlipidemia. MD anticipates > 2 MN LOS for eval and TX of above. Patient is Medicare Advantage which follows guidelines CMS puts forth.
[2017-09-03] MEDS: CINACALCET HCL 30 MG TAB PO SCH (21:19)
[2017-09-03] MEDS: SENNOSIDES/DOCUSATE SODIUM TAB PO SCH (21:19)
[2017-09-04 05:23] LABS: PLATELET COUNT 258 10^3/uL (150-400)
[2017-09-04] MEDS ORDERED: PROTOCOL POTASSIUM 1 DOSE MISC PRN (06:05)
[2017-09-04] MEDS ORDERED: PROTOCOL MAGNESIUM 1 DOSE IV PRN (06:05)
[2017-09-04] MEDS ORDERED: POTASSIUM CL 10 MEQ TAB PO ONE ×2 (06:18→21:48)
[2017-09-04] MEDS: CINACALCET HCL 30 MG TAB PO SCH ×2 (08:39→22:28)
[2017-09-04] MEDS: SENNOSIDES/DOCUSATE SODIUM TAB PO SCH ×2 (08:39→21:46)
[2017-09-04] MEDS: PANTOPRAZOLE SODIUM 40 MG TAB PO SCH (08:39)
[2017-09-04] MEDS: POTASSIUM CL 20 MEQ TAB PO SCH (08:39)
[2017-09-04] MEDS: GLUCOSAMINE/CHONDROITIN CAP PO SCH (08:39)
[2017-09-04] MEDS: CARVEDILOL 6.25 MG TAB PO SCH ×2 (08:40→17:47)
[2017-09-04] MEDS: FUROSEMIDE 40 MG TAB PO SCH (08:40)
[2017-09-04] MEDS: ASPIRIN EC 81 MG TAB PO SCH (08:40)
[2017-09-04] MEDS ORDERED: MAGNESIUM SULF 2 GM/WATER 50 ML IV ONE (10:29)
--- NOTE | 2017-09-04 12:58 | PCMIDPN ---
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 Most likely will be due to MRSA based on prior cultures. Will require repeat incision and drainage based on clinical and radiographic findings. Continue daptomycin pending culture data. Previously developed significant rash at end of course of vancomycin therapy in late June. Clinical findings and plan reviewed with Drs. Marquez, Alessia and Davion as well as with patient and daughter. Side effects of daptomycin including myositis or hypersensitivity pneumonitis also discussed with patient. Will hold statin while on daptomycin to avoid increased risk of myositis. * Positive blood cultures: 07/29 bottles with GPCs in clusters. Await BC ID by PCR to determine if contaminant versus real pathogen such as MRSA. * Vancomycin allergy Time spent, greater than 35 min, of which greater than half was spent in coordination of care related to recurrent sternal abscess/mediastinitis. 09/04/17 12:53 09/04/17 13:00 Subjective: Patient previously known to Infectious Disease service for treatment of MRSA mediastinitis. Completed approximately 6 weeks of vancomycin in late June which was complicated by allergic rash. Patient noted recurrent drainage from lower sternal incision beginning 5 days ago. This initially was copious enough to saturate her bra. She describes initial drainage is being thick and yellow. Subsequently through the course of the week she had drainage of clear fluid until yesterday which point in time she was noted to have recurrent drainage of purulent material. This prompted evaluation in the emergency department where approximately 10 mL of purulence was expressed. Cultures of the material are currently pending. Patient has not noted fever, chills or night sweats. Does have tenderness along the lower sternal region. Given the above findings, Infectious diseases is now asked to assist in her ongoing management. Allergy: Vancomycin associated with diffuse rash, NSAIDs, sulfonamides ( unclear reaction) Objective: Vital Signs Temp Pulse Resp BP Pulse Ox 36.8 C 98 18 123/70 H 96 09/04/17 11:55 09/04/17 11:55 09/04/17 11:55 09/04/17 11:55 09/04/17 11:55 Laboratory Results 09/04/17 04:59 09/04/17 04:59 09/03/17 09/04/17 09/05/17 05:59 05:59 05:59 Intake Total 230 Balance 230 Blood cultures 1/4 bottles GPCs in clusters Sternal culture Gram stain negative with culture pending CT scan of chest with 5.8 x 2 cm fluid collection anterior to sternum which tracks to nonunion region; mild inflammatory stranding present - Physical Exam General Appearance: alert, no apparent distress EENT: No scleral icterus, No conjunctival petechiae Respiratory: lungs clear, No respiratory distress Cardiac/Chest: regular rate, rhythm, other (Purulent material expressed with pressure from sinus tract along lower 3rd of incision; tender to palpation without overt instability; no overlying erythema), No systolic murmur Abdomen: non-tender, No distended Skin: No embolic lesions ICD10 Worksheet Patient Problems: Problems Problem Status Onset Abscess of chest wall Acute Acute blood loss anemia Acute Chronic Disease Mgmt/Transitional Care Acute Dyspnea Acute Fever Acute Hypokalemia Acute Methicillin resistant Staphylococcus aureus infection Acute ~06/09/17 S/P CABG x 3 Acute ~05/14/17 S/P mitral valve replacement with bioprosthetic valve Acute ~05/14/17 Severe mitral regurgitation Acute Sternal wound dehiscence Acute Weakness Acute Wound infection after surgery Acute Cardiomyopathy, ischemic Chronic Chronic systolic CHF (congestive heart failure), NYHA class 2 Chronic Coronary artery disease Chronic
[2017-09-04] MEDS ORDERED: DAPTOmycin 500 MG in NS 100 ML IV SCH (13:00)
[2017-09-04] MEDS: NS IV SCH (13:49)
[2017-09-04] MEDS: DAPTOMYCIN IV SCH (13:49)
--- NOTE | 2017-09-04 15:00 | HOSPPROG ---
Hospitalist Progress Note Assessment/Plan: 77-year-old well known to this hospital for mediastinitis due to MR . She is readmitted with draining wound on her mediastinum. 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 She has had an allergy to vancomycin and is currently on daptomycin per ID * Patient discussed with ID * Continue antibiotics * Reviewed case with surgery and they will debride abscess on Wednesday with possible plastics help # mild systolic cardiomyopathy with an EF of 50%, patient appears comfortable in euvolemic currently # coronary artery disease status post 3 vessel CABG in April 2017 # mitral valve disease status post mitral valve replacement and atrial appendage clipping in April 2017 # hyperparathyroidism with electrolyte abnormalities followed by Dr. Larson. Awaiting patient to be well enough to undergo hyper parathyroidectomy. * Will let Dr. Larson know on Wednesday patient is in the hospital although not well enough to undergo surgery at this time * Continue to follow electrolytes while patient in the hospital and correct as needed # hypertension # hyperlipidemia Subjective: Patient new to me and chart reviewed, discussed with Dr. Jackson. Patient pain under adequate control. Hungry and wants to eat. No nausea diarrhea Objective: Vital Signs Temp Pulse Resp BP Pulse Ox 36.8 C 98 18 123/70 H 96 09/04/17 11:55 09/04/17 11:55 09/04/17 11:55 09/04/17 11:55 09/04/17 11:55 Microbiology 09/03/17 18:00 Blood Panel (PCR) - Final Blood MRSA Laboratory Results 09/04/17 04:59 09/04/17 13:10 09/03/17 09/04/17 09/05/17 05:59 05:59 05:59 Intake Total 230 Balance 230 - Physical Exam Constitutional: no apparent distress, obese Eyes: PERRL, anicteric sclera, EOMI Ears, Nose, Mouth, Throat: moist mucous membranes, ears appear normal Cardiovascular: regular rate and rhythym, systolic murmur Respiratory: no respiratory distress, clear to auscultation, reduced air movement Gastrointestinal: soft, non-tender abdomen Genitourinary: no bladder fullness Skin: warm, other (Draining wound on mediastinum) Neurologic: No facial droop Psychiatric: interacting appropriately, not anxious, not encephalopathic ICD10 Worksheet Patient Problems: Problems Problem Status Onset Abscess of chest wall Acute Acute blood loss anemia Acute Chronic Disease Mgmt/Transitional Care Acute Dyspnea Acute Fever Acute Hypokalemia Acute Methicillin resistant Staphylococcus aureus infection Acute ~06/09/17 S/P CABG x 3 Acute ~05/14/17 S/P mitral valve replacement with bioprosthetic valve Acute ~05/14/17 Severe mitral regurgitation Acute Sternal wound dehiscence Acute Weakness Acute Wound infection after surgery Acute Cardiomyopathy, ischemic Chronic Chronic systolic CHF (congestive heart failure), NYHA class 2 Chronic Coronary artery disease Chronic
--- NOTE | 2017-09-04 18:01 | ASMTCMCOM ---
CM Note CM Note Notes: Reviewed chart, spoke w/ ZULEMA Horowitz regarding pt's progress. Pt admitted for a chest wall abscess and mediastinitis. Pt underwent a CABG on May 14, 2017. Pt has an extensive history w/ several co-morbidities, including recent MRSA. Blood cultures pending. Pt's dghtr is involved in her care. Pt was admitted to [facility] from [facility] () SNF. Discharge needs remain unclear at this time. Anticipate pt will likely need SNF again. CM will need to meet w/ pt and family to determine if pt would like to return to . CM will cont to follow. Current Discharge Plan: To be determined, possibly [facility] Date Signed: 09/04/2017 06:01 PM Electronically Signed By:Sri Royal RN
[2017-09-05] MEDS ORDERED: POTASSIUM CL 10 MEQ TAB PO ONE ×2 (06:56→19:43)
[2017-09-05] MEDS: CINACALCET HCL 30 MG TAB PO SCH ×2 (08:45→21:21)
[2017-09-05] MEDS: PANTOPRAZOLE SODIUM 40 MG TAB PO SCH (08:45)
[2017-09-05] MEDS: GLUCOSAMINE/CHONDROITIN CAP PO SCH (08:45)
[2017-09-05] MEDS: CARVEDILOL 6.25 MG TAB PO SCH ×2 (08:45→17:43)
[2017-09-05] MEDS: SENNOSIDES/DOCUSATE SODIUM TAB PO SCH ×2 (08:46→21:17)
[2017-09-05] MEDS: POTASSIUM CL 20 MEQ TAB PO SCH (08:46)
[2017-09-05] MEDS: ASPIRIN EC 81 MG TAB PO SCH (08:46)
[2017-09-05] MEDS: FUROSEMIDE 40 MG TAB PO SCH (08:46)
--- NOTE | 2017-09-05 10:32 | GCON ---
[f rep st] CONSULTATION DATE OF CONSULTATION: 09/05/2017 REFERRING PHYSICIAN: Dr. Jackson The patient is seen at the request of Dr. Jacksno with the patient's permission. IMPRESSION: Recurrent mediastinal infection of the anterior chest wall, status post previous mitral valve replacement and CABG, ligation of left atrial appendage, complicated by a subsequent infection and removal of sternal hardware and placement of muscle flap by Dr. Marquez. RECOMMENDATIONS: I will proceed with incision and drainage and likely placement of a wound VAC in the morning. Consent was obtained. This likely represents either bone or cartilage, which we will follow to the base and perform a debridement of the chest wall as necessary. On the CAT scan there is no evidence of mediastinal involvement and it appears to be anterior to the chest wall and in subcutaneous tissues. /[id number]/MODL MTDD
[2017-09-05] MEDS: DAPTOMYCIN IV SCH (11:08)
[2017-09-05] MEDS: NS IV SCH (11:08)
--- NOTE | 2017-09-05 11:57 | PCMIDPN ---
Assessment/Plan: Assessment/Plan: * Recurrent sternal abscess/sternal osteomyelitis: Sternal drainage with growth of MRSA. Plans for operative debridement of abscess and potentially residual sternum tomorrow. Continue daptomycin. * MRSA bacteremia: Repeat blood cultures pending to assess for clearance. Will obtain transthoracic echocardiogram to assess valve function. Only 1/2 sets positive so endocarditis seems of low likelihood. * Vancomycin allergy Time spent, greater than 25 min, of which greater than half was spent in coordination of care related to recurrent sternal abscess/sternal osteomyelitis/ MRSA bacteremia. 09/05/17 11:54 Subjective: Patient with persistent sternal drainage. Plans for operative drainage of abscess in sternal debridement tomorrow. Objective: Vital Signs Temp Pulse Resp BP Pulse Ox 36.7 C 104 H 20 145/75 H 97 09/05/17 07:39 09/05/17 08:45 09/05/17 07:39 09/05/17 08:45 09/05/17 07:39 Microbiology 09/03/17 18:00 Blood Panel (PCR) - Final Blood MRSA Laboratory Results 09/05/17 04:48 09/05/17 04:48 09/04/17 09/05/17 09/06/17 05:59 05:59 05:59 Intake Total 230 500 Balance 230 500 Daptomycin # 2 Sternal cultures MRSA Blood cultures 1/2 sets MRSA Blood cultures 09/05/2017 pending Laboratory Tests 09/03/17 17:50 Creatine Kinase 28 - Physical Exam General Appearance: alert, no apparent distress EENT: No conjunctival petechiae Respiratory: lungs clear, No respiratory distress Cardiac/Chest: regular rate, rhythm, other (Inferior sternal incision with mild tenderness and residual purulent output) Abdomen: non-tender, No distended ICD10 Worksheet Patient Problems: Problems Problem Status Onset Abscess of chest wall Acute Acute blood loss anemia Acute Chronic Disease Mgmt/Transitional Care Acute Dyspnea Acute Fever Acute Hypokalemia Acute Methicillin resistant Staphylococcus aureus infection Acute ~06/09/17 S/P CABG x 3 Acute ~05/14/17 S/P mitral valve replacement with bioprosthetic valve Acute ~05/14/17 Severe mitral regurgitation Acute Sternal wound dehiscence Acute Weakness Acute Wound infection after surgery Acute Cardiomyopathy, ischemic Chronic Chronic systolic CHF (congestive heart failure), NYHA class 2 Chronic Coronary artery disease Chronic
[2017-09-05] MEDS ORDERED: FUROSEMIDE 20 MG/2 ML VIAL IVP ONE (13:31)
--- NOTE | 2017-09-05 13:35 | HOSPPROG ---
Hospitalist Progress Note Assessment/Plan: 77-year-old well known to this hospital for mediastinitis due to MRSA. She is readmitted with draining wound on her mediastinum. 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 She has had an allergy to vancomycin and is currently on daptomycin per ID * Patient discussed with ID and CTS * Continue antibiotics * Reviewed case with surgery and they will debride abscess on Wednesday with possible plastics help in the future # mild systolic cardiomyopathy with an EF of 50% however increased oxygen needs overnight and diminished breath sounds. Mildly fluid overloaded today * Give 1 time dose of IV Lasix * Follow daily weights # coronary artery disease status post 3 vessel CABG in April 2017 # mitral valve disease status post mitral valve replacement and atrial appendage clipping in April 2017 # hyperparathyroidism with electrolyte abnormalities followed by Dr. Larson. Awaiting patient to be well enough to undergo hyper parathyroidectomy. * Will let Dr. Larson know on Wednesday patient is in the hospital although not well enough to undergo surgery at this time * Continue to follow electrolytes while patient in the hospital and correct as needed # hypertension # hyperlipidemia Subjective: Patient mildly upset that she has MRSA, no significant pain she does admit to increased shortness of breath today Objective: Vital Signs Temp Pulse Resp BP Pulse Ox 36.4 C 99 20 123/76 H 100 09/05/17 12:00 09/05/17 12:00 09/05/17 12:00 09/05/17 12:00 09/05/17 12:00 Microbiology 09/03/17 18:00 Blood Panel (PCR) - Final Blood MRSA Laboratory Results 09/05/17 04:48 09/05/17 04:48 09/04/17 09/05/17 09/06/17 05:59 05:59 05:59 Intake Total 230 500 Balance 230 500 - Physical Exam Constitutional: no apparent distress, obese Eyes: PERRL, anicteric sclera Ears, Nose, Mouth, Throat: moist mucous membranes, hard of hearing Cardiovascular: regular rate and rhythym, systolic murmur, edema (Trace) Respiratory: no respiratory distress, reduced air movement (Right greater than left), inspiratory crackles (At base) Gastrointestinal: soft, non-tender abdomen Genitourinary: no bladder fullness Skin: normal color Musculoskeletal: generalized weakness Neurologic: No facial droop Psychiatric: interacting appropriately ICD10 Worksheet Patient Problems: Problems Problem Status Onset Hypokalemia Acute Abscess of chest wall Acute Methicillin resistant Staphylococcus aureus infection Acute ~06/09/17 Fever Acute Weakness Acute Dyspnea Acute Wound infection after surgery Acute Sternal wound dehiscence Acute Acute blood loss anemia Acute S/P mitral valve replacement with bioprosthetic valve Acute ~05/14/17 S/P CABG x 3 Acute ~05/14/17 Chronic systolic CHF (congestive heart failure), NYHA class 2 Chronic Severe mitral regurgitation Acute Chronic Disease Mgmt/Transitional Care Acute Coronary artery disease Chronic Cardiomyopathy, ischemic Chronic
[2017-09-06] MEDS ORDERED: LR 1,000 ML IV ONE (09:01)
[2017-09-06] MEDS ORDERED: fentaNYL 100 MCG/2 ML INJ ONE (09:42)
[2017-09-06] MEDS ORDERED: PROPOFOL 200 MG/20 ML VIAL ONE (09:47)
--- NOTE | 2017-09-06 10:10 | PDANEPAE ---
ANE History of Present Illness here for i and d chest wall ANE Past Medical History - Cardiovascular History Hx Hypertension: Yes Hx Arrhythmias: No Hx Chest Pain: No Hx Coronary Artery / Peripheral Vascular Disease: Yes Hx CHF / Valvular Disease: Yes Cardiovascular History Comment: DC 2013-no chest pain w/DC - Pulmonary History Hx COPD: No Hx Asthma/Reactive Airway Disease: No Hx Recent Upper Respiratory Infection: No Hx Oxygen in Use at Home: Yes O2 in Use at Home (L/minute): 2 Hx Sleep Apnea: No Pulmonary History Comment: can be SOB w/activity - Neurologic History Hx Cerebrovascular Accident: No Hx Seizures: No Hx Dementia: No - Endocrine History Hx Diabetes: No - Renal History Hx Renal Disorders: No - Liver History Hx Hepatic Disorders: No - Neurological & Psychiatric Hx Hx Neurological and Psychiatric Disorders: Yes Neurological / Psychiatric History Comment: low back pain-chronic - Cancer History Hx Cancer: No - Congenital Disorder History Hx Congenital Disorders: No - GI History Hx Gastrointestinal Disorders: Yes Gastrointestinal History Comment: on Protonix to protect stomach - Other Health History Other Health History: toenail fungus- uses topical tx. Sternum broken ~10 yrs ago. - Chronic Pain History Chronic Pain: No - Surgical History Prior Surgeries: mastoidectomy - at 8 mos of age. bunion sx '. carpal kim '. cardiac cath 2016 ANE Review of Systems Review of systems is: negative Review of Systems: - Exercise capacity Exercise capacity: <4 METS ANE Patient History - Allergies Allergies/Adverse Reactions: NSAIDS (Non-Steroidal Anti-Inflamma [NSAIDS (Non-Steroidal Anti-Inflammatory Drug)] Allergy (Severe, Verified 06/02/17 13:44) Other-Enter Comments Sulfa (Sulfonamide Antibiotics) Allergy (Verified 05/13/17 13:58) Unknown - Home Medications Home medications: home medication list seen and reviewed Home Medications: [place]-3 Fatty Acids [Fish Oil 1000 mg (*)] 2,000 mg PO HS 04/03/14 [Last Taken 08/23/17] Atorvastatin Calcium [Lipitor 10 mg (*)] 10 mg PO HS 04/20/17 [Last Taken ] Glucosamine/Chondroitin [Glucosamine/Chondroitin (*)] 1 each PO DAILY 04/20/17 [ Last Taken 08/23/17] Potassium Cl [Klor-Con 20 meq (*)] 20 meq PO DAILY 11/27/17 [Last Taken 08/23/17 ] Herbals/Supplements -Info Only 1 ea PO DAILY 08/23/17 [Last Taken 08/23/17] Acetaminophen [Tylenol 325mg (*)] 650 mg PO Q4HRS PRN 09/03/17 [Last Taken Unknown] Sennosides/Docusate Sodium [Senokot-S] 2 tab PO BID 09/03/17 [Last Taken Unknown ] - NPO status NPO Status: no food or drink >8 hours - Smoking Hx Smoking Status: Former smoker ANE Labs/Vital Signs - Labs Result Diagrams: 09/06/17 05:11 09/06/17 05:11 - Vital Signs Vital Signs: reviewed preoperatively; see RN documention for details Blood Pressure: 131/85 Heart Rate: 107 Respiratory Rate: 18 O2 Sat (%): 96 Height: 160.02 cm Weight: 77.111 kg ANE Physical Exam - Airway Neck exam: FROM Mallampati Score: Class 1 Mouth exam: dentures - Pulmonary Pulmonary: other - Cardiovascular Cardiovascular: regular rate and rhythym - ASA Status ASA Status: III ANE Anesthesia Plan Anesthesia Plan: general endotracheal anesthesia
[2017-09-06] MEDS ORDERED: ACETAMINOPHEN/ASA/CAFFEINE 1 EACH TAB PO ONE (10:15)
[2017-09-06] MEDS ORDERED: fentaNYL 100 MCG/2 ML INJ IVP PRN (10:22)
[2017-09-06] MEDS ORDERED: DEXAMETHASONE 4 MG/ML VIAL IVP PRN (10:22)
[2017-09-06] MEDS ORDERED: HYDROmorphONE/DILAUDID 1 MG/ML INJ IVP PRN (10:22)
[2017-09-06] MEDS ORDERED: ALBUTEROL 3 ML DEYVIAL IH PRN (10:22)
[2017-09-06] MEDS ORDERED: ONDANSETRON 4 MG/2 ML VIAL IVP PRN (10:22)
[2017-09-06] MEDS ORDERED: NALOXONE HCL 0.4 MG/ML INJ IVP PRN (10:22)
[2017-09-06] MEDS ORDERED: MAGNESIUM SULF 1 GM/DEXTROSE 100 ML IV ONE ×2 (11:11→17:30)
--- NOTE | 2017-09-06 14:43 | HOSPPROG ---
Hospitalist Progress Note Assessment/Plan: 77-year-old well known to this hospital for mediastinitis due to MRSA. She is readmitted with draining wound on her mediastinum. 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 She has had an allergy to vancomycin and is currently on daptomycin per ID * Status post I and D and wound VAC placement with Dr. Aggarwal * Continue antibiotics * Will need to clarify discharge planning with ID and surgery, patient will also need ongoing wound care # mild systolic cardiomyopathy with an EF of 50% however increased oxygen needs overnight and diminished breath sounds. * Improved with IV Lasix yesterday states breathing good today # coronary artery disease status post 3 vessel CABG in April 2017 # mitral valve disease status post mitral valve replacement and atrial appendage clipping in April 2017 # hyperparathyroidism with electrolyte abnormalities followed by Dr. Larson. Awaiting patient to be well enough to undergo hyper parathyroidectomy. * Will let Dr. Larson know on Wednesday patient is in the hospital although not well enough to undergo surgery at this time * Continue to follow electrolytes while patient in the hospital and correct as needed # hypertension # hyperlipidemia Subjective: Doing well postop. Hungry denies any nausea. Spirits improved postop and wants to go home as soon as possible Objective: Vital Signs Temp Pulse Resp BP Pulse Ox 36.6 C 106 H 27 H 126/93 H 98 09/06/17 14:10 09/06/17 14:10 09/06/17 14:10 09/06/17 14:10 09/06/17 14:10 Microbiology 09/06/17 10:20 Gram Stain - Final Chest - Tissue 09/06/17 10:20 Gram Stain - Final Chest - Eswab 09/06/17 10:20 Mycobacterial Smear (PRAVEEN) - Final Chest - Eswab Mycobacterial Culture - Final 09/03/17 18:00 Blood Panel (PCR) - Final Blood MRSA Laboratory Results 09/06/17 05:11 09/06/17 05:11 09/05/17 09/06/17 09/07/17 05:59 05:59 05:59 Intake Total 500 500 300 Output Total 5 Balance 500 500 295 - Physical Exam Constitutional: chronically ill appearing Cardiovascular: regular rate and rhythym Respiratory: no respiratory distress, reduced air movement (Bilateral based) Skin: other (Wound VAC placed on mediastinum) ICD10 Worksheet Patient Problems: Problems Problem Status Onset S/P debridement Acute Hypokalemia Acute Abscess of chest wall Acute Methicillin resistant Staphylococcus aureus infection Acute ~06/09/17 Fever Acute Weakness Acute Dyspnea Acute Wound infection after surgery Acute Sternal wound dehiscence Acute Acute blood loss anemia Acute S/P mitral valve replacement with bioprosthetic valve Acute ~05/14/17 S/P CABG x 3 Acute ~05/14/17 Chronic systolic CHF (congestive heart failure), NYHA class 2 Chronic Severe mitral regurgitation Acute Chronic Disease Mgmt/Transitional Care Acute Coronary artery disease Chronic Cardiomyopathy, ischemic Chronic
--- NOTE | 2017-09-06 15:30 | ASMTCMCOM ---
CM Note CM Note Notes: CM spoke w/ Alicia River, COSMETICIAN regarding d/c POC. Pt is having her I&D today. Pt has a supportive daughter but daughter is out of town in [facility]. Needs are TBD at this time. Pt was at [facility] in the past. CM to discuss dispo w/ pt. CM to follow. Plan: TBD Date Signed: 09/06/2017 03:29 PM Electronically Signed By:PHILL Mims
[2017-09-06] MEDS: CINACALCET HCL 30 MG TAB PO SCH ×2 (15:50→20:22)
[2017-09-06] MEDS: PANTOPRAZOLE SODIUM 40 MG TAB PO SCH (15:51)
[2017-09-06] MEDS: FUROSEMIDE 40 MG TAB PO SCH (15:51)
[2017-09-06] MEDS: ASPIRIN EC 81 MG TAB PO SCH (15:51)
[2017-09-06] MEDS: POTASSIUM CL 20 MEQ TAB PO SCH (15:51)
[2017-09-06] MEDS: CARVEDILOL 6.25 MG TAB PO SCH ×2 (15:52→17:23)
[2017-09-06] MEDS: GLUCOSAMINE/CHONDROITIN CAP PO SCH (15:52)
[2017-09-06] MEDS: SENNOSIDES/DOCUSATE SODIUM TAB PO SCH ×2 (15:53→20:22)
--- NOTE | 2017-09-06 16:29 | PCMIDPN ---
Assessment/Plan: Assessment: Recurrent MRSA sternal osteomyelitis with bacteremia-patient continues on IV daptomycin. Clinically she looks very well for her situation. She went to the operating room today and had some more debridement. Operative report shows not a lot of obviously involved bone or purulence in the field. Plan at this point is to have 6 weeks of IV daptomycin followed by oral suppression indefinitely. Plan: 1. Continue IV daptomycin. Patient has had a poor reaction to IV vancomycin in the past. 2. Follow clinical course. 3. Follow up blood cultures. 09/06/17 16:27 Subjective: Patient is resting in her hospital bed on postoperatively. She is nontoxic in appearance. She is bright and conversational. No complaints. Patient does not have fevers or chills. Objective: Daptomycin # 3 Vital Signs Temp Pulse Resp BP Pulse Ox 36.6 C 106 H 27 H 126/93 H 98 09/06/17 14:10 09/06/17 14:10 09/06/17 14:10 09/06/17 14:10 09/06/17 14:10 Microbiology 09/06/17 10:20 Gram Stain - Final Chest - Tissue 09/06/17 10:20 Gram Stain - Final Chest - Eswab 09/06/17 10:20 Mycobacterial Smear (PRAVEEN) - Final Chest - Eswab Mycobacterial Culture - Final 09/03/17 18:00 Blood Panel (PCR) - Final Blood MRSA Laboratory Results 09/06/17 05:11 09/06/17 05:11 09/05/17 09/06/17 09/07/17 05:59 05:59 05:59 Intake Total 500 500 300 Output Total 5 Balance 500 500 295 - Physical Exam General Appearance: WD/WN, alert, no apparent distress, non-toxic Respiratory: lungs clear, normal breath sounds, No respiratory distress Cardiac/Chest: regular rate, rhythm, No tachycardia Skin: normal color, warm/dry, No rash Neuro/Psych: alert, normal mood/affect, oriented x 3 ICD10 Worksheet Patient Problems: Problems Problem Status Onset Abscess of chest wall Acute S/P debridement Acute Acute blood loss anemia Acute Chronic Disease Mgmt/Transitional Care Acute Dyspnea Acute Fever Acute Hypokalemia Acute Methicillin resistant Staphylococcus aureus infection Acute ~06/09/17 S/P CABG x 3 Acute ~05/14/17 S/P mitral valve replacement with bioprosthetic valve Acute ~05/14/17 Severe mitral regurgitation Acute Sternal wound dehiscence Acute Weakness Acute Wound infection after surgery Acute Cardiomyopathy, ischemic Chronic Chronic systolic CHF (congestive heart failure), NYHA class 2 Chronic Coronary artery disease Chronic
[2017-09-06] MEDS: DAPTOMYCIN IV SCH (17:14)
[2017-09-06] MEDS: NS IV SCH (17:14)
[2017-09-06] MEDS: oxyCODONE IR 5 MG TAB PO PRN ×2 (20:31→23:51)
[2017-09-07 05:06] LABS: PLATELET COUNT 371 10^3/uL (150-400)
[2017-09-07] MEDS: GLUCOSAMINE/CHONDROITIN CAP PO SCH (08:52)
[2017-09-07] MEDS: SENNOSIDES/DOCUSATE SODIUM TAB PO SCH ×2 (08:52→22:14)
[2017-09-07] MEDS: CARVEDILOL 6.25 MG TAB PO SCH ×2 (08:53→18:35)
[2017-09-07] MEDS: FUROSEMIDE 40 MG TAB PO SCH (08:53)
[2017-09-07] MEDS: ASPIRIN EC 81 MG TAB PO SCH (08:53)
[2017-09-07] MEDS: POTASSIUM CL 20 MEQ TAB PO SCH (08:53)
[2017-09-07] MEDS: PANTOPRAZOLE SODIUM 40 MG TAB PO SCH (08:53)
[2017-09-07] MEDS: CINACALCET HCL 30 MG TAB PO SCH ×2 (08:54→22:14)
--- NOTE | 2017-09-07 08:57 | SOAPPROG ---
SOAP Progress Note Assessment/Plan: Assessment: POD#1 distal sternal I&D with placement of wound vac Recurrent MRSA sternal osteo with bacteremia - s/p local debridement with removal of cartilage. No abscess. Await cxs. IV Abx per ID. Wound vac management per plastic surgery Plan: Supportive therapies as per multidisciplinary team. Vac change M, W, F by wound care nurse. 09/07/17 08:55 Subjective: Comfortable. No acute concerns. Objective: Vital Signs Temp Pulse Resp BP Pulse Ox 36.6 C 110 H 18 136/96 H 96 09/07/17 08:00 09/07/17 08:00 09/07/17 08:00 09/07/17 08:00 09/07/17 08:00 Microbiology 09/06/17 10:20 Mycobacterial Smear (PRAVEEN) - Final Chest - Eswab Mycobacterial Culture - Final 09/06/17 10:20 Mycobacterial Smear (PRAVEEN) - Final Chest - Tissue 09/06/17 10:20 Gram Stain - Final Chest - Tissue 09/06/17 10:20 Gram Stain - Final Chest - Eswab 09/03/17 18:00 Blood Panel (PCR) - Final Blood MRSA Laboratory Results 09/07/17 04:00 09/07/17 04:00 09/06/17 09/07/17 09/08/17 05:59 05:59 05:59 Intake Total 500 1200 Output Total 305 350 Balance 500 895 -350 Intraop gram stains neg for org Physical Exam - Physical Exam General Appearance: alert, no apparent distress Cardiac/Chest: regular rate, rhythm, other (Wound vac intact. Periwound soft, no erythema.) ICD10 Worksheet Patient Problems: Problems Problem Status Onset Abscess of chest wall Acute S/P debridement Acute Acute blood loss anemia Acute Chronic Disease Mgmt/Transitional Care Acute Dyspnea Acute Fever Acute Hypokalemia Acute Methicillin resistant Staphylococcus aureus infection Acute ~06/09/17 S/P CABG x 3 Acute ~05/14/17 S/P mitral valve replacement with bioprosthetic valve Acute ~05/14/17 Severe mitral regurgitation Acute Sternal wound dehiscence Acute Weakness Acute Wound infection after surgery Acute Cardiomyopathy, ischemic Chronic Chronic systolic CHF (congestive heart failure), NYHA class 2 Chronic Coronary artery disease Chronic
--- NOTE | 2017-09-07 09:48 | PCMIDPN ---
Assessment/Plan: Assessment/Plan: 1. Recurrent MrSA sternal osteomyelitis: - blood cx from 09/05/17 ngtd -MRSA -Dapto PRAVEEN= 1 -s/p debridement yesterday. Cultures in progress. -currently on Dapto. - LFT/cpk from 09/03/17 stable. Continue to monitor periodically while on dapto -creatinine stable. - Continue with current therapy. will need another prolonged course of IV therapy at least 6 weeks, followed by oral suppression - care coordinated with hospitalist team - care coordinated with case work aide - will fill out interagency and order picc line 2. MRSa bacteremia;- - secondary to #1 - see above for plan 3. RAsh to Vanco: meds dapto 500mg daily- Subjective: Afebrile. in good spirits. denies sob. denies abd pain or diarrhea. appetite intact. mild tenderness at surgical site. wound vac present. Objective: Vital Signs Temp Pulse Resp BP Pulse Ox 36.6 C 110 H 18 136/96 H 96 09/07/17 08:00 09/07/17 08:00 09/07/17 08:00 09/07/17 08:00 09/07/17 08:00 Microbiology 09/06/17 10:20 Mycobacterial Smear (PRAVEEN) - Final Chest - Eswab Mycobacterial Culture - Final 09/06/17 10:20 Mycobacterial Smear (PRAVEEN) - Final Chest - Tissue 09/06/17 10:20 Gram Stain - Final Chest - Tissue 09/06/17 10:20 Gram Stain - Final Chest - Eswab 09/03/17 18:00 Blood Panel (PCR) - Final Blood MRSA Laboratory Results 09/07/17 04:00 09/07/17 04:00 09/06/17 09/07/17 09/08/17 05:59 05:59 05:59 Intake Total 500 1200 300 Output Total 305 575 Balance 500 895 -275 - Physical Exam General Appearance: alert, no apparent distress Respiratory: coarse breath sounds (at bases b/l) Cardiac/Chest: regular rate, rhythm, other (wound vac. old incision site noted. intact. mld tenderness to palpate) Extremities: No swelling Abdomen: normal bowel sounds, non-tender, soft, No distended Skin: No rash - Time Spent With Patient Time Spent with Patient: greater than 35 minutes Time Spent with Patient: Greater than 35 minutes spent on this patients care, greater than 50% of time spent counseling, educating, and coordinating care regarding the above mentioned plan. ICD10 Worksheet Patient Problems: Problems Problem Status Onset Abscess of chest wall Acute S/P debridement Acute Acute blood loss anemia Acute Chronic Disease Mgmt/Transitional Care Acute Dyspnea Acute Fever Acute Hypokalemia Acute Methicillin resistant Staphylococcus aureus infection Acute ~06/09/17 S/P CABG x 3 Acute ~05/14/17 S/P mitral valve replacement with bioprosthetic valve Acute ~05/14/17 Severe mitral regurgitation Acute Sternal wound dehiscence Acute Weakness Acute Wound infection after surgery Acute Cardiomyopathy, ischemic Chronic Chronic systolic CHF (congestive heart failure), NYHA class 2 Chronic Coronary artery disease Chronic
[2017-09-07] MEDS: DAPTOMYCIN IV SCH (10:16)
[2017-09-07] MEDS: NS IV SCH (10:16)
[2017-09-07] MEDS ORDERED: MAGNESIUM SULF 1 GM/DEXTROSE 100 ML IV ONE (11:19)
--- NOTE | 2017-09-07 13:31 | HOSPPROG ---
Hospitalist Progress Note Assessment/Plan: 77-year-old well known to this hospital for mediastinitis due to MRSA. She is readmitted with draining wound on her mediastinum. She underwent wound I and D and wound VAC placement yesterday. She will need at least 6 weeks of IV antibiotics and ongoing wound care which we followed by Dr. Marquez as an outpatient. 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 She has had an allergy to vancomycin and is currently on daptomycin per ID * Status post I and D and wound VAC placement with Dr. Aggarwal (He did surgery in place of Dr. Marquez, who is out due to a broken leg) * Continue antibiotics for at least 6 weeks, she will be followed by Dr. Razo as not * Wound Care to see later today or likely tomorrow for wound VAC change and to give injections for ongoing wound care post hospitalization * Dr. Marquez will have ongoing follow-up with her for her wound. * Discussed plan with ID and CTS # mild systolic cardiomyopathy with an EF of 50% however increased oxygen needs overnight and diminished breath sounds. * Improved with IV Lasix # coronary artery disease status post 3 vessel CABG in April 2017 # mitral valve disease status post mitral valve replacement and atrial appendage clipping in April 2017 # hyperparathyroidism with electrolyte abnormalities followed by Dr. Larson. Awaiting patient to be well enough to undergo hyper parathyroidectomy. * Electrolytes have been normal here over the last 2 days * Dr. Larson aware patient is in the hospital, doubt any surgery planned for this until patient is off IV antibiotics. # hypertension # hyperlipidemia Disposition: Patient medically close to discharge. Will be going to either [facility] or home with home care depending on physical therapy assessment today and tomorrow. Dr. Razo will follow patient at [facility], id is setting up antibiotics for patient depending on her disposition. Wound care will need to assess wound prior to patient's discharge and set up follow-up. She will also follow up with Dr. Marquez as an outpatient for her wound Id to order PICC line, I suspect patient will be ready to be discharged in the next 24-48 hours once the above issues are taken care of and the assessment is made whether she needs further rehab at [facility] or can go home. Of note her daughter had been giving her home IV antibiotics previously to her stay to [facility] however her daughter is out of town till Wednesday. Subjective: Patient anxious to get home, she is quite distressed about having to go back to [facility] but is willing to do that if necessary. No significant pain, is moving about get to the bathroom independently but PT has not seen her yet today Objective: Vital Signs Temp Pulse Resp BP Pulse Ox 36.3 C 99 18 121/74 H 97 09/07/17 11:32 09/07/17 11:32 09/07/17 11:32 09/07/17 11:32 09/07/17 11:32 Microbiology 09/06/17 10:20 Mycobacterial Smear (PRAVEEN) - Final Chest - Tissue 09/06/17 10:20 Gram Stain - Final Chest - Tissue 09/06/17 10:20 Gram Stain - Final Chest - Eswab 09/06/17 10:20 Mycobacterial Smear (PRAVEEN) - Final Chest - Eswab Mycobacterial Culture - Final 09/03/17 18:00 Blood Panel (PCR) - Final Blood MRSA Laboratory Results 09/07/17 04:00 09/07/17 04:00 09/06/17 09/07/17 09/08/17 05:59 05:59 05:59 Intake Total 500 1200 300 Output Total 305 1025 Balance 500 895 -725 - Physical Exam Constitutional: no apparent distress Eyes: PERRL Ears, Nose, Mouth, Throat: moist mucous membranes Cardiovascular: regular rate and rhythym, other (Wound VAC on mediastinum) Respiratory: no respiratory distress, clear to auscultation Gastrointestinal: normoactive bowel sounds Genitourinary: no bladder fullness Skin: warm Musculoskeletal: full muscle strength Neurologic: AAOx3 Psychiatric: interacting appropriately, not anxious ICD10 Worksheet Patient Problems: Problems Problem Status Onset Abscess of chest wall Acute S/P debridement Acute Acute blood loss anemia Acute Chronic Disease Mgmt/Transitional Care Acute Dyspnea Acute Fever Acute Hypokalemia Acute Methicillin resistant Staphylococcus aureus infection Acute ~06/09/17 S/P CABG x 3 Acute ~05/14/17 S/P mitral valve replacement with bioprosthetic valve Acute ~05/14/17 Severe mitral regurgitation Acute Sternal wound dehiscence Acute Weakness Acute Wound infection after surgery Acute Cardiomyopathy, ischemic Chronic Chronic systolic CHF (congestive heart failure), NYHA class 2 Chronic Coronary artery disease Chronic
[2017-09-07] MEDS ORDERED: ALTEPLASE 2 MG VIAL IVP PRN (13:45)
--- NOTE | 2017-09-07 13:45 | ASMTCMCOM ---
CM Note CM Note Notes: 09/07/[address] Turner pt will require 6 more weeks of IV Dapto. Faxed referrals via [employer] for pricing. Awaiting PT evals for possible SNF rehab placement. Pt has had prior stays at [facility]. Pt lives on the same property as her daughter but in a seperate dwelling. Case Management d/c poc: Home infusion vs infusion clinic vs SNF Case Management to follow. Date Signed: 09/07/2017 01:45 PM Electronically Signed By:Mirella Adrian RN
--- NOTE | 2017-09-07 13:45 | PDIAF ---
- Diagnosis Diagnosis: MSSa sternal osteomyelitis Code Status: Full Code - Medication Management Discharge Medications: Medications to Continue on Transfer [place]-3 Fatty Acids [Fish Oil 1000 mg (*)] 2,000 mg PO HS 04/03/14 [Last Taken 08/23/17] Aspirin EC [Aspirin EC 81 mg (*)] 81 mg PO DAILY #30 tab 04/05/14 [Last Taken ] Carvedilol [Coreg (*)] 6.25 mg PO BIDMEAL #60 tab 04/05/14 [Last Taken 08/23/17 18:00] Pantoprazole Sodium [Protonix 40mg (*)] 40 mg PO DAILY #30 tab 04/05/14 [Last Taken 08/23/17] Atorvastatin Calcium [Lipitor 10 mg (*)] 10 mg PO HS 04/20/17 [Last Taken ] Glucosamine/Chondroitin [Glucosamine/Chondroitin (*)] 1 each PO DAILY 04/20/17 [ Last Taken 08/23/17] Furosemide [Lasix 40 MG (*)] 40 mg PO DAILY #0 tab 06/17/17 [Last Taken 08/23/17 ] Potassium Cl [Klor-Con 20 meq (*)] 20 meq PO DAILY 06/21/17 [Last Taken 08/23/17 ] Polyethylene Glycol 3350 [Miralax 17 gm (*)] 17 gm PO DAILY PRN pkt 07/01/17 [ Last Taken 1 Month Ago ~07/23/17] Herbals/Supplements -Info Only 1 ea PO DAILY 08/23/17 [Last Taken 08/23/17] Cinacalcet HCl [Sensipar (*)] 30 mg PO BID #60 tab 08/28/17 [Last Taken Unknown] traMADol [Ultram 50 mg (*)] 50 mg PO Q4 PRN #60 tab 08/28/17 [Last Taken Unknown ] Acetaminophen [Tylenol 325mg (*)] 650 mg PO Q4HRS PRN 09/03/17 [Last Taken Unknown] Sennosides/Docusate Sodium [Senokot-S] 2 tab PO BID 09/03/17 [Last Taken Unknown ] Alf Antibiotics: daptomycin 500mg IV daily Engineering Project Manager Antibiotic Stop Date: 10/18/17 Discharge Medications: Refer to the Discharge Home Medication list for PRN reason. PICC Care - Routine: Yes - Orders Isolation Type: Contact Isolation - Labs/Radiology CBC w/diff Date: 09/13/17 (q mondays) CMP Date: 09/13/17 (q mondays) CRP Date: 09/13/17 (q mondays) Call or Fax Lab and Imaging Results to: fax to Dr. Shashi Razo- [phone] - Follow Up Care Current Providers and Referrals: CARLITO RUEDA [Other] - As per Instructions Shashi Razo MD [Medical Doctor] - follow up in 1 week
--- NOTE | 2017-09-07 13:46 | PDIAF ---
- Diagnosis Diagnosis: MSSa sternal osteomyelitis Code Status: Full Code - Medication Management Discharge Medications: Medications to Continue on Transfer [place]-3 Fatty Acids [Fish Oil 1000 mg (*)] 2,000 mg PO HS 04/03/14 [Last Taken 08/23/17] Aspirin EC [Aspirin EC 81 mg (*)] 81 mg PO DAILY #30 tab 04/05/14 [Last Taken ] Carvedilol [Coreg (*)] 6.25 mg PO BIDMEAL #60 tab 04/05/14 [Last Taken 08/23/17 18:00] Pantoprazole Sodium [Protonix 40mg (*)] 40 mg PO DAILY #30 tab 04/05/14 [Last Taken 08/23/17] Atorvastatin Calcium [Lipitor 10 mg (*)] 10 mg PO HS 04/20/17 [Last Taken ] Glucosamine/Chondroitin [Glucosamine/Chondroitin (*)] 1 each PO DAILY 04/20/17 [ Last Taken 08/23/17] Furosemide [Lasix 40 MG (*)] 40 mg PO DAILY #0 tab 06/17/17 [Last Taken 08/23/17 ] Potassium Cl [Klor-Con 20 meq (*)] 20 meq PO DAILY 06/21/17 [Last Taken 08/23/17 ] Polyethylene Glycol 3350 [Miralax 17 gm (*)] 17 gm PO DAILY PRN pkt 07/01/17 [ Last Taken 1 Month Ago ~07/23/17] Herbals/Supplements -Info Only 1 ea PO DAILY 08/23/17 [Last Taken 08/23/17] Cinacalcet HCl [Sensipar (*)] 30 mg PO BID #60 tab 08/28/17 [Last Taken Unknown] traMADol [Ultram 50 mg (*)] 50 mg PO Q4 PRN #60 tab 08/28/17 [Last Taken Unknown ] Acetaminophen [Tylenol 325mg (*)] 650 mg PO Q4HRS PRN 09/03/17 [Last Taken Unknown] Sennosides/Docusate Sodium [Senokot-S] 2 tab PO BID 09/03/17 [Last Taken Unknown ] Snf Antibiotics: daptomycin 500mg IV daily Installations Inspector Antibiotic Stop Date: 10/18/17 Discharge Medications: Refer to the Discharge Home Medication list for PRN reason. PICC Care - Routine: Yes - Orders Isolation Type: Contact Isolation - Labs/Radiology CBC w/diff Date: 09/13/17 (q mondays) CMP Date: 09/13/17 (q mondays) CRP Date: 09/13/17 (q mondays) CPK Date: 09/13/17 (qmond) Call or Fax Lab and Imaging Results to: fax to Dr. Shashi Razo- [phone] - Follow Up Care Current Providers and Referrals: CARLITO RUEDA [Other] - As per Instructions Shashi Razo MD [Medical Doctor] - follow up in 1 week
[2017-09-07] MEDS: traMADol 50 MG TAB PO PRN ×3 (14:29→22:21)
--- NOTE | 2017-09-07 15:10 | ASMTCMCOM ---
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 Currently applied $0 toward deductible. Drug goes thru Part D. current co pay for Dapto 500 mg q day is $295.00/dispense (week), subject to change. Case management to meet w/patient tomorrow to discuss. Date Signed: 09/07/2017 03:10 PM Electronically Signed By:Mirella Adrian RN
--- NOTE | 2017-09-07 17:46 | ASMTCMCOM ---
CM Note CM Note Notes: 09/07/2017 From [facility] [place]: Patient is currently IN Network for with benefits. She is currently covered at 80% for infusion OOP Max is $6700. OOP Met as of today (excluding current hospital charges) is $143.03. Estimated supplies per day $17.60. Estimated drug co-pay per week/dispense is $1016.63 Once OOP is Met, patient will be covered 100%. Case Management will discuss both infusion costs and PT recommendation for home care with patient tomorrow. Pt may need to consider outpatient infusion center. Date Signed: 09/07/2017 05:45 PM Electronically Signed By:Mirella Adrian RN
[2017-09-08] MEDS: traMADol 50 MG TAB PO PRN ×2 (07:17→11:20)
[2017-09-08] MEDS ORDERED: POTASSIUM CL 10 MEQ TAB PO ONE (09:28)
[2017-09-08] MEDS: PANTOPRAZOLE SODIUM 40 MG TAB PO SCH (10:11)
[2017-09-08] MEDS: SENNOSIDES/DOCUSATE SODIUM TAB PO SCH ×3 (10:11→22:49)
[2017-09-08] MEDS: GLUCOSAMINE/CHONDROITIN CAP PO SCH (10:11)
[2017-09-08] MEDS: FUROSEMIDE 40 MG TAB PO SCH (10:11)
[2017-09-08] MEDS: DAPTOMYCIN IV SCH (10:11)
[2017-09-08] MEDS: NS IV SCH (10:11)
[2017-09-08] MEDS: CINACALCET HCL 30 MG TAB PO SCH ×2 (10:11→22:47)
[2017-09-08] MEDS: ASPIRIN EC 81 MG TAB PO SCH (10:12)
[2017-09-08] MEDS: POTASSIUM CL 20 MEQ TAB PO SCH (10:15)
[2017-09-08] MEDS: CARVEDILOL 6.25 MG TAB PO SCH ×2 (10:20→18:10)
--- NOTE | 2017-09-08 10:50 | PCMIDPN ---
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 Isolate is susceptible to doxycycline which would be viable oral option down the line. Side effects of daptomycin including potential for myositis or allergic hypersensitivity pneumonitis discussed with patient. Reassess CPK today. * MRSA bacteremia: Repeat blood culture show clearing of bacteremia. Treatment with daptomycin as outlined above. * Vancomycin allergy 09/08/17 10:47 Subjective: Patient with mild postoperative chest pain. Awaiting wound VAC change as wound VAC became dysfunctional earlier today. Objective: Vital Signs Temp Pulse Resp BP Pulse Ox 36.3 C 102 H 15 125/76 H 95 09/08/17 08:30 09/08/17 08:30 09/08/17 08:30 09/08/17 08:30 09/08/17 08:30 Microbiology 09/06/17 10:20 Gram Stain - Final Chest - Tissue 09/06/17 10:20 Gram Stain - Final Chest - Eswab 09/06/17 10:20 Mycobacterial Smear (PRAVEEN) - Final Chest - Tissue 09/06/17 10:20 Mycobacterial Smear (PRAVEEN) - Final Chest - Eswab Mycobacterial Culture - Final Laboratory Results 09/07/17 04:00 09/08/17 03:26 09/07/17 09/08/17 09/09/17 05:59 05:59 05:59 Intake Total 1200 450 Output Total 305 1625 Balance 895 -1175 Daptomycin # 5 Blood cultures x2 07/05/2018 no growth - Physical Exam General Appearance: alert, no apparent distress EENT: No scleral icterus, No thrush, No conjunctival petechiae Respiratory: lungs clear, No respiratory distress Cardiac/Chest: regular rate, rhythm, other (Dressing in place over sternum) Abdomen: non-tender, No distended Skin: No embolic lesions - Line/s RUE PICC Lines: No drainage, No erythema ICD10 Worksheet Patient Problems: Problems Problem Status Onset Abscess of chest wall Acute S/P debridement Acute Acute blood loss anemia Acute Chronic Disease Mgmt/Transitional Care Acute Dyspnea Acute Fever Acute Hypokalemia Acute Methicillin resistant Staphylococcus aureus infection Acute ~06/09/17 S/P CABG x 3 Acute ~05/14/17 S/P mitral valve replacement with bioprosthetic valve Acute ~05/14/17 Severe mitral regurgitation Acute Sternal wound dehiscence Acute Weakness Acute Wound infection after surgery Acute Cardiomyopathy, ischemic Chronic Chronic systolic CHF (congestive heart failure), NYHA class 2 Chronic Coronary artery disease Chronic
--- NOTE | 2017-09-08 12:01 | HOSPPROG ---
Hospitalist Progress Note Assessment/Plan: 77-year-old well known to this hospital for mediastinitis due to MRSA. She is readmitted with draining wound on her mediastinum. She underwent wound I and D and wound VAC placement yesterday. She will need at least 6 weeks of IV antibiotics and ongoing wound care which we followed by Dr. Marquez as an outpatient. 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 She has had an allergy to vancomycin and is currently on daptomycin per ID * Status post I and D and wound VAC placement with Dr. Aggarwal (He did surgery in place of Dr. Marquez, who is out due to a broken leg) * Continue antibiotics for at least 6 weeks, she will be followed by Dr. Razo as not * Wound Care to see later today or likely tomorrow for wound VAC change and to give injections for ongoing wound care post hospitalization * Dr. Marquez will have ongoing follow-up with her for her wound. * Discussed plan with ID and CTS # mild systolic cardiomyopathy with an EF of 50% however increased oxygen needs overnight and diminished breath sounds. * Improved with IV Lasix # coronary artery disease status post 3 vessel CABG in April 2017 # mitral valve disease status post mitral valve replacement and atrial appendage clipping in April 2017 # hyperparathyroidism with electrolyte abnormalities followed by Dr. Larson. Awaiting patient to be well enough to undergo hyper parathyroidectomy. * Electrolytes have been normal here over the last 2 days * Dr. Larson aware patient is in the hospital, doubt any surgery planned for this until patient is off IV antibiotics. # hypertension # hyperlipidemia dispo: pending Subjective: case d/w dr palmer Objective: Vital Signs Temp Pulse Resp BP Pulse Ox 36.4 C 86 15 104/71 95 09/08/17 11:35 09/08/17 11:35 09/08/17 11:35 09/08/17 11:35 09/08/17 11:35 Microbiology 09/06/17 10:20 Gram Stain - Final Chest - Tissue 09/06/17 10:20 Gram Stain - Final Chest - Eswab 09/06/17 10:20 Mycobacterial Smear (PRAVEEN) - Final Chest - Tissue 09/06/17 10:20 Mycobacterial Smear (PRAVEEN) - Final Chest - Eswab Mycobacterial Culture - Final Laboratory Results 09/07/17 04:00 09/08/17 03:26 09/07/17 09/08/17 09/09/17 05:59 05:59 05:59 Intake Total 1200 450 Output Total 305 1625 Balance 895 -1175 - Physical Exam Constitutional: no apparent distress, appears nourished Eyes: PERRL, anicteric sclera Ears, Nose, Mouth, Throat: moist mucous membranes, hearing normal Cardiovascular: regular rate and rhythym, no murmur, rub, or gallop Respiratory: no respiratory distress, no rales or rhonchi Gastrointestinal: normoactive bowel sounds, soft, non-tender abdomen Genitourinary: no bladder fullness, No arredondo in urethra Skin: warm, normal color Musculoskeletal: full muscle strength Neurologic: AAOx3 Psychiatric: interacting appropriately Lymph, Heme, Immunologic: no cervical LAD ICD10 Worksheet Patient Problems: Problems Problem Status Onset Abscess of chest wall Acute S/P debridement Acute Acute blood loss anemia Acute Chronic Disease Mgmt/Transitional Care Acute Dyspnea Acute Fever Acute Hypokalemia Acute Methicillin resistant Staphylococcus aureus infection Acute ~06/09/17 S/P CABG x 3 Acute ~05/14/17 S/P mitral valve replacement with bioprosthetic valve Acute ~05/14/17 Severe mitral regurgitation Acute Sternal wound dehiscence Acute Weakness Acute Wound infection after surgery Acute Cardiomyopathy, ischemic Chronic Chronic systolic CHF (congestive heart failure), NYHA class 2 Chronic Coronary artery disease Chronic
--- NOTE | 2017-09-08 12:03 | WOCRNPDOC ---
WOCRN Advanced Assessment Note - Skin Integrity Problem, Advanced Assess Medial Chest Surgical Wound/Incision Dressing Type: ABD Pad, Gauze Dressing Description: Clean/Dry, Intact Exudate Amount: Minimal Exudate Characteristic(s): Serosanguinous Integumentary Issue Intervention: Dressing Changed Mery Wound Swelling: Mild Wound Bed Constitution: Red/[place] - Non Granular Tissue (100%) Site Measurement - Head-to-Toe Length X Width X Depth (cm): 7x2.4x4.3 Skin Integrity Problem Comment: Clean non granulating wound bed. No sign of necrosis. There is a very thin and shallow tunnel/pocket that runs toward the midline in the superior 1/3 of wound bed. This area may fill in but wound care recommends that a very thin piece of white foam be applied into it at next vac change if it is still present. Mery wound skin was draped after application of skin prep. x2 pieces of black [place] foam were applied to wound bed. Vac settings are: DPC (intermittent) with 6 min rise and 2 min fall. -125 mm Hg suction. No leaks at end of wound care. LAWNMOWER REPAIR MECHANIC Christi and cyndi Turcios in room for care. Next vac change due sunday 09/10.
[2017-09-08 12:29] LABS: CREATINE KINASE 277 IU/L (0-156)
--- NOTE | 2017-09-08 16:28 | ASMTCMCOM ---
CM Note CM Note Notes: 09/08/2017 Case Management Note Met w/pt. Pt prefers home care for IV Infusions. Grandson to stay with pt until daughter returns from trip this weekend. [employer] to provide IV antibiotics. 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 Started Wound Vac application for [employer]. Prescription is on front of chart and needs MD signature for final authorization. Case Management d/c poc: home with grandson with [facility] and [employer]. Case Management to follow. Date Signed: 09/08/2017 04:27 PM Electronically Signed By:Mirella Adrian RN
[2017-09-08] MEDS: oxyCODONE IR 5 MG TAB PO PRN (22:47)
[2017-09-09] MEDS ORDERED: POTASSIUM CL 10 MEQ TAB PO ONE (08:00)
[2017-09-09] MEDS ORDERED: ENOXAPARIN 40 MG/0.4 ML SYR SC SCH (09:00)
[2017-09-09] MEDS: GLUCOSAMINE/CHONDROITIN CAP PO SCH (09:45)
[2017-09-09] MEDS: NS IV SCH (09:45)
[2017-09-09] MEDS: CINACALCET HCL 30 MG TAB PO SCH (09:45)
[2017-09-09] MEDS: POTASSIUM CL 20 MEQ TAB PO SCH (09:45)
[2017-09-09] MEDS: CARVEDILOL 6.25 MG TAB PO SCH ×2 (09:45→17:58)
[2017-09-09] MEDS: DAPTOMYCIN IV SCH (09:45)
[2017-09-09] MEDS: ASPIRIN EC 81 MG TAB PO SCH (09:46)
[2017-09-09] MEDS: FUROSEMIDE 40 MG TAB PO SCH (09:46)
[2017-09-09] MEDS: PANTOPRAZOLE SODIUM 40 MG TAB PO SCH (09:47)
[2017-09-09] MEDS: SENNOSIDES/DOCUSATE SODIUM TAB PO SCH (09:47)
--- NOTE | 2017-09-09 13:37 | HOSPPROG ---
Hospitalist Progress Note Assessment/Plan: 77-year-old well known to this hospital for mediastinitis due to MRSA. She is readmitted with draining wound on her mediastinum. She underwent wound I and D and wound VAC placement yesterday. She will need at least 6 weeks of IV antibiotics and ongoing wound care which we followed by Dr. Marquez as an outpatient. 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 She has had an allergy to vancomycin and is currently on daptomycin per ID * Status post I and D and wound VAC placement with Dr. Aggarwal (He did surgery in place of Dr. Marquez, who is out due to a broken leg) * Continue antibiotics for at least 6 weeks, she will be followed by Dr. Razo as oupt * Wound Care to see later today or likely tomorrow for wound VAC change and to give injections for ongoing wound care post hospitalization * Dr. Marquez will have ongoing follow-up with her for her wound. * Discussed plan with ID and CTS tachycardia: mild, has been borderline tachy much of admission check labs and tsh # mild systolic cardiomyopathy with an EF of 50% however increased oxygen needs overnight and diminished breath sounds. * Improved with IV Lasix # coronary artery disease status post 3 vessel CABG in April 2017 # mitral valve disease status post mitral valve replacement and atrial appendage clipping in April 2017 # hyperparathyroidism with electrolyte abnormalities followed by Dr. Larson. Awaiting patient to be well enough to undergo hyper parathyroidectomy. * Electrolytes have been normal here over the last 2 days * Dr. Larson aware patient is in the hospital, doubt any surgery planned for this until patient is off IV antibiotics. # hypertension # hyperlipidemia dispo: pending Subjective: dispo delayed 2/2 woundvac issues Objective: Vital Signs Temp Pulse Resp BP Pulse Ox 36.6 C 101 H 16 126/27 H 97 09/09/17 07:54 09/09/17 08:08 09/09/17 08:08 09/09/17 08:08 09/09/17 08:08 Microbiology 09/06/17 10:20 Gram Stain - Final Chest - Tissue 09/06/17 10:20 Gram Stain - Final Chest - Eswab 09/03/17 18:00 Blood Culture - Final Blood MRSA Blood Panel (PCR) - Final MRSA 09/03/17 18:15 Blood Culture - Final Blood Laboratory Results 09/07/17 04:00 09/09/17 05:13 09/08/17 09/09/17 09/10/17 05:59 05:59 05:59 Intake Total 450 1900 Output Total 1625 650 550 Balance -1175 1250 -550 - Physical Exam Constitutional: no apparent distress, appears nourished Eyes: PERRL, anicteric sclera Ears, Nose, Mouth, Throat: moist mucous membranes, hearing normal Cardiovascular: regular rate and rhythym, tachycardia, other (wound vac c/d/i without surrouding cellulitis) Respiratory: no respiratory distress, no rales or rhonchi Gastrointestinal: normoactive bowel sounds, soft, non-tender abdomen Genitourinary: No arredondo in urethra Skin: warm, normal color Musculoskeletal: full muscle strength Neurologic: AAOx3 ICD10 Worksheet Patient Problems: Problems Problem Status Onset Abscess of chest wall Acute S/P debridement Acute Acute blood loss anemia Acute Chronic Disease Mgmt/Transitional Care Acute Dyspnea Acute Fever Acute Hypokalemia Acute Methicillin resistant Staphylococcus aureus infection Acute ~06/09/17 S/P CABG x 3 Acute ~05/14/17 S/P mitral valve replacement with bioprosthetic valve Acute ~05/14/17 Severe mitral regurgitation Acute Sternal wound dehiscence Acute Weakness Acute Wound infection after surgery Acute Cardiomyopathy, ischemic Chronic Chronic systolic CHF (congestive heart failure), NYHA class 2 Chronic Coronary artery disease Chronic
--- NOTE | 2017-09-09 16:16 | PDIAF ---
- Diagnosis Diagnosis: MSSa sternal osteomyelitis Code Status: Full Code - Medication Management Discharge Medications: Medications to Continue on Transfer Lapel-3 Fatty Acids [Fish Oil 1000 mg (*)] 2,000 mg PO HS 04/03/14 [Last Taken 08/23/17] Aspirin EC [Aspirin EC 81 mg (*)] 81 mg PO DAILY #30 tab 04/05/14 [Last Taken ] Carvedilol [Coreg (*)] 6.25 mg PO BIDMEAL #60 tab 04/05/14 [Last Taken 08/23/17 18:00] Pantoprazole Sodium [Protonix 40mg (*)] 40 mg PO DAILY #30 tab 04/05/14 [Last Taken 08/23/17] Atorvastatin Calcium [Lipitor 10 mg (*)] 10 mg PO HS 04/20/17 [Last Taken ] Glucosamine/Chondroitin [Glucosamine/Chondroitin (*)] 1 each PO DAILY 04/20/17 [ Last Taken 08/23/17] Furosemide [Lasix 40 MG (*)] 40 mg PO DAILY #0 tab 06/17/17 [Last Taken 08/23/17 ] Potassium Cl [Klor-Con 20 meq (*)] 20 meq PO DAILY 06/21/17 [Last Taken 08/23/17 ] Polyethylene Glycol 3350 [Miralax 17 gm (*)] 17 gm PO DAILY PRN pkt 07/01/17 [ Last Taken 1 Month Ago ~07/23/17] Herbals/Supplements -Info Only 1 ea PO DAILY 08/23/17 [Last Taken 08/23/17] Cinacalcet HCl [Sensipar (*)] 30 mg PO BID #60 tab 08/28/17 [Last Taken Unknown] traMADol [Ultram 50 mg (*)] 50 mg PO Q4 PRN #60 tab 08/28/17 [Last Taken Unknown ] Acetaminophen [Tylenol 325mg (*)] 650 mg PO Q4HRS PRN 09/03/17 [Last Taken Unknown] Sennosides/Docusate Sodium [Senokot-S] 2 tab PO BID 09/03/17 [Last Taken Unknown ] DAPTOmycin [Cubicin] 500 mg IV DAILY@1000 ml 09/09/17 [Last Taken Unknown] Client Support Coordinator Antibiotics: daptomycin 500mg IV daily Retirement Antibiotic Stop Date: 10/18/17 Discharge Medications: Refer to the Discharge Home Medication list for PRN reason. PICC Care - Routine: Yes - Orders Services needed: Home Care, Registered Nurse Home Care Face to Face: I certify that this patient was under my care and that I had the required [id number] encounter meeting the encounter requirements on the discharge day. My findings support the fact that the patient is homebound as defined in Home Care Face to Face Continued: CMS Chapter 7 Medicare Benefits Manual 30.1.1 , The condition of the patient is such that there exists a normal inability to leave home and consequently, leaving home would require a considerable and taxing effort. Isolation Type: Contact Isolation - Labs/Radiology CBC w/diff Date: 09/13/17 (q mondays) CMP Date: 09/13/17 (q mondays) CRP Date: 09/13/17 (q mondays) CPK Date: 09/13/17 (qmond) Call or Fax Lab and Imaging Results to: fax to Dr. Shashi Razo- [phone] - Follow Up Care Current Providers and Referrals: CARLITO RUEDA [Other] - As per Instructions Shashi Razo MD [Medical Doctor] - 09/20/17 3:30 pm
[2017-09-09 17:10] VITALS: RESP 20
[2017-09-09 17:19] VITALS: BP 125/76; PULSE 93; TEMP 97.9; O2SAT 99
--- NOTE | 2017-09-09 17:29 | GDS ---
[f rep st] DISCHARGE SUMMARY DISCHARGE DIAGNOSES: 1. Recurrent sternal osteomyelitis, status post debridement by Dr. Edward Aggarwal. 2. Coronary artery disease, status post coronary artery bypass graft in April of 2017 with systoli c congestive heart failure with an ejection fraction of 50% to 55% without clinical heart failure in the hospital. 3. Mitral valve replacement. 4. Left atrial appendage ligation. HOSPITAL COURSE: Please see admission history and physical by Dr. Butch Dixon. She came from [facility]. She received a CT, which showed mediastinitis. She was seen by Infectious Disease and Car diothoracic Surgery. She went to the operating room on the . She was started on daptomycin. In itial blood cultures grew out 1 out of 2 MRSA. She was followed by ID. Her wound stain was positive for MRSA. She did not have sepsis. She was discharged home with a wound VAC with plan for 6 weeks of daptomycin followed by lifelong suppressive therapy with likely doxycycline. From a cardiac perspective, the patient was stable here. /[id number]/MODL
[2017-09-09] MEDS: traMADol 50 MG TAB PO PRN (17:58)
--- NOTE | 2017-09-10 12:53 | ASDISCHSUM ---
Discharge Information Plan Status:Home with Home Health Medically Cleared to Leave: Discharge Date:09/09/2017 07:40 PM CM D/C Disposition:Home Health Service ADT D/C Disposition:Home, Routine, Self-Care Projected Discharge Date:09/09/2017 11:00 AM Transportation at D/C:Family Discharge Delay Reason: Follow-Up Date:09/09/2017 11:00 AM Discharge Slot: Final Diagnosis: Placement Information Referral Type:Home Infusion Referral ID:[id number] Provider Name:[facility] [place] [facility] Address 1:[address] Address 2: City:[place] Selection Factors: State:[place] Referral Type:*Home Health Care Services Referral ID:[id number] Provider Name: Address 1: Phone Number: Address 2: Fax Number: City: Selection Factors: State: Patient Contact Information Contact Name:ROLDAN Relationship:Daughter Address:[address] Work Phone: City:[place] Phone: [facility]/Zip Code:[place] [address] Email: Financial Information Financial Class:Medicare Advantage Plans Primary Plan Desc:[employer] [facility] MEDICARE Primary Plan Number:[id number] Secondary Plan Desc: Secondary Plan Number: Assessment Information [facility] CM Progress Note CM Note CM Note Notes: Reviewed chart, spoke w/ ZULEMA Horowitz regarding pt's progress. Pt admitted for a chest wall abscess and mediastinitis. Pt underwent a CABG on May 14, 2017. Pt has an extensive history w/ several co-morbidities, including recent MRSA. Blood cultures pending. Pt's dghtr is involved in her care. Pt was admitted to [facility] from [facility]) SNF. Discharge needs remain unclear at this time. Anticipate pt will likely need SNF again. CM will need to meet w/ pt and family to determine if pt would like to return to . CM will cont to follow. Current Discharge Plan: To be determined, possibly [facility] Date Signed: 09/04/2017 06:01 PM Electronically Signed By:Sri Royal RN [facility] CM Progress Note CM Note CM Note Notes: CM spoke w/ Alicia River NP regarding d/c POC. Pt is having her I&D today. Pt has a supportive daughter but daughter is out of town in [facility]. Needs are TBD at this time. Pt was at [facility] in the past. CM to discuss dispo w/ pt. CM to follow. Plan: TBD Date Signed: 09/06/2017 03:29 PM Electronically Signed By:PHILL Mims [facility] CM Progress Note CM Note CM Note Notes: 09/07/[address]. Turner pt will require 6 more weeks of IV Dapto. Faxed referrals via [employer] for pricing. Awaiting PT evals for possible SNF rehab placement. Pt has had prior stays at [facility]. Pt lives on the same property as her daughter but in a seperate dwelling. Case Management d/c poc: Home infusion vs infusion clinic vs SNF Case Management to follow. 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 Currently applied $0 toward deductible. Drug goes thru Part D. current co pay for Dapto 500 mg q day is $295.00/dispense (week), subject to change. Case management to meet w/patient tomorrow to discuss. Date Signed: 09/07/2017 03:10 PM Electronically Signed By:Mirella Adrian RN [facility] Progress Note CM Note CM Note Notes: [place]07/2017 [place] [facility] [place] Network for with benefits. She is currently covered at 80% for infusion OOP Max is $6700. OOP Met as of today (excluding current hospital charges) is $143.03. Estimated supplies per day $17.60. Estimated drug co-pay per week/dispense is $1016.63 Once OOP is Met, patient will be covered 100%. Case Management will discuss both infusion costs and PT recommendation for home care with patient tomorrow. Pt may need to consider outpatient infusion center. Date Signed: 09/07/2017 05:45 PM Electronically Signed By:Mirella Adrian RN [facility]IA Progress Note CM Note CM Note Notes: 09/08/2017 Case Management Note Met w/pt. Pt prefers home care for IV Infusions. Grandson to stay with pt until daughter returns from trip this weekend. [facility] to provide IV antibiotics. Arranged [facility] for mobile home lot utility worker and PT. Started Wound Vac application for [facility]. Prescription is on front of chart and needs MD signature for final authorization. Case Management d/c poc: home with grandson with [facility] and [facility]. Case Management to follow. Date Signed: 09/08/2017 04:27 PM Electronically Signed By:Mirella Adrian RN Case Management Discharge Plan Note Case Management Discharge Discharge Order Complete? Answers: Yes Patient to Obtain Answers: Other Notes: [facility] Medications Transportation Arranged Answers: Family/Friends EMTALA Complete Answers: No Case Management Transport Answers: No Form Complete Faxed Final Orders Answers: Yes Agency/Facility Transfer Answers: Yes Report Printed & Faxed to Receiving Agency Family Notified Answers: No Discharge Comments Notes: Pt is being discharged today w/ [employer] wound vac. Pt is agreeable to paying the 40% copay for the wound vac. Pt signed the [employer] confirmation sheet. CM faxed the confirmation sheet to [facility]. CM sent d/c orders to [facility]. provided ZULEMA Lock w/ phone number to give report to [facility]. CM available for changes. Plan: ZULEMA WARD with Christina Date Signed: 09/09/2017 04:54 PM Electronically Signed By:PHILL Mims Intervention Information Intervention Type:*IM-Signed Date of Service:09/09/2017 04:35 PM Patient Type:Inpatient Staff Member:Viki Zhu Hours: Discipline: Severity: Comment:
--- NOTE | 2017-09-10 15:42 | ECHO ---
[email or web address] [address] Main: [phone] Fax: Transthoracic Echocardiogram Name: BRITTNI MARSHALL MR#: [id number] Study Date: 09/07/2017 Study Time: 11:13 AM Date of : 1940 Age: 77 year(s) Height: 160 cm (63 in.) Weight: 77.11 kg (170 lb.) BSA: 1.8 m2 Gender: Female Examination: Echo Indication: MRSA bacteremia/assess valve function/wound vac in place Image Quality: Contrast: Requested by: Tato Jackson BP: 136 mmHg/96 mmHg Heart Rate: Rhythm: Indication: MRSA bacteremia/assess valve function/wound vac in place Procedure Staff Cashier: Judith Richardson [facility] Reading Physician: Edward Da Silva Requesting Provider: Conclusions: Severely dilated left ventricle. The ejection fraction is estimated to be 15-20 %. The left atrium is moderately dilated. Trivial to mild mitral regurgitation. A bioprosthetic mitral valve is in place.. MV mean PG is 7mmHG.. The aortic valve is normal in appearance and function. Mild tricuspid regurgitation is present. RVSP is 46mmHG.. No pericardial effusion. Compared to the echo on 05/08/17 post op MVR, the EF has decreased significantly (was 50-55%).. Measurements: Chambers Valvular Assessment AV/MV Valvular Assessment TV/PV Normal Normal Normal Name Value Range Name Value Range Name Value Range Ao Naomi (MM): 3.9 cm (2.2 cm-3.7 AV Vmax: 0.98 m/s (1 m/s-1.7 TR Vmax: 3.20 mm/s ( - ) cm) m/s) TR PGmax: 41 mmHg ( - ) IVSd (2D): 1.0 cm (0.6 cm-1.1 AV maxP mmHg ( - ) syst. PAP: 46 mmHg ( - ) cm) AV meanP mmHg ( - ) LVDd (2D): 7.2 cm (3.9 cm-5.3 MV maxP mmHg ( - ) cm) MV meanP mmHg ( - ) LVPWd (2D): 0.6 cm ( - ) LVEF (MOD4): 17 % (>=55 %) EF Range: 15-20 % Continued Measurements: Chambers Valvular Assessment AV/MV Valvular Assessment TV/PV Patient: BRITTNI MARSHALL Study Date: 09/07/2017 Page 1 of 2 11:13 AM Name Value Name Value Name Value LADs: 5.0 cm MV VTI: 33.40 cm CVP (est.): 5 mmHg LADs Lon.4 cm LA Area: 35.8 cm2 Findings: Left Ventricle: Severely dilated left ventricle. The ejection fraction is estimated to be 15-20 %. Right Ventricle: Normal size right ventricle. Left Atrium: The left atrium is moderately dilated. Right Atrium: The right atrium is normal in size. Mitral Valve: Trivial to mild mitral regurgitation. A bioprosthetic mitral valve is in place.. MV mean PG is 7mmHG.. Aortic Valve: The aortic valve is normal in appearance and function. Tricuspid Valve: The tricuspid valve is normal in appearance and function. Mild tricuspid regurgitation is present. The pulmonary artery pressure is mildly increased. RVSP is 46mmHG.. Pulmonic Valve: The pulmonic valve is normal in appearance and function. Mild pulmonic valve regurgitation is noted. Aorta: The aorta is normal. Pericardium: No pericardial effusion. Exam Comments: Compared to the echo on 05/08/17 post op MVR, the EF has decreased significantly (was 50-55%).. (No Signature Object) Patient: BRITTNI MARSHALL Study Date: 09/07/2017 Page 2 of 2 11:13 AM D:_[id number]
--- NOTE | 2017-09-16 11:54 | GOP ---
[f rep st] OPERATIVE REPORT DATE OF OPERATION: 09/06/2017 SURGEON: Edward Aggarwal DO ANESTHESIOLOGIST: Maximus Green MD PREOPERATIVE DIAGNOSIS: Recurrent chest wall infection. 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 PROCEDURE PERFORMED: Incision and drainage of abscess with debridement of cartilage and placement of wound VAC. FINDINGS: DESCRIPTION OF PROCEDURE: Patient was brought to the operating room intubated, monitoring lines were placed. She was prepped and draped in sterile classical manner. A small fistulous site at the base of the sternotomy incision was probed and opened for approximately 4 cm. There was a small amount of seropurulent fluid which was cultured. With aggressive tracking, it appeared to track down to the l ower portion of the sternal margin where cartilage was identified. I then excised a 1 x 1 cm area of cartilage in order to remove any potential foreign body reaction from that. It was cultured and a w ound VAC was placed. The patient was returned to recovery in stable condition. /[id number]/MODL
--- NOTE | 2017-09-16 12:43 | PQFORM ---
PHYSICIAN QUERY FORM Needs Your Response This query form is being sent to you to assure this patient record is coded properly. Please respond to the question below: AIRPORT OPERATIONS CREW MEMBER QUESTION: Dear Dr. Aggarwal, For coding purposes (there is a different code choice for excisional versus non excisional debridement)- please clarify if the debridement done on 19 Jul 2016 was: _x__~ Excisional ___~ Non Excisional ___~ Other Thank You PILAR Faye [facility]/Coding Dept. [phone] INSTRUCTIONS FOR RESPONSE: Answer question by clicking on the "Edit Document" button. Move cursor to area below the stars. When complete, hit "Save." Click on the "Sign" button, then click "Sign" again. Type in your PIN and hit "Enter." MTDD
== END 2017-09-09 19:40 | disposition home health service (06) | DRG 501 ==
LOC: F3E 19:18 → F2W 09-06 10:36
PROVIDERS: ADMIT Student in an Organized Health Care Education/Training Program; ATTEND Student in an Organized Health Care Education/Training Program
DX: M86.9 Osteomyelitis, unspecified (principal); L02.213 Cutaneous abscess of chest wall; I11.0 Hypertensive heart disease with heart failure; I50.20 Unspecified systolic (congestive) heart failure; I25.10 Atherosclerotic heart disease of native coronary artery without angina pectoris; E21.3 Hyperparathyroidism, unspecified; E78.5 Hyperlipidemia, unspecified; K21.9 Gastro-esophageal reflux disease without esophagitis; D53.9 Nutritional anemia, unspecified; B95.62 Methicillin resistant Staphylococcus aureus infection as the cause of diseases classified elsewhere; Z95.1 Presence of aortocoronary bypass graft; Z95.4 Presence of other heart-valve replacement
CPT/HCPCS: 97116-GP; 97162-GP; 97166-GO; 97530-GP; 97535-GO; C1751; J0171; J0878; J1650; J1940; J2704; J3010; J3475; Q9967

== ENCOUNTER → 2018-07-07 | Outpatient (CLI) | payer OTHER | LOC: FIMAGING 12:19 | PROVIDERS: ATTEND Surgery | DX: E21.0 Primary hyperparathyroidism (principal) | CPT/HCPCS: 78070; A9500; A9516 ==

== ENCOUNTER 2018-08-02 07:49 | Observation (INO) | payer OTHER ==
--- NOTE | 2018-07-29 14:01 | GHP ---
DATE OF ADMISSION: 08/02/2018 HISTORY OF PRESENT ILLNESS: This is an 78-year-old female with a history of hyperparathyroidism and hypercalcemia. She denies bone pain, kidney stones, and depression. Her most recent blood work reve aled a calcium level of 10.6 and a PTH of 142. She also recently had a sestamibi parathyroid scan th at did not reveal evidence of a parathyroid adenoma. PAST MEDICAL HISTORY: Arthritis, cardiomyopathy, congestive heart failure, coronary artery disease, hearing loss, hypercalcemia, hyperlipidemia, hyperparathyroidism, hypertension, mediastinitis, migrai nancie, mitral regurgitation, myocardial infarction, vertigo, vitamin D deficiency. PAST SURGICAL HISTORY: Bunionectomy, CABG, carpal tunnel repair, closure of left atrial appendage, m astoidectomy, mitral valve replacement. MEDICATIONS: Aspirin 81 mg, atorvastatin 20 mg, Coreg 6.25 mg, doxycycline 100 mg, fish oil, furosem sharon 40 mg, Klor-Con mEq, Lasix 20 mg, losartan 25 mg, multivitamin, Protonix 40 mg, tramad ol 50 mg, Tylenol 325 mg, vitamin B complex, vitamin D3. ALLERGIES: NSAIDs, sulfa, vancomycin. FAMILY HISTORY: Heart disease, diabetes, breast cancer, hypertension. SOCIAL HISTORY: The patient is a former smoker. She drinks 1 alcoholic beverage per day. She denie s any use of recreational drugs. REVIEW OF SYSTEMS: A 10-point review of systems was performed and is negative, aside from what is in the HPI. PHYSICAL EXAM: GENERAL: Well appearing, well dressed, no acute distress. HEENT: Normocephalic, at raumatic. Pupils are equal and round, no scleral icterus, hard of hearing, mucous membranes moist. NECK: Trachea is midline. Thyroid exam is normal. CARDIAC: Regular rate and rhythm, no clicks, mur murs, or rubs. CHEST: Clear to auscultation bilaterally. ABDOMEN: Soft, nontender, nondistended. SKIN: Warm and dry, no rashes or jaundice. NEUROLOGICAL: Alert and oriented x3. PSYCHIATRIC: Ap propriate mood and affect. IMPRESSION AND PLAN: This is a patient with a history of hyperparathyroidism and hypercalcemia. Her most recent calcium level is 10.6, and her PTH is 142. Sestamibi scan did not reveal a parathyroid adenoma. This patient will need surgery to have her parathyroid out. We discussed all risks and opt ions. Risks of surgery include, but are not limited to, infection, bleeding, heart attack, and . Patient understands and wishes to proceed. /[id number]/MODL
[2018-08-02] MEDS ORDERED: ceFAZolin 2 GM/DEXTROSE 100 ML IV ONE (08:07)
[2018-08-02] MEDS ORDERED: THROMBIN (BOVINE) 5,000 UNIT VIAL TP ONE ×2 (08:14→13:15)
[2018-08-02] MEDS ORDERED: BACITRACIN ZINC 0.5 OZ OINTTUBE TP ONE (08:14)
[2018-08-02] MEDS ORDERED: BUPIVACAINE/EPI 0.5% 30 ML SDV ONE (08:14)
[2018-08-02] MEDS ORDERED: PROPOFOL 200 MG/20 ML VIAL ONE (09:58)
[2018-08-02] MEDS ORDERED: ROCURONIUM 50 MG/5 ML VIAL ONE (09:59)
[2018-08-02] MEDS ORDERED: LIDOCAINE 2% 5 ML SDV ONE (10:01)
[2018-08-02] MEDS ORDERED: fentaNYL 250 MCG/5 ML INJ ONE (10:04)
[2018-08-02] MEDS ORDERED: ONDANSETRON 4 MG/2 ML VIAL ONE (10:06)
[2018-08-02] MEDS ORDERED: DEXAMETHASONE 4 MG/ML VIAL ONE (10:07)
--- NOTE | 2018-08-02 10:41 | PDANEPAE ---
ANE History of Present Illness parathyroid nodule, hypercalcemia. here for parathyroidectomy ANE Past Medical History - Cardiovascular History Hx Hypertension: Yes Hx Arrhythmias: No Hx Chest Pain: No Hx Coronary Artery / Peripheral Vascular Disease: Yes Hx CHF / Valvular Disease: Yes Cardiovascular History Comment: CABG x3 w/MVR 04/2017. VT 2013 - no chest pain with VT - Pulmonary History Hx COPD: No Hx Asthma/Reactive Airway Disease: No Hx Recent Upper Respiratory Infection: No Hx Oxygen in Use at Home: No Hx Sleep Apnea: No Sleep Apnea Screening Result - Last Documented: Negative Pulmonary History Comment: can be SOB w/activity - Neurologic History Hx Cerebrovascular Accident: No Hx Seizures: No Hx Dementia: No Neurologic History Comment: right arm with intermittent tingling. low back pain -chronic - Endocrine History Hx Diabetes: No - Renal History Hx Renal Disorders: No - Liver History Hx Hepatic Disorders: No - Neurological & Psychiatric Hx Hx Neurological and Psychiatric Disorders: No Neurological / Psychiatric History Comment: low back pain-chronic - Cancer History Hx Cancer: No - Congenital Disorder History Hx Congenital Disorders: No - GI History Hx Gastrointestinal Disorders: Yes Gastrointestinal History Comment: on Protonix since GI bleeding w/NSAIDs - Other Health History Other Health History: wears glasses. hearing loss in left ear, does not have hearing aids. upper and lower dentures. anemia. osteomyletits of sternum - Chronic Pain History Chronic Pain: Yes (low back pain) - Surgical History Prior Surgeries: I&D sternum 05/2017 x3 & 08/2017. CABG x 3 w/MVR 04/2017. mastoidectomy - at 8 mos of age. bunion sx '88. carpal kim '. cardiac cath 2016 ANE Review of Systems Review of Systems: - Exercise capacity METS (RN): 3 METS ANE Patient History - Allergies Allergies/Adverse Reactions: NSAIDS (Non-Steroidal Anti-Inflamma [NSAIDS (Non-Steroidal Anti-Inflammatory Drug)] Allergy (Verified 08/01/18 12:45) GI bleeding Sulfa (Sulfonamide Antibiotics) Allergy (Verified 08/01/18 12:45) cannot remember reaction, was many years ago - Home Medications Home Medications: Aspirin [Aspirin 81mg (*)] 81 mg PO DAILY 08/01/18 [Last Taken Unknown] Atorvastatin Calcium [Lipitor 20 mg (*)] 20 mg PO HS 08/01/18 [Last Taken Unknown] Carvedilol [Coreg (*)] 6.25 mg PO BIDMEAL 08/01/18 [Last Taken Unknown] Cholecalciferol (Vitamin D3) [Vitamin D3] 5,000 unit PO DAILY 08/01/18 [Last Taken Unknown] Doxycycline Hyclate [Vibramycin 100 MG (*)] 100 mg PO HS 08/01/18 [Last Taken Unknown] Losartan Potassium [Cozaar 25 mg (*)] 12.5 mg PO DAILY 08/01/18 [Last Taken Unknown] Pantoprazole Sodium [Protonix 40mg (*)] 40 mg PO DAILY 08/01/18 [Last Taken Unknown] Potassium Chloride [Klor-Con 10] 10 meq PO HS 08/01/18 [Last Taken Unknown] - NPO status NPO Since - Liquids (Date): 08/02/18 NPO Since - Liquids (Time): 06:15 NPO Since - Solids (Date): 08/01/18 NPO Since - Solids (Time): 22:00 - Smoking Hx Smoking Status: Former smoker - Family Anes Hx Family Hx Anesthesia Complications: none ANE Labs/Vital Signs - Labs Result Diagrams: 08/02/18 09:05 - Vital Signs Blood Pressure: 147/79 Heart Rate: 81 Respiratory Rate: 16 O2 Sat (%): 94 Height: 160.02 cm Weight: 74.843 kg ANE Physical Exam - Airway Neck exam: FROM Mallampati Score: Class 2 Mouth exam: normal dental/mouth exam - Pulmonary Pulmonary: no respiratory distress, no rales or rhonchi - Cardiovascular Cardiovascular: regular rate and rhythym, diastolic murmur - ASA Status ASA Status: III ANE Anesthesia Plan Anesthesia Plan: general endotracheal anesthesia Lines/Monitors: additional IV
[2018-08-02] MEDS ORDERED: SUGAMMADEX SODIUM 200 MG/2 ML VIAL IVP ONE (13:24)
[2018-08-02] MEDS ORDERED: ONDANSETRON 4 MG/2 ML VIAL IVP PRN (13:39)
[2018-08-02] MEDS ORDERED: HYDROmorphONE/DILAUDID 1 MG/ML INJ IVP PRN (13:39)
--- NOTE | 2018-08-02 13:44 | POSTOPPROG ---
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 largest 910mg. Inf/Abcess present in the surg proc area at time of surgery?: No Depth: Superfical (Skin SQ) EBL: Minimal Complications: none Specimen(s): multiple to pathology
[2018-08-02] MEDS ORDERED: NS 1,000 ML IV SCH (13:45)
[2018-08-02] MEDS ORDERED: DEXAMETHASONE 4 MG/ML VIAL IVP PRN (13:46)
[2018-08-02] MEDS ORDERED: NALOXONE HCL 0.4 MG/ML INJ IVP PRN (13:46)
[2018-08-02] MEDS ORDERED: MEPERIDINE 25 MG/0.5 ML AMP IVP PRN (13:46)
[2018-08-02] MEDS ORDERED: HYDROmorphONE/DILAUDID 2 MG/ML INJ IVP PRN (13:46)
[2018-08-02] MEDS ORDERED: fentaNYL 100 MCG/2 ML INJ IVP PRN (13:46)
[2018-08-02] MEDS ORDERED: PROMETHAZINE HCL 25 MG/ML INJ IVP PRN (13:46)
[2018-08-02] MEDS ORDERED: HYDROmorphONE/DILAUDID 2 MG/ML INJ ONE (14:14)
--- NOTE | 2018-08-02 15:51 | GOP ---
DATE OF OPERATION: SURGEON: Juan Larson MD PIVOT MAKER: Edith Davis, ESCOBAR. ANESTHESIOLOGIST: Jeimy Vasquez DO. PREOPERATIVE DIAGNOSIS: Hyperparathyroidism. POSTOPERATIVE DIAGNOSIS: Hyperparathyroidism. PROCEDURE PERFORMED: Parathyroidectomy with exploration of all 4 glands. FINDINGS: The patient was found to have mild hyperplasia of 2 lower pole glands weighing over 100 mg . However, had a very large right upper pole parathyroid gland in a retroesophageal position on the right side weighing 900 mg. PTH dropped from 142 down to 47 after removal of the large parathyroid a denoma. Prior to that, the PTH levels had directly gone up to 189. DESCRIPTION OF PROCEDURE: Patient was taken to the operating room where she received a satisfactory general endotracheal anesthesia by Dr. Vasquez. She was placed in the supine position, prepped and laura ped in the usual sterile fashion. A low collar incision was made and carried through the platysma an d subcutaneous tissue. Continual platysmal flaps were developed through the thyroid cartilage to the sternal notch. Strap muscles were in the midline. The thyroid lobe on the left was first mobilized, retracting the strap muscles. At the upper pole, parathyroid gland was identified. It a ppeared to be enlarged, but not dramatically. It was dissected free. A small biopsy was taken of th at, which originally was confirmed as parathyroid tissue. With that gland left in place, dissection extended down on the left lower pole area, and at the top part of the thymus gland, a small nodule wa s identified, which appeared to be a parathyroid. A biopsy was sent of that. Dissection then extend ed over to the right lower pole position, and a 1 cm gland was dissected free and thought to be enlar ged enough to represent the parathyroid adenoma. It, too, however, was left in place, and the dissec tion was done up in the right upper pole position. A small mass thought to be the parathyroid was di ssected free and identified there, and a biopsy was sent out of that piece. After all 4 glands had b een exposed, the largest one by far was the right lower pole gland, and this was removed and sent to Pathology. That was returned as a possible parathyroid adenoma weighing over 100 mg. However, the l eft lower pole biopsy and the right upper pole biopsy were nondiagnostic. The wound had been closed awaiting PTH levels. However, the PTH level came back 77 and then a second one came back at 189. It was felt that we had not successfully identified the extent of the disease. The wound was re-opened and exposed. Dissection extended first on the left lower pole position. A parathyroid gland was sharon ntified in the upper horn of the thymus in a completely symmetric position to the right lower pole gl and. This then was exposed, and was thought to be larger, and was removed and sent to Pathology. Th at again was returned as consistent with parathyroid hyperplasia weighing over 100 mg. However, the PTH level still remained elevated at over 160. Dissection ensued at the right upper pole position. The thyroid was retracted radically to the left. The recurrent nerve was skeletonized and exposed fo r its entire course, and difficult dissection ensued. Eventually, in the retroesophageal groove on th e right between the esophagus and the trachea, a 1.5 to 2 cm nodule was discovered. This was dissect ed free and removed, and felt to be the offending adenoma. This was sent to Pathology, where that wa s confirmed, although the diagnosis was still considered consistent with hyperplasia. PTH level did drop down to 47 after removal of this mass. The wound was irrigated and hemostasis was assured. Top ical thrombin was placed in the surgical bed. Strap muscles approximated with 3-0 Vicryl, as was the platysma and subcutaneous tissue. The wound was infiltrated with 0.5% Marcaine. The skin was close d with 4-0 Monocryl subcuticular stitch. She tolerated the procedure well. She was taken to the rec overy room in good condition. There were no complications. Copy requested to: Dr. Mo /[id number]/MODL
[2018-08-02] MEDS: CARVEDILOL 6.25 MG TAB PO SCH (17:19)
[2018-08-02] MEDS: CALCIUM CARBONATE 500 MG CHEWABLE TAB PO SCH ×2 (17:19→20:26)
[2018-08-02] MEDS: HYDROCODONE/APAP 5/325 TAB PO PRN ×2 (17:25→21:25)
[2018-08-02] MEDS: DOCUSATE SODIUM 100 MG CAP PO SCH (20:26)
[2018-08-02] MEDS ORDERED: DOXYCYCLINE HYCLATE 100 MG CAP/TAB PO SCH (21:00)
[2018-08-02] MEDS ORDERED: ATORVASTATIN CALCIUM 20 MG TAB PO SCH (21:00)
[2018-08-02] MEDS ORDERED: POTASSIUM CL 10 MEQ TAB PO SCH (21:00)
[2018-08-03 08:11] VITALS: BP 111/46
[2018-08-03] MEDS: CALCIUM CARBONATE 500 MG CHEWABLE TAB PO SCH (08:50)
[2018-08-03] MEDS: CARVEDILOL 6.25 MG TAB PO SCH (08:50)
[2018-08-03] MEDS: DOCUSATE SODIUM 100 MG CAP PO SCH (08:51)
[2018-08-03] MEDS ORDERED: PANTOPRAZOLE SODIUM 40 MG TAB PO SCH (09:00)
[2018-08-03] MEDS ORDERED: LOSARTAN POTASSIUM 25 MG TAB PO SCH (09:00)
[2018-08-03] MEDS ORDERED: CHOLECALCIFEROL VIT D3 2,000 UNITS TAB/CAP PO SCH (09:00)
[2018-08-03] MEDS ORDERED: ASPIRIN 81 MG CHEWABLE TAB PO SCH (09:00)
--- NOTE | 2018-08-03 09:27 | SOAPPROG ---
SOAP Progress Note Assessment/Plan: Assessment/Plan: 78 Y F s/p parathyroidectomy, POD#1. Doing well. Ca++ wnl. Neck inc cdi, min-mod swelling. D/c to home with early outpatient f/u and calcium labs. Danielle has tramadol at home for pain. F/u earlier if numbness or tingling or cramps. Continue tums tid at home. S: No numbness or tingling. Minimal pain. Tolerating breakfast. O: alert, nad neg chovstek's inc cdi c steris ctab rrr abd soft ext wwp 08/03/18 09:25 Objective: Vital Signs Temp Pulse Resp BP Pulse Ox 36.9 C 69 16 111/46 L 95 08/03/18 08:10 08/03/18 08:10 08/03/18 08:10 08/03/18 08:10 08/03/18 08:10 Laboratory Results 08/03/18 04:44 08/03/18 04:44 08/02/18 08/03/18 08/04/18 05:59 05:59 05:59 Intake Total 2220 Output Total 0 Balance 2220 ICD10 Worksheet Patient Problems: Problems Problem Status Onset Abscess of chest wall Acute Acute blood loss anemia Acute Chronic Disease Mgmt/Transitional Care Acute Dyspnea Acute Fever Acute Hypokalemia Acute Methicillin resistant Staphylococcus aureus infection Acute ~06/09/17 S/P CABG x 3 Acute ~05/14/17 S/P debridement Acute S/P mitral valve replacement with bioprosthetic valve Acute ~05/14/17 Severe mitral regurgitation Acute Sternal wound dehiscence Acute Weakness Acute Wound infection after surgery Acute Cardiomyopathy, ischemic Chronic Chronic systolic CHF (congestive heart failure), NYHA class 2 Chronic Coronary artery disease Chronic
[2018-08-04] MEDS ORDERED: ENOXAPARIN 40 MG/0.4 ML SYR SC SCH (09:00)
--- NOTE | 2018-08-08 14:13 | GDS ---
DISCHARGE DIAGNOSES: Hyperparathyroidism, possible hyperplasia. PROCEDURES: Parathyroidectomy with exploration of all 4 glands. INTRAOPERATIVE FINDINGS: Patient was found to have mild hyperplasia of 2 lower pole glands weighing over 100 mg each. Intraoperative PTH actually increased after the removal of these glands. Ultimate ly a 900 mg right upper pole parathyroid gland was found. PTH then dropped down to 47 within normal limits. HOSPITAL COURSE: The patient is an 78-year-old female who was found to have hyperparathyroidism. Sh e underwent surgeries with parathyroidectomy. All 4 glands were explored. Three were removed and in itial pathology favored hyperplasia. The patient's postoperative course was uneventful. She was sta rted on Tums t.i.d. Calcium levels were normal. Her pain was well controlled and she denied any par esthesias or other problems. DISCHARGE INSTRUCTIONS: Patient was discharged to home on postoperative day 1 in stable condition wi plans for early outpatient followup and calcium labs. She is to continue her Tums at home. She d id not want prescription pain medicine as she had tramadol at home. /[id number]/MODL
== END 2018-08-03 11:14 | disposition home or self-care (01) ==
LOC: F3E 07:49
PROVIDERS: ADMIT Surgery; ATTEND Surgery
PROC: 0GBQ0ZX Excision of Multiple Parathyroid Glands, Open Approach, Diagnostic (ICD-10-PCS; principal; 2018-08-02 09:15)
DX: E21.0 Primary hyperparathyroidism (principal); I25.10 Atherosclerotic heart disease of native coronary artery without angina pectoris; E78.5 Hyperlipidemia, unspecified; I10 Essential (primary) hypertension; I34.0 Nonrheumatic mitral (valve) insufficiency; I25.2 Old myocardial infarction; M19.90 Unspecified osteoarthritis, unspecified site; Z95.5 Presence of coronary angioplasty implant and graft; Z95.2 Presence of prosthetic heart valve; Z87.891 Personal history of nicotine dependence
CPT/HCPCS: 60500; 88304; 88305; 88331; G0378; J0690; J1100; J1170; J2405; J2704; J3010